=== PATIENT | female | born 1975 | race Caucasian/White ===

== ENCOUNTER 2016-08-10 12:19 | Inpatient (IN) | payer MEDICARE, OTHER ==
[~2016-08-10] VITALS: Ht 165.1 cm; Wt 73.5 kg
[2016-08-10] VITALS (21 sets, daily range): BP systolic 86–113; BP diastolic 41–71
[2016-08-10] MEDS ORDERED: CEFEPIME 1 GM in IV D5W 50 ML IV ONE (12:30)
[2016-08-10] MEDS ORDERED: VANCOMYCIN 1 GM in IV D5W 250 ML IV ONE ×2 (12:30→15:30)
[2016-08-10] MEDS ORDERED: ACETAMINOPHEN 650 MG/SUPP.RECT RC ONE ×2 (12:30→12:54)
[2016-08-10] MEDS ORDERED: IV NS 0.9% 1,000 ML BAG IV ONE ×2 (12:30→15:30)
[2016-08-10 12:40] LABS: BASOPHILS # (AUTO) 0.6 /CMM (0.0-0.2); BASOPHILS % (AUTO) 2.7 % (0.0-2.0); DIFF TOTAL % 100 %; HEMATOCRIT 45 % (33-45); LYMPHOCYTES # (AUTO) 2.1 /CMM (0.8-4.8); LYMPHOCYTES % (AUTO) 9.1 % (20.0-44.0); MEAN CORPUSCULAR HEMOGLOBIN 28 PG (26.0-33.0); MEAN CORPUSCULAR HGB CONC 34 g/dl (31.0-36.0); MEAN CORPUSCULAR VOLUME 82 fL (82-100); MONOCYTES # (AUTO) 0.3 /CMM (0.1-1.30); MONOCYTES % (AUTO) 1.3 % (2.0-12.0); NEUTROPHILS # (AUTO) 19.9 /CMM (1.8-8.9); NEUTROPHILS % (AUTO) 86.9 % (43.0-81.0); PLATELET COUNT (AUTO) 356 /CMM (150-450); RED BLOOD CELL COUNT(AUTO) 5.44 MIL/uL (4.0-5.2); WHITE BLOOD COUNT (AUTO) 22.9 K/uL (4.3-11.0)
[2016-08-10 12:42] LABS: KETONES,URINE >=160 (NEGATIVE); LEUKOCYTE ESTERASE ,URINE Large (NEGATIVE); PH,URINE 8.5 (5.0-8.0)
[2016-08-10 12:49] LABS: ADD UA MICROSCOPIC YES
[2016-08-10 12:51] LABS: CALCIUM, SERUM 9.1 mg/dL (8.5-10.1); CREATININE 0.9 mg/dL (0.6-1.3); POTASSIUM 3.5 mmol/L (3.5-5.1)
[2016-08-10 12:52] LABS: ADD URINE CULTURE YES; WBC,URINE 21-50 /HPF (0-3)
[2016-08-10 12:54] LABS: INR 1.11 (0.87-1.13); PROTHROMBIN TIME 11.7 SECS (9.5-12.7)
[2016-08-10 12:56] LABS: ALBUMIN 2.8 g/dL (3.4-5.0); BILIRUBIN,DIRECT 0.1 mg/dL (0.0-0.2); BILIRUBIN,TOTAL 0.4 mg/dL (0.2-1.0); INDIRECT BILIRUBIN 0.3 mg/dL (0.0-1.1); TOTAL PROTEIN, SERUM 7.5 g/dL (6.4-8.2)
[2016-08-10 12:58] LABS: TROPONIN I 0.026 ng/mL (0.00-0.056)
[2016-08-10] MEDS ORDERED: LEVOFLOXACIN 750 MG /D5W 150ML 150 ML IV ONE (13:00)
[2016-08-10] MEDS ORDERED: AZTREONAM 2 G in IV NS 0.9% 100 ML IV ONE (13:00)
[2016-08-10] MEDS ORDERED: IV SET PRIMARY 1 EA INFUS.SET MC ONE (13:13)
[2016-08-10] MEDS ORDERED: IV NS 0.9% 250 ML IV ONE (13:13)
[2016-08-10] MEDS ORDERED: IV NS 0.9% 2,000 ML ONE (13:13)
[2016-08-10 13:31] LABS: LACTIC ACID 1.2 mmol/L (0.4-2.0)
[2016-08-10 13:50] LABS: BAND % (MANUAL) 5 % (0.0-5.0); LYMPHOCYTES % (MANUAL) 15 % (16-48); PLATELET ESTIMATE ADEQUATE
[2016-08-10] MEDS ORDERED: IV SET PRIMARY PUMP SET 1 EA INFUS.SET MC ONE ×2 (13:58→16:10)
[2016-08-10] MEDS ORDERED: NEOM10DR11 EACH EAR (14:28)
[2016-08-10] MEDS ORDERED: ALPR2TAB2 PO (14:28)
[2016-08-10] MEDS ORDERED: DULO20CA PO (14:28)
[2016-08-10] MEDS ORDERED: OXYC40TA50 PO (14:28)
[2016-08-10] MEDS ORDERED: GLAT40SY SQ (14:28)
[2016-08-10] MEDS ORDERED: GABA-534 PO ×2 (14:28)
[2016-08-10] MEDS ORDERED: DIVA250T6 PO (14:28)
[2016-08-10] MEDS ORDERED: BACL20TA PO (14:28)
[2016-08-10] MEDS ORDERED: OXYB15TA PO (14:28)
[2016-08-10] MEDS ORDERED: METO5TAB87 PO (14:28)
[2016-08-10] MEDS ORDERED: CEPH500C2 PO (14:28)
[2016-08-10] MEDS ORDERED: ONDANSETRON HCL/PF 4 MG/2 ML VIAL IVP PRN (15:30)
[2016-08-10] MEDS ORDERED: ACETAMINOPHEN 325 MG TABLET PO PRN (15:30)
[2016-08-10] MEDS ORDERED: SECONDARY IV SET 1 EA INFUS.SET MC ONE ×2 (16:10→21:25)
[2016-08-10] MEDS ORDERED: FEE PK DOSING 1 MIN EA MC ONE (16:14)
[2016-08-10] MEDS ORDERED: NOREPINEPHRINE 8 MG in IV D5W 500 ML IV PRN (17:00)
[2016-08-10] MEDS: IV NS 0.9% 1,000 ML IV PRN (17:04)
[2016-08-10 17:29] LABS: ABG BASE EXCESS -1.6 mmol/L; ABG HCO3 21.4 mmol/L; ABG PH 7.457 (7.350-7.450); ABG PO2 110.2 mmHg (75.0-100.0); ABG TOTAL HEMOGLOBIN 12.3 G/dL (12.0-16.0); ALLEN TEST Pass; AaDO2 45.7 mmHg; O2Hb 96.1 % (94.0-97.0)
[2016-08-10] MEDS ORDERED: MEROPENEM 500 MG in IV NS 0.9% 50 ML IV SCH (21:00)
[2016-08-10] MEDS ORDERED: AZTREONAM 1 G in IV NS 0.9% 50 ML IV SCH (21:00)
[2016-08-10] MEDS: MEROPENEM 1 G in IV NS 0.9% 100 ML IV SCH (21:34)
[2016-08-10] MEDS: VANCOMYCIN 1 GM in IV D5W 250 ML IV SCH (22:37)
[2016-08-11] VITALS (31 sets, daily range): BP systolic 80–130; BP diastolic 34–78
[2016-08-11] MEDS: IV NS 0.9% 1,000 ML IV PRN (05:01)
[2016-08-11] MEDS: MEROPENEM 1 G in IV NS 0.9% 100 ML IV SCH ×3 (05:01→21:08)
[2016-08-11 05:18] LABS: ALBUMIN 2.2 g/dL (3.4-5.0); BILIRUBIN,TOTAL 0.4 mg/dL (0.2-1.0); CALCIUM, SERUM 7.9 mg/dL (8.5-10.1); CREATININE 0.6 mg/dL (0.6-1.3); TOTAL PROTEIN, SERUM 5.5 g/dL (6.4-8.2)
[2016-08-11 05:21] LABS: BASOPHILS % (AUTO) 0.3 % (0.0-2.0); DIFF TOTAL % 100 %; EOSINOPHILS # (AUTO) 0.2 /CMM (0.0-0.7); EOSINOPHILS % (AUTO) 1.9 % (0.0-6.0); HEMATOCRIT 33 % (33-45); HEMOGLOBIN 10.8 g/dL (11.5-14.8); LYMPHOCYTES # (AUTO) 2.5 /CMM (0.8-4.8); LYMPHOCYTES % (AUTO) 26.5 % (20.0-44.0); MEAN CORPUSCULAR HEMOGLOBIN 27 PG (26.0-33.0); MEAN CORPUSCULAR HGB CONC 33 g/dl (31.0-36.0); MEAN CORPUSCULAR VOLUME 83 fL (82-100); MONOCYTES # (AUTO) 0.8 /CMM (0.1-1.30); MONOCYTES % (AUTO) 8.3 % (2.0-12.0); NEUTROPHILS # (AUTO) 6.1 /CMM (1.8-8.9); PLATELET COUNT (AUTO) 208 /CMM (150-450); RED BLOOD CELL COUNT(AUTO) 3.92 MIL/uL (4.0-5.2); WHITE BLOOD COUNT (AUTO) 9.6 K/uL (4.3-11.0)
[2016-08-11] MEDS: VANCOMYCIN 1 GM in IV D5W 250 ML IV SCH (06:01)
[2016-08-11] MEDS: PANTOPRAZOLE 40 MG VIAL IV SCH (08:45)
[2016-08-11] MEDS: POTASSIUM CHLORIDE 20 MEQ TAB.PRT.SR PO SCH ×3 (12:24→15:14)
[2016-08-11] MEDS ORDERED: SECONDARY IV SET 1 EA INFUS.SET MC ONE (12:36)
[2016-08-11] MEDS ORDERED: IV SET PRIMARY PUMP SET 1 EA INFUS.SET MC ONE (14:09)
[2016-08-11] MEDS: LACTOBACILLUS RHAMNOSUS GG 1 EACH CAP.SPRINK PO SCH (16:50)
[2016-08-11] MEDS ORDERED: oxyCODONE HCL SR 40MG TAB.SR.12H PO ONE (21:53)
[2016-08-12] VITALS (7 sets, daily range): BP systolic 99–113; BP diastolic 46–61
[2016-08-12] MEDS: IV NS 0.9% 1,000 ML IV PRN ×2 (01:25→09:53)
[2016-08-12] MEDS: MEROPENEM 1 G in IV NS 0.9% 100 ML IV SCH ×3 (04:30→20:55)
[2016-08-12] MEDS: ACETAMINOPHEN 650 MG/20.3 ML UDC NG PRN ×2 (06:14→23:21)
[2016-08-12 07:00] LABS: CALCIUM, SERUM 8.2 mg/dL (8.5-10.1); CREATININE 0.6 mg/dL (0.6-1.3); POTASSIUM 3.6 mmol/L (3.5-5.1)
[2016-08-12] MEDS: VANCOMYCIN 1 GM in IV D5W 250 ML IV SCH ×2 (09:49→17:02)
[2016-08-12] MEDS: LACTOBACILLUS RHAMNOSUS GG 1 EACH CAP.SPRINK PO SCH ×2 (09:53→17:02)
[2016-08-12] MEDS: PANTOPRAZOLE 40 MG VIAL IV SCH (09:54)
[2016-08-12] MEDS: oxyCODONE HCL SR 40MG TAB.SR.12H PO SCH ×2 (09:54→20:56)
[2016-08-12] MEDS: DAKINS QUARTER STRENGTH (0.125%) 480 ML BOTTLE TOP SCH (11:34)
[2016-08-13] VITALS (17 sets, daily range): BP systolic 12–138; BP diastolic 52–93
[2016-08-13] MEDS: IV NS 0.9% 1,000 ML IV PRN ×3 (03:01→21:10)
[2016-08-13] MEDS: MEROPENEM 1 G in IV NS 0.9% 100 ML IV SCH ×2 (04:39→12:43)
[2016-08-13] MEDS: VANCOMYCIN 1 GM in IV D5W 250 ML IV SCH ×2 (05:44→18:26)
[2016-08-13] MEDS ORDERED: LORAZEPAM INJ 2 MG/ML VIAL ONE ×3 (07:14→07:53)
[2016-08-13] MEDS ORDERED: LORAZEPAM INJ 2 MG/ML VIAL IV ONE ×4 (07:30→08:00)
[2016-08-13 07:42] LABS: CREATININE 0.7 mg/dL (0.6-1.3); POTASSIUM 3.3 mmol/L (3.5-5.1)
[2016-08-13] MEDS ORDERED: phenytoin SODIUM IV 1,000 MG in IV NS 0.9% 100 ML IV ONE ×6 (08:00)
[2016-08-13] MEDS: DULOXETINE HCL 20 MG CAPSULE.DR PO SCH (09:00)
[2016-08-13] MEDS: DAKINS QUARTER STRENGTH (0.125%) 480 ML BOTTLE TOP SCH (09:00)
[2016-08-13] MEDS ORDERED: Medication Not On Formulary EA (Oxycodone Hcl (Oxycontin) 40 MG) PO SCH (09:00)
[2016-08-13] MEDS ORDERED: GABAPENTIN 300 MG CAPSULE PO SCH ×2 (09:00)
[2016-08-13] MEDS ORDERED: DIVALPROEX SODIUM 250 MG TABLET.DR PO SCH (09:00)
[2016-08-13] MEDS: oxyCODONE HCL SR 40MG TAB.SR.12H PO SCH ×2 (09:00→21:00)
[2016-08-13] MEDS ORDERED: IV SET PRIMARY PUMP SET 1 EA INFUS.SET MC ONE ×2 (09:49→15:15)
[2016-08-13] MEDS ORDERED: SECONDARY IV SET 1 EA INFUS.SET MC ONE ×2 (09:50→18:30)
[2016-08-13] MEDS: POTASSIUM CL. PREMIX PERIPHER. 50 ML IV SCH ×4 (10:09→13:39)
[2016-08-13] MEDS: LACTOBACILLUS RHAMNOSUS GG 1 EACH CAP.SPRINK PO SCH ×2 (10:10→18:27)
[2016-08-13] MEDS: PANTOPRAZOLE 40 MG VIAL IV SCH (10:10)
[2016-08-13] MEDS: BACLOFEN (10 MG) 10 MG TABLET PO SCH ×4 (10:10→21:02)
[2016-08-13] MEDS: ACETAMINOPHEN 650 MG/20.3 ML UDC NG PRN (12:29)
[2016-08-13] MEDS ORDERED: VALPROATE 1,000 MG in IV D5W 100 ML IV STA (14:00)
[2016-08-13] MEDS: VALPROIC ACID 250 MG/5 ML UDC GT SCH (15:12)
[2016-08-13] MEDS: GABAPENTIN 300 MG CAPSULE PO SCH (18:27)
[2016-08-13] MEDS: OXYBUTYNIN CHLORIDE ER 5 MG TAB PO SCH (21:55)
[2016-08-13] MEDS ORDERED: LORAZEPAM INJ 2 MG/ML VIAL IV PRN (22:00)
[2016-08-14] VITALS (17 sets, daily range): BP systolic 105–130; BP diastolic 59–75
[2016-08-14] MEDS: IV NS 0.9% 1,000 ML IV PRN ×2 (05:06→13:49)
[2016-08-14 05:15] LABS: CALCIUM, SERUM 8.4 mg/dL (8.5-10.1); CREATININE 0.5 mg/dL (0.6-1.3); POTASSIUM 3.5 mmol/L (3.5-5.1)
[2016-08-14] MEDS: VANCOMYCIN 1 GM in IV D5W 250 ML IV SCH ×2 (06:00→17:59)
[2016-08-14] MEDS: LACTOBACILLUS RHAMNOSUS GG 1 EACH CAP.SPRINK PO SCH ×2 (08:23→17:55)
[2016-08-14] MEDS: BACLOFEN (10 MG) 10 MG TABLET PO SCH ×4 (08:23→21:11)
[2016-08-14] MEDS: CALCIUM CARB 600MG /VIT D 1 EACH TABLET PO SCH (08:23)
[2016-08-14] MEDS: PANTOPRAZOLE 40 MG VIAL IV SCH (08:23)
[2016-08-14] MEDS: GABAPENTIN 300 MG CAPSULE PO SCH ×3 (08:23→21:08)
[2016-08-14] MEDS: VALPROIC ACID 250 MG/5 ML UDC GT SCH ×2 (08:24→21:08)
[2016-08-14] MEDS: oxyCODONE HCL SR 40MG TAB.SR.12H PO SCH ×2 (08:24→21:09)
[2016-08-14] MEDS: DAKINS QUARTER STRENGTH (0.125%) 480 ML BOTTLE TOP SCH (08:26)
[2016-08-14] MEDS: DULOXETINE HCL 20 MG CAPSULE.DR PO SCH (08:28)
[2016-08-14] MEDS ORDERED: IV SET PRIMARY PUMP SET 1 EA INFUS.SET MC ONE (13:06)
[2016-08-14] MEDS: GLATIRAMER ACETATE 20 MG SQ SCH ×2 (14:21→14:23)
[2016-08-14 17:59] LABS: KETONES,URINE TRACE (NEGATIVE); LEUKOCYTE ESTERASE ,URINE NEGATIVE (NEGATIVE); PH,URINE 7.5 (5.0-8.0)
[2016-08-14 18:02] LABS: ADD UA MICROSCOPIC YES
[2016-08-14 18:07] LABS: ADD URINE CULTURE NO; RBC,URINE 0-2 /HPF (0-2); WBC,URINE 0-2 /HPF (0-3)
[2016-08-14] MEDS ORDERED: SECONDARY IV SET 1 EA INFUS.SET MC ONE ×2 (18:23→21:28)
[2016-08-14] MEDS: AZTREONAM 1 G in IV NS 0.9% 100 ML IV SCH (21:07)
[2016-08-14] MEDS: OXYBUTYNIN CHLORIDE ER 5 MG TAB PO SCH (21:08)
[2016-08-15] VITALS (7 sets, daily range): BP systolic 94–112; BP diastolic 44–63
[2016-08-15] MEDS: VANCOMYCIN 1 GM in IV D5W 250 ML IV SCH ×2 (05:52→18:05)
[2016-08-15] MEDS: IV NS 0.9% 1,000 ML IV PRN ×2 (05:55→16:15)
[2016-08-15 09:35] LABS: CALCIUM, SERUM 8.4 mg/dL (8.5-10.1); CREATININE 0.5 mg/dL (0.6-1.3)
[2016-08-15] MEDS ORDERED: POTASSIUM CHLORIDE 20 MEQ TAB.PRT.SR PO ONE (10:30)
[2016-08-15] MEDS: PANTOPRAZOLE 40 MG VIAL IV SCH (10:41)
[2016-08-15] MEDS: DULOXETINE HCL 20 MG CAPSULE.DR PO SCH (10:41)
[2016-08-15 10:42] LABS: BASOPHILS # (AUTO) 0.1 /CMM (0.0-0.2); DIFF TOTAL % 100 %; EOSINOPHILS # (AUTO) 0.2 /CMM (0.0-0.7); EOSINOPHILS % (AUTO) 2.5 % (0.0-6.0); HEMATOCRIT 35 % (33-45); HEMOGLOBIN 11.5 g/dL (11.5-14.8); LYMPHOCYTES # (AUTO) 3.2 /CMM (0.8-4.8); LYMPHOCYTES % (AUTO) 36.8 % (20.0-44.0); MEAN CORPUSCULAR HEMOGLOBIN 27 PG (26.0-33.0); MEAN CORPUSCULAR HGB CONC 33 g/dl (31.0-36.0); MEAN CORPUSCULAR VOLUME 84 fL (82-100); MONOCYTES # (AUTO) 0.6 /CMM (0.1-1.30); MONOCYTES % (AUTO) 6.8 % (2.0-12.0); NEUTROPHILS # (AUTO) 4.6 /CMM (1.8-8.9); NEUTROPHILS % (AUTO) 52.9 % (43.0-81.0); PLATELET COUNT (AUTO) 264 /CMM (150-450); RED BLOOD CELL COUNT(AUTO) 4.23 MIL/uL (4.0-5.2); WHITE BLOOD COUNT (AUTO) 8.6 K/uL (4.3-11.0)
[2016-08-15] MEDS: GABAPENTIN 300 MG CAPSULE PO SCH ×3 (10:42→22:01)
[2016-08-15] MEDS: VALPROIC ACID 250 MG/5 ML UDC GT SCH ×2 (10:42→21:45)
[2016-08-15] MEDS: LACTOBACILLUS RHAMNOSUS GG 1 EACH CAP.SPRINK PO SCH ×2 (10:42→18:04)
[2016-08-15] MEDS: CALCIUM CARB 600MG /VIT D 1 EACH TABLET PO SCH (10:42)
[2016-08-15] MEDS: GLATIRAMER ACETATE 20 MG SQ SCH (10:44)
[2016-08-15] MEDS: AZTREONAM 1 G in IV NS 0.9% 100 ML IV SCH ×2 (10:45→20:55)
[2016-08-15] MEDS: BACLOFEN (10 MG) 10 MG TABLET PO SCH ×4 (10:49→21:47)
[2016-08-15] MEDS: oxyCODONE HCL SR 40MG TAB.SR.12H PO SCH ×2 (10:49→22:45)
[2016-08-15] MEDS: DAKINS QUARTER STRENGTH (0.125%) 480 ML BOTTLE TOP SCH (10:50)
[2016-08-15 11:12] LABS: IRON, SERUM 53 ug/dl (50-175); PERCENT SATURATION 31 % (14-33); TOTAL IRON BINDING CAPACITY 171 ug/dl (250-450); VALPROIC ACID 8 ug/mL (50-100)
[2016-08-15] MEDS: OXYBUTYNIN CHLORIDE ER 5 MG TAB PO SCH (22:00)
[2016-08-16] MEDS: IV NS 0.9% 1,000 ML IV PRN ×2 (01:19→08:26)
[2016-08-16] MEDS: VANCOMYCIN 1 GM in IV D5W 250 ML IV SCH ×2 (05:36→18:00)
[2016-08-16 07:57] LABS: CREATININE 0.6 mg/dL (0.6-1.3); POTASSIUM 3.2 mmol/L (3.5-5.1)
[2016-08-16 08:00] VITALS: BP 109/52
[2016-08-16] MEDS: AZTREONAM 1 G in IV NS 0.9% 100 ML IV SCH (08:26)
[2016-08-16] MEDS: PANTOPRAZOLE 40 MG VIAL IV SCH (08:27)
[2016-08-16] MEDS: CALCIUM CARB 600MG /VIT D 1 EACH TABLET PO SCH (08:27)
[2016-08-16] MEDS: LACTOBACILLUS RHAMNOSUS GG 1 EACH CAP.SPRINK PO SCH ×2 (08:27→16:56)
[2016-08-16] MEDS: VALPROIC ACID 250 MG/5 ML UDC GT SCH (08:27)
[2016-08-16] MEDS: DULOXETINE HCL 20 MG CAPSULE.DR PO SCH (08:27)
[2016-08-16] MEDS: GABAPENTIN 300 MG CAPSULE PO SCH ×2 (08:28→16:56)
[2016-08-16] MEDS: oxyCODONE HCL SR 40MG TAB.SR.12H PO SCH (08:28)
[2016-08-16] MEDS: DAKINS QUARTER STRENGTH (0.125%) 480 ML BOTTLE TOP SCH (08:29)
[2016-08-16] MEDS: BACLOFEN (10 MG) 10 MG TABLET PO SCH ×3 (08:57→16:56)
[2016-08-16] MEDS: GLATIRAMER ACETATE 20 MG SQ SCH (08:57)
[2016-08-16] MEDS: POTASSIUM CHLORIDE 20 MEQ TAB.PRT.SR PO SCH ×2 (11:57→13:31)
[2016-08-16 16:00] VITALS: BP 99/60
[2016-08-17] MEDS ORDERED: HYDROGEL DRESSING 90 GM TUBE TP SCH (09:00)
== END 2016-08-16 19:55 | disposition home health service (06) | DRG 853 ==
LOC: ER 12:24 → ICU 14:35 → TELE 08-11 13:27 → MED 08-12 12:47 → ICU 08-13 07:50 → TELE 08-14 11:25 → MED 08-15 13:15
PROVIDERS: ADMIT Internal Medicine; ATTEND Internal Medicine
PROC: 02HV33Z Insertion of Infusion Device into Superior Vena Cava, Percutaneous Approach (ICD-10-PCS; 2016-08-10)
PROC: B548ZZA Ultrasonography of Superior Vena Cava, Guidance (ICD-10-PCS; 2016-08-10)
PROC: 0KBP0ZZ Excision of Left Hip Muscle, Open Approach (ICD-10-PCS; principal; 2016-08-16)
PROC: 0KBN0ZZ Excision of Right Hip Muscle, Open Approach (ICD-10-PCS; 2016-08-16)
DX: A41.9 Sepsis, unspecified organism (principal); L89.154 Pressure ulcer of sacral region, stage 4; G93.41 Metabolic encephalopathy; N39.0 Urinary tract infection, site not specified; G35 Multiple sclerosis; E87.6 Hypokalemia; D63.8 Anemia in other chronic diseases classified elsewhere; F12.90 Cannabis use, unspecified, uncomplicated; F39 Unspecified mood [affective] disorder; Z88.0 Allergy status to penicillin; Z90.49 Acquired absence of other specified parts of digestive tract; S91.301A Unspecified open wound, right foot, initial encounter; X58.XXXA Exposure to other specified factors, initial encounter; Y93.9 Activity, unspecified; Y92.009 Unspecified place in unspecified non-institutional (private) residence as the place of occurrence of the external cause; Y99.9 Unspecified external cause status; L89.519 Pressure ulcer of right ankle, unspecified stage; G40.401 Other generalized epilepsy and epileptic syndromes, not intractable, with status epilepticus; R65.20 Severe sepsis without septic shock
CPT/HCPCS: 36415; 36600; 70450-TC; 71010-TC; 80048-TC; 80053-TC; 80076-TC; 80164-TC; 80202-TC; 81000-TC; 82962-TC; 83540-TC; 83605-TC; 84484-TC; 85025-TC; 85730-TC; 87040-TC; 87081-TC; 87086-TC; 95819-TC; A4216; A4606; A6248; A6253; A6402; A6403; C9113; J1165; J2060; J2185; J2405; J3370; J3480; J3490; J7030; J7050; J7060; Z7610

== ENCOUNTER 2017-09-27 19:40 | Inpatient (IN) | payer MEDICARE, OTHER ==
[~2017-09-27] VITALS: Ht 175.3 cm; Wt 70.3 kg
[~2017-09-27 19:40] MED LIST: ALPR2TAB2 PO; BACL20TA PO; CEPH500C2 PO; DIVA250T6 PO; DULO20CA PO; GABA-534 PO; GLAT40SY SQ; METO5TAB87 PO; NEOM10DR11 EACH EAR; OXYB15TA PO; OXYC40TA50 PO
--- NOTE | 2017-09-27 19:40 | NUR ---
BBRA WITH C/O LOW SPO2 OF 80%, RHONCHI/ALTERED" PER EMS. C-PAP APPLIED IN FIELD. PT TRANSFERRED TO ER BED 3 GURNEY, GOWNED, AND PLACED ON MONITOR AND POX. RESP EVEN AND LABORED. SKIN FLUSHED AND HOT TO TOUCH. C-PAP DISCONTINUED PER MD AND PT PLACED ON SIMPLE MASK 6L. MD BEDSIDE FOR EVAL. RT BEDSIDE.
--- NOTE | 2017-09-27 19:45 | NUR ---
EMT BEDSIDE FOR EKG
[2017-09-27] MEDS ORDERED: ACETAMINOPHEN 650 MG/SUPP.RECT RC ONE ×2 (20:00→20:14)
[2017-09-27] MEDS ORDERED: ASPIRIN 325 MG TABLET PO ONE (20:00)
[2017-09-27] MEDS ORDERED: AZTREONAM 2 G in IV NS 0.9% 100 ML IV ONE (20:00)
[2017-09-27] MEDS ORDERED: FUROSEMIDE 40 MG/4 ML VIAL IV ONE (20:00)
[2017-09-27] MEDS ORDERED: DILTIAZEM HCL 25 MG IV IV ONE (20:00)
[2017-09-27] MEDS ORDERED: VANCOMYCIN 1 GM in IV D5W 250 ML IV ONE (20:00)
[2017-09-27 20:10] LABS: EOSINOPHILS # (AUTO) 0.7 /CMM (0.0-0.7); HEMOGLOBIN 12.4 g/dL (11.5-14.8); LYMPHOCYTES # (AUTO) 2.1 /CMM (0.8-4.8)
[2017-09-27 20:13] LABS: BASOPHILS # (AUTO) 0.2 /CMM (0.0-0.2); BASOPHILS % (AUTO) 0.8 % (0.0-2.0); EOSINOPHILS % (AUTO) 3.6 % (0.0-6.0); HEMATOCRIT 37 % (33-45); LYMPHOCYTES % (AUTO) 11.2 % (20.0-44.0); MEAN CORPUSCULAR HEMOGLOBIN 27 PG (26.0-33.0); MEAN CORPUSCULAR HGB CONC 33 g/dl (31.0-36.0); MEAN CORPUSCULAR VOLUME 81 fL (82-100); MONOCYTES # (AUTO) 1.1 /CMM (0.1-1.30); MONOCYTES % (AUTO) 5.7 % (2.0-12.0); NEUTROPHILS # (AUTO) 14.9 /CMM (1.8-8.9); NEUTROPHILS % (AUTO) 78.7 % (43.0-81.0); PLATELET COUNT (AUTO) 492 /CMM (150-450); RED BLOOD CELL COUNT(AUTO) 4.62 MIL/uL (4.0-5.2)
[2017-09-27] MEDS ORDERED: VANCOMYCIN 1 GM VIAL ONE (20:14)
[2017-09-27] MEDS ORDERED: AZTREONAM 1 G VIAL ONE (20:14)
[2017-09-27 20:15] LABS: APPEARANCE,URINE Slightly Cloudy (CLEAR); BILIRUBIN,URINE Negative (NEGATIVE); BLOOD, URINE Moderate Ery/uL (NEGATIVE); COLOR,URINE Yellow (YELLOW); KETONES,URINE Negative (NEGATIVE); LEUKOCYTE ESTERASE ,URINE Negative (NEGATIVE); NITRITE, URINE Negative (NEGATIVE); PROTEIN,URINE >=300 mg/dl (NEGATIVE); UGLUCOSE Negative (NEGATIVE); UROBILINOGEN,URINE 0.2 EU/dL (0.2)
[2017-09-27] MEDS ORDERED: ASPIRIN 325 MG TABLET ONE (20:15)
[2017-09-27 20:26] LABS: CALCIUM, SERUM 9.6 mg/dL (8.5-10.1); CARBON DIOXIDE 27 mmol/L (21-32); CHLORIDE 103 mmol/L (98-107); CREATININE 0.8 mg/dL (0.6-1.3); GLUCOSE 127 mg/dL (74-106); POTASSIUM 4.6 mmol/L (3.5-5.1); SODIUM SERUM 137 mmol/L (136-145); UREA NITROGEN, BLOOD 18 mg/dL (7-18)
[2017-09-27 20:26] LABS: BACTERIA,URINE Rare /HPF (None Seen); SQUAMOUS EPITHELIAL CELL,UR Few /HPF (None Seen); WBC,URINE 0-2 /HPF (0-3)
[2017-09-27 20:29] LABS: INR 0.94 (0.85-1.15)
[2017-09-27 20:34] LABS: TROPONIN I < 0.017 ng/mL (0.00-0.056)
[2017-09-27 20:35] LABS: BAND % (MANUAL) 2 % (0.0-5.0); EOSINOPHILS % (MANUAL) 3 % (0-4); LYMPHOCYTES % (MANUAL) 10 % (16-48); MONOCYTES % (MANUAL) 5 % (0-11.0); NEUTROPHILS % (MANUAL) 80 (42-76)
[2017-09-27 20:39] LABS: ALANINE AMINOTRANSFERASE 14 U/L (12-78); ALBUMIN 2.7 g/dL (3.4-5.0); ALKALINE PHOSPHATASE 90 U/L (46-116); ASPARTATE AMINOTRANSFERASE 26 U/L (15-37); B-TYPE NATRIURETIC PEPTIDE 122 PG/ML (0-125); BILIRUBIN,TOTAL 0.1 mg/dL (0.2-1.0); TOTAL PROTEIN, SERUM 8.8 g/dL (6.4-8.2)
[2017-09-27 20:50] LABS: ABG BASE EXCESS 2.3 mmol/L; ABG OXYGEN SATURATION 91.9 % (92.0-98.5); ABG PH 7.425 (7.350-7.450); ABG PO2 65.3 mmHg (75.0-100.0); AaDO2 84.8 mmHg; COHb 0.5 % (0.5-1.5); MetHb 0.5 % (0.0-1.5); SITE, ABG Right Radial; VENT MODE, BG nasal cannula
[2017-09-27] MEDS ORDERED: IBUPROFEN SUSP 100 MG/5 ML UDC ONE (20:54)
--- NOTE | 2017-09-27 20:59 | NUR ---
EMT BEDSIDE FOR ACCU CHECK.
[2017-09-27] MEDS ORDERED: IBUPROFEN SUSP 100 MG/5 ML UDC PO ONE (21:00)
--- NOTE | 2017-09-27 22:21 | NUR ---
GAVE REPORT TO JONES AMAYA FOR CEDRIC
[2017-09-27 22:35] VITALS: BP 99/63
[2017-09-27] MEDS ORDERED: MAGNESIUM HYDROXIDE 30 ML UDC PO PRN (23:00)
[2017-09-27] MEDS ORDERED: MAG HYDROX/AL HYDROX/SIMETH 30 ML UDC PO PRN (23:00)
[2017-09-27] MEDS ORDERED: Z GUARD REMEDY 2 OZ OINT TP PRN (23:00)
--- NOTE | 2017-09-27 23:42 | NUR ---
RN NOTE RECEIVED PATIENT FROM ER, ADMITTING DX SEPSIS, PATIENT IS AWAKE, ALERT/ORIENTED X 1 TO NAME ONLY, SINUS TACHYCARDIA 146 BEATS/MINUTE, ON TELEMONITOR, TEMPERATURE 100.1, ICE BATH WAS PROVIDED, BILATERAL RHONCHI, ON 4 L/MIN VIA NASAL CANULA, 98%, RIGHT UPPER PICC LINE, FLUSHES WELL, NO S/S OF INFILTRATION/INFECTION NOTED, JEFFERY CATHETER IN PLACE, ALL SAFETY MEASURES TAKEN, CALL LIGHT WITHIN REACH, ALL BELONGINGS WITHIN REACH, BED IN THE LOWEST POSITION, WILL CONTINUE TO MONITOR PATIENT
[2017-09-28] VITALS: BP 93/63
[2017-09-28] MEDS ORDERED: AZTREONAM 1 G in IV NS 0.9% 100 ML IV SCH ×2
[2017-09-28 04:00] VITALS: BP 95/58
[2017-09-28] MEDS ORDERED: AZTREONAM 1 G VIAL ONE (05:41)
[2017-09-28] MEDS: AZTREONAM 1 G in IV NS 0.9% 100 ML IV SCH ×3 (06:01→20:12)
[2017-09-28 06:24] LABS: BASOPHILS # (AUTO) 0.1 /CMM (0.0-0.2); BASOPHILS % (AUTO) 0.5 % (0.0-2.0); EOSINOPHILS # (AUTO) 0.4 /CMM (0.0-0.7); HEMATOCRIT 35 % (33-45); HEMOGLOBIN 11.4 g/dL (11.5-14.8); LYMPHOCYTES % (AUTO) 13.8 % (20.0-44.0); MEAN CORPUSCULAR HEMOGLOBIN 27 PG (26.0-33.0); MEAN CORPUSCULAR HGB CONC 33 g/dl (31.0-36.0); MEAN CORPUSCULAR VOLUME 82 fL (82-100); MONOCYTES # (AUTO) 1.1 /CMM (0.1-1.30); MONOCYTES % (AUTO) 7.7 % (2.0-12.0); NEUTROPHILS # (AUTO) 10.7 /CMM (1.8-8.9); PLATELET COUNT (AUTO) 419 /CMM (150-450); RDW COEFFICIENT OF VARIATION 18.4 (11.5-15.0); RED BLOOD CELL COUNT(AUTO) 4.22 MIL/uL (4.0-5.2); WHITE BLOOD COUNT (AUTO) 14.3 K/uL (4.3-11.0)
[2017-09-28 06:40] LABS: CALCIUM, SERUM 9.6 mg/dL (8.5-10.1); CREATININE 0.9 mg/dL (0.6-1.3); MAGNESIUM 1.8 mg/dL (1.8-2.4); PHOSPHORUS 5.4 mg/dL (2.5-4.9); POTASSIUM 4.3 mmol/L (3.5-5.1)
[2017-09-28 06:48] LABS: THYROID STIMULATING HORMONE 1.805 uIU/mL (0.358-3.74)
--- NOTE | 2017-09-28 07:23 | NUR ---
RN NOTE NO ACUTE CHANGES DURING MY SHIFT, AFEBRILE, NO RESPIRATORY DISTRESS, PAIN OR DISCOMFORT NOTED, DILAN PICC LINE INTACT, NO S/S OF INFECTION/INFILTRATION NOTED, ON 4 L/MIN VIA NASAL CANULA, TOLERATED WELL, STILL SINUS TACHYCARDIA 105, ALL SAFETY MEASURES TAKEN, TURNED AND REPOSITIONED Q 2 HOURS, OFFLOADED EXTREMITIES, BED IN THE LOWEST POSITION, CALL LIGHT WITHIN REACH, SIDE RAILS UP X 2, ENDORSED TO AM SHIFT
--- NOTE | 2017-09-28 07:34 | NUR ---
RN NOTES RECEIVED PT FROM CIRCULATION MAN, A&0X1, CONFUSED, ON 4L NC NO SOB OR DISTRESS SATING WELL. SR ON THE TELE KHANH HR 108. JEFFERY DRAINING TO GRAVITY. DILAN PICCLINE INTACT NO IVF. BED LOCKED AND IN LOWEST POSITION,CA LL LIGHT WITHIN REACH, WILL CONT TO KHANH.
[2017-09-28] MEDS ORDERED: FEE PK DOSING 1 MIN EA MC ONE (07:49)
[2017-09-28 08:00] VITALS: BP 95/62
--- NOTE | 2017-09-28 08:14 | NUR ---
MADISON ARDON [phone]
[2017-09-28] MEDS: VANCOMYCIN 0.75 GM in IV NS 0.9% 250 ML IV SCH ×2 (08:45→21:11)
[2017-09-28 12:00] VITALS: BP 95/57
[2017-09-28 16:00] VITALS: BP 93/58
[2017-09-28] MEDS ORDERED: IV NS 0.9% 1,000 ML BAG IV PRN (16:30)
[2017-09-28] MEDS ORDERED: IV NS 0.9% 500 ML IV ONE (16:30)
[2017-09-28] MEDS: GABAPENTIN 300 MG CAPSULE PO SCH (17:18)
[2017-09-28] MEDS: IV NS 0.9% 1,000 ML IV PRN (18:34)
--- NOTE | 2017-09-28 18:41 | NUR ---
RN NOTES PT REMAINED IN STABLE CONDITION THROUGHOUT THE SHIFT, PT MORE ALERT, ABLE TO ANSWER QUESTIONS. PT DOESN'T MAKE SENSE AT TIMES. PER FOREIGN CAR MECHANIC MADISON, HE WILL BRING HOME MEDICATIONS TONIGHT. COMMERCIAL AIRLINE PILOT JACINTA AWARE. ALL NEEDS MET. WILL ENDORSE TO ONCOMING SHIFT.
--- NOTE | 2017-09-28 19:30 | NUR ---
RN/TELE NOTES: RECEIVED PT. IN BED W/ HOB ELEVATED A&0X1, CONFUSED, ON 4L NC NO SOB OR DISTRESS SATING WELL. SR ON THE TELE KHANH HR 104. JEFFERY DRAINING TO GRAVITY. DILAN PICC LINE INTACT IVF W/ NO S/S OF INFECTION/INFILTRATION NOTED. HAS A COLOSTOMY ON LLQ . BAG CHANGED. BED LOCKED AND IN LOWEST POSITION. CALL LIGHT WITHIN REACH. WILL CONT TO MONITOR.
[2017-09-28 20:00] VITALS: BP 94/50
[2017-09-28] MEDS: LEVETIRACETAM (250 MG) 250 MG TABLET PO SCH (21:24)
[2017-09-28] MEDS: GABAPENTIN 400 MG CAPSULE PO SCH (21:24)
[2017-09-29] VITALS: BP 110/78
[2017-09-29] MEDS: ACETAMINOPHEN 325 MG TABLET PO PRN ×2 (03:52→16:40)
[2017-09-29 04:00] VITALS: BP 146/68
[2017-09-29] MEDS: AZTREONAM 1 G in IV NS 0.9% 100 ML IV SCH ×2 (04:28→12:34)
--- NOTE | 2017-09-29 07:05 | NUR ---
RN INITIAL NOTE PATIENT RECEIVED IN BED, SLEEPING, EASILY AROUSED. SINUS RHYTHM ON TELE MONITOR. SATING WELL ON 4L NASAL CANULA. NO S/S OF RESPIRATORY DISTRESS OR SOB. SKIN IS WARM AND DRY TO TOUCH. IV SITE FLUSHED, PATENT. SAFETY PRECAUTIONS IMPLEMENTED, BED IN LOCKED, LOW POSITION WITH TWO SIDE RAILS UP. CALL LIGHT AND BELONGINGS WITHIN EASY REACH. WILL CONTINUE TO MONITOR.
[2017-09-29 07:10] LABS: BASOPHILS % (AUTO) 0.4 % (0.0-2.0); EOSINOPHILS # (AUTO) 0.1 /CMM (0.0-0.7); EOSINOPHILS % (AUTO) 1.8 % (0.0-6.0); HEMATOCRIT 35 % (33-45); HEMOGLOBIN 11.7 g/dL (11.5-14.8); LYMPHOCYTES # (AUTO) 1.3 /CMM (0.8-4.8); LYMPHOCYTES % (AUTO) 16.2 % (20.0-44.0); MEAN CORPUSCULAR HEMOGLOBIN 27 PG (26.0-33.0); MEAN CORPUSCULAR HGB CONC 33 g/dl (31.0-36.0); MEAN CORPUSCULAR VOLUME 82 fL (82-100); MONOCYTES # (AUTO) 0.5 /CMM (0.1-1.30); MONOCYTES % (AUTO) 6.8 % (2.0-12.0); NEUTROPHILS % (AUTO) 74.8 % (43.0-81.0); PLATELET COUNT (AUTO) 356 /CMM (150-450); RDW COEFFICIENT OF VARIATION 18.9 (11.5-15.0); RED BLOOD CELL COUNT(AUTO) 4.31 MIL/uL (4.0-5.2)
[2017-09-29 07:24] LABS: CALCIUM, SERUM 9.5 mg/dL (8.5-10.1); CREATININE 0.7 mg/dL (0.6-1.3); POTASSIUM 3.9 mmol/L (3.5-5.1)
[2017-09-29 08:00] VITALS: BP 108/61
[2017-09-29] MEDS: LEVETIRACETAM (250 MG) 250 MG TABLET PO SCH ×2 (08:23→21:49)
[2017-09-29] MEDS: GABAPENTIN 300 MG CAPSULE PO SCH ×2 (08:23→17:25)
[2017-09-29] MEDS: VANCOMYCIN 0.75 GM in IV NS 0.9% 250 ML IV SCH ×2 (08:24→21:49)
[2017-09-29 12:00] VITALS: BP 123/71
[2017-09-29] MEDS: IV NS 0.9% 1,000 ML IV PRN (12:58)
[2017-09-29] MEDS ORDERED: LACTULOSE 10 G/15 ML UDC (PYXIS) PO ONE (15:30)
[2017-09-29 16:00] VITALS: BP 117/68
[2017-09-29] MEDS: ALPRAZOLAM 1 MG TABLET PO PRN (16:40)
[2017-09-29 20:00] VITALS: BP 138/63
[2017-09-29] MEDS: MEROPENEM 1 G in IV NS 0.9% 100 ML IV SCH (20:35)
[2017-09-29] MEDS: GABAPENTIN 400 MG CAPSULE PO SCH (21:50)
[2017-09-29] MEDS: HYDROCODONE/APAP 5/325MG 1 EACH TABLET PO PRN (22:02)
[2017-09-30] VITALS: BP 156/81
[2017-09-30 04:00] VITALS: BP 137/71
[2017-09-30] MEDS: MEROPENEM 1 G in IV NS 0.9% 100 ML IV SCH ×3 (04:01→20:33)
[2017-09-30] MEDS: IV NS 0.9% 1,000 ML IV PRN ×2 (04:04→20:27)
[2017-09-30 07:55] LABS: CALCIUM, SERUM 9.4 mg/dL (8.5-10.1); CREATININE 0.6 mg/dL (0.6-1.3); POTASSIUM 3.3 mmol/L (3.5-5.1)
[2017-09-30 08:00] VITALS: BP_SYST 129; BP_SYST 136; BP_DIAS 68; BP_DIAS 77
--- NOTE | 2017-09-30 08:00 | NUR ---
RN initial notes Patient alert and oriented x1, no s/sx of distress noted, no s/sx of pain or discomfort noted, kept patient comfortable, patient has a temperature of 100.7, Dr. Monterroso ID in the facility and made aware, no new order at this time. Call light within reach, will continue to monitor.
[2017-09-30] MEDS: VANCOMYCIN 0.75 GM in IV NS 0.9% 250 ML IV SCH ×2 (09:34→21:11)
[2017-09-30] MEDS: ZINC SULFATE 220 MG CAPSULE PO SCH (09:37)
[2017-09-30] MEDS: MULTIVITAMINS,THERAGRAN 1 UDTAB TABLET PO SCH (09:37)
[2017-09-30] MEDS: LEVETIRACETAM (250 MG) 250 MG TABLET PO SCH ×2 (09:37→21:10)
[2017-09-30] MEDS: ACETAMINOPHEN 325 MG TABLET PO PRN (09:37)
[2017-09-30] MEDS: GABAPENTIN 300 MG CAPSULE PO SCH ×2 (09:37→16:46)
[2017-09-30] MEDS: ASCORBIC ACID 500 MG TABLET PO SCH (09:37)
--- NOTE | 2017-09-30 10:49 | NUR ---
WOUND CARE CONSULT: PT PRESENTS WITH STAGE 4 ULCER TO SACRUM, PRESENT ON ADMISSION. SCARRING NOTED TO HEELS AND RT ANKLE. CURRENT PABLO SCORE IS 12. FIRST STEP MATTRESS ORDERED. ALL SKIN PROTECTION AND WOUND RECOMMENDATIONS DISCUSSED WITH NURSING STAFF. RECOMMEND SURGICAL CONSULT. WILL SEE PRN. CLEARY IN AGREEMENT WITH PLAN OF CARE. Addendum: 09/30/17 at 1050 by SANDRA FINK WNDNU Amended: Links added.
[2017-09-30] MEDS ORDERED: HYDROGEL DRESSING 90 GM TUBE TP PRN (11:00)
[2017-09-30] MEDS ORDERED: POTASSIUM CHLORIDE 20 MEQ TAB.PRT.SR PO SCH (12:30)
[2017-09-30] MEDS: HYDROGEL DRESSING 90 GM TUBE TP SCH (13:49)
[2017-09-30] MEDS ORDERED: TEMA30CA PO (15:48)
[2017-09-30] MEDS ORDERED: CLON2TAB4 PO (15:48)
[2017-09-30] MEDS ORDERED: LEVE1000 PO (15:48)
[2017-09-30] MEDS ORDERED: OXYC20TA58 PO (15:48)
[2017-09-30 16:00] VITALS: BP 117/71
--- NOTE | 2017-09-30 16:49 | NUR ---
RN Notes Patient offered adl care, skin care multiple times, patient refused. Per patient, i just want to sleep right now. Patient did take medications, but refused to be turned or repositioned at this time. Explained risks and benefits. Call light within reach, will continue to monitor.
[2017-09-30] MEDS ORDERED: ALPR2TAB7 PO (17:57)
--- NOTE | 2017-09-30 18:32 | NUR ---
RN notes Patient a/ox2, resting in bed, refused adl care, refused to insert 1st step mattress, patient wants to be left alone for now. Re-educated about skin breakdown and wounds. Patient is in no distress, afebrile at this time, breathing even and unlabored, call light within reach, will endorse to night club manager for nisha.
--- NOTE | 2017-09-30 18:46 | NUR ---
RN notes patient's mattress changed to KCi 1st step.
[2017-09-30] MEDS ORDERED: Glatiramer Acetate (Copaxone) 40 MG SQ SCH (19:30)
[2017-09-30] MEDS ORDERED: TEMAZEPAM 15 MG CAPSULE PO PRN (19:30)
--- NOTE | 2017-09-30 19:40 | NUR ---
RN OPENING NOTES PATIENT IS IN BED, ALERT AND ORIENTED X2. VS STABLE. RESPIRATIONS EVEN AND UNLABORED. NO SOB NOTED. IV ACCESS ON RIGHT UA PICC PATENT AND INTACT, NO REDNESS OR INFILTRATION NOTED. F/C IS IN PLACE. BED IN LOW AND LOCKED POSITION. CALL LIGHT WITHIN EASY REACH. WILL CONTINUE TO MONITOR.
--- NOTE | 2017-09-30 20:30 | NUR ---
RN NOTES TRANSFERRED PATIENT TO MED SURG FLOOR, ROOM 306-1. REPORT GIVEN TO SHERRILL CURRY. PATIENT IS IN STABLE CONDITION.
[2017-09-30 20:45] VITALS: BP 127/71
[2017-09-30] MEDS: HYDROCODONE/APAP 5/325MG 1 EACH TABLET PO PRN (21:30)
--- NOTE | 2017-09-30 22:00 | NUR ---
MS RN INITIAL NOTES PT WAS TRANSFERRED FROM [facility] VIA GURNEY. PT IS A/O X1-2, FORGETFUL. NO SIGNS OF SOB OR DISTRESS, BREATHING EVENLY AND UNLABORED ON 4L NC. BILATERAL HEEL REDNESS AND SACRAL WOUND NOTED. DILAN PICC INTACT AND PATENT WITH FLUIDS INFUSING. COLOSTOMY BAG IS INTACT AND PATENT. BED IS IN LOW AND LOCKED POSITION, CALL LIGHT WITHIN REACH. WILL CONTINUE TO MONITOR PT
[2017-10-01] MEDS: ACETAMINOPHEN 325 MG TABLET PO PRN (01:00)
[2017-10-01] MEDS: MEROPENEM 1 G in IV NS 0.9% 100 ML IV SCH ×3 (04:18→22:47)
--- NOTE | 2017-10-01 05:37 | NUR ---
MS RN NOTE PT IS REFUSING BED BATH AND AM CARE.
--- NOTE | 2017-10-01 06:32 | NUR ---
MS RN CLOSING NOTES PT IS IN BED RESTING. BREATHING EVENLY AND UNLABORED ON 4L NC. NO SIGNS OF SOB OR DISTRESS. IV ACCESS IS INTACT AND PATENT, WITH FLUIDS INFUSING. WOUND CARE WAS RENDERED. COLOSTOMY BAG WAS CHANGED. CONSENT WAS OBTAINED FOR WOUND DEBRIDEMENT. ALL NEEDS WERE ANTICIPATED AND MET. BED IS IN LOW AND LOCKED POSITION, CALL LIGHT WITHIN REACH. WILL ENDORSE TO DAYSHIFT.
--- NOTE | 2017-10-01 07:30 | NUR ---
MS RN OPENING NOTES PT IS IN BED RESTING. BREATHING EVENLY AND UNLABORED ON 4L NC. NO SIGNS OF SOB OR DISTRESS. IV ACCESS IS INTACT AND PATENT, WITH FLUIDS INFUSING. COLOSTOMY BAG WAS CHANGED. ALL NEEDS WERE ANTICIPATED AND MET. BED IS IN LOW AND LOCKED POSITION, CALL LIGHT WITHIN REACH. WILL CONTINUE TO MONITOR
[2017-10-01 08:00] VITALS: BP 121/75
[2017-10-01] MEDS: LEVETIRACETAM (250 MG) 250 MG TABLET PO SCH ×2 (08:53→22:46)
[2017-10-01] MEDS: MULTIVITAMINS,THERAGRAN 1 UDTAB TABLET PO SCH (08:53)
[2017-10-01] MEDS: DIVALPROEX SODIUM 250 MG TABLET.DR PO SCH ×2 (08:53→17:04)
[2017-10-01] MEDS: BACLOFEN (10 MG) 10 MG TABLET PO SCH ×3 (08:54→17:04)
[2017-10-01] MEDS: ASCORBIC ACID 500 MG TABLET PO SCH (08:54)
[2017-10-01] MEDS: ZINC SULFATE 220 MG CAPSULE PO SCH (08:54)
[2017-10-01] MEDS: DULOXETINE HCL 20 MG CAPSULE.DR PO SCH (08:54)
[2017-10-01] MEDS: VANCOMYCIN 0.75 GM in IV NS 0.9% 250 ML IV SCH ×2 (08:55→23:40)
[2017-10-01] MEDS: HYDROGEL DRESSING 90 GM TUBE TP SCH (09:09)
[2017-10-01 11:11] LABS: CALCIUM, SERUM 8.9 mg/dL (8.5-10.1); CREATININE 0.5 mg/dL (0.6-1.3); POTASSIUM 3.4 mmol/L (3.5-5.1)
[2017-10-01] MEDS: ALBUTEROL FS 2.5 MG/0.5 ML VIAL.NEB NEB SCH ×3 (11:30→19:56)
[2017-10-01] MEDS: IPRATROPIUM NEB FS 0.5 MG/2.5 ML AMPUL.NEB NEB SCH ×3 (11:30→19:56)
[2017-10-01] MEDS: ONDANSETRON HCL/PF 4 MG/2 ML VIAL IVP PRN (13:08)
[2017-10-01 14:30] LABS: BASOPHILS % (AUTO) 0.3 % (0.0-2.0); EOSINOPHILS # (AUTO) 0.1 /CMM (0.0-0.7); EOSINOPHILS % (AUTO) 1.3 % (0.0-6.0); HEMATOCRIT 32 % (33-45); HEMOGLOBIN 10.6 g/dL (11.5-14.8); LYMPHOCYTES # (AUTO) 1.6 /CMM (0.8-4.8); MEAN CORPUSCULAR HEMOGLOBIN 27 PG (26.0-33.0); MEAN CORPUSCULAR HGB CONC 33 g/dl (31.0-36.0); MEAN CORPUSCULAR VOLUME 81 fL (82-100); MONOCYTES # (AUTO) 0.5 /CMM (0.1-1.30); MONOCYTES % (AUTO) 9.2 % (2.0-12.0); NEUTROPHILS # (AUTO) 3.1 /CMM (1.8-8.9); NEUTROPHILS % (AUTO) 58.2 % (43.0-81.0); PLATELET COUNT (AUTO) 334 /CMM (150-450); RDW COEFFICIENT OF VARIATION 18.4 (11.5-15.0); RED BLOOD CELL COUNT(AUTO) 3.94 MIL/uL (4.0-5.2); WHITE BLOOD COUNT (AUTO) 5.3 K/uL (4.3-11.0)
[2017-10-01 16:00] VITALS: BP 125/78
[2017-10-01] MEDS: IV NS 0.9% 1,000 ML IV PRN (17:04)
--- NOTE | 2017-10-01 19:18 | NUR ---
MS RN CLOSING NOTES PT IS IN BED RESTING AWAKE ALERT AND VERBALLY RESPONSIVE. BREATHING EVENLY AND UNLABORED ON 4L NC. NO SIGNS OF SOB OR DISTRESS. DILAN PICC ACCESS IS INTACT AND PATENT, WITH FLUIDS INFUSING. COLOSTOMY BAG WAS CHANGED. ALL NEEDS WERE ANTICIPATED AND MET. BED IS IN LOW AND LOCKED POSITION, CALL LIGHT WITHIN REACH, SAFETY MEASURES IN PLACE, ENDORSED TO NEXT SHIFT FOR CONTINUITY OF CARE
--- NOTE | 2017-10-01 19:40 | NUR ---
RN INITIAL NOTES RECEIVED PT SITTING UPRIGHT IN BED. AWAKE, ALERT AND VERBALLY RESPONSIVE. RESPIRATIONS ARE EVEN AND UNLABORED, NOT IN ANY ACUTE DISTRESS NOTED. DENIES ANY PAIN AT THIS TIME. NO C/O SOB, N/V, CHEST PAIN. DILAN PICC LINE INTACT, DRESSING KEPT CLEAN AND DRY. SAFETY MEASURES IN PLACE. BED IS IN ITS LOW AND LOCKED POSITION. INSTRUCTED PT TO USE CALL LIGHT WHEN ASSISTANCE IS NEEDED, CALL LIGHT IS LEFT WITHIN REACH. WILL CONTINUE TO MONITOR THROUGHOUT SHIFT.
[2017-10-01 20:30] VITALS: BP 120/70
[2017-10-01] MEDS: ALPRAZOLAM 1 MG TABLET PO PRN (22:46)
[2017-10-01] MEDS: HYDROCODONE/APAP 5/325MG 1 EACH TABLET PO PRN (22:47)
[2017-10-02] MEDS: MEROPENEM 1 G in IV NS 0.9% 100 ML IV SCH ×3 (05:06→20:29)
[2017-10-02] MEDS: IV NS 0.9% 1,000 ML IV PRN (05:09)
--- NOTE | 2017-10-02 06:16 | NUR ---
RN NOTES ALL DUE MEDS GIVEN, NEEDS MET AND RENDERED. PT IS A/O X2, AWAKE AND RESPONSIVE. RESPIRATIONS ARE EVEN AND UNLABORED, NOT IN ANY ACUTE DISTRESS NOTED. DENIES ANY PAIN AT THIS TIME. NO C/O SOB, CHEST PAIN, N/V. PICCLINE TO DILAN INTACT, DRESSING KEPT CLEAN AND DRY. JEFFERY CATH INTACT, TUBING IS FREE OF KINKS. URINE OUTPUT OF 1500CC WITH YELLOW URINE. DENIES ANY BLADDER DISCOMFORT. SAFETY MEASURES IN PLACE. BED IS IN ITS LOW AND LOCKED POSITION. INSTRUCTED PT TO USE CALL LIGHT WHEN ASSISTANCE IS NEEDED, CALL LIGHT IS LEFT WITHIN REACH.
[2017-10-02] MEDS: ALBUTEROL FS 2.5 MG/0.5 ML VIAL.NEB NEB SCH ×4 (07:12→19:30)
[2017-10-02] MEDS: IPRATROPIUM NEB FS 0.5 MG/2.5 ML AMPUL.NEB NEB SCH ×4 (07:12→19:30)
--- NOTE | 2017-10-02 07:30 | NUR ---
MS RN OPENING NOTES PT IS IN BED RESTING AWAKE ALERT AND VERBALLY RESPONSIVE. BREATHING EVENLY AND UNLABORED ON 4L NC. NO SIGNS OF SOB OR DISTRESS. DILAN PICC ACCESS IS INTACT AND PATENT, WITH FLUIDS INFUSING. COLOSTOMY BAG IN PLACE. ALL NEEDS WERE ANTICIPATED AND MET. BED IS IN LOW AND LOCKED POSITION, CALL LIGHT WITHIN REACH, SAFETY MEASURES IN PLACE, WILL CONTINUE TO MONITOR
[2017-10-02 08:00] VITALS: BP 103/62
[2017-10-02] MEDS: BACLOFEN (10 MG) 10 MG TABLET PO SCH ×3 (09:14→16:32)
[2017-10-02] MEDS: DIVALPROEX SODIUM 250 MG TABLET.DR PO SCH ×2 (09:14→16:33)
[2017-10-02] MEDS: DULOXETINE HCL 20 MG CAPSULE.DR PO SCH (09:14)
[2017-10-02] MEDS: VANCOMYCIN 0.75 GM in IV NS 0.9% 250 ML IV SCH ×2 (09:15→21:06)
[2017-10-02] MEDS: ZINC SULFATE 220 MG CAPSULE PO SCH (09:15)
[2017-10-02] MEDS: MULTIVITAMINS,THERAGRAN 1 UDTAB TABLET PO SCH (09:15)
[2017-10-02] MEDS: LEVETIRACETAM (250 MG) 250 MG TABLET PO SCH ×2 (09:15→20:29)
[2017-10-02] MEDS: ASCORBIC ACID 500 MG TABLET PO SCH (09:15)
[2017-10-02] MEDS: HYDROGEL DRESSING 90 GM TUBE TP SCH (09:16)
[2017-10-02 09:52] LABS: BASOPHILS % (AUTO) 0.8 % (0.0-2.0); EOSINOPHILS # (AUTO) 0.2 /CMM (0.0-0.7); EOSINOPHILS % (AUTO) 3.8 % (0.0-6.0); HEMATOCRIT 29 % (33-45); HEMOGLOBIN 9.6 g/dL (11.5-14.8); LYMPHOCYTES # (AUTO) 2.7 /CMM (0.8-4.8); LYMPHOCYTES % (AUTO) 58.6 % (20.0-44.0); MEAN CORPUSCULAR HEMOGLOBIN 27 PG (26.0-33.0); MEAN CORPUSCULAR HGB CONC 33 g/dl (31.0-36.0); MEAN CORPUSCULAR VOLUME 81 fL (82-100); MONOCYTES # (AUTO) 0.5 /CMM (0.1-1.30); MONOCYTES % (AUTO) 10.9 % (2.0-12.0); NEUTROPHILS # (AUTO) 1.2 /CMM (1.8-8.9); NEUTROPHILS % (AUTO) 25.9 % (43.0-81.0); PLATELET COUNT (AUTO) 335 /CMM (150-450); RDW COEFFICIENT OF VARIATION 18.2 (11.5-15.0); RED BLOOD CELL COUNT(AUTO) 3.58 MIL/uL (4.0-5.2); WHITE BLOOD COUNT (AUTO) 4.6 K/uL (4.3-11.0)
[2017-10-02 10:11] LABS: CALCIUM, SERUM 8.4 mg/dL (8.5-10.1); CREATININE 0.5 mg/dL (0.6-1.3); MAGNESIUM 1.7 mg/dL (1.8-2.4); PHOSPHORUS 3.3 mg/dL (2.5-4.9); POTASSIUM 2.9 mmol/L (3.5-5.1)
[2017-10-02] MEDS ORDERED: POTASSIUM CHLORIDE 20 MEQ TAB.PRT.SR PO ONE (13:00)
[2017-10-02 16:00] VITALS: BP 102/63
[2017-10-02] MEDS: HYDROCODONE/APAP 5/325MG 1 EACH TABLET PO PRN ×2 (16:32→20:29)
[2017-10-02] MEDS: IV 1/2NS 1000 ML 1,000 ML IV PRN (16:37)
[2017-10-02] MEDS ORDERED: MAGNESIUM OXIDE 400 MG TABLET PO ONE (18:00)
--- NOTE | 2017-10-02 19:26 | NUR ---
MS RN CLOSING NOTES PT IS IN BED RESTING ASLEEP EASILY AROUSABLE DURING CARE AND VERBALLY RESPONSIVE. BREATHING EVENLY AND UNLABORED ON 4L NC. NO SIGNS OF SOB OR DISTRESS. DILAN PICC ACCESS IS INTACT AND PATENT, WITH FLUIDS INFUSING. COLOSTOMY BAG IN PLACE. ALL NEEDS WERE ANTICIPATED AND MET. BED IS IN LOW AND LOCKED POSITION, CALL LIGHT WITHIN REACH, SAFETY MEASURES IN PLACE, WILL CONTINUE TO MONITOR AND ENDORSE TO NEXT SHIFT FOR CONTINUITY OF CARE
--- NOTE | 2017-10-02 19:30 | NUR ---
RN OPENING NOTES PT AWAKE AND RESTING IN BED. NO COMPLAINTS OF PAIN OR DISTRESS AT THIS TIME. PT HAS A JEFFERY CATHETER INTACT AND DRAINING WELL. PT ALSO HAS COLOSTOMY INTACT. PT HAS A RIGHT UPPER ARM PICC LINE RUNNING 1/2 NS@75ML/HR, TOLERATING FLUID WELL. SAFETY PRECAUTIONS IN PLACE. BED IN LOW, LOCKED POSITION, X2 SIDE RAILS UP, CALL LIGHT WITHIN REACH. WILL CONTINUE TO MONITOR.
[2017-10-02 20:00] VITALS: BP 109/68
[2017-10-03] MEDS: MEROPENEM 1 G in IV NS 0.9% 100 ML IV SCH ×3 (05:12→21:50)
[2017-10-03] MEDS: HYDROCODONE/APAP 5/325MG 1 EACH TABLET PO PRN ×2 (05:13→17:37)
[2017-10-03] MEDS: IV 1/2NS 1000 ML 1,000 ML IV PRN ×2 (05:13→22:24)
--- NOTE | 2017-10-03 06:56 | NUR ---
RN CLOSING NOTES PT RESTING IN BED. NO COMPLAINTS OF SOB OR DISTRESS. PT HAS A JEFFERY CATHETER OUTPUT 1150ML OVER NIGHT, INTACT AND DRAINING WELL. PT ALSO HAS COLOSTOMY INTACT. PT HAS A RIGHT UPPER ARM PICC LINE RUNNING 1/2 NS@75ML/HR, TOLERATING FLUID WELL. SAFETY PRECAUTIONS IN PLACE. BED IN LOW, LOCKED POSITION, X2 SIDE RAILS UP, CALL LIGHT WITHIN REACH. ALL PT NEEDS MET. WILL ENDORSE TO DAY SHIFT NURSE FOR CONTINUITY OF CARE.
[2017-10-03 07:30] LABS: BASOPHILS % (AUTO) 0.7 % (0.0-2.0); EOSINOPHILS # (AUTO) 0.2 /CMM (0.0-0.7); EOSINOPHILS % (AUTO) 3.8 % (0.0-6.0); HEMATOCRIT 29 % (33-45); HEMOGLOBIN 9.7 g/dL (11.5-14.8); LYMPHOCYTES # (AUTO) 2.8 /CMM (0.8-4.8); LYMPHOCYTES % (AUTO) 51.6 % (20.0-44.0); MEAN CORPUSCULAR HEMOGLOBIN 27 PG (26.0-33.0); MEAN CORPUSCULAR HGB CONC 33 g/dl (31.0-36.0); MEAN CORPUSCULAR VOLUME 81 fL (82-100); MONOCYTES # (AUTO) 0.6 /CMM (0.1-1.30); MONOCYTES % (AUTO) 11.2 % (2.0-12.0); NEUTROPHILS # (AUTO) 1.8 /CMM (1.8-8.9); NEUTROPHILS % (AUTO) 32.7 % (43.0-81.0); PLATELET COUNT (AUTO) 392 /CMM (150-450); RED BLOOD CELL COUNT(AUTO) 3.59 MIL/uL (4.0-5.2); WHITE BLOOD COUNT (AUTO) 5.4 K/uL (4.3-11.0)
[2017-10-03] MEDS: ALBUTEROL FS 2.5 MG/0.5 ML VIAL.NEB NEB SCH ×4 (07:35→19:16)
[2017-10-03] MEDS: IPRATROPIUM NEB FS 0.5 MG/2.5 ML AMPUL.NEB NEB SCH ×4 (07:35→19:16)
--- NOTE | 2017-10-03 07:37 | NUR ---
RN OPENING NOTES RECEIVED PT RESTING IN BED AWAKE AND RESTING IN BED. IN NO APPARENT DISTRESS, DENIES PAIN OR DISCOMFORT. PT ALERT AND ORIENTED X2, ABLE TO MAKE NEEDS KNOWN. PT HAS A JEFFERY CATHETER IN PLACE INTACT AND DRAINING YELLOW URINE. COLOSTOMY INTACT BAG EMPTIED OF STOOL. RIGHT UPPER ARM PICC LINE RUNNING 1/2 NS@75ML/HR, TOLERATING FLUID WELL. SAFETY PRECAUTIONS IN PLACE. BED IN LOW, LOCKED POSITION, X2 SIDE RAILS UP, CALL LIGHT WITHIN REACH. WILL CONTINUE TO MONITOR.
[2017-10-03 07:43] LABS: CALCIUM, SERUM 8.6 mg/dL (8.5-10.1); CREATININE 0.5 mg/dL (0.6-1.3); MAGNESIUM 1.9 mg/dL (1.8-2.4); POTASSIUM 3.5 mmol/L (3.5-5.1)
[2017-10-03 08:00] VITALS: BP 110/64
--- NOTE | 2017-10-03 08:20 | NUR ---
PT STATED SHE DOES NOT WANT HER BREATHING TX RIGHT NOW. RN NAZIA AWARE. NO SOB NOTED AT THIS TIME. WILL RETURN MEDICATION.
[2017-10-03] MEDS: VANCOMYCIN 0.75 GM in IV NS 0.9% 250 ML IV SCH ×2 (08:48→22:24)
[2017-10-03] MEDS: BACLOFEN (10 MG) 10 MG TABLET PO SCH ×3 (08:49→17:36)
[2017-10-03] MEDS: DIVALPROEX SODIUM 250 MG TABLET.DR PO SCH ×2 (08:49→17:36)
[2017-10-03] MEDS: ZINC SULFATE 220 MG CAPSULE PO SCH (08:49)
[2017-10-03] MEDS: LEVETIRACETAM (250 MG) 250 MG TABLET PO SCH ×2 (08:49→21:51)
[2017-10-03] MEDS: ASCORBIC ACID 500 MG TABLET PO SCH (08:49)
[2017-10-03] MEDS: DULOXETINE HCL 20 MG CAPSULE.DR PO SCH (08:49)
[2017-10-03] MEDS: HYDROGEL DRESSING 90 GM TUBE TP SCH (08:50)
[2017-10-03] MEDS: MULTIVITAMINS,THERAGRAN 1 UDTAB TABLET PO SCH (09:00)
[2017-10-03] MEDS: ONDANSETRON HCL/PF 4 MG/2 ML VIAL IVP PRN (12:37)
--- NOTE | 2017-10-03 13:20 | NUR ---
TELE/RN ADMITTING NOTES RECEIVED PATIENT TO TELE UNIT FROM ER VIA [facility] WITH ADMITTING DIAGNOSIS OF CHF, CHIEF COMPLIANT OF ANXIETY AND CHEST PAIN, PAST MEDICAL HISTORY OF CHF, COPD, ANXIETY, DEPRESSION, ARTHRITIS, X6 ALLERGIC TO SULFA DRUGS. UPON ASSESSMENT PATIENT ALERT AND ORIENTED X3, PERIODS OF CONFUSION AND FORGETFULNESS. PATIENT DENIES ANY PAIN OR DISCOMORT AT THIS TIME. APPEARS CALM AND COMFORTABLE. RESPIRATIONS EVEN AND UNLABORED. ON ROOM AIR, VITAL SIGNS STABLE, WNL. PER TELE READING SINUS TACH HR 101. IV TO LEFT WRIST 20G INTACT. PENDING ADMITTING ORDERS. WILL CONTINUE TO MONITOR. Addendum: 10/03/17 at 1801 by CORETTA CUELLAR RN ERROR WRONG PATIENT
[2017-10-03 16:00] VITALS: BP 115/80
--- NOTE | 2017-10-03 17:37 | NUR ---
MS/RN NOTES PATIENT COMPLAINING OF 7/10 GENERALIZED PAIN, ADMINISTERED NORCO 5-325MG 1 TAB BY MOUTH PRN FOR PAIN. WILL MONITOR FOR MEDICATION EFFECTIVENESS.
--- NOTE | 2017-10-03 17:45 | NUR ---
MS/RN NOTES ATTEMPTED WOUND CARE HOWEVER PATIENT REFUSED COMPLAINING OF PAIN STATING " NOT NOW I DON'T FEEL COMFORTABLE , I AM IN PAIN" PAIN MEDICATION GIVEN TO PATIENT REQUESTED.
--- NOTE | 2017-10-03 18:51 | NUR ---
MS/RN NOTES PATIENT RESTING IN BED, NO APPARENT DISTRESS, STABLE. NO SIGNIFICANT CHANGES NOTED. ALL DUE MEDIATION GIVEN ALL NEEDS MET AND ATTENDED. PATIENT REPOSITIONED EVERY 2 HOURS, BILATERAL HEELS PROTECTED. IV FLUIDS INFUSING TO RIGHT UPPER ARM. JEFFERY CATH IN PLACE DRAINING YELLOW CLEAR URINE OUTPUT 1200. COLOSTOMY BAG INTACT NO BM NOTED. WILL ENDORSE ORE BUYER TO ADMINISTER MOM SCHEDULED. WILL ENDORSE CARE TO ORE BUYER FOR CEDRIC.
--- NOTE | 2017-10-03 19:30 | NUR ---
MS/RN OPENING NOTES PT RECEIVED A/OX3. ON 2L O2 VIA NC, BREATHING EVEN AND UNLABORED. DENIES SOB OR PAIN AT THIS TIME. JEFFERY IN PLACE DRAINING TO GRAVITY. COLOSTOMY WITH SOME BROWN STOOL NOTED. DILAN PICC LINE PATENT AND INTACT RUNNING IVF ORDERED.BED IN LOW/LOCKED POSITION WITH CALL LIGHT IN REACH. SIDE RAILS UPX2. WILL CONTINUE TO MONITOR
[2017-10-03 20:00] VITALS: BP 115/73
[2017-10-03] MEDS: ALPRAZOLAM 1 MG TABLET PO PRN (22:24)
--- NOTE | 2017-10-03 22:53 | NUR ---
MS/RN NOTES WOUND CARE PROVIDED ORDERED
[2017-10-04] MEDS: MEROPENEM 1 G in IV NS 0.9% 100 ML IV SCH ×2 (05:21→12:57)
[2017-10-04] MEDS: ALBUTEROL FS 2.5 MG/0.5 ML VIAL.NEB NEB SCH ×4 (07:35→19:44)
[2017-10-04] MEDS: IPRATROPIUM NEB FS 0.5 MG/2.5 ML AMPUL.NEB NEB SCH ×4 (07:35→19:44)
--- NOTE | 2017-10-04 07:39 | NUR ---
MS RN: INITIAL NOTE RECEIVED PT A/OX2. ON 2 L NC SATING AT 100%. NO DISTRESS NOTED. NO SOB NOTED. NO PAIN NOTED. JEFFERY CATH IN PLACE AND DRAINING. COLOSTOMY IN PLACE. ON REGULAR DIET. DILAN PICC LINE 1/2 NS AT 75ML.HR. SITE CLEAR AND PATENT. NO BLEEDING OR REDNESS NOTED. RESTING COMFORTABLY IN BED. CALL LIGHT WITHIN REACH.
--- NOTE | 2017-10-04 07:42 | NUR ---
MS/RN CLOSING NOTES PT RECEIVED A/OX2-3. REMAINS ON 2L O2 VIA NC, BREATHING EVEN AND UNLABORED. DENIES SOB OR PAIN AT THIS TIME. JEFFERY IN PLACE DRAINING TO GRAVITY. COLOSTOMY PATENT AND INTACT WITH SMALL AMOUNT OF BM. DILAN PICC LINE PATENT AND INTACT RUNNING IVF ORDERED. KEPT PT COMFORTABLE DURING SHIFT. ALL NEEDS MET. TURNED/REPOSITIOEND Q2H, HEELS OFFLOADED AT ALL TIMES. BED IN LOW/LOCKED POSITION WITH CALL LIGHT IN REACH. SIDE RAILS UPX2 AND BED ALARM ON FOR SAFETY. WOUND CARE RENDERED ORDERED. ENDORSED TO DAY SHIFT RN CEDRIC.
[2017-10-04 07:56] LABS: CALCIUM, SERUM 8.9 mg/dL (8.5-10.1); CREATININE 0.5 mg/dL (0.6-1.3); POTASSIUM 3.4 mmol/L (3.5-5.1)
[2017-10-04 08:00] VITALS: BP 99/68
[2017-10-04] MEDS: VANCOMYCIN 0.75 GM in IV NS 0.9% 250 ML IV SCH (08:13)
[2017-10-04] MEDS: ZINC SULFATE 220 MG CAPSULE PO SCH (09:00)
[2017-10-04] MEDS: BACLOFEN (10 MG) 10 MG TABLET PO SCH ×3 (09:00→16:40)
[2017-10-04] MEDS: DIVALPROEX SODIUM 250 MG TABLET.DR PO SCH ×2 (09:00→16:39)
[2017-10-04] MEDS: ASCORBIC ACID 500 MG TABLET PO SCH (09:00)
[2017-10-04] MEDS: MULTIVITAMINS,THERAGRAN 1 UDTAB TABLET PO SCH (09:00)
[2017-10-04] MEDS: LEVETIRACETAM (250 MG) 250 MG TABLET PO SCH ×2 (09:00→21:33)
[2017-10-04] MEDS: DULOXETINE HCL 20 MG CAPSULE.DR PO SCH (09:01)
[2017-10-04] MEDS: HYDROGEL DRESSING 90 GM TUBE TP SCH (09:01)
[2017-10-04] MEDS ORDERED: POTASSIUM CHLORIDE 20 MEQ TAB.PRT.SR PO SCH (11:00)
[2017-10-04] MEDS: IV 1/2NS 1000 ML 1,000 ML IV PRN (16:37)
[2017-10-04] MEDS: LACTOBACILLUS RHAMNOSUS GG 1 EACH CAP.SPRINK PO SCH (16:40)
--- NOTE | 2017-10-04 18:16 | NUR ---
MS RN: CLOSING NOTE PT TOOK ALL MEDICATIONS ON TIME. NO ADVERSE REACTIONS NOTED. NO SOB NOTED. NO PAIN NOTED. NO DISTRESS NOTED. A/OX2. EPISODES OF CONFUSION. NEEDS TO BE RE-ORIENTED TO SITUATION. JEFFERY CATH IN PLACE AND DRAINING. OUTPUT 1600ML/ BEDREST. TURNED AND REPOSITIONED Q 2HOURS. WOUND CARE DONE. ON REGULAR DIET. R PICC LINE #18 RUNNING 1/2 NS AT 75ML/HR. SITE CLEAR AND PATENT. CURRENTLY ON CONTACT ISOLATION FOR VRE OF WOUND. RESTING COMFORTABLY IN BED. CALL LIGHT WITHIN REACH.
--- NOTE | 2017-10-04 19:35 | NUR ---
MS/RN OPENING NOTES PT RECEIVED WITH EYES CLOSED, EASILY AROUSABLE TO NAME. A/OX2. ON 2L O2 VIA NC, BREATHING EVEN AND UNLABORED. DENIES SOB OR PAIN AT THIS TIME. PT APPEARS COMFORTABLE. JEFFERY IN PLACE AND DRAINING TO GRAVITY. COLOSTOMY IN PLACE. CONTACT ISOLATION PRECAUTIONS FOR VRE WOUND IMPLEMENTED. DILAN PICC LINE RUNNING IVF ORDERED. BED IN LOW/LOCKED POSITION WITH CALL LIGHT IN REACH. SIDE RAILS UPX2 WITH BED ALARM ON FOR SAFETY. WILL CONTINUE TO MONITOR
[2017-10-04 20:00] VITALS: BP 113/67
[2017-10-04] MEDS: LINEZOLID 600 MG TABLET PO SCH (21:33)
--- NOTE | 2017-10-04 22:17 | NUR ---
MS/RN NOTES WOUND CARE RENDERED ORDERED.
[2017-10-05] MEDS: IV 1/2NS 1000 ML 1,000 ML IV PRN (06:17)
[2017-10-05] MEDS: ALBUTEROL FS 2.5 MG/0.5 ML VIAL.NEB NEB SCH ×3 (07:25→15:06)
[2017-10-05] MEDS: IPRATROPIUM NEB FS 0.5 MG/2.5 ML AMPUL.NEB NEB SCH ×3 (07:25→15:07)
--- NOTE | 2017-10-05 07:25 | NUR ---
PT REFUSED HHN TX RN KUSH NOTIFIED. NO RESP DISTRESS OR SOB NOTED. WILL CONTINUE PT MONITOR PT
--- NOTE | 2017-10-05 07:29 | NUR ---
MS/RN CLOSING NOTES PT AWAKE, RESTING COMFORTABLY IN BED. REMAINS ON 2L O2 VIA NC, BREATHING EVEN AND UNLABORED. DENIES SOB OR PAIN AT THIS TIME. KEPT PT COMFORTABLE THROUGHOUT SHIFT. JEFFERY IN PLACE AND DRAINING TO GRAVITY. COLOSTOMY IN PLACE, NO BM DURING SHIFT. CONTACT ISOLATION PRECAUTIONS IMPLEMENTED. DILAN PICC LINE RUNNING IVF ORDERED. WOUND CARE PROVIDED ORDERED. NO SIGNIFICANT CHANGES OVERNIGHT. BED IN LOW/LOCKED POSITION WITH CALL LIGHT IN REACH. SIDE RAILS UPX2 WITH BED ALARM ON FOR SAFETY. ENDORSED TO DAY SHIFT RN CEDRIC.
--- NOTE | 2017-10-05 07:30 | NUR ---
RN NOTES: PATIENT RESTING IN BED. NONLABORED BREATHING NOTED ON 2 L NASAL CANNULA. PATIENT AOX2. DENIES PAIN, NO FACIAL GRIMACING NOTED. PICCLINE ON RIGHT UPPER ARM PATENT AND INTACT. BED IN LOWEST LOCKED POSITION. CALL LIGHT WITHIN REACH. WILL CONTINUE TO MONITOR
[2017-10-05 07:56] LABS: CALCIUM, SERUM 9.2 mg/dL (8.5-10.1); CREATININE 0.5 mg/dL (0.6-1.3); POTASSIUM 3.7 mmol/L (3.5-5.1)
[2017-10-05 08:00] VITALS: BP 114/72
[2017-10-05] MEDS: BACLOFEN (10 MG) 10 MG TABLET PO SCH ×3 (09:13→17:00)
[2017-10-05] MEDS: MULTIVITAMINS,THERAGRAN 1 UDTAB TABLET PO SCH (09:14)
[2017-10-05] MEDS: LEVETIRACETAM (250 MG) 250 MG TABLET PO SCH (09:15)
[2017-10-05] MEDS: ZINC SULFATE 220 MG CAPSULE PO SCH (09:16)
[2017-10-05] MEDS: LACTOBACILLUS RHAMNOSUS GG 1 EACH CAP.SPRINK PO SCH ×2 (09:16→16:19)
[2017-10-05] MEDS: ASCORBIC ACID 500 MG TABLET PO SCH (09:16)
[2017-10-05] MEDS: DIVALPROEX SODIUM 250 MG TABLET.DR PO SCH ×2 (09:16→16:19)
[2017-10-05] MEDS: LINEZOLID 600 MG TABLET PO SCH (09:17)
[2017-10-05] MEDS: DULOXETINE HCL 20 MG CAPSULE.DR PO SCH (09:52)
[2017-10-05] MEDS: HYDROGEL DRESSING 90 GM TUBE TP SCH (09:54)
--- NOTE | 2017-10-05 12:17 | NUR ---
PT REFUSED HHN TX AT THIS TIME. NO SOB/RESP DISTRESS NOTED. NOTIFIED SHERRILL CURRIE. WILL CONTINUE PT MONITOR PT.
[2017-10-05] MEDS ORDERED: LINE600T PO (12:19)
--- NOTE | 2017-10-05 14:20 | NUR ---
RN NOTES: PATIENT AGREED TO TAKE BACLOFEN NOW. BENEFITS AND RISKS EXPLAINED
[2017-10-05 16:00] VITALS: BP 116/71
--- NOTE | 2017-10-05 17:00 | NUR ---
RN NOTES: PATIENT REFUSING SKIN PICTURES. WOUND CARE DONE. TURNED AND REPOSIITIONED EVERY 2 HOURS. KEPT CLEAN AND DRY THROUGHOUT SHIFT
--- NOTE | 2017-10-05 17:10 | NUR ---
RN NOTES: ALL BELONGINGS AND VALUABLES RETURNED TO PATIENT INCLUDING LIGHT SANTOYO RING THAT PATIENT IS WEARING
--- NOTE | 2017-10-05 17:27 | NUR ---
RN NOTES: PATIENT REFUSED BACLOFEN, STATES THAT " I TOOK IT EARLIER" PATIENT EDUCATED ON BENEFITS AND RISKS, EDUCATED ABOUT EXISTCARE INSTRUCTIONS, MEDICATIONS, WHEN TO CALL 911. FIANCE AND CAREGIVER MADISON ROSAS CONTACTED REQUESTED BY PATIENT. EDUCATED ON EXISTCARE, MEDICATIONS, PRECRIPTION, FOLLOW UP APOINTMENTS WITH WENDY WILKINS, GHAZAL, AND AT THE HOSPITAL[facility]S CL[facility]IC. ALL CONTACT INFORMATION INCLUDED. PRESCRIPTION INCLUDED IN ENVELOP. PICCLINE TAKEN OUT, NO SOB NOTED, NO CHEST PAIN, NO PAIN NOTED. TIP OF PICCLINE INTACT AND AT MEASURES OF 30. NO BLEEDING NOTED. SITE COVERED WITH STERILE GAUZE. JEFFERY CATHETER INTACT AND PRESENT FOR SACRAL WOUND. NO LEAKING NOTED DURING SHIFT. OSTOMY CLEAN AND INTACT. BAG CHANGED. WOUND DRESSING DONE. PATIENT DISCHARGED TO HOME WITH HOME HEALTH. LEFT WITH AMBULANCE STABLE. VS STABLE. PATIENT TURNED AND REPOSITIONED EVERY 2 HOURS
== END 2017-10-05 17:30 | disposition home health service (06) | DRG 853 ==
LOC: ER 19:43 → TELE-TD 22:22 → TELE1 09-28 15:59 → MEDSG1 09-29 11:57 → MED 09-30 20:43
PROVIDERS: ADMIT Nurse Practitioner Acute Care; ATTEND Nurse Practitioner Acute Care
PROC: 0KBP0ZZ Excision of Left Hip Muscle, Open Approach (ICD-10-PCS; principal; 2017-10-01)
PROC: 0KBN0ZZ Excision of Right Hip Muscle, Open Approach (ICD-10-PCS; 2017-10-01)
DX: A41.9 Sepsis, unspecified organism (principal); L89.154 Pressure ulcer of sacral region, stage 4; G93.41 Metabolic encephalopathy; E44.0 Moderate protein-calorie malnutrition; R53.2 Functional quadriplegia; D68.59 Other primary thrombophilia; E87.0 Hyperosmolality and hypernatremia; M86.8X8 Other osteomyelitis, other site; E88.09 Other disorders of plasma-protein metabolism, not elsewhere classified; E87.6 Hypokalemia; F32.9 Major depressive disorder, single episode, unspecified; Z88.0 Allergy status to penicillin; Z90.49 Acquired absence of other specified parts of digestive tract; Z87.440 Personal history of urinary (tract) infections; Z93.3 Colostomy status; G40.909 Epilepsy, unspecified, not intractable, without status epilepticus; D47.3 Essential (hemorrhagic) thrombocythemia; G35 Multiple sclerosis; Z68.22 Body mass index [BMI] 22.0-22.9, adult; Z74.01 Bed confinement status; K59.00 Constipation, unspecified; B95.2 Enterococcus as the cause of diseases classified elsewhere; Z16.21 Resistance to vancomycin; L98.8 Other specified disorders of the skin and subcutaneous tissue; G89.29 Other chronic pain
CPT/HCPCS: 36415; 36600; 71045-TC; 80048-TC; 80061-TC; 80076-TC; 80164-TC; 80202-TC; 81000-TC; 82803-TC; 82962-TC; 83605-TC; 83735-TC; 83880; 84100-TC; 84443-TC; 84484-TC; 84703-TC; 85025-TC; 85652-TC; 85730-TC; 87040-TC; 87070-TC; 87081-TC; 87086-TC; 87186-TC; 94799-TC; A4606; A6248; A6253; A6402; A6403; J2185; J2405; J3370; J3490; J7030; J7040; J7050; Z7610

== ENCOUNTER 2017-10-10 13:38 | Outpatient (CLI) | payer MEDICARE, OTHER ==
[~2017-10-10 13:38] MED LIST changes: -ALPR2TAB2 PO; +ALPR2TAB7 PO; -CEPH500C2 PO; +CLON2TAB4 PO; -GABA-534 PO; +LEVE1000 PO; +LINE600T PO; -METO5TAB87 PO; -NEOM10DR11 EACH EAR; -OXYB15TA PO; +OXYC20TA58 PO; -OXYC40TA50 PO; +TEMA30CA PO
[2017-10-10 13:54] VITALS: BP 120/76
== END 2017-10-10 23:59 | disposition home or self-care (01) ==
LOC: MSC 13:38
PROVIDERS: ATTEND Internal Medicine
DX: B95.2 Enterococcus as the cause of diseases classified elsewhere (principal); B96.82 Vibrio vulnificus as the cause of diseases classified elsewhere; F32.9 Major depressive disorder, single episode, unspecified; E66.01 Morbid (severe) obesity due to excess calories; R53.2 Functional quadriplegia; E44.0 Moderate protein-calorie malnutrition; E88.09 Other disorders of plasma-protein metabolism, not elsewhere classified; G40.909 Epilepsy, unspecified, not intractable, without status epilepticus; Z93.3 Colostomy status; G89.29 Other chronic pain

== ENCOUNTER 2017-11-01 12:11 | Outpatient (CLI) | payer MEDICARE, OTHER | END 2017-11-01 23:59 | disposition home or self-care (01) | LOC: MSC 12:11 | PROVIDERS: ATTEND Anesthesiology | DX: G89.29 Other chronic pain (principal); M54.5 Low back pain; G11.4 Hereditary spastic paraplegia; G35 Multiple sclerosis; L89.159 Pressure ulcer of sacral region, unspecified stage; G40.909 Epilepsy, unspecified, not intractable, without status epilepticus; Z79.891 Long term (current) use of opiate analgesic; Z87.440 Personal history of urinary (tract) infections ==

== ENCOUNTER 2018-01-29 22:15 | Inpatient (IN) | payer MEDICARE, OTHER ==
[~2018-01-29] VITALS: Ht 157.5 cm; Wt 72.6 kg
--- NOTE | 2018-01-29 22:30 | NUR ---
42 yo female bb ra from home. patient is lart and oriented, c/o cough congestion x 1 week. patient is noted to hav brady cath and colonostomy bag in place STONE CARVER. patient skin warm and dry, resp even and unlabored. on room air patient is noted top be 90%. awaiting orders from provider, will continue to monitor
[2018-01-29] MEDS ORDERED: ONDANSETRON HCL/PF 4 MG/2 ML VIAL ONE (22:40)
--- NOTE | 2018-01-29 22:50 | NUR ---
22g left foot started, blood sample obtained and sent to lab
[2018-01-29] MEDS ORDERED: ONDANSETRON HCL/PF 4 MG/2 ML VIAL IV ONE (23:00)
[2018-01-29] MEDS ORDERED: LORAZEPAM INJ 2 MG/ML VIAL ONE (23:02)
[2018-01-29] MEDS ORDERED: Magnesium 1GM/D5W 100ML PREMIX 200 ML IV ONE (23:05)
[2018-01-29 23:12] LABS: BASOPHILS % (AUTO) 0.3 % (0.0-2.0); EOSINOPHILS % (AUTO) 2.8 % (0.0-6.0); HEMATOCRIT 41 % (33-45); HEMOGLOBIN 13.4 g/dL (11.5-14.8); LYMPHOCYTES # (AUTO) 2.1 /CMM (0.8-4.8); MEAN CORPUSCULAR HEMOGLOBIN 29 PG (26.0-33.0); MEAN CORPUSCULAR HGB CONC 33 g/dl (31.0-36.0); MEAN CORPUSCULAR VOLUME 87 fL (82-100); MONOCYTES # (AUTO) 0.3 /CMM (0.1-1.30); MONOCYTES % (AUTO) 4.5 % (2.0-12.0); NEUTROPHILS % (AUTO) 65.4 % (43.0-81.0); PLATELET COUNT (AUTO) 362 /CMM (150-450); RDW COEFFICIENT OF VARIATION 16.4 (11.5-15.0); RED BLOOD CELL COUNT(AUTO) 4.69 MIL/uL (4.0-5.2); WHITE BLOOD COUNT (AUTO) 7.7 K/uL (4.3-11.0)
[2018-01-29 23:22] LABS: CARBON DIOXIDE 28 mmol/L (21-32); CHLORIDE 106 mmol/L (98-107); CREATININE 0.5 mg/dL (0.6-1.3); GLUCOSE 119 mg/dL (74-106); POTASSIUM 3.5 mmol/L (3.5-5.1); SODIUM SERUM 144 mmol/L (136-145); UREA NITROGEN, BLOOD 19 mg/dL (7-18)
[2018-01-29 23:30] LABS: TROPONIN I < 0.017 ng/mL (0.00-0.056)
[2018-01-29 23:32] LABS: INR 0.9 (0.87-1.13)
[2018-01-29 23:35] LABS: ALANINE AMINOTRANSFERASE 16 U/L (12-78); ALBUMIN 2.7 g/dL (3.4-5.0); ALKALINE PHOSPHATASE 76 U/L (46-116); ASPARTATE AMINOTRANSFERASE 13 U/L (15-37); B-TYPE NATRIURETIC PEPTIDE 158 PG/ML (0-125); BILIRUBIN,TOTAL 0.2 mg/dL (0.2-1.0); TOTAL PROTEIN, SERUM 7.9 g/dL (6.4-8.2)
--- NOTE | 2018-01-30 | NUR ---
VITAL SIGNS UPDATED.
--- NOTE | 2018-01-30 00:23 | NUR ---
TRANSPORTED PT TO TELE BED WITHOUT INCIDENT
[2018-01-30 00:40] VITALS: BP 92/73
--- NOTE | 2018-01-30 00:40 | NUR ---
RN ADMITTING TELE NOTES RECEIVED PATIENT FROM ER, TRANSPORTED VIA GURNEY, PATIENT IN BED, AWAKE ALERT X 1, ON 02 VIA RI 3LITERS 02 SAT AT 100%, RESPIRATIONS EVEN AND UNLABORED, WITH EQUAL RISE AND FALL OF CHEST, JEFFERY CATHETER INTACT, NOTED URINE YELLOW WITH SEDIMENTS, AND FOUL ODOR, F/C DRAINAGE BAG REPLACED, URINE COLLECTED, COLOSTOMY BAG CHANGED DUE TO SOILED. STOMA PINK IN COLOR, BODY ASSESSMENT DONE, NOTED PRESSURE ULCER TO SACRAL, WOUND CULTURE COLLECTED , REDNESS TO LEFT ISCHIAL TUBEROSITY AND LEFT AND RIGHT HEEL ,PICTURES TAKEN, PLACED IN CHART, WOUND SITES CLEANSED AND COVERED WITH DRY DRESSINGS, OFFLOADED, REPOSITIONED PATIENT, NOTED WITH IV SITE TO LEFT FOOT,INTACT AND PATENT, NO REDNESS, NO INFILTRATION PRESENT. NOTED BLOOD PRESSURE UPON ARRIVAL 92/73, MD AWARE OF FINDINGS WITH NEW ORDERS AND NEW ORDER FOR BOLUS IV , WILL CONTINUE TO MONITOR BLOOD PRESSURE, NEW ORDERS NOTED AND CARRIED OUT, PATIENT PROVIDED WITH PERINEAL CARE, ADLS MET, KEPT CLEAN AND DRY AT THIS TIME, ORIENTED TO CALL LIGHT, STAFF, CALL LIGHT KEPT WITHIN REACH.
[2018-01-30] MEDS ORDERED: MAGNESIUM HYDROXIDE 30 ML UDC PO PRN (01:00)
[2018-01-30] MEDS ORDERED: MORPHINE SULFATE INJ 2 MG/ML DISP.SYRIN IV PRN (01:00)
[2018-01-30] MEDS ORDERED: Z GUARD REMEDY 2 OZ OINT TP PRN (01:00)
[2018-01-30] MEDS ORDERED: MAG HYDROX/AL HYDROX/SIMETH 30 ML UDC PO PRN (01:00)
[2018-01-30] MEDS ORDERED: ALPRAZOLAM 1 MG TABLET PO PRN ×2 (01:30→13:00)
[2018-01-30] MEDS ORDERED: LEVOFLOXACIN 500 MG /D5W 100ML 100 ML IV ONE (01:38)
[2018-01-30] MEDS ORDERED: METRONIDAZOLE 500MG/ NS 100ML 100 ML IV ONE (01:39)
[2018-01-30] MEDS: IV NS 0.9% 1,000 ML IV PRN (01:42)
[2018-01-30] MEDS ORDERED: LEVOFLOXACIN 500 MG /D5W 100ML 500 MG in PREMIX 1 EA IV SCH (02:00)
[2018-01-30] MEDS ORDERED: IV NS 0.9% 500 ML IV STA (02:46)
[2018-01-30 04:00] VITALS: BP 99/62
[2018-01-30] MEDS: METRONIDAZOLE 500MG/ NS 100ML 500 MG in PREMIX 1 EA IV SCH ×3 (05:36→17:34)
--- NOTE | 2018-01-30 06:29 | NUR ---
SUPERVISOR [employer]ED WORKERS CLOSING NOTES PATIENT IN BED SLEEPING BUT EASILY AROUSABLE, NOTED MORE AWAKE AT THIS TIME, ALERT AND ORIENTED X2, ABLE TO MAKE SIMPLE NEEDS KNOWN SUCH "CAN I EAT? TV CONTROL?" PATIENT REMAINS NPO STATUS AT THIS TIME, REMAINS ON 3LITERS VIA NC 02 SAT 98-100%, RESPIRATIONS NOTED EVEN AND UNLABORED WITH EQUAL RISE AND FALL OF CHEST. IV SITE TO LEFT FOOT INTACT AND PATENT, NO REDNESS, NO INFILTRATION PRESENT,IVF FLUIDS RUNNING ORDERED, NOTED INCREASE IN BLOOD PRESSURE 99/62, HEART RATE 92 , NO DISTRESS PRESENT, JEFFERY CATHETER INTACT AND FLOWING WELL, COLOSTOMY BAG REMAINS INTACT AND CLEAN, REPOSITIONED TO OFFLOAD AFFECTED WOUND SITES. SAFETY PRECAUTIONS AND ASPIRATION PRECAUTIONS RENDERED. CALL LIGHT KEPT WITHIN REACH, ALL NEEDS ATTENDED, PATIENT REMAINS COMFORTABLE AT THIS TIME, WILL CONTINUE TO MONITOR AND ENDORSE TO NEXT SHIFT.
[2018-01-30] MEDS: PANTOPRAZOLE 40 MG VIAL IV SCH (06:53)
[2018-01-30 06:55] LABS: APPEARANCE,URINE CLOUDY (CLEAR); BILIRUBIN,URINE NEGATIVE (NEGATIVE); BLOOD, URINE NEGATIVE Ery/uL (NEGATIVE); COLOR,URINE YELLOW (YELLOW); KETONES,URINE TRACE (NEGATIVE); LEUKOCYTE ESTERASE ,URINE NEGATIVE (NEGATIVE); NITRITE, URINE POSITIVE (NEGATIVE); PROTEIN,URINE 2+ mg/dl (NEGATIVE); UGLUCOSE NEGATIVE (NEGATIVE)
[2018-01-30 07:02] LABS: BACTERIA,URINE 3+ /HPF (None Seen); WBC,URINE 21-50 /HPF (0-3)
[2018-01-30 07:03] LABS: TRIPLE PHOSPHATE CRYSTAL,UR Few /HPF (None Seen)
--- NOTE | 2018-01-30 07:05 | NUR ---
RN NOTES PT IS LAYING DOWN IN BED WITH HOB ELEVATED. PT ON 3L O2, RESPIRATIONS ARE EVEN AND UNLABORED. IV ON LANKLE, INTACT AND RUNNING NS @ 100ML/HR. JEFFERY CATHETER IS IN PLACE AND DRAINING TO GRAVITY. COLOSTOMY BAG IS IN PLACE. NO SIGNS OF DISTRESS NOTED. SAFETY MEASURES ARE IN PLACE, CALL LIGHT IS IN REACH. WILL CONTINUE TO MONITOR.
[2018-01-30 08:00] VITALS: BP 110/68
[2018-01-30] MEDS: ENOXAPARIN SODIUM 40 MG/0.4 ML DISP.SYRIN SQ SCH (08:35)
[2018-01-30] MEDS: LEVETIRACETAM (250 MG) 250 MG TABLET PO SCH ×2 (09:00→21:21)
[2018-01-30] MEDS: DIVALPROEX SODIUM 250 MG TABLET.DR PO SCH ×2 (09:00→17:53)
[2018-01-30] MEDS: DULOXETINE HCL 30 MG CAPSULE.DR PO SCH (09:00)
[2018-01-30] MEDS: BACLOFEN (10 MG) 10 MG TABLET PO SCH ×4 (09:00→21:22)
--- NOTE | 2018-01-30 10:21 | NUR ---
WOUND CARE CONSULT: PT PRESENTS WITH STAGE 4 ULCER TO SACRUM, PRESENT ON ADMISSION. RECOMMENDATIONS MADE FOR WOUND CARE AND SKIN PROTECTION. DISCUSSED WITH NURSING STAFF. FIRST STEP MATTRESS ORDERED. RECOMMEND SURGICAL CONSULT. CURRENT PABLO SCORE IS 11. MD IN AGREEMENT WITH PLAN OF CARE. Addendum: 01/30/18 at 1022 by SANDRA FINK WNDNU Amended: Links added.
[2018-01-30] MEDS ORDERED: HYDROGEL DRESSING 90 GM TUBE TP PRN (10:30)
[2018-01-30] MEDS: HYDROGEL DRESSING 90 GM TUBE TP SCH (10:30)
[2018-01-30] MEDS ORDERED: clonazePAM 1 MG TABLET PO PRN (13:00)
[2018-01-30] MEDS ORDERED: NORT10CA PO (13:48)
--- NOTE | 2018-01-30 14:10 | NUR ---
VENTILATED RIB FITTER/MED RECON. CALLED AND SPOKE TO GABRIELA [phone], VERIFIED INFO RE: HOME MEDICATION SUPPLY. PHARMACY AND PRIMARY NURSE MADE AWARE.
[2018-01-30 16:00] VITALS: BP_SYST 103; BP_SYST 110; BP_DIAS 61; BP_DIAS 68
[2018-01-30] MEDS ORDERED: oxyCODONE IR immediate release 5 MG PO PRN (18:00)
--- NOTE | 2018-01-30 18:58 | NUR ---
RN NOTES PT IS LAYING DOWN IN BED, RESTING COMFORTABLY. PT ON RA, RESPIRATIONS ARE EVEN AND UNLABORED. IV ON L FOOT INTACT AND RUNNING NS @ 100ML/HR. PT ABLE TO TOLERATE PUREE DIET AT THIS TIME. WILL WAIT FOR FULL SWALLOW EVAL TOMORROW. ALL PT NEEDS ANTICIPATED FOR AND MET. WOUND DEBRIDEMENT DONE AND DRESSING CHANGED. NEW JEFFERY CATHETER PLACED DUE TO PREVIOUS LEAKING, AND UNABLE TO IRRIGATE. NEW JEFFERY DRAINING TO GRAVITY. NO SIGNS OF DISTRESS NOTED. SAFETY MEASURES ARE IN PLACE, CALL LIGHT IS IN REACH. WILL ENDORSE TO ACUTE CARE ASSISTANT RN FOR CONTINUITY OF CARE.
--- NOTE | 2018-01-30 19:35 | NUR ---
RN OPENING NOTES RECEIVED REPORT FROM COLETTE EDDY. FOUND Pt AWAKE, RESTING IN BED. NO S/S OF ACUTE DISTRESS OR SOB NOTED. NO C/O PAIN AT THIS TIME. Pt IS A/OX2-3, VERBAL, ABLE TO MAKE NEEDS KNOWN. JEFFERY CATHETER IN PLACE, DRAINING WELL. IV ACCESS ON L FOOT #22G, IVF NS @100ML/HR. SAFETY MEASURES IN PLACE. BED LOW, LOCKED, HOB ELEVATED, SIDE RAILS UP, CALL LIGHT AND BEDSIDE TABLE WITHIN REACH. WILL CONTINUE TO MONITOR Pt THROUGHOUT THE NIGHT FOR SAFETY.
[2018-01-30 20:00] VITALS: BP 101/65
[2018-01-30] MEDS: LEVOFLOXACIN 500 MG /D5W 100ML 500 MG in PREMIX 1 EA IV SCH (21:21)
[2018-01-31] MEDS: METRONIDAZOLE 500MG/ NS 100ML 500 MG in PREMIX 1 EA IV SCH ×5 (00:04→23:31)
--- NOTE | 2018-01-31 06:43 | NUR ---
RN CLOSING NOTES NO SIGNIFICANT CHANGES IN Pt's CONDITION. Pt REMAINS STABLE AT THIS TIME. NO S/S OF ACUTE DISTRESS OR SOB NOTED DURING THE SHIFT. ALL NEEDS MET AND ATTENDED TO. NO BM NOTED IN COLOSTOMY BAG. SAFETY MEASURES IN PLACE. BED LOW, LOCKED, HOB ELEVATED, SIDE RAILS UP, CALL LIGHT AND BEDSIDE TABLE WITHIN REACH. WILL ENDORSE TO DAYSHIFT RN FOR Pt's CEDRIC.
[2018-01-31 07:00] LABS: BASOPHILS % (AUTO) 0.2 % (0.0-2.0); EOSINOPHILS % (AUTO) 2.1 % (0.0-6.0); HEMATOCRIT 36 % (33-45); HEMOGLOBIN 11.8 g/dL (11.5-14.8); LYMPHOCYTES # (AUTO) 1.7 /CMM (0.8-4.8); MEAN CORPUSCULAR HEMOGLOBIN 29 PG (26.0-33.0); MEAN CORPUSCULAR HGB CONC 33 g/dl (31.0-36.0); MEAN CORPUSCULAR VOLUME 87 fL (82-100); MONOCYTES # (AUTO) 0.4 /CMM (0.1-1.30); MONOCYTES % (AUTO) 7.4 % (2.0-12.0); NEUTROPHILS # (AUTO) 3.4 /CMM (1.8-8.9); NEUTROPHILS % (AUTO) 60.3 % (43.0-81.0); PLATELET COUNT (AUTO) 326 /CMM (150-450); RED BLOOD CELL COUNT(AUTO) 4.14 MIL/uL (4.0-5.2); WHITE BLOOD COUNT (AUTO) 5.7 K/uL (4.3-11.0)
[2018-01-31] MEDS: IV NS 0.9% 1,000 ML IV PRN (07:12)
[2018-01-31 07:14] LABS: THYROID STIMULATING HORMONE 2.283 uIU/mL (0.358-3.74)
[2018-01-31 07:17] LABS: CALCIUM, SERUM 8.2 mg/dL (8.5-10.1); CREATININE 0.5 mg/dL (0.6-1.3); MAGNESIUM 1.7 mg/dL (1.8-2.4); PHOSPHORUS 2.6 mg/dL (2.5-4.9); POTASSIUM 3.6 mmol/L (3.5-5.1)
--- NOTE | 2018-01-31 07:38 | NUR ---
MS RN OPENING NOTES RECEIVED PT SITTING UPRIGHT IN BED, SLEEPING COMFORTABLY. EASILY TO AROUSE, RESPONSIVE. RESPIRATIONS ARE EVEN AND UNLABORED, NOT IN ANY ACUTE DISTRESS NOTED. NO C/O PAIN, N/V, SOB AT THIS TIME. IV SITE INTACT, NO INFILTRATION NOTED. DRESSING KEPT CLEAN AND DRY. WILL CONTINUE TO MONITOR THROUGHOUT SHIFT FOR CONTINUITY OF CARE.
[2018-01-31 08:00] VITALS: BP 110/65
[2018-01-31] MEDS: BACLOFEN (10 MG) 10 MG TABLET PO SCH ×4 (08:20→21:20)
[2018-01-31] MEDS: PANTOPRAZOLE 40 MG VIAL IV SCH (08:20)
[2018-01-31] MEDS: DIVALPROEX SODIUM 250 MG TABLET.DR PO SCH ×2 (08:20→17:03)
[2018-01-31] MEDS: DULOXETINE HCL 30 MG CAPSULE.DR PO SCH (08:21)
[2018-01-31] MEDS: LEVETIRACETAM (250 MG) 250 MG TABLET PO SCH ×2 (08:21→21:20)
[2018-01-31] MEDS: HYDROGEL DRESSING 90 GM TUBE TP SCH (08:21)
[2018-01-31] MEDS: ENOXAPARIN SODIUM 40 MG/0.4 ML DISP.SYRIN SQ SCH (08:22)
[2018-01-31 08:46] VITALS: BP 110/65
[2018-01-31] MEDS ORDERED: MAGNESIUM OXIDE 400 MG TABLET PO ONE (10:30)
[2018-01-31 15:26] VITALS: BP 106/64
--- NOTE | 2018-01-31 15:34 | NUR ---
MS RN NOTES PT SEEN AND EXAMINED BY [facility]. NEW DIET ORDER REGULAR FINELY CHOPPED
--- NOTE | 2018-01-31 17:43 | NUR ---
MS RN NOTES PT NOT ABLE TO TOLERATE REGULAR FINELY CHOPPED DIET. CHANGED ORDER BACK TO PUREE. DR. GONZALEZ MADE AWARE.
--- NOTE | 2018-01-31 18:20 | NUR ---
MS RN CLOSING NOTES ALL DUE MEDS GIVEN, NEEDS MET AND RENDERED. AWAKE AND RESPONSIVE, REMAINS AFEBRILE. RESPIRATIONS ARE EVEN AND UNLABORED, NOT IN ANY ACUTE DISTRESS NOTED. PT C/O PAIN AT THE BEGINNING OF SHIFT BUT STATED "I DONT NEED ANY PAIN MEDICATION." OFFERED PAIN MEDICATION A SECOND TIME AND DENIES ANY PAIN. NO C/O SOB, N/V. IV ACCESS TO LEFT FOOT INTACT, NO INFILTRATION NOTED. DRESSING KEPT CLEAN AND DRY. SAFETY MEASURES ARE IN PLACE. WILL ENDORSE TO NEXT SHIFT FOR CONTINUITY OF CARE.
--- NOTE | 2018-01-31 19:30 | NUR ---
MS RN NOTES RECEIVED ON BED A/O X3,BREATHING REGULAR,NOT IN ANY FORM OF DISTRESS.PRESENT IVF AT TKO RATE INFUSING ON LEFT FOOT.KCI MATTRESS IN USED FOR WOUND MANAGEMENT.REPOSITION PER PROTOCOL.DRESSING TO BUTTOCKS INTACT AND DRY.CALL LIGHT IN REACH,NEEDS ANTICIPATED.
[2018-01-31 20:00] VITALS: BP_SYST 96; BP_SYST 97; BP_DIAS 70
[2018-01-31] MEDS: HYDROCODONE/APAP 5/325MG 1 EACH TABLET PO PRN (20:44)
--- NOTE | 2018-01-31 20:44 | NUR ---
MS RN NOTES PAIN MANAGEMENT C/O SACRAL PAIN 7/10 ON PAIN SCALE,NORCO 5/325MG,1TAB PO GIVEN WITH APPLE SAUCE,TAKEN WELL.NEGATIVE FOR ASPIRATION
[2018-01-31] MEDS: LEVOFLOXACIN 500 MG /D5W 100ML 500 MG in PREMIX 1 EA IV SCH (20:46)
--- NOTE | 2018-01-31 21:30 | NUR ---
MS RN NOTES DUE PO MEDS GIVEN WITH APPLE SAUCE,TAKEN WELL.
[2018-02-01] MEDS: METRONIDAZOLE 500MG/ NS 100ML 500 MG in PREMIX 1 EA IV SCH (05:31)
--- NOTE | 2018-02-01 06:30 | NUR ---
MS RN NOTES SLEPT WITH INTERVALS,PAIN MANAGEMENT EFFECTIVE.IVF AT TKO RATE.IV ABX TOLERATED WELL.NO N/V/D NOTED.REPOSITION PER PROTOCOL.REFUSED MORNING CARE AND BEDDINGS CHANGE.IN NO ACUTE DISTRESS.WILL ENDORSE TO DAY NURSE FOR CEDRIC.
[2018-02-01 07:06] LABS: BASOPHILS % (AUTO) 0.1 % (0.0-2.0); EOSINOPHILS % (AUTO) 2.5 % (0.0-6.0); HEMATOCRIT 39 % (33-45); HEMOGLOBIN 12.9 g/dL (11.5-14.8); LYMPHOCYTES # (AUTO) 2.6 /CMM (0.8-4.8); LYMPHOCYTES % (AUTO) 33.3 % (20.0-44.0); MEAN CORPUSCULAR HEMOGLOBIN 29 PG (26.0-33.0); MEAN CORPUSCULAR HGB CONC 33 g/dl (31.0-36.0); MEAN CORPUSCULAR VOLUME 87 fL (82-100); MONOCYTES # (AUTO) 0.6 /CMM (0.1-1.30); MONOCYTES % (AUTO) 8.1 % (2.0-12.0); NEUTROPHILS # (AUTO) 4.4 /CMM (1.8-8.9); PLATELET COUNT (AUTO) 341 /CMM (150-450); RDW COEFFICIENT OF VARIATION 16.3 (11.5-15.0); WHITE BLOOD COUNT (AUTO) 7.8 K/uL (4.3-11.0)
[2018-02-01 07:31] LABS: CALCIUM, SERUM 8.7 mg/dL (8.5-10.1); CREATININE 0.5 mg/dL (0.6-1.3); MAGNESIUM 1.9 mg/dL (1.8-2.4); PHOSPHORUS 3.1 mg/dL (2.5-4.9)
--- NOTE | 2018-02-01 07:35 | NUR ---
MS RN OPENING NOTE RECEIVED PATIENT IN BED, SLEEPING, EASILY AROUSED WITH VERBAL STIMULI, ORIENTED X3. ON ROOM AIR TOLERATING WELL. RESPIRATIONS EVEN AND UNLABORED, NO APPARENT SIGNS OF DISTRESS OR DISCOMFORT. ABLE TO COMMUNICATE NEEDS. PATIENT WITH L FOOT IVC WITH FLUID RUNNING TKO, PATENT AND INTACT, NO SIGN OF INFILTRATION NOTED. JEFFERY CATH IN PLACE DRAINING CLEAR YELLOW URINE, PATENT. KEPT COMFORTABLE, PER NIGHT RN, PATIENT REFUSED AM CARE. SAFETY MEASURES IN PLACE, BED IN LOW LOCKED POSITION, SIDE RAILS UP X2, CALL LIGHT WITHIN EASY REACH. WILL CONTINUE TO MONITOR.
[2018-02-01 08:00] VITALS: BP 111/66
[2018-02-01] MEDS: PANTOPRAZOLE 40 MG VIAL IV SCH (08:35)
[2018-02-01] MEDS: DIVALPROEX SODIUM 250 MG TABLET.DR PO SCH ×2 (08:36→17:19)
[2018-02-01] MEDS: ENOXAPARIN SODIUM 40 MG/0.4 ML DISP.SYRIN SQ SCH (08:36)
[2018-02-01] MEDS: BACLOFEN (10 MG) 10 MG TABLET PO SCH ×4 (08:36→20:26)
[2018-02-01] MEDS: DULOXETINE HCL 30 MG CAPSULE.DR PO SCH (08:37)
[2018-02-01] MEDS: LEVETIRACETAM (250 MG) 250 MG TABLET PO SCH ×2 (08:37→20:26)
[2018-02-01] MEDS: HYDROGEL DRESSING 90 GM TUBE TP SCH (08:38)
--- NOTE | 2018-02-01 09:00 | NUR ---
PATIENT REFUSES MORNING CARE AND BED CHANGE. STATES THAT SHE WANTS TO BE LEFT ALONE TO SLEEP. WILL REATTEMPT AT A LATER TIME
[2018-02-01] MEDS: METRONIDAZOLE 250 MG TABLET PO SCH ×3 (11:33→23:26)
[2018-02-01] MEDS: HYDROCODONE/APAP 5/325MG 1 EACH TABLET PO PRN ×2 (11:34→21:24)
[2018-02-01] MEDS: ONDANSETRON HCL/PF 4 MG/2 ML VIAL IVP PRN (15:17)
[2018-02-01 16:00] VITALS: BP 100/72
--- NOTE | 2018-02-01 17:00 | NUR ---
PATIENT FINALLY AGREED TO AFTERNOON CARE AND BED CHANGE. ALL HYGIENE ACTIVITIES PERFORMED.
--- NOTE | 2018-02-01 17:40 | NUR ---
MADE SEVERAL ATTEMPTS TO GET A HOLD OF [facility] TO OBTAIN DVT PUMP. NO ONE ANSERED THE PHONE CALLS. WILL CONTINUE TO CALL AT A LATER TIME.
--- NOTE | 2018-02-01 18:33 | NUR ---
MS RN CLOSING NOTE PATIENT IN BED, ALERT ORIENTED X3. ON ROOM AIR TOLERATING WELL. RESPIRATIONS EVEN AND UNLABORED, NO APPARENT SIGNS OF DISTRESS OR DISCOMFORT. DENIES PAIN AND SOB AT THIS TIME. ABLE TO COMMUNICATE NEEDS. PATIENT WITH L FOOT IVC WITH FLUID RUNNING TKO, PATENT AND INTACT, NO SIGN OF INFILTRATION NOTED. JEFFERY CATH IN PLACE DRAINING CLEAR YELLOW URINE, PATENT. COLOSTOMY PRESENT, BAG REPLACED. KEPT CLEAN AND COMFORTABLE, PATIENT CONTINUED TO REFUSE CARE AND BED CHANGE UNTIL LATER IN THE AFTERNOON, BUT FINALLY WAS ABLE TO CONVINCE TO CLEAN. PATIENT REFUSED BREAKFAST AND LUNCH BUT ATE SOME PORTION OF THE DINNER. ALL NEEDS ATTENDED AND ORDERS CARRIED OUT. SAFETY MEASURES IN PLACE, BED IN LOW LOCKED POSITION, SIDE RAILS UP X2, CALL LIGHT WITHIN EASY REACH. WILL ENDORSE TO AM NURSE FOR CEDRIC.
--- NOTE | 2018-02-01 18:45 | NUR ---
CALLED [facility] AGAIN. NO ANSWER TO THE PHONE AT THIS TIME. WILL REATTEMPT.
--- NOTE | 2018-02-01 19:10 | NUR ---
RN OPENING NOTES PT AWAKE AND RESTING IN BED. NO COMPLAINTS OF PAIN, SOB, OR DISTRESS AT THIS TIME. PT HAS A LEFT FOOT #22 INTACT AND PATENT. PT HAS A JEFFERY CATHETER AND COLOSTOMY BOTH INTACT AND DRAINING WELL. SAFETY PRECAUTIONS IN PLACE. BED IN LOWEST LOCKED POSITION, X2 SIDE RAILS UP, AND CALL LIGHT WITHIN REACH. WILL CONTINUE TO MONITOR.
[2018-02-01 20:00] VITALS: BP 111/72
[2018-02-01] MEDS: LEVOFLOXACIN 500 MG /D5W 100ML 500 MG in PREMIX 1 EA IV SCH (20:25)
--- NOTE | 2018-02-01 21:24 | NUR ---
RN NOTES PT REQUESTED PRN PAIN MEDICATION FOR SACRAL PAIN. WILL ADMINISTER PRN NORCO 5-325MG AND CONTINUE TO MONITOR.
--- NOTE | 2018-02-01 22:27 | NUR ---
RN NOTES PT FATHER CALLED BACK IN REGARDS TO THE REQUEST FOR HIM TO BRING IN HOME MEDICATION COPAXONE. FATHER STATED THAT PATIENT DOES NOT LIVE WITH HIM. STATED THAT SHE LIVED WITH CAREGIVER MADISON AND HE WOULD BE THE ONE THAT WOULD BE ABLE TO BRING IN THE MEDICATION. LEFT VOICEMAIL FOR MADISON.
[2018-02-02] MEDS: METRONIDAZOLE 250 MG TABLET PO SCH ×4 (05:48→23:13)
--- NOTE | 2018-02-02 06:48 | NUR ---
RN CLOSING NOTES PT AWAKE AND RESTING IN BED. NO COMPLAINTS OF PAIN, SOB, OR DISTRESS AT THIS TIME. PT HAS A LEFT FOOT #22 INTACT AND PATENT. PT HAS A JEFFERY CATHETER AND COLOSTOMY BOTH INTACT AND DRAINING WELL. ALL PATIENT NEEDS MET. SAFETY PRECAUTIONS IN PLACE. BED IN LOWEST LOCKED POSITION, X2 SIDE RAILS UP, AND CALL LIGHT WITHIN REACH. WILL ENDORSE TO DAY SHIFT NURSE FOR CONTINUITY OF CARE.
--- NOTE | 2018-02-02 07:05 | NUR ---
ms rn initial notes received patient in bed, awake, head of bed elevated, no SOB or distress noted. on room air and tolerated well. Alert and oriented x 3, verbally responsive and able to make needs known. Hutchison in placed attached to drainage bag. IV on the left foot HL only. No complaint of pain or discomfort at this time. Colostomy noted. Call light with in patient reach, will continue to monitor accordingly.
[2018-02-02] MEDS: PANTOPRAZOLE 40 MG VIAL IV SCH (07:08)
[2018-02-02 08:00] VITALS: BP 113/66
[2018-02-02] MEDS: DULOXETINE HCL 30 MG CAPSULE.DR PO SCH (08:39)
[2018-02-02] MEDS: DIVALPROEX SODIUM 250 MG TABLET.DR PO SCH ×2 (08:39→17:13)
[2018-02-02] MEDS: LEVETIRACETAM (250 MG) 250 MG TABLET PO SCH ×2 (08:39→21:15)
[2018-02-02] MEDS: BACLOFEN (10 MG) 10 MG TABLET PO SCH ×4 (08:39→21:15)
[2018-02-02] MEDS: ENOXAPARIN SODIUM 40 MG/0.4 ML DISP.SYRIN SQ SCH (08:40)
[2018-02-02] MEDS: HYDROGEL DRESSING 90 GM TUBE TP SCH (08:40)
[2018-02-02 09:02] VITALS: BP 115/66
[2018-02-02 09:02] LABS: CALCIUM, SERUM 8.9 mg/dL (8.5-10.1); CREATININE 0.5 mg/dL (0.6-1.3); MAGNESIUM 1.8 mg/dL (1.8-2.4); PHOSPHORUS 3.7 mg/dL (2.5-4.9); POTASSIUM 3.6 mmol/L (3.5-5.1)
[2018-02-02] MEDS: MORPHINE SULFATE INJ 4 MG/ML DISP.SYRIN IV PRN (14:52)
[2018-02-02 16:00] VITALS: BP 105/71
[2018-02-02 16:17] VITALS: BP 101/67
[2018-02-02 16:18] VITALS: BP 131/69
[2018-02-02] MEDS: ENSURE ENLIVE CHOC 237 ML CAN PO SCH (17:00)
[2018-02-02] MEDS: HYDROCODONE/APAP 5/325MG 1 EACH TABLET PO PRN ×2 (17:13→21:16)
--- NOTE | 2018-02-02 19:06 | NUR ---
ms rn closing notes All needs provided, attended, and anticipated, endorsed to next shift RN to continue care. Call light with in patient reach. Patient in stable condition at this time.
[2018-02-02 20:00] VITALS: BP 95/50
[2018-02-02] MEDS: LEVOFLOXACIN (500MG) 500 MG TABLET PO SCH (21:15)
--- NOTE | 2018-02-02 21:16 | NUR ---
RN NOTES PT REQUESTED PRN PAIN MEDICATION FOR FOOT PAIN. WILL ADMINISTER PRN NORCO 5-325MG AND CONTINUE TO MONITOR.
[2018-02-02] MEDS: TEMAZEPAM 15 MG CAPSULE PO PRN (23:13)
--- NOTE | 2018-02-02 23:13 | NUR ---
RN NOTES PT REQUESTED MEDICATION FOR SLEEP. WILL ADMINISTER PRN RESTORIL AND CONTINUE TO MONITOR.
[2018-02-03] MEDS: METRONIDAZOLE 250 MG TABLET PO SCH ×4 (05:45→23:05)
--- NOTE | 2018-02-03 07:15 | NUR ---
ms rn initial notes Received patient in bed, asleep, head of bed elevated, no SOB or distress noted. on room air and tolerated well. Patient is alert and oriented x 3,verbally responsive and able to make needs known. Hutchison in placed attached to drainage bag. IV in placed and intact and patent. No facial grimace noted. Colostomy on the left side of the abdomen. Call light with in patient reach, will continue to monitor.
--- NOTE | 2018-02-03 08:00 | NUR ---
ms rn notes Refused to eat breakfast, per patient she is still sleep, but able to drank the whole bottle of ensure.
[2018-02-03] MEDS: ENSURE ENLIVE CHOC 237 ML CAN PO SCH ×2 (08:23→16:52)
[2018-02-03] MEDS: PANTOPRAZOLE 40 MG VIAL IV SCH (08:24)
[2018-02-03] MEDS: BACLOFEN (10 MG) 10 MG TABLET PO SCH ×4 (08:29→20:22)
[2018-02-03] MEDS: DULOXETINE HCL 30 MG CAPSULE.DR PO SCH (08:29)
[2018-02-03] MEDS: LEVETIRACETAM (250 MG) 250 MG TABLET PO SCH ×2 (08:30→20:22)
[2018-02-03] MEDS: DIVALPROEX SODIUM 250 MG TABLET.DR PO SCH ×2 (08:30→16:52)
[2018-02-03] MEDS: HYDROGEL DRESSING 90 GM TUBE TP SCH (08:32)
[2018-02-03] MEDS: ENOXAPARIN SODIUM 40 MG/0.4 ML DISP.SYRIN SQ SCH (08:32)
[2018-02-03 08:40] VITALS: BP 115/71
[2018-02-03 16:13] VITALS: BP 93/54
[2018-02-03] MEDS: MORPHINE SULFATE INJ 4 MG/ML DISP.SYRIN IV PRN ×2 (16:53→21:50)
[2018-02-03] MEDS: HYDROCODONE/APAP 5/325MG 1 EACH TABLET PO PRN (18:40)
--- NOTE | 2018-02-03 19:15 | NUR ---
RN OPENING NOTES PT AWAKE AND ALERT. NO COMPLAINTS OF SOB OR DISTRESS AT THIS TIME. PT COMPLAINS OF SACRAL PAIN, WILL ASSESS PRN PAIN MEDICATION AND ADMINISTER PER DR ORDERS. PT HAS A JEFFERY CATHETER AND COLOSTOMY INTACT. PT HAS A LEFT FOOT IV #22 INTACT AND PATENT. SAFETY PRECAUTIONS IN PLACE. BED IN LOWEST LOCKED POSITION, X3 SIDE RAILS UP, CALL LIGHT WITHIN REACH, WILL CONTINUE TO MONITOR.
--- NOTE | 2018-02-03 19:29 | NUR ---
ms rn closing notes All needs provided, attended, and anticipated. Patient in stable condition. Endorsed to next shift RN to continue care. Call light with in patient reach.
[2018-02-03 20:00] VITALS: BP 105/79
[2018-02-03] MEDS: LEVOFLOXACIN (500MG) 500 MG TABLET PO SCH (20:22)
--- NOTE | 2018-02-03 21:50 | NUR ---
RN NOTES PT REQUESTED PAIN MEDICATION FOR SACRAL PAIN. WILL ADMINISTER MORPHINE AND CONTINUE TO MONITOR.
[2018-02-03] MEDS: TEMAZEPAM 15 MG CAPSULE PO PRN (23:24)
--- NOTE | 2018-02-03 23:24 | NUR ---
RN NOTES PT REQUESTED PRN SLEEP MEDICATION RESTORIL. WILL ADMINISTER AND CONTINUE TO MONITOR.
[2018-02-04] MEDS: METRONIDAZOLE 250 MG TABLET PO SCH ×3 (06:02→17:06)
--- NOTE | 2018-02-04 07:10 | NUR ---
ms rn initial notes Received patient in bed, awake, head of bed elevated, no SOB or distress noted. on room air and tolerated well. Patient is alert and oriented x 3,verbally responsive and able to make needs known. Hutchison in placed attached to drainage bag. IV in placed and intact and patent. No complaint of pain or discomfort at this time. Colostomy on the left side of the abdomen. Call light with in patient reach, will continue to monitor.
[2018-02-04 07:21] LABS: BASOPHILS % (AUTO) 0.4 % (0.0-2.0); EOSINOPHILS % (AUTO) 4.2 % (0.0-6.0); HEMATOCRIT 38 % (33-45); HEMOGLOBIN 12.7 g/dL (11.5-14.8); LYMPHOCYTES # (AUTO) 3.7 /CMM (0.8-4.8); LYMPHOCYTES % (AUTO) 51.1 % (20.0-44.0); MEAN CORPUSCULAR HEMOGLOBIN 29 PG (26.0-33.0); MEAN CORPUSCULAR HGB CONC 33 g/dl (31.0-36.0); MEAN CORPUSCULAR VOLUME 87 fL (82-100); MONOCYTES # (AUTO) 0.8 /CMM (0.1-1.30); MONOCYTES % (AUTO) 11.4 % (2.0-12.0); NEUTROPHILS # (AUTO) 2.4 /CMM (1.8-8.9); NEUTROPHILS % (AUTO) 32.9 % (43.0-81.0); PLATELET COUNT (AUTO) 410 /CMM (150-450); RDW COEFFICIENT OF VARIATION 16.3 (11.5-15.0); RED BLOOD CELL COUNT(AUTO) 4.44 MIL/uL (4.0-5.2); WHITE BLOOD COUNT (AUTO) 7.3 K/uL (4.3-11.0)
[2018-02-04 07:36] LABS: CALCIUM, SERUM 8.5 mg/dL (8.5-10.1); CREATININE 0.5 mg/dL (0.6-1.3); POTASSIUM 4.1 mmol/L (3.5-5.1)
[2018-02-04 08:00] VITALS: BP_SYST 125; BP_SYST 98; BP_DIAS 50; BP_DIAS 65
[2018-02-04] MEDS: ENSURE ENLIVE CHOC 237 ML CAN PO SCH ×2 (08:30→17:07)
[2018-02-04] MEDS: DIVALPROEX SODIUM 250 MG TABLET.DR PO SCH ×2 (08:31→17:06)
[2018-02-04] MEDS: LEVETIRACETAM (250 MG) 250 MG TABLET PO SCH ×2 (08:31→20:24)
[2018-02-04] MEDS: PANTOPRAZOLE 40 MG VIAL IV SCH (08:31)
[2018-02-04] MEDS: DULOXETINE HCL 30 MG CAPSULE.DR PO SCH (08:32)
[2018-02-04] MEDS: BACLOFEN (10 MG) 10 MG TABLET PO SCH ×4 (08:32→20:24)
[2018-02-04] MEDS: HYDROGEL DRESSING 90 GM TUBE TP SCH (08:32)
[2018-02-04] MEDS: ENOXAPARIN SODIUM 40 MG/0.4 ML DISP.SYRIN SQ SCH (08:33)
[2018-02-04] MEDS: HYDROCODONE/APAP 5/325MG 1 EACH TABLET PO PRN ×2 (10:47→17:06)
[2018-02-04] MEDS: ONDANSETRON HCL/PF 4 MG/2 ML VIAL IVP PRN (13:32)
[2018-02-04 16:00] VITALS: BP_SYST 116; BP_SYST 97; BP_DIAS 60; BP_DIAS 72
[2018-02-04] MEDS: MORPHINE SULFATE INJ 4 MG/ML DISP.SYRIN IV PRN ×2 (16:10→20:18)
[2018-02-04] MEDS: FLUCONAZOLE (100 MG) 100 MG TABLET PO SCH (18:24)
--- NOTE | 2018-02-04 19:20 | NUR ---
MS MCCARTNEY OPENING NOTES: RECEIVED PT IN BED AND IS SITTING UP IN BED FINISHING UP DINNER. PT IS A/OX4. PT ALREADY ASKING FOR PAIN MEDICATION. PT HAS IV ON L FOOT #22G AND IS PATENT AND INTACT. CURRENTLY S/L. CALL LIGHT WITHIN PT'S REACH. BED KEPT IN LOW, LOCKED POSITION, AND SIDE RAILS X 2UP. WILL CONTINUE TO MONITOR PT. Addendum: 02/04/18 at 1945 by ROSY PAREKH RN COLOSTOMY NOTED ON L SIDE OF ABDOMEN. NOTED F/C AND IS ATTACHED TO DRAINAGE BAG WITH YELLOW URINE DRAINING.
--- NOTE | 2018-02-04 19:24 | NUR ---
ms rn closing notes All needs provided, attended, and anticipated. Patient is in stable condition. Endorsed to next shift RN to continue care. Call light with in patient reach, will continue to monitor accordingly.
[2018-02-04 20:00] VITALS: BP 93/67
[2018-02-04] MEDS: LINEZOLID 600 MG TABLET PO SCH (20:25)
--- NOTE | 2018-02-04 20:25 | NUR ---
MS RN NOTES: HAD TO MANUALLY ADMINISTER ZYVOX SINCE GUN WAS NOT SCANNING BARCODE.
[2018-02-04] MEDS: LEVOFLOXACIN (500MG) 500 MG TABLET PO SCH (20:26)
[2018-02-05 01:00] VITALS: BP 92/52
--- NOTE | 2018-02-05 01:01 | NUR ---
MS RN NOTES: PT COMPLAINING OF 10/10 SACRAL PAIN. PT WAS ADMINISTERED MORPHIEN 1MG. WILL CONTINUE TO MONITOR PT.
[2018-02-05] MEDS: MORPHINE SULFATE INJ 4 MG/ML DISP.SYRIN IV PRN (01:09)
--- NOTE | 2018-02-05 01:33 | NUR ---
MS RN NOTES: PT REQUESTING FOR SLEEPING MEDICATION. PT UNABLE TO SLEEP EVEN WITH MORPHINE BEING ADMINISTERED.
[2018-02-05] MEDS: TEMAZEPAM 15 MG CAPSULE PO PRN (01:34)
--- NOTE | 2018-02-05 01:35 | NUR ---
MS RN NOTES: RESTORIL 30MG PO WAS ADMINISTERED PER PT'S REQUEST.
--- NOTE | 2018-02-05 06:20 | NUR ---
MS RN CLOSING NOTES: ALL NEEDS WERE ATTENDED AND ANTICIPATED FOR. PT KEPT CLEAN, DRY, AND COMFORTABLE. PT TURNED AND REPOSITIONED. WOUND AREA DRESSING STILL C/D/I. PT HAS L FOOT #22G AND IS PATENT AND INTACT. CURRENTLY S/L. F/C OUTPUT WAS 850ML. COLOSTOMY REMAINS IN L ABDOMEN AND INTACT. PT IS ASLEEP AT THIS TIME. CALL LIGHT WITHIN PT'S REACH. BED KEPT IN LOW, LOCKED POSITION, AND SIDE RAILS X 2UP. WILL ENDORSE TO AM NURSE FOR CEDRIC.
[2018-02-05 07:50] LABS: BASOPHILS % (AUTO) 0.2 % (0.0-2.0); EOSINOPHILS % (AUTO) 2.4 % (0.0-6.0); HEMATOCRIT 38 % (33-45); HEMOGLOBIN 12.5 g/dL (11.5-14.8); LYMPHOCYTES # (AUTO) 3.9 /CMM (0.8-4.8); LYMPHOCYTES % (AUTO) 44.6 % (20.0-44.0); MEAN CORPUSCULAR HEMOGLOBIN 29 PG (26.0-33.0); MEAN CORPUSCULAR HGB CONC 33 g/dl (31.0-36.0); MEAN CORPUSCULAR VOLUME 87 fL (82-100); MONOCYTES # (AUTO) 1.1 /CMM (0.1-1.30); MONOCYTES % (AUTO) 12.9 % (2.0-12.0); NEUTROPHILS # (AUTO) 3.5 /CMM (1.8-8.9); NEUTROPHILS % (AUTO) 39.9 % (43.0-81.0); PLATELET COUNT (AUTO) 437 /CMM (150-450); RDW COEFFICIENT OF VARIATION 17.3 (11.5-15.0); RED BLOOD CELL COUNT(AUTO) 4.39 MIL/uL (4.0-5.2); WHITE BLOOD COUNT (AUTO) 8.7 K/uL (4.3-11.0)
--- NOTE | 2018-02-05 07:50 | NUR ---
RN NOTES PATIENT A/OX3, VERBALLY RESPONSIVE, BREATHING EVEN AND UNLABORED, NO SOB NOTED, PATIENT WOULD LIKE TO SLEEP SOME MORE, AND WANTS TO EAT BREAKFAST LATER. LEFT FOOT #22G PATENT AND FLUSHES WELL, COLOSTOMY BAG ON LEFT SIDE OF ABDOMEN, INTACT. NEEDS ATTENDED AND MET, CALL LIGHT WITHIN REACH, WILL CONTINUE TO MONITOR.
[2018-02-05 08:00] VITALS: BP 95/53
[2018-02-05 08:05] LABS: CALCIUM, SERUM 9.1 mg/dL (8.5-10.1); CREATININE 0.6 mg/dL (0.6-1.3); POTASSIUM 4.2 mmol/L (3.5-5.1)
--- NOTE | 2018-02-05 08:30 | NUR ---
RN NOTES PATIENT SEEN BY CHATA DAS NP, PATIENT VERBALIZED A RIGHT EAR PAIN, CHATA HARMAN MADE AWARE.
[2018-02-05] MEDS: ENSURE ENLIVE CHOC 237 ML CAN PO SCH ×2 (08:44→16:17)
[2018-02-05] MEDS: PANTOPRAZOLE 40 MG VIAL IV SCH (08:44)
[2018-02-05] MEDS: DIVALPROEX SODIUM 250 MG TABLET.DR PO SCH ×2 (08:44→16:17)
[2018-02-05] MEDS: LEVETIRACETAM (250 MG) 250 MG TABLET PO SCH ×2 (08:44→21:24)
[2018-02-05] MEDS: FLUCONAZOLE (100 MG) 100 MG TABLET PO SCH (08:44)
[2018-02-05] MEDS: DULOXETINE HCL 30 MG CAPSULE.DR PO SCH (08:44)
[2018-02-05] MEDS: BACLOFEN (10 MG) 10 MG TABLET PO SCH ×4 (08:45→21:26)
[2018-02-05] MEDS: LINEZOLID 600 MG TABLET PO SCH ×2 (08:45→21:26)
[2018-02-05] MEDS: HYDROGEL DRESSING 90 GM TUBE TP SCH (08:46)
[2018-02-05] MEDS: ENOXAPARIN SODIUM 40 MG/0.4 ML DISP.SYRIN SQ SCH (08:54)
--- NOTE | 2018-02-05 10:30 | NUR ---
RN NOTES PATIENT ALLOWED TURNING AND REPOSITIONING AT THIS TIME, BUT REFUSING ADL CARE. PER PATIENT "I JUST WANT TO REST FOR NOW." PATIENT REFUSING WOUND TREATMENT AT THIS TIME. RE-EDUCATED ABOUT SKIN BREAKDOWN, BUT PATIENT STILL REFUSED. WILL CONTINUE TO MONITOR.
--- NOTE | 2018-02-05 14:00 | NUR ---
RN NOTES CHATA DAS CAME AND ASSESSED THE PATIENT'S EAR. NO INFECTION FOUND PER MATERIAL MAN, NO NEW ORDER AT THIS TIME
[2018-02-05 16:00] VITALS: BP 99/66
--- NOTE | 2018-02-05 18:41 | NUR ---
RN NOTES PATIENT A/OX3, VERBALLY RESPONSIVE, NO DISTRESS NOTED, PATIENT DENIES PAIN OR DISCOMFORT AT THIS TIME, PATIENT HAS REFUSED SKIN CARE AND WOUND TREATMENT ALL THROUGHOUT THE SHIFT, PER PATIENT, "I'M CLEAN, I DON'T NEED TO BE CHANGED, I JUST WANT TO REST" OFFERED NUMEROUS TIMES BY RN AND CORE DROPPER, BUT PATIENT STILL REFUSED. PATIENT RE-EDUCATED ON WOUND TREATMENT, SKIN BREAKDOWN. PATIENT VERBALIZED UNDERSTANDING. ALSO OFFERED TO CHANGE COLOSTOMY BAG, BUT PATIENT REFUSED. PATIENT DID ALLOW TURNING AND REPOSITIONING EVERY 2 HOURS AND OFFLOADING OF HEELS. PATIENT HAD POOR PO INTAKE TODAY, ENCOURAGED FLUIDS AND PO INTAKE, NEEDS ATTENDED PATIENT PERMITS. CALL LIGHT WITHIN REACH, WILL ENDORSE TO REEL OPERATOR FOR CEDRIC.
--- NOTE | 2018-02-05 19:10 | NUR ---
MS/CADMIUM LIQUOR MAKER; RECEIVED PT'S REPORTS FROM THE DAY SHIFT RN FOR CONTINUITY OF CARE. AT THIS TIME P IN BED SLEEPING. BREATHING NON LABORED. BED ON LOWER POSITION AND LOCKED FO SAFETY. SIDE RAILS X2 ARE UP FO SAFETY. CALL LIGHT WITHIN REACH. WILL CONTINUE TO MONITOR.
--- NOTE | 2018-02-05 19:55 | NUR ---
MS/KNIFER UP; RE CHECKED PT IN BED SLEEPING BUT AROUSABLE AND VERBALLY RESPONSIVE AND COHERENT. WITH HL ON LT FOOT FLUSHED WITH NS INTACT AND PATENT.FC INTACT WITH CLEAR YELLOW URINE 100 ML AT THIS TIME IN THE BAG. WITH COLOSTOMY BAG INTACT WIT SOME BROWN STOOL SMALL AMOUNT. PT INSTRUCTED TO CALL FOR HELP AND CALL LIGHT WITHIN REACH. ON CONTACT ISOLATION OBSERVED. WILL CONTINUE TO MONITOR.
[2018-02-05 20:00] VITALS: BP 99/59
[2018-02-05] MEDS: LEVOFLOXACIN (500MG) 500 MG TABLET PO SCH (21:25)
[2018-02-06] VITALS (11 sets, daily range): BP systolic 84–98; BP diastolic 54–86
--- NOTE | 2018-02-06 06:25 | NUR ---
MS/HIGH SCHOOL ENGLISH TEACHER; COLOSTOMY BAG CHANGED. WITH BM SOFT FORMED BROWN BM.
--- NOTE | 2018-02-06 06:30 | NUR ---
MS/PRODUCTION OPERATOR; PT SLEPT FINE LAST NIGHT. PT ASKING MORPHINE FOR GEN. PAIN. BP 98/66 P 110 R 18 O2 SAT 100 %. I TOLD THE PT THAT I CAN'T GIVE MORPHINE DUE TO BP IS LOW 98/ 66 AND I TOLD HER I WILL TELL THE DAY SHIFT RN O RE CHECK AND SHE AGREED. THEN SHE ASKED FOR ORANGE JUICE GIVEN. WILL CONTINUE TO MONITOR. CALL LIGHT WITHIN REACH. TEX ENDORSE TO THE DAY SHIFT NURSE FOR CONTINUITY OF CARE.
[2018-02-06 06:39] LABS: BASOPHILS % (AUTO) 0.2 % (0.0-2.0); EOSINOPHILS % (AUTO) 1.4 % (0.0-6.0); HEMATOCRIT 42 % (33-45); HEMOGLOBIN 13.7 g/dL (11.5-14.8); LYMPHOCYTES # (AUTO) 3.4 /CMM (0.8-4.8); LYMPHOCYTES % (AUTO) 33.8 % (20.0-44.0); MEAN CORPUSCULAR HEMOGLOBIN 29 PG (26.0-33.0); MEAN CORPUSCULAR HGB CONC 33 g/dl (31.0-36.0); MEAN CORPUSCULAR VOLUME 87 fL (82-100); MONOCYTES # (AUTO) 0.8 /CMM (0.1-1.30); MONOCYTES % (AUTO) 7.6 % (2.0-12.0); NEUTROPHILS # (AUTO) 5.8 /CMM (1.8-8.9); PLATELET COUNT (AUTO) 515 /CMM (150-450); RDW COEFFICIENT OF VARIATION 17.4 (11.5-15.0); WHITE BLOOD COUNT (AUTO) 10.1 K/uL (4.3-11.0)
[2018-02-06 07:06] LABS: CALCIUM, SERUM 9.1 mg/dL (8.5-10.1); CREATININE 0.7 mg/dL (0.6-1.3); POTASSIUM 4.4 mmol/L (3.5-5.1)
--- NOTE | 2018-02-06 07:15 | NUR ---
RN INITIAL NOTES: RECEIVED PATIENT RESTING IN BED. NONLABORED BREATHING NOTED ON ROOM AIR. DENYING PAIN. NO FACIAL GRIMACING NOTED. PATIENT AOX2-3 . IV SITE ON LEFT FOOT GAUGE 22 PATENT AND INTACT. BED IN LOWEST LOCKED POSITION. CALL LIGHT WITHIN REACH. ASPIRATION AND SEIZURE PRECAUTIONS IMPLEMENTED
[2018-02-06] MEDS: PANTOPRAZOLE 40 MG VIAL IV SCH (08:06)
--- NOTE | 2018-02-06 08:10 | NUR ---
PER CHATA DAS DNP, NO NEED TO INSERT PICCLINE. PATIENT TO BE DISCHARGED ON ORAL ANTIBIOTICS. VERBAL READBACK DONE
[2018-02-06] MEDS: ENSURE ENLIVE CHOC 237 ML CAN PO SCH ×2 (09:20→18:06)
[2018-02-06] MEDS: LEVETIRACETAM (250 MG) 250 MG TABLET PO SCH ×2 (09:54→21:44)
[2018-02-06] MEDS: FLUCONAZOLE (100 MG) 100 MG TABLET PO SCH (09:54)
[2018-02-06] MEDS: DIVALPROEX SODIUM 250 MG TABLET.DR PO SCH ×2 (09:55→18:05)
[2018-02-06] MEDS: ENOXAPARIN SODIUM 40 MG/0.4 ML DISP.SYRIN SQ SCH (10:29)
[2018-02-06] MEDS: BACLOFEN (10 MG) 10 MG TABLET PO SCH ×4 (10:30→21:44)
--- NOTE | 2018-02-06 10:43 | NUR ---
PATIENT AOX2-3. NONLABORED BREATHING NOTED ON ROOM AIR. DENYING PAIN AND DENYING DIZZINESS. RESPONSIVE AND VERBALIZING THAT SHE DOES NOT HAVE ANY PAIN OR MUSCLE SPASMS. PATIENT REFUSING BACLOFEN. BENEFITS AND RISKS EXPLAINED
--- NOTE | 2018-02-06 10:44 | NUR ---
ISMAEL CALDWELL NP, PAGED TO INFORM HER OF BP READINGS
[2018-02-06] MEDS: HYDROGEL DRESSING 90 GM TUBE TP SCH (10:55)
[2018-02-06] MEDS: LINEZOLID 600 MG TABLET PO SCH ×2 (10:55→21:44)
--- NOTE | 2018-02-06 11:23 | NUR ---
ISMAEL CALDWELL NP, NOTIFIED OF BP READINGS
[2018-02-06] MEDS: DULOXETINE HCL 30 MG CAPSULE.DR PO SCH (11:34)
[2018-02-06] MEDS ORDERED: LEVO500T2 PO (14:18)
[2018-02-06] MEDS ORDERED: DOXY100C2 PO (14:18)
[2018-02-06] MEDS ORDERED: FLUC100T8 PO (14:18)
[2018-02-06] MEDS: ACETAMINOPHEN 325 MG TABLET PO PRN ×2 (14:28→17:06)
[2018-02-06] MEDS ORDERED: IV NS 0.9% 500 ML IV ONE (14:30)
--- NOTE | 2018-02-06 17:37 | NUR ---
RECEIVED AN ORDER FROM ISMAEL CALDWELL NP, TO HOLD DISCHARGE. VERBAL READBACK DONE. REPORTED BP AND TEMP FINDINGS TO HEAD OF VISUAL MERCHANDISING. PER ISMAEL CALDWELL NP, START IVF NS AT 60 ML/HOURS . VERBAL READBACK DONE
[2018-02-06] MEDS ORDERED: IV NS 0.9% 1,000 ML IV PRN (18:00)
[2018-02-06] MEDS ORDERED: IV NS 0.9% 1,000 ML BAG IV PRN (18:00)
--- NOTE | 2018-02-06 19:15 | NUR ---
MS RN CLOSING NOTE PATIENT RESTING IN BED. NONLABORED BREATHING NOTED ON ROOM AIR. NO FACIAL GRIMACING NOTED FOR PAIN. NO SOB OR DISTRESS NOTED, IV SITE ON LEFT FOOT PATENT AND INTACT WITH CURRENT IV FLUIDS RUNNING. CALL LIGHT WITHIN REACH. SAFETY MEASURES IMPLEMENTED. PATIENT TURNED AND REPOSITIONED EVERY 2 HOURS. WOUND CARE DONE. ENDORSED TO NEXT SHIFT
--- NOTE | 2018-02-06 19:27 | NUR ---
MS RN OPENING NOTE RECEIVE PATIENT AWAKE IN BED, A/O X 2-3, STABLE NO FACIAL GRIMACING NOTED FOR PAIN. NO SOB OR DISTRESS NOTED, CALL LIGHT WITHIN REACH. SAFETY MEASURES IMPLEMENTED. WILL CONTINUE TO MONITOR THROUGHOUT SHIFT.
--- NOTE | 2018-02-06 19:44 | NUR ---
SPOKE TO M[facility] CAREGIVER AND UPDATED HIM OF DISCHARGE HOLD
[2018-02-06] MEDS: HYDROCODONE/APAP 5/325MG 1 EACH TABLET PO PRN (21:43)
[2018-02-06] MEDS: LEVOFLOXACIN (500MG) 500 MG TABLET PO SCH (21:44)
[2018-02-07 04:00] VITALS: BP 97/64
--- NOTE | 2018-02-07 06:18 | NUR ---
MS RN CLOSING NOTES PT COMFORTABLY ASLEEP AND EASILY AWAKEN, A/O X 3, IN STABLE CONDITION. RESPIRATION EVEN AND UNLABORED. KEPT CLEAN AND DRY AND COMFORTABLE, ALL NURSING CARE RENDERED. NEEDS ATTENDED AND ANTICIPATED, GOOD SKIN CARE PROVIDED. FREQUENT VISUAL CHECK DONE FOR SAFETY EVERY 2 HOURS. ON LOW BED AT ALL TIMES TO ENSURE SAFETY. SAFE HAZARD FREE ENVIRONMENT PROVIDED. NO COMPLAINS OF PAIN. ASSIST REPOSITION EVERY 2 HOURS. CALL LIGHT WITHIN EASY TO REACH. WILL ENDORSE NEXT SHIFT CONTINUITY OF CARE. NO COMPLAINS OF PAIN.
[2018-02-07 06:54] LABS: BASOPHILS % (AUTO) 0.3 % (0.0-2.0); EOSINOPHILS % (AUTO) 0.3 % (0.0-6.0); HEMATOCRIT 37 % (33-45); HEMOGLOBIN 12.3 g/dL (11.5-14.8); LYMPHOCYTES # (AUTO) 3.5 /CMM (0.8-4.8); LYMPHOCYTES % (AUTO) 43.7 % (20.0-44.0); MEAN CORPUSCULAR HEMOGLOBIN 29 PG (26.0-33.0); MEAN CORPUSCULAR HGB CONC 33 g/dl (31.0-36.0); MEAN CORPUSCULAR VOLUME 86 fL (82-100); MONOCYTES # (AUTO) 0.7 /CMM (0.1-1.30); MONOCYTES % (AUTO) 8.3 % (2.0-12.0); NEUTROPHILS # (AUTO) 3.8 /CMM (1.8-8.9); NEUTROPHILS % (AUTO) 47.4 % (43.0-81.0); PLATELET COUNT (AUTO) 468 /CMM (150-450); RDW COEFFICIENT OF VARIATION 17.6 (11.5-15.0); RED BLOOD CELL COUNT(AUTO) 4.27 MIL/uL (4.0-5.2)
[2018-02-07 07:03] LABS: CALCIUM, SERUM 8.7 mg/dL (8.5-10.1); CREATININE 0.6 mg/dL (0.6-1.3)
--- NOTE | 2018-02-07 07:34 | NUR ---
MS RN OPENING NOTES RECEIVED P[T FROM NIGHTSHIFT NURSE IN STABLE CONDITION. PT IS A/O X3. NO SOB OR SIGNS OF DISTRESS NOTED. BREATHING IS EVEN AND UNLABORED. PT ON RA AND SATING WELL. SHE DENIES ANY PAIN AT THIS TIME. IV NOTED TO LEFT AC TO BE PATENT AND INTACT. SHE IS TOLERATING NS INFUSION WELL. NO REDNESS OR SIGNS OF INFILTRATION NOTED. JEFFERY CATHETER NOTED TO BE DRAINING CLEAR YELLOW URINE. COLOSTOMY BAG NOTED WELL. NO CONTENTS IN COLOSTOMY AT THIS TIME. CONTACT ISOLATION PRECAUTIONS MONITORED. BED IN LOW LOCKED POSITION, SIDE RAILS UP X2, CALL LIGHT WITHIN REACH. WILL CONTINUE TO MONITOR
[2018-02-07 08:00] VITALS: BP 96/58
[2018-02-07] MEDS: ENOXAPARIN SODIUM 40 MG/0.4 ML DISP.SYRIN SQ SCH (08:35)
[2018-02-07] MEDS: PANTOPRAZOLE 40 MG VIAL IV SCH (08:41)
[2018-02-07] MEDS: DIVALPROEX SODIUM 250 MG TABLET.DR PO SCH ×2 (08:41→17:24)
[2018-02-07] MEDS: FLUCONAZOLE (100 MG) 100 MG TABLET PO SCH (08:41)
[2018-02-07] MEDS: BACLOFEN (10 MG) 10 MG TABLET PO SCH ×4 (08:41→20:34)
[2018-02-07] MEDS: LEVETIRACETAM (250 MG) 250 MG TABLET PO SCH ×2 (08:41→20:34)
[2018-02-07] MEDS: DULOXETINE HCL 30 MG CAPSULE.DR PO SCH (08:42)
[2018-02-07] MEDS: LINEZOLID 600 MG TABLET PO SCH ×2 (08:42→20:34)
[2018-02-07] MEDS: ENSURE ENLIVE CHOC 237 ML CAN PO SCH ×2 (08:42→17:17)
[2018-02-07] MEDS: HYDROGEL DRESSING 90 GM TUBE TP SCH (08:43)
[2018-02-07] MEDS: ACETAMINOPHEN 325 MG TABLET PO PRN (12:03)
[2018-02-07] MEDS: HYDROCODONE/APAP 5/325MG 1 EACH TABLET PO PRN (14:48)
[2018-02-07 16:00] VITALS: BP 93/57
--- NOTE | 2018-02-07 16:07 | NUR ---
MS RN DISCHARGED NOTES PT WAS DISCHARGED FROM FACILITY IN STABLE CONDITION. ALL NEEDS WERE MET DURING SHIFT AND ORDERS CARRIED OUT ACCORDINGLY. ALL DUE MEDS GIVEN. WOUND AND SKIN CARE RENDERED ORDERED. JEFFERY CATHETER CARE RENDERED. PT LEFT WITH JEFFERY CATHETER PATENT AND INTACT. IV WAS SUCCESSFULLY REMOVED WITH NO COMPLICATIONS AND CATHETER TIP FULLY INTACT. EXIT CARE AND D/C INSTRUCTIONS REVIEWED WITH PT PRIOR TO D/C SHE VERBALIZED FILL UNDERSTANDING OF D/C INSTRUCTIONS. PT ALSO VERBALIZED THAT HER BOYFRIEND WILL OBTAIN HER PRESCRIPTIONS. PT UNABLE TO SIGN D/C PAPERWORK DUE TO CONDITION. ALL PAPERWORK WAS SIGNED BY MYSELF AND A FELLOW RN. BELONGINGS VERIFIED PRIOR TO D/C. D/C PHOTOS TAKEN AND PLACED IN PT'S CHART. PT LEFT VIA AMBULANCE TRANSPORT TO HOME. PER PT "MY BOYFRIEND WILL BE HOME WHEN I GET THERE"
--- NOTE | 2018-02-07 18:08 | NUR ---
MS RN NOTES PT WAS BROUGHT BACK TO FACILITY BOYFRIEND WAS NOT THERE UPON THE AMBULANCE ARRIVAL. BOYFRIEND WAS CONTACTED AND STATES THAT HE HAD TO GO IN TO WORK, AND CAN NOT BE HOME UNTIL 9PM. MEDICAL CODING TECHNICIAN MADE AWARE AND STATES THAT THEY WILL REARRANGE TRANSPORT. CHARGE NURSE AWARE
--- NOTE | 2018-02-07 19:02 | NUR ---
MS RN CLOSING NOTES PT REMAINS STABLE. WILL [facility] NURSE TO CARRY OUT D/C
--- NOTE | 2018-02-07 19:45 | NUR ---
MSRN WILL BE DISCHARGE BY 9PM/
--- NOTE | 2018-02-07 20:30 | NUR ---
MSRN RECEIVED CALL FROM AMBULANCE, STATED WILL BRAKE ADJUSTER PATIENT EARLY. PLACE CALL TO CARGIVER, NO ANSWER, LEFT MESSAGE
--- NOTE | 2018-02-07 20:45 | NUR ---
MSRN AMBULANCE CAME, EXPLAINED SITUATION, WAITED FOR AWHILE, ABLE REACH CAREGIVER WANTED PATIENT BY 10PM INSTEAD. DUE MEDS ADMINISTERED, SNACKS PROVIDED.
[2018-02-07 20:59] VITALS: BP 97/67
--- NOTE | 2018-02-07 22:00 | NUR ---
MSRN WAS MEDICATED WITH OXY 2OMG FOR BUTTOCK PAIN AND BACK PAIN. WITH RELIEF AFTER FEW MINS/
--- NOTE | 2018-02-07 22:30 | NUR ---
MSRN FINALLY DISCHARGED, AMBULANCE STAFF SPOKE TO CAREGIVER AND IS AT HOME WHEN PATIENT ARRIVS. V/S STABLE DENIES ANY DISCOMFORTS. LEFT WITH ALL PERSONAL BELONGINGS IN SATISFACTORY CONDITON.
[2018-02-07 22:45] VITALS: BP 97/67
== END 2018-02-07 22:55 | disposition home health service (06) | DRG 579 ==
LOC: ER 22:21 → TELE 01-30 00:33 → MED 01-30 10:25 → UNDODISIN 02-07 16:08
PROVIDERS: ADMIT Registered Nurse; ATTEND Registered Nurse
PROC: 0KBP0ZZ Excision of Left Hip Muscle, Open Approach (ICD-10-PCS; principal; 2018-01-30)
PROC: 0KBN0ZZ Excision of Right Hip Muscle, Open Approach (ICD-10-PCS; 2018-01-30)
DX: L03.312 Cellulitis of back [any part except buttock and flank] (principal); L89.154 Pressure ulcer of sacral region, stage 4; G93.41 Metabolic encephalopathy; R53.2 Functional quadriplegia; D68.69 Other thrombophilia; E44.0 Moderate protein-calorie malnutrition; B37.89 Other sites of candidiasis; G35 Multiple sclerosis; E86.0 Dehydration; G40.909 Epilepsy, unspecified, not intractable, without status epilepticus; J45.909 Unspecified asthma, uncomplicated; D63.8 Anemia in other chronic diseases classified elsewhere; I10 Essential (primary) hypertension; Z88.0 Allergy status to penicillin; R91.8 Other nonspecific abnormal finding of lung field; R73.9 Hyperglycemia, unspecified; Z93.3 Colostomy status; L98.8 Other specified disorders of the skin and subcutaneous tissue; B96.4 Proteus (mirabilis) (morganii) as the cause of diseases classified elsewhere; B95.2 Enterococcus as the cause of diseases classified elsewhere; B96.5 Pseudomonas (aeruginosa) (mallei) (pseudomallei) as the cause of diseases classified elsewhere
CPT/HCPCS: 36415; 71045-TC; 80048-TC; 80061-TC; 80076-TC; 81000-TC; 82962-TC; 83605-TC; 83735-TC; 83880; 84100-TC; 84443-TC; 84484-TC; 84703-TC; 85025-TC; 85730-TC; 87040-TC; 87070-TC; 87081-TC; 87086-TC; 87186-TC; 92611-TC; A4216; A4217; A4606; A6248; A6253; A6402; A6403; C9113; J1650; J1956; J2060; J2270; J2405; J3475; J3490; J7030; J7040; J7042; Z7610

== ENCOUNTER 2018-02-20 13:07 | Outpatient (CLI) | payer MEDICARE, OTHER ==
[~2018-02-20 13:07] MED LIST changes: -CLON2TAB4 PO; +DIVA-76 PO; -DIVA250T6 PO; +DOXY100C2 PO; +FLUC100T8 PO; +LEVO500T2 PO; -LINE600T PO; +NORT10CA PO
[2018-02-20 13:23] VITALS: BP 97/64
== END 2018-02-20 23:59 | disposition home or self-care (01) ==
LOC: MSC 13:07
PROVIDERS: ATTEND Internal Medicine
DX: J96.91 Respiratory failure, unspecified with hypoxia (principal); L89.159 Pressure ulcer of sacral region, unspecified stage; L03.818 Cellulitis of other sites; B96.4 Proteus (mirabilis) (morganii) as the cause of diseases classified elsewhere; B95.2 Enterococcus as the cause of diseases classified elsewhere; B96.5 Pseudomonas (aeruginosa) (mallei) (pseudomallei) as the cause of diseases classified elsewhere; B96.89 Other specified bacterial agents as the cause of diseases classified elsewhere; Z16.22 Resistance to vancomycin related antibiotics; G93.41 Metabolic encephalopathy; G35 Multiple sclerosis; I10 Essential (primary) hypertension; D68.69 Other thrombophilia; G40.909 Epilepsy, unspecified, not intractable, without status epilepticus; D64.9 Anemia, unspecified; E44.0 Moderate protein-calorie malnutrition; E88.09 Other disorders of plasma-protein metabolism, not elsewhere classified; R53.2 Functional quadriplegia; Z93.3 Colostomy status

== ENCOUNTER 2018-02-20 14:09 | Inpatient (IN) | payer MEDICARE, OTHER ==
[~2018-02-20] VITALS: Ht 157.5 cm; Wt 84.8 kg
--- NOTE | 2018-02-20 14:15 | NUR ---
AAOX3, SENT BY DR DEJESUS FROM CLINIC FOR HYPOXIA, O2 SAT 78% AT CLINIC. UPON ARRIVAL TO ER, PATIENT'S SPO2=88% ON RA. RR IS EVEN AND UNLABORED WITH NAD NOTED. SKIN IS WARM AND DRY. PLACED ON THE MONITOR. AWAITING MD FOR EVAL. PATIENT SPEAKS IN FULL SENTENCES DURING ASSESSMENT.
[2018-02-20 14:48] LABS: BASOPHILS # (AUTO) 0.3 /CMM (0.0-0.2); BASOPHILS % (AUTO) 1.9 % (0.0-2.0); EOSINOPHILS % (AUTO) 0.5 % (0.0-6.0); HEMATOCRIT 40 % (33-45); HEMOGLOBIN 13.6 g/dL (11.5-14.8); LYMPHOCYTES # (AUTO) 2.1 /CMM (0.8-4.8); LYMPHOCYTES % (AUTO) 15.5 % (20.0-44.0); MEAN CORPUSCULAR HEMOGLOBIN 29 PG (26.0-33.0); MEAN CORPUSCULAR HGB CONC 34 g/dl (31.0-36.0); MEAN CORPUSCULAR VOLUME 85 fL (82-100); MONOCYTES # (AUTO) 1.2 /CMM (0.1-1.30); MONOCYTES % (AUTO) 8.5 % (2.0-12.0); NEUTROPHILS # (AUTO) 9.8 /CMM (1.8-8.9); NEUTROPHILS % (AUTO) 73.6 % (43.0-81.0); PLATELET COUNT (AUTO) 362 /CMM (150-450); RDW COEFFICIENT OF VARIATION 16.1 (11.5-15.0); RED BLOOD CELL COUNT(AUTO) 4.66 MIL/uL (4.0-5.2); WHITE BLOOD COUNT (AUTO) 13.5 K/uL (4.3-11.0)
[2018-02-20 14:58] LABS: CALCIUM, SERUM 8.8 mg/dL (8.5-10.1); CARBON DIOXIDE 27 mmol/L (21-32); CHLORIDE 101 mmol/L (98-107); CREATININE 0.6 mg/dL (0.6-1.3); GLUCOSE 140 mg/dL (74-106); POTASSIUM 3.4 mmol/L (3.5-5.1); SODIUM SERUM 137 mmol/L (136-145); UREA NITROGEN, BLOOD 18 mg/dL (7-18)
[2018-02-20] MEDS ORDERED: VANCOMYCIN 1 GM in IV D5W 250 ML IV ONE (15:00)
[2018-02-20] MEDS ORDERED: IV NS 0.9% 1,000 ML BAG IV ONE (15:00)
[2018-02-20 15:02] LABS: INR 0.99 (0.85-1.15)
[2018-02-20 15:04] LABS: APPEARANCE,URINE Clear (CLEAR); BILIRUBIN,URINE Negative (NEGATIVE); BLOOD, URINE Small Ery/uL (NEGATIVE); COLOR,URINE Yellow (YELLOW); KETONES,URINE Trace (NEGATIVE); LEUKOCYTE ESTERASE ,URINE Trace (NEGATIVE); NITRITE, URINE Positive (NEGATIVE); PROTEIN,URINE 100 mg/dl (NEGATIVE); UGLUCOSE Negative (NEGATIVE); UROBILINOGEN,URINE 0.2 EU/dL (0.2)
[2018-02-20 15:05] LABS: TROPONIN I < 0.017 ng/mL (0.00-0.056)
[2018-02-20 15:10] LABS: ALANINE AMINOTRANSFERASE 14 U/L (12-78); ALBUMIN 2.6 g/dL (3.4-5.0); ALKALINE PHOSPHATASE 74 U/L (46-116); ASPARTATE AMINOTRANSFERASE 11 U/L (15-37); B-TYPE NATRIURETIC PEPTIDE 262 PG/ML (0-125); BILIRUBIN,DIRECT 0.1 mg/dL (0.0-0.2); BILIRUBIN,TOTAL 0.2 mg/dL (0.2-1.0); TOTAL PROTEIN, SERUM 7.9 g/dL (6.4-8.2)
[2018-02-20 15:30] LABS: BACTERIA,URINE Moderate /HPF (None Seen); SQUAMOUS EPITHELIAL CELL,UR Moderate /HPF (None Seen)
--- NOTE | 2018-02-20 16:23 | NUR ---
BED 311-2
--- NOTE | 2018-02-20 16:53 | NUR ---
REPORT GIVEN TO TOMEKA MCCARTNEY FOR MS BED.
--- NOTE | 2018-02-20 17:10 | NUR ---
LAB TECHS AT FOR BLOOW DRAW.
--- NOTE | 2018-02-20 17:50 | NUR ---
MD ADMIT FROM ER AFTER REPORT RECEIVED FROM BONI MCCARTNEY. PATIENT ORIENTED TO PRIMARY RN, UNIT, ROOM, BED, AND UNIT POLICIES REGARDING PATIENT CARE AND VISITING HOURS. PATIENT WEIGHED BY BEDSCALE AND ENCOURAGED TO CALL IF SHE NEEDS ANYTHING. ALL QUESTIONS AND CONCERNS ADDRESSED. PATIENT VERBALIZED UNDERSTANDING.
[2018-02-20] MEDS ORDERED: MAGNESIUM HYDROXIDE 30 ML UDC PO PRN (18:00)
[2018-02-20] MEDS ORDERED: MAG HYDROX/AL HYDROX/SIMETH 30 ML UDC PO PRN (18:00)
[2018-02-20] MEDS ORDERED: ONDANSETRON HCL/PF 4 MG/2 ML VIAL IVP PRN (18:00)
[2018-02-20] MEDS ORDERED: ZOLPIDEM TARTRATE 5 MG TABLET PO PRN (18:00)
[2018-02-20] MEDS ORDERED: ACETAMINOPHEN 325 MG TABLET PO PRN (18:00)
[2018-02-20] MEDS ORDERED: Z GUARD REMEDY 2 OZ OINT TP PRN (18:00)
[2018-02-20] MEDS ORDERED: HYDROCODONE/APAP 5/325MG 1 EACH TABLET PO PRN (18:00)
[2018-02-20] MEDS: ALPRAZOLAM 1 MG TABLET PO SCH ×2 (19:00→22:00)
[2018-02-20] MEDS ORDERED: IV NS 0.9% 1,000 ML IV PRN (19:00)
[2018-02-20] MEDS ORDERED: IV NS 0.9% 500 ML IV ONE (19:00)
[2018-02-20] MEDS ORDERED: POTASSIUM CHLORIDE 20 MEQ TAB.PRT.SR PO ONE (19:00)
[2018-02-20] MEDS: ALBUTEROL FS 2.5 MG/3 ML VIAL.NEB NEB SCH ×2 (19:30→20:00)
--- NOTE | 2018-02-20 19:40 | NUR ---
RN INITIAL NOTES: RECEIVED REPORT FROM TOMEKA MCCARTNEY, PT IN BED, AWAKE, A/O X3, ON RA RESPIRATION EVEN AND UNLABORED, PT HAS JEFFERY CATHETER IN PLACED DRAINING INTO YELLOW COLORED URINE. ALSO PT RECEIVING 1L BOLUS AT THIS TIME, HER LACTIC ACID CAME BACK 2.8, MD AWARE, TO GIVE A TOTAL OF 1.5L FLUID, PT HAS RADHA PORTACATH IN PLACED, SITE C/D/I, NO ACTIVE BLEEDING NOTED, NO REDNESS, OR DRAINAGE NOTED. BLE OFFLOADED. KEPT HOB 30 DEGREE, ON ASPIRATION PRECAUTION, SUCTION SET UP SECURED. DISCUSSED PLAN OF CARE TO THE PT, SAFETY PRECAUTIONS FOR FALL INITIATED, CALL LIGHT IN REACH, WILL CONTINUE MONITORING PT.
--- NOTE | 2018-02-20 19:45 | NUR ---
RN NOTES: PER DAY RN REPORT, PT'S LEFT UPPER ARM PORTACATH WAS ACCESSED TODAY IN ER, 02/20/18,
--- NOTE | 2018-02-20 19:45 | NUR ---
CHANGE OF SHIFT REPORT PT RESTING COMFORTABLY IN BED. NO S/S OR C/O PAIN OR DISTRESS NOTED. SIDE RAILS UP X2, CALL LIGHT LEFT WITHIN REACH. PT KEPT CLEAN, DRY, AND COMFORTABLE. NO SIGNIFICANT CHANGES SINCE ADMISSION. REPORT GIVEN TO TAMMIE MCCARTNEY.
--- NOTE | 2018-02-20 19:46 | NUR ---
RN NOTES: PER DAY RN REPORT, ACCORDING TO MD, OKAY TO USE PORTACATH ACCESS FOR IVF AND MEDICATION, INFORM HIM TO PLEASE PUT THE ORDER SINCE HE'S THE ONE WHO RECEIVED IT
[2018-02-20 20:00] VITALS: BP 100/73
[2018-02-20] MEDS: IPRATROPIUM NEB FS 0.5 MG/2.5 ML AMPUL.NEB NEB SCH ×2 (20:00→23:16)
--- NOTE | 2018-02-20 20:00 | NUR ---
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
--- NOTE | 2018-02-20 20:33 | NUR ---
CLARIFICATION OF SCHEDULE FOR XANAX: CALLED PHARMACY SPOKED WITH ROBERTO, INFORMED ABOUT XANAX SCHEDULED FOR 1900, AND 2200 FOR 02/20/18, PER ROBERTO, TO SKIP 1900 SCHEDULE, AND JUST GIVE THE HS DOSE WHICH IS 2200
--- NOTE | 2018-02-20 20:40 | NUR ---
RN NOTES: NOTED PT'S HR 119-124, PT ADMITTED UNDER MS STATUS BUT CAME IN FOR RESPIRATORY DISTRESS, UTI AND HYPOXIA, LACTIC ACID ELEVATED 2.8 FROM 2.3, PLACED PT ON TELE MONITORING, SINUS TACHYCARDIA HR 124, ONGOING BOLUS NS 500ML BAG, CONTACTED [facility] TO GIVE UPDATE OF CONDITION, AWAITING FOR CALLBACK
[2018-02-20] MEDS ORDERED: DOXYCYCLINE HYCLATE (100 MG) 100 MG TABLET PO SCH (21:00)
[2018-02-20] MEDS: LEVETIRACETAM (250 MG) 250 MG TABLET PO SCH (21:16)
[2018-02-20] MEDS: BACLOFEN (10 MG) 10 MG TABLET PO SCH (21:16)
[2018-02-20] MEDS ORDERED: LORAZEPAM INJ 2 MG/ML VIAL IV PRN (21:30)
--- NOTE | 2018-02-20 21:33 | NUR ---
RN NOTES: SPOKE TO MD REGARDING PT'S CONDITION AND RELAYED HR 125, PER MD TO DO STAT D-DIMER, TROPONIN TO R/O PULMONARY EMBOLUS OR VOLUME DEPLETION, ALSO RELAYED ABNORMAL LAB RESULT AND CHEST X RAY, INFORMED MD PT ON 1.5L BOLUS DUE TO LACTIC ACID 2.8, INFORMED ABOUT ANTIBIOTIC ORDERED BY ID. PER MD TO ALSO GIVE ATIVAN 0.5 MG IVP Q6HR PRN PT SEEMS LIKE HAVING WITHDRAWAL FROM DRUGS/SEEKING BEHAVIOR, TO GIVE FIRST DOSE NOW.
[2018-02-20] MEDS: MEROPENEM 1 G in IV NS 0.9% 100 ML IV SCH (21:38)
[2018-02-20 21:40] VITALS: BP 118/74
[2018-02-20] MEDS ORDERED: TEMAZEPAM 15 MG CAPSULE PO PRN (22:00)
--- NOTE | 2018-02-20 22:10 | NUR ---
RN NOTES: CHECKED PT'S LUIA KELSI CATH FOR BLOOD RETURN, NO BLOOD RETURN NOTED, AFTER 15MINS RECHECK AGAIN, NO BLOOD RETURN NOTED, REGIONAL ENGAGEMENT CONSULTANT HERE WILL DRAW BLOOD INSTEAD, APPLIED WARM BLANKET ON PT'S BUE AND BLE, GOOD CAPILLARY NOTED HOWEVER PT'S EXTREMITIES COLD TO TOUCH
[2018-02-20 22:44] VITALS: BP 95/83
--- NOTE | 2018-02-20 22:46 | NUR ---
FIRST DOSE OF ATIVAN PER MD ORDER: ATIVAN ORDER NOW VERIFIED BY PHARMACIST. PER MD TO GIVE TO PT, FIRST DOSE NOW, FOR S/S OF WITHDRAWALS AND NOTED ELEVATED HR 118, VS TAKEN AND RECORDED PRIOR TO ADMINISTERING MEDICATION, PRN ATIVAN 0.5 MG IVP ADMINISTERED TO THE PT AT THIS TIME. WILL CONTINUE MONITORING PT
--- NOTE | 2018-02-20 22:50 | NUR ---
RN NOTES: CONNECTED PT TO CONTINUOUS PULSE OXIMETRY, AND 2L OXYGEN
[2018-02-20 23:35] VITALS: BP 99/82
[2018-02-20] MEDS: NORTRIPTYLINE HCL 10 MG CAPSULE PO SCH (23:37)
--- NOTE | 2018-02-20 23:38 | NUR ---
PRN NORCO: PT C/O GENERALIZED BODY PAIN 02/18 REQUESTING FOR PAIN MEDICATION, PRN NORCO 5/325 MG TAB PO ADMINISTERED AT THIS TIME, VS TAKEN AND RECORDED PRIOR TO GIVING THE MEDICATION, WILL CONTINUE MONITORING PT.
--- NOTE | 2018-02-20 23:44 | NUR ---
CRITICAL LAB: RECEIVED CALL FROM DEEPALI Spyra, REPORTING CRITICAL LAB FOR LACTIC ACID RESULT IS 3.8, CONTACTED [facility] POEM WRITER MD, AWAITING FOR CALL BACK
[2018-02-21] VITALS (59 sets, daily range): BP systolic 78–162; BP diastolic 29–99
--- NOTE | 2018-02-21 00:10 | NUR ---
EPIC PRAWN TRAWLER HAND- CALL BACK: RECEIVED CALL FROM DR MONTE, RELAYED LACTIC ACID RESULT 3.8, D DIMER RESULT IS 1.71, INFORMED ALSO ABOUT RADHA PORTACATH WITH NO BLOOD RETURN NOTED, PER MD NO MEDICATION TO GIVE FOR NOW, AND THAT HE'S NEXT STEP IS TO ORDER STAT CT ANGIOGRAM TO R/O PULMONARY EMBOLUS
--- NOTE | 2018-02-21 00:12 | NUR ---
RN NOTES: ORDER FOR CT ANGIOGRAM WAS PLACED, CALLED [phone] SCAN [id number] BUT NO ONE'S ANSWERING THE CALL, CALLED 3X, STILL NO ONE'S ANSWERING, RELAYED TO STILL OPERATOR WHISKEY PADMAJA
--- NOTE | 2018-02-21 00:18 | NUR ---
RN NOTES: FINALLY GET A HOLD OF RADIOLOGY 4069, INFORMED ABOUT PT'S STAT CT ANGIOGRAM, TECH STATED HE WILL PUT ME ON HOLD TO TRANSFER TO PRODUCE TEAM MEMBER, ON HOLD FOR 15MINS,
--- NOTE | 2018-02-21 00:30 | NUR ---
RN NOTES: DR MONTE CAME TO THE UNIT, INFORMED ABOUT PT'S PORTACATH, THERAPEUTIC SUPPORT STAFF STATED PORTACATH NEEDS TO BE POWER PORT FOR CONTRAST, PER DR MONTE START NEW PERIPHERAL LINE AND HAVE THE TEST DONE
--- NOTE | 2018-02-21 00:40 | NUR ---
CONSENT FOR CT ANGIOGRAM: PT A/O X3, EXPLAINED ABOUT CT ANGIOGRAM PURPOSE, RISK AND BENEFITS, PT GIVE FULL CONSENT FOR THE PROCEDURE, WITNESSED BY ANOTHER RN ROCKY, SIGNED AT THIS TIME
--- NOTE | 2018-02-21 01:00 | NUR ---
RN NOTES: CONTACTED SHANK BONER TO PLEASE START NEW IV ACCESS, NEW ACCESS INSERTED ON RIGHT WRIST G20, WITH GOOD BLOOD RETURN NOTED.
[2018-02-21] MEDS: ALBUTEROL FS 2.5 MG/3 ML VIAL.NEB NEB SCH ×4 (01:07→19:43)
--- NOTE | 2018-02-21 01:21 | NUR ---
RN NOTES: TALKED TO DIMAS FROM CT SCAN, INFORMED THAT PT IS READY, DIMAS STATED HE WILL COME UP TO CHECK THE PERIPHERAL IV LINE FIRST, BECAUSE THE NEW IV LINE IS ON RIGHT WRIST G20, THEY PREFER AC G 20
--- NOTE | 2018-02-21 01:25 | NUR ---
CT: ACCOMPANY PT TO CT SCAN, CT ANGIOGRAM STAT ORDERED BY
[2018-02-21] MEDS ORDERED: CT SWABBABLE VALVE TRANS SET 1 EA INFUS.SET MC ONE (01:33)
[2018-02-21] MEDS ORDERED: IOHEXOL-350 100 ML VIAL IV ONE (01:33)
--- NOTE | 2018-02-21 01:43 | NUR ---
RN NOTES: PT TOLERATED PROCEDURE WELL, PROCEDURE COMPLETED, WILL RETURN TO THE UNIT
--- NOTE | 2018-02-21 01:50 | NUR ---
RN NOTES: PT BACK TO UNIT FROM CT SCAN
--- NOTE | 2018-02-21 02:20 | NUR ---
RN NOTES: RELAYED TO DR MONTE REGARDING RESULT OF CT ANGIOGRAM NEGATIVE FOR PULMONARY EMBOLISM, POSITIVE PNEUMONIA, BRONCHIAL WALL THICKENING AND NARROWING OF CENTRAL AIRWAYS, INFORMED MD THAT PT ON MERREM 1GM IV Q8H, ALSO RELAYED ABOUT HR REMAINS ELEVATED RANGING 115-120, ALSO INFORMED PT RECEIVED TOTAL OF 2.5L IVF (FROM ER 1L, 1500ML FROM HAND FABRIC CUTTER), NO FURTHER ORDERS FROM MD, WILL CONTINUE MONITORING PT
[2018-02-21] MEDS: IPRATROPIUM NEB FS 0.5 MG/2.5 ML AMPUL.NEB NEB SCH ×6 (03:19→23:40)
[2018-02-21] MEDS: MEROPENEM 1 G in IV NS 0.9% 100 ML IV SCH ×3 (04:41→20:49)
--- NOTE | 2018-02-21 06:28 | NUR ---
RN NOTES: DUE TO LOW BP, PLEASE SEE VS LOG, CONTACTED EPIC NANNY CAREGIVER DR MONTE STATED TO TRANSFER PT TO ICU NOW, AND TO START ON LEVOPHED DRIP
--- NOTE | 2018-02-21 06:35 | NUR ---
RN NOTES: BS TAKEN, 84
--- NOTE | 2018-02-21 06:40 | NUR ---
BLOOD BANK SPECIALIST INITIAL NOTE RECEIVED PATIENT AWAKE ALERT AND ORIENTED. BROUGHT WITH BED. NO RESPIRATORY DISTRESS NOTED ON 2LPMO2 VIA NC. SKIN WARM AND DRY TO TOUCH. ON TELE MONITOR SR WITH BBB. ABLE TO MAKE NEEDS KNOWN, SPEECH A LITTLE DELAYED, BUT CLEAR. DENIES PAIN OR DISCOMFORT AT THIS TIME. F/C PATENT AND INTACT, DRAINING BY GRAVITY. WITH COLOSTOMY BAG IN PLACE. ORIENTED PATIENT TO ROOM AND CALL LIGHT SYSTEM, VERBALIZED UNDERSTANDING. ISOLATION PRECAUTIONS FOR HX VRE WOUND. HOB ELEVATED. SIDE RAILS UP AND LOCKED. BED KEPT AT LOWEST POSITION. CALL LIGHT KEPT WITHIN EASY REACH. WILL START LEVO PER ORDER. WILL CONTINUE TO MONITOR.
[2018-02-21] MEDS ORDERED: NOREPINEPHRINE 4 MG/4 ML AMPUL IV ONE (06:43)
--- NOTE | 2018-02-21 06:48 | NUR ---
RN NOTES: ALL BELONGING WILL BE SENT WITH THE PT UPON TRANSFER ALSO IV ATB
--- NOTE | 2018-02-21 06:49 | NUR ---
RN NOTES: TRANSFER PT TO ICU VIA ACLS PROTOCOL ASSISTED WITH 2RN'S. REPORT GIVEN TO [facility] COMPUTER SUPPORT TECHNICIAN FOR CONTINUITY OF CARE
[2018-02-21] MEDS ORDERED: NOREPINEPHRINE 8 MG in IV D5W 500 ML IV PRN (07:00)
[2018-02-21 07:11] LABS: CALCIUM, SERUM 8.3 mg/dL (8.5-10.1); CREATININE 0.5 mg/dL (0.6-1.3); MAGNESIUM 1.8 mg/dL (1.8-2.4); PHOSPHORUS 3.1 mg/dL (2.5-4.9); POTASSIUM 4.3 mmol/L (3.5-5.1)
--- NOTE | 2018-02-21 07:32 | NUR ---
BAIT MAKER CLOSING NOTE CONTINUITY OF CARE ENDORSED TO AM NURSE. LEVO AT 2MCG/MIN. HOB ELEVATED. SIDE RAILS UP AND LOCKED. BED KEPT AT LOWEST POSITION. CALL LIGHT KEPT WITHIN EASY REACH.
[2018-02-21 07:43] LABS: ABG BASE EXCESS -0.3 mmol/L; ABG OXYGEN SATURATION 97.5 % (92.0-98.5); ABG PCO2 50.8 mmHg (35.0-45.0); ABG PO2 128.1 mmHg (75.0-100.0); AaDO2 11.6 mmHg; COHb 0.3 % (0.5-1.5); MetHb 0.7 % (0.0-1.5); O2Hb 96.5 % (94.0-97.0); SITE, ABG Right Brachial; VENT MODE, BG NASAL CANNULA
--- NOTE | 2018-02-21 07:47 | NUR ---
INITIAL CT SCAN TECH NOTE RCVD PT LETHARGIC, OPENING EYES WHEN PHYSICALLY SHAKEN, SB ON TELE. ON 2L VIA NC TOLERATING WELL. PT APPEARS TO BE BREATHING SLOWLY, RATE < 12 AND APPEARS IN NO DISTRESS. COLOSTOMY BAG WITH SOME FORMED, BROWN STOOL. JEFFERY TO GRAVITY DRAINING CLOUDY, YELLOW URINE. RADHA KELSI-CATH WAS ACCESSED BUT NO BLOOD RETURN OBSERVED. RIGHT WRIST C/D/I/PATENT. NO S/O INFILTRATION/PHLEBITIS OBSERVED, IVF INFUSING. WILL CONTINUE TO MONITOR PT FOR SAFETY AND COMFORT. CALL LIGHT WITHIN REACH. BED IN LOW AND LOCKED POSITION.
[2018-02-21] MEDS: POTASSIUM CHLORIDE 20 MEQ TAB.PRT.SR PO SCH ×2 (08:00→09:00)
[2018-02-21] MEDS: IV NS 0.9% 1,000 ML IV PRN ×2 (08:50→17:09)
[2018-02-21] MEDS: LEVETIRACETAM (250 MG) 250 MG TABLET PO SCH ×2 (08:52→21:37)
[2018-02-21] MEDS: BACLOFEN (10 MG) 10 MG TABLET PO SCH ×4 (08:52→21:37)
[2018-02-21] MEDS: DIVALPROEX SODIUM 250 MG TABLET.DR PO SCH ×2 (08:53→17:10)
[2018-02-21] MEDS: ENOXAPARIN SODIUM 40 MG/0.4 ML DISP.SYRIN SQ SCH (08:53)
[2018-02-21] MEDS: HYDROCORTISONE SOD SUCCINATE 100 MG/2 ML VIAL IV SCH ×3 (08:53→17:10)
[2018-02-21] MEDS ORDERED: LINEZOLID 600 MG TABLET PO SCH (09:00)
[2018-02-21] MEDS ORDERED: DULOXETINE HCL 20 MG CAPSULE.DR PO SCH (09:00)
[2018-02-21] MEDS ORDERED: FLUCONAZOLE (100 MG) 100 MG TABLET PO SCH (09:00)
[2018-02-21] MEDS ORDERED: GLATIRAMER SQ SCH (09:00)
[2018-02-21] MEDS ORDERED: FEE PK DOSING 1 MIN EA MC ONE (09:06)
[2018-02-21] MEDS: DULOXETINE HCL 30 MG CAPSULE.DR PO SCH (09:26)
--- NOTE | 2018-02-21 09:31 | NUR ---
SKIVER MACHINEWEB MARKETING ANALYST NOTE DR. LUCAS CONTACTED REGARDING AN ORDER TO GIVE 60 MEQ KCL. PT'S K 4.3 THIS AM. HE RECOMMENDED TO HOLD OFF. KCL DISCONTINUED.
[2018-02-21] MEDS: VANCOMYCIN 1 GM in IV D5W 250 ML IV SCH ×2 (10:23→17:09)
[2018-02-21 11:38] LABS: BASOPHILS # (AUTO) 0.1 /CMM (0.0-0.2); BASOPHILS % (AUTO) 1.9 % (0.0-2.0); EOSINOPHILS % (AUTO) 2.7 % (0.0-6.0); HEMATOCRIT 36 % (33-45); HEMOGLOBIN 12.1 g/dL (11.5-14.8); LYMPHOCYTES # (AUTO) 2.2 /CMM (0.8-4.8); LYMPHOCYTES % (AUTO) 30.1 % (20.0-44.0); MEAN CORPUSCULAR HEMOGLOBIN 29 PG (26.0-33.0); MEAN CORPUSCULAR HGB CONC 34 g/dl (31.0-36.0); MEAN CORPUSCULAR VOLUME 87 fL (82-100); MONOCYTES # (AUTO) 0.7 /CMM (0.1-1.30); MONOCYTES % (AUTO) 9.3 % (2.0-12.0); NEUTROPHILS # (AUTO) 4.2 /CMM (1.8-8.9); PLATELET COUNT (AUTO) 245 /CMM (150-450); RDW COEFFICIENT OF VARIATION 16.6 (11.5-15.0); RED BLOOD CELL COUNT(AUTO) 4.16 MIL/uL (4.0-5.2); WHITE BLOOD COUNT (AUTO) 7.4 K/uL (4.3-11.0)
[2018-02-21] MEDS: ACETYLCYSTEINE 10% SOLN 400 MG/4 ML VIAL NEB SCH ×3 (12:30→23:40)
[2018-02-21] MEDS: FLUDROCORTISONE 0.1 MG TABLET PO SCH ×2 (12:35→17:10)
--- NOTE | 2018-02-21 13:10 | NUR ---
WOUND CARE CONSULT WOUND CARE RECEIVED CONSULT FOR SACRAL WOUND AND LOW PABLO SCALE. WOUND CARE WILL DEFER CONSULT AND ALL TREATMENT PLANS TO SURGICAL TEAM THEY ARE CURRENTLY FOLLOWING. PATIENT WITH PABLO AT 11, ALL PRESSURE ULCER PREVENTION MEASURES ARE NOTED TO BE IN PLACE AT THIS TIME. WILL SEE PRN.
--- NOTE | 2018-02-21 13:19 | NUR ---
BULK SUGAR HANDLER NOTE DR. POTTER IN UNIT INFORMED OF PT'S BREATHING RATE BEING LOW. HE RECOMMENDED TO REPEAT ABG. RT CALLED AND TEST PERFORMED. LATEST ABG RESULTS ARE IMPROVED COMPARED WITH EARLIER ONE. DR. POTTER AWARE. NO FURTHER ORDERS RECEIVED. Addendum: 02/21/18 at 1833 by NICHOLAS ZARATE RN BACLOFEN HELD THIS PM DUE TO PT BEING VERY DROWSY AND REMAINED LETHARGIC. WILL CONTINUE TO MONITOR.
--- NOTE | 2018-02-21 18:33 | NUR ---
HEALTH AND WELLNESS MANAGER NOTE PT AWAKE AND ALERT, CONVERSING WELL. SR ON TELE. LEVO DISCONTINUED DUE TO INCREASED SBP, PT APPEARS IN NO DISTRESS. COLOSTOMY BAG CHANGED, JEFFERY TO GRAVITY DRAINING YELLOW URINE. IV SITES REMAIN THE SAME. PT'S CARE WILL BE ENDORSED TO MANAGER ATHLETICS RN FOR CONTINUITY OF CARE. BED IN LOW AND LOCKED POSITION.
--- NOTE | 2018-02-21 20:01 | NUR ---
CIRCUIT BREAKER MECHANIC. INITIAL ASSESSMENT. RECEIVED THE PT REST ON THE BED. AWAKE, LETHARGIC, CONFUSED. OXYGEN 1L VIA NASAL CANNULA. SAT 98%. NO ACUTE DISTRESS NOTED. FILTER FILLER SHOWING NSR. IV RT WRIST 20G,COLOSTOMY BAG INTACT. FC PATENT. HOB ELEVATED. WILL CONTINUE TO MONITOR VITALS.
[2018-02-21] MEDS: DAKINS QUARTER STRENGTH (0.125%) 480 ML BOTTLE TOP SCH (20:36)
[2018-02-21] MEDS: NORTRIPTYLINE HCL 10 MG CAPSULE PO SCH (22:17)
[2018-02-22] VITALS (39 sets, daily range): BP systolic 86–148; BP diastolic 33–98
[2018-02-22] MEDS: VANCOMYCIN 1 GM in IV D5W 250 ML IV SCH ×2 (00:30→09:00)
[2018-02-22] MEDS: FLUDROCORTISONE 0.1 MG TABLET PO SCH ×4 (00:31→18:14)
[2018-02-22] MEDS: IPRATROPIUM NEB FS 0.5 MG/2.5 ML AMPUL.NEB NEB SCH ×6 (02:32→23:30)
[2018-02-22] MEDS: ALBUTEROL FS 2.5 MG/3 ML VIAL.NEB NEB SCH ×4 (02:32→19:20)
--- NOTE | 2018-02-22 03:35 | NUR ---
HEARING AID ASSISTANT. AM CARE, ORAL CARE, BED BATH GIVEN. LINEN CHANGED. REMAINING SAME OXYGEN TOLERATED WELL. SAT 98%. NO ACUTE DISTRESS NOTED. SAMPLE TAKER OPERATOR SHOWING NSR, IV RT HAND 20G. TKO RUNNING. HOB ELEVATED. FC PATENT .URINE DRAINING. HOB ELEVATED. TURN AND REPOSITION Q2H. WILL CONTINUE TO MONITOR VITALS. COLOSTOMY BAG INTACT,
[2018-02-22] MEDS: MEROPENEM 1 G in IV NS 0.9% 100 ML IV SCH ×3 (04:13→21:29)
[2018-02-22 04:45] LABS: BASOPHILS # (AUTO) 0.1 /CMM (0.0-0.2); BASOPHILS % (AUTO) 1.5 % (0.0-2.0); EOSINOPHILS % (AUTO) 0.1 % (0.0-6.0); HEMATOCRIT 33 % (33-45); HEMOGLOBIN 11.8 g/dL (11.5-14.8); LYMPHOCYTES # (AUTO) 2.4 /CMM (0.8-4.8); LYMPHOCYTES % (AUTO) 35.1 % (20.0-44.0); MEAN CORPUSCULAR HEMOGLOBIN 30 PG (26.0-33.0); MEAN CORPUSCULAR HGB CONC 35 g/dl (31.0-36.0); MEAN CORPUSCULAR VOLUME 84 fL (82-100); MONOCYTES # (AUTO) 0.5 /CMM (0.1-1.30); MONOCYTES % (AUTO) 6.9 % (2.0-12.0); NEUTROPHILS # (AUTO) 3.7 /CMM (1.8-8.9); NEUTROPHILS % (AUTO) 56.4 % (43.0-81.0); PLATELET COUNT (AUTO) 308 /CMM (150-450); RDW COEFFICIENT OF VARIATION 15.5 (11.5-15.0); RED BLOOD CELL COUNT(AUTO) 3.95 MIL/uL (4.0-5.2); WHITE BLOOD COUNT (AUTO) 6.7 K/uL (4.3-11.0)
[2018-02-22 05:27] LABS: ALANINE AMINOTRANSFERASE 12 U/L (12-78); ALBUMIN 2.4 g/dL (3.4-5.0); ALKALINE PHOSPHATASE 59 U/L (46-116); ASPARTATE AMINOTRANSFERASE 13 U/L (15-37); BILIRUBIN,TOTAL 0.2 mg/dL (0.2-1.0); CALCIUM, SERUM 8.5 mg/dL (8.5-10.1); CARBON DIOXIDE 27 mmol/L (21-32); CHLORIDE 106 mmol/L (98-107); CREATININE 0.4 mg/dL (0.6-1.3); GLUCOSE 128 mg/dL (74-106); MAGNESIUM 1.9 mg/dL (1.8-2.4); PHOSPHORUS 2.1 mg/dL (2.5-4.9); POTASSIUM 3.4 mmol/L (3.5-5.1); SODIUM SERUM 141 mmol/L (136-145); TOTAL PROTEIN, SERUM 7.1 g/dL (6.4-8.2); UREA NITROGEN, BLOOD 6 mg/dL (7-18)
[2018-02-22 05:29] LABS: TROPONIN I < 0.017 ng/mL (0.00-0.056)
[2018-02-22] MEDS: ACETYLCYSTEINE 10% SOLN 400 MG/4 ML VIAL NEB SCH ×3 (07:39→23:30)
--- NOTE | 2018-02-22 07:44 | NUR ---
INITIAL FOOTWEAR SALES COORDINATOR NOTE RCVD PT SLEEPING, EASILY WAKES UP TO NAME. SR/SB ON TELE. TOLERATING O2 VIA NC, COLOSTOMY BAG INTACT WITH SMALL AMOUNT OF FORMED STOOL PRESENT. JEFFERY TO GRAVITY DRAINING CLEAR, YELLOW URINE. IV SITES C/D/I/PATENT. NO S/O INFILTRATION/PHLEBITIS OBSERVED UPON FLUSHING. WILL CONTINUE TO MONITOR PT FOR SAFETY AND COMFORT. CALL LIGHT WITHIN REACH. BED IN LOW AND LOCKED POSITION.
[2018-02-22] MEDS: DIVALPROEX SODIUM 250 MG TABLET.DR PO SCH ×2 (08:32→18:14)
[2018-02-22] MEDS: DULOXETINE HCL 30 MG CAPSULE.DR PO SCH (08:32)
[2018-02-22] MEDS: DAKINS QUARTER STRENGTH (0.125%) 480 ML BOTTLE TOP SCH (08:33)
[2018-02-22] MEDS: Potassium Chloride 20 MEQ in IV NS 0.9% 1,000 ML IV PRN (08:33)
[2018-02-22] MEDS: ENOXAPARIN SODIUM 40 MG/0.4 ML DISP.SYRIN SQ SCH (08:33)
[2018-02-22] MEDS: LEVETIRACETAM (250 MG) 250 MG TABLET PO SCH ×2 (08:33→21:30)
[2018-02-22] MEDS: HYDROCORTISONE SOD SUCCINATE 100 MG/2 ML VIAL IV SCH ×3 (08:33→18:14)
--- NOTE | 2018-02-22 08:35 | NUR ---
REFUSED ABG, PT WANTS 2 ATTEMPTS ONLY. Addendum: 02/22/18 at 0946 by BESS ACOSTA RT Amended: Links added.
[2018-02-22] MEDS: BACLOFEN (10 MG) 10 MG TABLET PO SCH ×4 (09:22→21:30)
[2018-02-22] MEDS ORDERED: K PHOS NEUTRAL 250 MG TABLET PO ONE (11:00)
--- NOTE | 2018-02-22 11:12 | NUR ---
PROJ ENGINEER NOTE DR. NEW IN UNIT UPDATED ON PT'S CONDITION. NO NEW ORDERS RECEIVED.
[2018-02-22] MEDS: VANCOMYCIN 0.75 GM in IV D5W 250 ML IV SCH ×2 (12:40→20:05)
--- NOTE | 2018-02-22 18:33 | NUR ---
CLINICAL CYTOPATHOLOGIST NOTE PT REMAINS STABLE OFF PRESSORS WITH PERIODS OF NON-SUSTAINED SBP AROUND 80's. SR ON TELE. TOLERATING O2 VIA NC, COLOSTOMY BAG CHANGED, WOUND CARE DONE ORDERED, JEFFERY TO GRAVITY DRAINING YELLOW URINE. IV SITES C/D/I/PATENT. NO S/O INFILTRATION/PHLEBITIS OBSERVED, IVF INFUSING. Addendum: 02/22/18 at 1837 by NICHOLAS ZARATE RN PT'S CARE WILL BE ENDORSED TO GEOCHEMICAL MANAGER RN FOR CONTINUITY OF CARE. CALL LIGHT WITHIN REACH. BED IN LOW AND LOCKED POSITION.
--- NOTE | 2018-02-22 19:00 | NUR ---
QUARRY SUPERVISOR NOTES Received patient awake,alert,converses,coherent and appropiate ,not in any distress.With O2 1 L/min via nasal cannula.Both lower extremities paraplegic,reports some sensation to the feet but very minimal,( foot drop). Moves upper extremities well.Comfort care done,needs attended.On contact isolation for VRE in th wound ( sacral wound). 2200 Stable but patient very needy,needs attended.
[2018-02-22] MEDS: NORTRIPTYLINE HCL 10 MG CAPSULE PO SCH (21:29)
[2018-02-23] VITALS (29 sets, daily range): BP systolic 90–140; BP diastolic 47–124
--- NOTE | 2018-02-23 | NUR ---
PHOTO MANAGER NOTES REMAINS STABLE,NOT IN ANY DISTRESS.BACK CARE DONE,SKIN CLEAN AND DRY,WOUND DRESSING INTACT AND DRY.
[2018-02-23] MEDS: FLUDROCORTISONE 0.1 MG TABLET PO SCH ×4 (01:00→17:47)
[2018-02-23] MEDS: HYDROCODONE/APAP 5/325MG 1 EACH TABLET PO PRN ×2 (01:23→05:22)
[2018-02-23] MEDS: IPRATROPIUM NEB FS 0.5 MG/2.5 ML AMPUL.NEB NEB SCH ×7 (03:09→23:24)
[2018-02-23] MEDS: ALBUTEROL FS 2.5 MG/3 ML VIAL.NEB NEB SCH ×5 (03:09→19:59)
[2018-02-23] MEDS: MEROPENEM 1 G in IV NS 0.9% 100 ML IV SCH ×3 (04:29→21:29)
[2018-02-23] MEDS: Potassium Chloride 20 MEQ in IV NS 0.9% 1,000 ML IV PRN (04:30)
[2018-02-23] MEDS: VANCOMYCIN 0.75 GM in IV D5W 250 ML IV SCH ×3 (04:39→20:11)
[2018-02-23 05:22] LABS: ALBUMIN 2.5 g/dL (3.4-5.0); BILIRUBIN,TOTAL 0.1 mg/dL (0.2-1.0); CALCIUM, SERUM 8.3 mg/dL (8.5-10.1); CREATININE 0.5 mg/dL (0.6-1.3); PHOSPHORUS 2.2 mg/dL (2.5-4.9); POTASSIUM 3.7 mmol/L (3.5-5.1)
--- NOTE | 2018-02-23 06:00 | NUR ---
OD GRINDER OPERATOR NOTES sACRAL DECUB DRESSING CHANGED( PACKED WITH GAUZE WITH DAIKIN'S SOLUTION,TOLERATED WELL.am CARE DONE. 0700 ENDORSED PATIEN TO DAYSHIFT SHERRILL CHU.PATIENT STABLE.
[2018-02-23 06:06] LABS: HEMATOCRIT 36 % (33-45); HEMOGLOBIN 11.7 g/dL (11.5-14.8); MEAN CORPUSCULAR HEMOGLOBIN 28 PG (26.0-33.0); MEAN CORPUSCULAR VOLUME 87 fL (82-100); WHITE BLOOD COUNT (AUTO) 6.7 K/uL (4.3-11.0)
[2018-02-23 06:07] LABS: BASOPHILS % (AUTO) 0.1 % (0.0-2.0); LYMPHOCYTES % (AUTO) 40.2 % (20.0-44.0); MEAN CORPUSCULAR HGB CONC 32 g/dl (31.0-36.0); MONOCYTES % (AUTO) 7.7 % (2.0-12.0); PLATELET COUNT (AUTO) 313 /CMM (150-450); RDW COEFFICIENT OF VARIATION 16.4 (11.5-15.0)
[2018-02-23] MEDS: ACETYLCYSTEINE 10% SOLN 400 MG/4 ML VIAL NEB SCH ×3 (07:31→23:25)
--- NOTE | 2018-02-23 07:40 | NUR ---
INITIAL FOOD AND BEVERAGE LEAD NOTE RCVD PT AWAKE AND ALERT, SHOWING NO S/O DISTRESS/PAIN AT THIS TIME. SR ON TELE. TOLERATING O2 VIA NC. LLQ COLOSTOMY BAG OBSERVED WITH SOME BROWN FORMED STOOL, JEFFERY TO GRAVITY DRAINING YELLOW URINE. RADHA KELSI-CATH ACCESSED AND FLUSHING WILL CONTINUE TO MONITOR PT SIGNS OF INFILTRATION/PHLEBITIS. BED IN LOW AND LOCKED POSITION. CALL LIGHT WITHIN REACH.
[2018-02-23] MEDS: BACLOFEN (10 MG) 10 MG TABLET PO SCH ×4 (08:46→21:29)
[2018-02-23] MEDS: HYDROCORTISONE SOD SUCCINATE 100 MG/2 ML VIAL IV SCH ×3 (08:46→17:47)
[2018-02-23] MEDS: DULOXETINE HCL 30 MG CAPSULE.DR PO SCH (08:46)
[2018-02-23] MEDS: DIVALPROEX SODIUM 250 MG TABLET.DR PO SCH ×2 (08:46→17:47)
[2018-02-23] MEDS: LEVETIRACETAM (250 MG) 250 MG TABLET PO SCH ×2 (08:47→21:29)
[2018-02-23] MEDS: DAKINS QUARTER STRENGTH (0.125%) 480 ML BOTTLE TOP SCH (08:48)
[2018-02-23] MEDS: ENOXAPARIN SODIUM 40 MG/0.4 ML DISP.SYRIN SQ SCH (08:49)
[2018-02-23] MEDS ORDERED: K PHOS NEUTRAL 250 MG TABLET PO ONE (11:30)
--- NOTE | 2018-02-23 11:42 | NUR ---
MARKETING REPRESENTATIVE NOTE PT REQUESTED TO HAVE MOTRIN FOR PAIN, DR. GONZALEZ INFORMED AND RECEIVED ORDER FOR MEDICATION.
[2018-02-23] MEDS: IBUPROFEN 400 MG TABLET PO PRN ×2 (12:15→20:10)
[2018-02-23] MEDS ORDERED: FEE PK DOSING 1 MIN EA MC ONE (16:45)
[2018-02-23] MEDS: TOBRAMYCIN IV SCH (17:53)
[2018-02-23] MEDS: NS 0.9% IV SCH (17:53)
[2018-02-23] MEDS: ENSURE ENLIVE CHOC 237 ML CAN PO SCH (18:32)
--- NOTE | 2018-02-23 18:51 | NUR ---
TRANSFER OVERSEER KOSHER KITCHEN NOTE PT AWAKE AND ALERT, SR ON TELE, TRANSFERRED TO MED-SURG ROOM 310 -2 VIA BED WITH RN AT BEDSIDE IN STABLE CONDITION. REPORT GIVEN TO SHERRILL PACHECO OVER THE PHONE PRIOR TO TRANSPORTING PT. PT'S BELONGINGS, MEDICATIONS AND DINNER TRAY TRANSPORTED WITH PT. PT'S CARE ENDORSED TO SHERRILL PACHECO AT BEDSIDE. ISOLATION DISCONTINUED BY GHAZAL CANTU FOR ID SINCE WOUND CX CAME NEGATIVE FOR VRE
--- NOTE | 2018-02-23 18:57 | NUR ---
MS RN NOTES PATIENT TRANSFERRED FROM ICU ROOM 255-1 TO ROOM 310-2 AT 1845 VIA PT'S BED ACCOMPANIED BY ICU NURSE NICHOLAS ZARATE. PT IS STABLE AWAKE, ALERT AND ORIENTED X3, SAME VERBALLY RESPONSIVE, DENIES PAIN OR ANY DISCOMFORTS AT THIS TIME. PT ORIENTED TO UNIT AND TO HER ROOM. ON 02 VIA N/C AT 1LPM, BREATHING EVEN AND UNLABORED, SP02 1005. V/S TAKEN; BP 130/77, P 62, R 18, T 98.5F. PT REFUSED TO HAVE HER WOUND TO BE ASSESS. PT HAS RADHA KELSI CATHETER IN PLACE AND PATENT. PT WITH JEFFERY IN PLACE WITH POSITIVE CLEAR YELLOW OUTPUT NOTED. PT ALSO HAS COLOSTOMY WITH SMALL AMOUNT OF SOFT FORMED BROWNISH STOOL NOTED AT THE COLOSTOMY BAG. SAFETY MEASURES ENFORCED. HOB ELEVATED. BED PLACED IN LOW LOCKED POSITION WITH SIDE-RAILS UP X2. CALL LIGHT AND BEDSIDE TABLE PLACED WITHIN EASY REACH OF PT. WILL ENDORSE TO TYPEWRITER OPERATOR AUTOMATIC NURSE FOR CEDRIC.
--- NOTE | 2018-02-23 19:20 | NUR ---
MS/RN NOTES RECEIVED PT. LYING IN BED. PT. IS AWAKE, ALERT AND ORIENTED X2-3. BREATHING EVEN AND UNLABORED ON 2LPM O2 VIA NC. NO SOB, RESPIRATORY DISTRESS OR COMPLAINTS OF PAIN NOTED AT THIS TIME. PT. WITH LEFT UPPER ARM PORTACATH PRESENT, PATENT AND INTACT. PT. WITH COLOSTOMY BAG PRESENT AND INTACT SMALL AMOUNT OF BROWN FORMED STOOL NOTED. PT. WITH JEFFERY CATHETER PRESENT, PATENT AND INTACT DRAINING CLEAR YELLOW URINE WITH SEDIMENT NOTED. BED LOCKED AND IN LOWEST POSITION, SIDE RAILS UP X3, BED ALARM ON, CALL LIGHT WITHIN REACH, WILL CONTINUE TO MONITOR.
[2018-02-23] MEDS: NORTRIPTYLINE HCL 10 MG CAPSULE PO SCH (21:52)
--- NOTE | 2018-02-23 23:00 | NUR ---
MS/RN NOTES PT. REFUSING PICTURES AT THIS TIME. WILL ATTEMPT AGAIN AT A LATER TIME, WILL CONTINUE TO MONITOR.
[2018-02-24] MEDS: FLUDROCORTISONE 0.1 MG TABLET PO SCH ×5 (00:39→23:25)
[2018-02-24] MEDS: ALBUTEROL FS 2.5 MG/3 ML VIAL.NEB NEB SCH ×4 (01:00→19:52)
[2018-02-24] MEDS: IPRATROPIUM NEB FS 0.5 MG/2.5 ML AMPUL.NEB NEB SCH ×6 (02:47→23:53)
[2018-02-24] MEDS: VANCOMYCIN 0.75 GM in IV D5W 250 ML IV SCH ×2 (04:26→13:43)
[2018-02-24] MEDS: MEROPENEM 1 G in IV NS 0.9% 100 ML IV SCH ×3 (05:47→21:19)
--- NOTE | 2018-02-24 06:21 | NUR ---
MS/RN NOTES PT. IS LYING IN BED RESTING. BREATHING EVEN AND UNLABORED ON 2LPM O2 VIA NC. NO SOB, RESPIRATORY DISTRESS OR COMPLAINTS OF PAIN NOTED AT THIS TIME. PT. WITH LEFT UPPER ARM PORTACATH PRESENT, PATENT AND INTACT. PT. WITH COLOSTOMY BAG PRESENT AND INTACT. PT. WITH JEFFERY CATHETER PRESENT, PATENT AND INTACT. ALL PT. NEEDS MET. PT. OFFLOADED, TURNED AND REPOSITIONED Q2H TOLERATED. PT. CONTINUES TO REFUSE PICTURES AND DRESSING CHANGES AT THIS TIME. WILL ENDORSE PICTURES AND DRESSING CHANGES TO DAYSHIFT NURSE. BED LOCKED AND IN LOWEST POSITION, SIDE RAILS UP X3, BED ALARM ON, CALL LIGHT WITHIN REACH, WILL ENDORSE TO DAYSHIFT NURSE FOR CONTINUITY OF CARE.
[2018-02-24] MEDS: ACETYLCYSTEINE 10% SOLN 400 MG/4 ML VIAL NEB SCH ×3 (06:59→23:53)
--- NOTE | 2018-02-24 07:15 | NUR ---
RN OPENING NOTES RECEIVED PT. IN BED A&OX3. BREATHING UNLABORED, AND EVENLY ON OXYGEN AT 1L/MIN VIA NASAL CANNULA. NO S/S OF ACUTE DISTRESS. PT. HAS A PASSPORT ON LEFT FOREARM FLUSHED WITHOUT COMPLICATIONS. JEFFERY CATHETER HAS 100 CC OUTPUT. COLOSTOMY BAG IS INTACT AND SMALL AMOUNT OF FORMED STOOL IS VISIBLE. BED IS IN LOWEST, AND LOCKED POSITION. 2 SIDE RAILS UP, AND INSTRUCTED PT. TO USE CALL LIGHT FOR ASSISTANCE. ALL NEEDS MET. WILL CONTINUE TO ASSESS AND MONITOR.
[2018-02-24 07:31] LABS: CALCIUM, SERUM 7.7 mg/dL (8.5-10.1); CREATININE 0.4 mg/dL (0.6-1.3); POTASSIUM 3.3 mmol/L (3.5-5.1)
[2018-02-24 08:00] VITALS: BP 126/67
--- NOTE | 2018-02-24 08:45 | NUR ---
RECEIVED REPORT VIA PHONE FROM [facility] THAT PT.'S WOUND CULTURE TESTED POSITIVE FOR VRE BACTERIA. PT. WAS PLACED ON CONTACT ISOLATION.
[2018-02-24] MEDS: ENSURE ENLIVE CHOC 237 ML CAN PO SCH ×2 (09:18→17:50)
[2018-02-24] MEDS: HYDROCORTISONE SOD SUCCINATE 100 MG/2 ML VIAL IV SCH ×3 (09:42→17:45)
[2018-02-24] MEDS: ENOXAPARIN SODIUM 40 MG/0.4 ML DISP.SYRIN SQ SCH (09:50)
[2018-02-24] MEDS: DULOXETINE HCL 30 MG CAPSULE.DR PO SCH (09:57)
[2018-02-24] MEDS: BACLOFEN (10 MG) 10 MG TABLET PO SCH ×4 (09:58→21:20)
[2018-02-24] MEDS: MULTIVITAMINS,THERAGRAN 1 UDTAB TABLET PO SCH (09:58)
[2018-02-24] MEDS: ASCORBIC ACID 500 MG TABLET PO SCH (09:58)
[2018-02-24] MEDS: DIVALPROEX SODIUM 250 MG TABLET.DR PO SCH ×2 (09:58→17:50)
[2018-02-24] MEDS: LEVETIRACETAM (250 MG) 250 MG TABLET PO SCH ×2 (09:58→21:19)
[2018-02-24] MEDS: DAKINS QUARTER STRENGTH (0.125%) 480 ML BOTTLE TOP SCH (09:59)
[2018-02-24] MEDS ORDERED: POTASSIUM CHLORIDE 20 MEQ TAB.PRT.SR PO SCH ×2 (10:00→11:00)
[2018-02-24] MEDS ORDERED: POTASSIUM CHLORIDE 20 MEQ POWDER PACKET PO SCH (10:55)
[2018-02-24] MEDS: oxyCODONE HCL SR 20MG TAB.SR.12H PO PRN (12:34)
--- NOTE | 2018-02-24 14:30 | NUR ---
RN NOTES WOUND CARE WAS PERFORMED PER MEDICAL GENETICS DIRECTOR ORDERS. PT. TOLERATED PROCEDURE WELL. PICTURES WERE TAKEN AND PLACED IN CHART.
[2018-02-24 16:00] VITALS: BP 125/90
[2018-02-24] MEDS: TOBRAMYCIN IV SCH (17:46)
[2018-02-24] MEDS: NS 0.9% IV SCH (17:46)
--- NOTE | 2018-02-24 19:35 | NUR ---
RN NOTES RECEIVED PT AWAKE, HOB ELEVATED, ON O2 INHALATION AT 2LPM VIA NC AND TOLERATED WELL. PT ALERT AND ORIENTED X2-3, PAIN AT TOLERABLE LEVEL AT THIS TIME. CURRENT DIET TOLERATED WELL, DENIES NAUSEA AND VOMITING. REPOSITION PER PROTOCOL. IV ACCESS ON LEFT ARM, PORT A CATH INTACT. COLOSTOMY INTACT. JEFFERY CATH INTACT. SAFETY MEASURES AND FALL PRECAUTION OBSERVED. WILL CONTINUE TO MONITOR PT.
--- NOTE | 2018-02-24 19:53 | NUR ---
RN CLOSING NOTES PT. IS IN BED A&OX3. BREATHING UNLABORED, AND EVENLY ON OXYGEN AT 1L/MIN VIA NASAL CANNULA. NO S/S OF ACUTE DISTRESS. PT. HAS A PASSPORT ON LEFT FOREARM FLUSHED WITHOUT COMPLICATIONS. JEFFERY CATHETER HAD 1300 CC OUTPUT OF CLEAR, AND YELLOW URINE. COLOSTOMY BAG IS INTACT AND HAD A MEDIUM AMOUNT OF FORMED STOOL. BED IS IN LOWEST, AND LOCKED POSITION. 2 SIDE RAILS UP, AND INSTRUCTED PT. TO USE CALL LIGHT FOR ASSISTANCE. ALL NEEDS MET. WILL ENDORSE REPORT TO NURSE.
[2018-02-24 20:00] VITALS: BP 123/78
[2018-02-24] MEDS: HYDROCODONE/APAP 5/325MG 1 EACH TABLET PO PRN (21:30)
[2018-02-24 22:00] VITALS: BP 123/78
[2018-02-24] MEDS: NORTRIPTYLINE HCL 10 MG CAPSULE PO SCH (22:16)
[2018-02-25] MEDS: oxyCODONE HCL SR 20MG TAB.SR.12H PO PRN (00:36)
[2018-02-25] MEDS: ALBUTEROL FS 2.5 MG/3 ML VIAL.NEB NEB SCH ×4 (01:30→20:03)
[2018-02-25] MEDS: IPRATROPIUM NEB FS 0.5 MG/2.5 ML AMPUL.NEB NEB SCH ×5 (03:30→20:03)
[2018-02-25] MEDS: MEROPENEM 1 G in IV NS 0.9% 100 ML IV SCH ×3 (04:37→21:03)
[2018-02-25] MEDS: FLUDROCORTISONE 0.1 MG TABLET PO SCH ×3 (05:13→17:34)
--- NOTE | 2018-02-25 06:29 | NUR ---
RN NOTES PT ASLEEP, ON 2LPM O2 AND TOLERATED WELL. VITAL SIGNS STABLE, AFEBRILE. JEFFERY CATH AND COLOSTOMY INTACT BOTH WORKING WELL. PORT A CATH PATENT AND INTACT. KEPT PAIN AT TOLERABLE LEVEL. KEPT CLEAN AND DRY. TURNED AND REPOSITIONED TO SIDES TO OFFLOAD SACRAL AREA. CURRENT DIET TOLERATED WELL, ASPIRATION PRECAUTION OBSERVED. SAFETY MEASURES AND ISOLATION PRECAUTION OBSERVED. ALL NEEDS MET. WILL ENDORSE TO MORNING RN FOR CONTINUITY OF CARE.
[2018-02-25 06:40] LABS: CALCIUM, SERUM 8.7 mg/dL (8.5-10.1); CREATININE 0.5 mg/dL (0.6-1.3); POTASSIUM 3.6 mmol/L (3.5-5.1)
--- NOTE | 2018-02-25 07:10 | NUR ---
ms rn initial notes Receive patient in bed, awake, head of bed elevated, no SOB or distress noted, on 02 @ 2lpm via NC and tolerated well, 02 sat 98%. Patient is alert and oriented x 4, verbally responsive and able to make needs known. Hutchison in placed attached to drainage bag, colostomy on the left abdominal area. IV intact and patent. RADHA port a cath. No complaint of pain or discomfort at this time. Call Light with in patient reach, will continue to monitor accordingly.
[2018-02-25] MEDS: ACETYLCYSTEINE 10% SOLN 400 MG/4 ML VIAL NEB SCH ×3 (07:35→23:00)
[2018-02-25 08:00] VITALS: BP 127/82
[2018-02-25] MEDS: ENSURE ENLIVE CHOC 237 ML CAN PO SCH ×2 (08:21→16:27)
[2018-02-25] MEDS: BACLOFEN (10 MG) 10 MG TABLET PO SCH ×4 (08:30→21:03)
[2018-02-25] MEDS: DULOXETINE HCL 30 MG CAPSULE.DR PO SCH (08:30)
[2018-02-25] MEDS: HYDROCORTISONE SOD SUCCINATE 100 MG/2 ML VIAL IV SCH ×3 (08:30→16:27)
[2018-02-25] MEDS: DIVALPROEX SODIUM 250 MG TABLET.DR PO SCH ×2 (08:30→16:28)
[2018-02-25] MEDS: ASCORBIC ACID 500 MG TABLET PO SCH (08:31)
[2018-02-25] MEDS: LEVETIRACETAM (250 MG) 250 MG TABLET PO SCH ×2 (08:33→21:03)
[2018-02-25] MEDS: ENOXAPARIN SODIUM 40 MG/0.4 ML DISP.SYRIN SQ SCH (08:34)
[2018-02-25] MEDS: DAKINS QUARTER STRENGTH (0.125%) 480 ML BOTTLE TOP SCH (08:35)
[2018-02-25] MEDS: MULTIVITAMINS,THERAGRAN 1 UDTAB TABLET PO SCH (09:16)
[2018-02-25 16:00] VITALS: BP_SYST 128; BP_SYST 136; BP_DIAS 74; BP_DIAS 81
[2018-02-25] MEDS: TOBRAMYCIN IV SCH (17:34)
[2018-02-25] MEDS: NS 0.9% IV SCH (17:34)
--- NOTE | 2018-02-25 19:12 | NUR ---
ms rn closing notes All needs provided, attended, and anticipated. Patient in stable condition at this time. Endorsed to next shift RN to continue care. Call light with in reach.
--- NOTE | 2018-02-25 19:29 | NUR ---
MS RN NOTES Report received at bedside. Patient in bed, awake and verbally responsive. Alert and Oriented x3. Not in any type of distress. Repositioned to left lateral with bilateral heels and elbows offloaded with concrete block mason. Hutchison cath in place. Colostomy bag in place. RADHA port-a-cath noted. Safety measures in place. Will continue to monitor and assess patient.
[2018-02-25 20:00] VITALS: BP 140/82
[2018-02-25] MEDS: NORTRIPTYLINE HCL 10 MG CAPSULE PO SCH (21:03)
[2018-02-26] MEDS: ALBUTEROL FS 2.5 MG/3 ML VIAL.NEB NEB SCH ×4 (01:30→20:14)
[2018-02-26] MEDS: IPRATROPIUM NEB FS 0.5 MG/2.5 ML AMPUL.NEB NEB SCH ×4 (01:30→20:14)
[2018-02-26] MEDS: FLUDROCORTISONE 0.1 MG TABLET PO SCH ×4 (01:32→17:13)
[2018-02-26] MEDS: MEROPENEM 1 G in IV NS 0.9% 100 ML IV SCH ×3 (05:12→20:53)
--- NOTE | 2018-02-26 06:18 | NUR ---
MS RN CLOSING NOTES Patient remained in bed, sleeping comfortably, easily aroused. Alert and Oriented x3. Not in any type of distress. No complaints of pain. Turned and repositioned every two hours, offloading bilateral heels and elbows. Wound treatment rendered. Hutchison cath in place with 400cc collected. Colostomy bag in place. RADHA port-a-cath: patent. Remained in contact isolation for urine and VRE of the wound. Continue on antibiotic treatment. Safety measures in place. Bed in lowest position with bed alarm on and call light within reach. Kept patient clean and dry. All needs provided and met. Will endorse to oncoming shift nurse
--- NOTE | 2018-02-26 07:00 | NUR ---
MSRN OPENING NOTES. PT RECEIVED A&0X3, WITH O2 VIA NC AT 2LPM AND SAO2 WNL, PT REPORTING 10/10 PAIN, WILL ADMIN PRN. PT WITH L UA KELSI.A.CATH INTACT AND OPERATIONAL AT TKO. PT WITH COLOSTOMY BAG INTACT WITH <10CC STOOL. PT WITH JEFFERY INTACT AND OPERATIONAL. PT BED IN LOWEST LOCKED POSITION WITH HANDRAILSX4 AND CALL JONES WITHIN REACH. PT BRIEFED ON TODAY'S POC AND IS WITHOUT CONCERN OR COMPLAINT AT THIS TIME. WILL ENDORSE TO NIGHT NURSE AT BEDSIDE FOR CEDRIC.
[2018-02-26] MEDS: ACETYLCYSTEINE 10% SOLN 400 MG/4 ML VIAL NEB SCH ×3 (07:18→23:27)
[2018-02-26 07:39] LABS: CALCIUM, SERUM 8.1 mg/dL (8.5-10.1); CREATININE 0.5 mg/dL (0.6-1.3); POTASSIUM 3.1 mmol/L (3.5-5.1)
[2018-02-26 08:00] VITALS: BP 133/68
[2018-02-26] MEDS: ENSURE ENLIVE CHOC 237 ML CAN PO SCH ×2 (08:49→17:13)
[2018-02-26] MEDS: LEVETIRACETAM (250 MG) 250 MG TABLET PO SCH ×2 (08:55→20:52)
[2018-02-26] MEDS: DULOXETINE HCL 30 MG CAPSULE.DR PO SCH (08:55)
[2018-02-26] MEDS: DIVALPROEX SODIUM 250 MG TABLET.DR PO SCH ×2 (08:55→16:29)
[2018-02-26] MEDS: ASCORBIC ACID 500 MG TABLET PO SCH (08:55)
[2018-02-26] MEDS: MULTIVITAMINS,THERAGRAN 1 UDTAB TABLET PO SCH (08:55)
[2018-02-26] MEDS: HYDROCORTISONE SOD SUCCINATE 100 MG/2 ML VIAL IV SCH ×3 (08:56→16:29)
[2018-02-26] MEDS: ENOXAPARIN SODIUM 40 MG/0.4 ML DISP.SYRIN SQ SCH (08:57)
[2018-02-26] MEDS: BACLOFEN (10 MG) 10 MG TABLET PO SCH ×4 (09:03→20:52)
[2018-02-26] MEDS: oxyCODONE HCL SR 20MG TAB.SR.12H PO PRN (09:03)
[2018-02-26] MEDS: DAKINS QUARTER STRENGTH (0.125%) 480 ML BOTTLE TOP SCH (09:10)
[2018-02-26 09:45] LABS: ABG BASE EXCESS 6.9 mmol/L; ABG OXYGEN SATURATION 93.8 % (92.0-98.5); ABG PCO2 46.2 mmHg (35.0-45.0); ABG PH 7.455 (7.350-7.450); ABG PO2 70.1 mmHg (75.0-100.0); AaDO2 24.3 mmHg; MetHb 0.6 % (0.0-1.5); O2Hb 93.2 % (94.0-97.0); SITE, ABG Left Brachial; VENT MODE, BG ROOM AIR
[2018-02-26] MEDS: POTASSIUM CHLORIDE 20 MEQ TAB.PRT.SR PO SCH ×2 (11:02→11:33)
[2018-02-26] MEDS: IBUPROFEN 400 MG TABLET PO PRN (12:35)
[2018-02-26] MEDS: HYDROCODONE/APAP 5/325MG 1 EACH TABLET PO PRN (12:36)
[2018-02-26 16:00] VITALS: BP 96/54
[2018-02-26] MEDS: NS 0.9% IV SCH (17:13)
[2018-02-26] MEDS: TOBRAMYCIN IV SCH (17:13)
--- NOTE | 2018-02-26 18:18 | NUR ---
MSRN CLOSING NOTES. PT WITH TOLERATING ROOM AIR OR USING O2 PRN VIA NC AT 2LPM. PT REPORTING CURRENT PAIN MANAGEMENT ADEQUATE. PT L UA KELSI.A.CATH, COLOSTOMY BAG AND JEFFERY INTACT AND OPERATIONAL. PT BED IN LOWEST LOCKED POSITION WITH HANDRAILSX4 AND CALL JONES WITHIN REACH. WOUND CARE PER RX. ALL DAY NURSE DUTIES ATTENDED TO AND PT IS WITHOUT CONCERN OR COMPLAINT AT THIS TIME. WILL ENDORSE TO NIGHT NURSE AT BEDSIDE FOR CEDRIC.
--- NOTE | 2018-02-26 19:45 | NUR ---
MS RN NOTES RECEIVED ON BED A/O X3,BREATHING REGULAR,NOT IN ANY FORM OF DISTRESS.ISOLATION PRECAUTION FOR VRE WOUND.WITH RADHA KELSI CATH,NS AT TKO RATE IN PROGRESS.ISOFLEX BED IN USED FOR SKIN PROTECTION.CALL LIGHT IN REACH,NEEDS ANTICIPATED.
[2018-02-26 20:00] VITALS: BP 115/73
--- NOTE | 2018-02-26 21:00 | NUR ---
IT SUPPORT MANAGER NOTES EVENING CARE RENDERED,TOLERATED WELL.REPOSITION
[2018-02-26] MEDS: NORTRIPTYLINE HCL 10 MG CAPSULE PO SCH (22:22)
[2018-02-27] MEDS: FLUDROCORTISONE 0.1 MG TABLET PO SCH ×4 (00:27→17:06)
[2018-02-27] MEDS: ALBUTEROL FS 2.5 MG/3 ML VIAL.NEB NEB SCH ×4 (02:16→19:15)
[2018-02-27] MEDS: IPRATROPIUM NEB FS 0.5 MG/2.5 ML AMPUL.NEB NEB SCH ×4 (02:16→19:15)
[2018-02-27] MEDS: oxyCODONE HCL SR 20MG TAB.SR.12H PO PRN ×2 (02:24→18:31)
--- NOTE | 2018-02-27 02:24 | NUR ---
WASTE HANDLING TECHNICIAN NOTES C/O SACRAL PAIN 8/10 ON PAIN SCALE.OXYCONTIN 20MG PO GIVEN PER PATIENT REQUEST
[2018-02-27] MEDS: MEROPENEM 1 G in IV NS 0.9% 100 ML IV SCH ×3 (05:03→20:51)
--- NOTE | 2018-02-27 06:30 | NUR ---
MS RN NOTES NO SIGNIFICANT CHANGE IN STATUS.REPOSITION PER PROTOCOL.KEPT ON ISOLATION FOR VRE WOUND.CALL LIGHT IN REACH,NEEDS ATTENDED.
[2018-02-27 06:41] LABS: CALCIUM, SERUM 8.1 mg/dL (8.5-10.1); CREATININE 0.5 mg/dL (0.6-1.3); POTASSIUM 3.5 mmol/L (3.5-5.1)
--- NOTE | 2018-02-27 07:05 | NUR ---
RN NOTES PT IS LAYING DOWN IN BED, RESTING COMFORTABLY. PT ON 2L O2, RESPIRATIONS ARE EVEN AND UNLABORED. RADHA KELSI CATH IN PLACE AND RUNNING NS TKO. JEFFERY CATHETER IS IN PLACE AND DRAINING TO GRAVITY. COLOSTOMY IS IN PLACE AND BAG IS INTACT. NO SIGNS OF DISTRESS NOTED. SAFETY MEASURES ARE IN PLACE, CALL LIGHT IS IN REACH. WILL CONTINUE TO MONITOR.
[2018-02-27] MEDS: ACETYLCYSTEINE 10% SOLN 400 MG/4 ML VIAL NEB SCH ×3 (07:44→23:56)
[2018-02-27 08:00] VITALS: BP 140/71
[2018-02-27 08:10] VITALS: BP 140/71
[2018-02-27] MEDS: HYDROCORTISONE SOD SUCCINATE 100 MG/2 ML VIAL IV SCH ×3 (08:18→17:06)
[2018-02-27] MEDS: DIVALPROEX SODIUM 250 MG TABLET.DR PO SCH ×2 (08:19→17:06)
[2018-02-27] MEDS: ASCORBIC ACID 500 MG TABLET PO SCH (08:19)
[2018-02-27] MEDS: DULOXETINE HCL 30 MG CAPSULE.DR PO SCH (08:19)
[2018-02-27] MEDS: BACLOFEN (10 MG) 10 MG TABLET PO SCH ×4 (08:19→20:51)
[2018-02-27] MEDS: ENSURE ENLIVE CHOC 237 ML CAN PO SCH ×2 (08:19→17:07)
[2018-02-27] MEDS: LEVETIRACETAM (250 MG) 250 MG TABLET PO SCH ×2 (08:19→20:51)
[2018-02-27] MEDS: MULTIVITAMINS,THERAGRAN 1 UDTAB TABLET PO SCH (08:19)
[2018-02-27] MEDS: DAKINS QUARTER STRENGTH (0.125%) 480 ML BOTTLE TOP SCH (08:24)
[2018-02-27] MEDS: ENOXAPARIN SODIUM 40 MG/0.4 ML DISP.SYRIN SQ SCH (08:34)
--- NOTE | 2018-02-27 11:34 | NUR ---
Social service consult requested by CERTIFIED PUBLIC ACCOUNTANT Vee Momin for negligence, worsening wounds, missing appointments and home safety. Pt. lives at home with her boyfriend Isaak who is pt's caregiver as well. SW filed APS for the aforementioned concerns. APS Intake ID #[id number].
[2018-02-27] MEDS: HYDROCODONE/APAP 5/325MG 1 EACH TABLET PO PRN ×2 (12:25→22:57)
[2018-02-27 16:00] VITALS: BP 126/75
[2018-02-27] MEDS: TOBRAMYCIN IV SCH (17:06)
[2018-02-27] MEDS: NS 0.9% IV SCH (17:06)
--- NOTE | 2018-02-27 18:53 | NUR ---
RN NOTES PT IS RESTING IN BED, AWAKE AND ALERT. PT ON RA, RESPIRATIONS ARE EVEN AND UNLABORED. RADHA PORTACATH INTACT AND RUNNING NS TKO. JEFFERY CATHETER IS IN PLACE AND DRAINING TO GRAVITY, 600ML OUTPUT. COLOSTOMY BAG WAS CHANGED, PT HAD FORMED BROWN STOOL. WOUND CARE AND SKIN CARE PROVIDED NEEDED. ALL MEDS WERE GIVEN ORDERED. OXYCONTIN LAST GIVEN @ 1830 FOR PAIN MANAGEMENT. NO SIGNS OF DISTRESS NOTED. SAFETY MEASURES ARE IN PLACE, CALL LIGHT IS IN REACH. WILL ENDORSE TO HOLDER PILE DRIVING RN FOR CONTINUITY OF CARE.
--- NOTE | 2018-02-27 19:45 | NUR ---
MS RN NOTES ON BED A/O X4,BEDBOUND,SACRAL DRESSING INTACT AND DRY.JEFFERY CATH IN PLACE DRAINING CLEAR YELLOW OUTPUT. COLOSTOMY BAG IN PLACE EMPTY THIS TIME.WITH LEFT UPPER ARM KELSI CATH FOR MEDS,NS AT TKO RATE.ISOFLEX BED IN USED.ISOLATION PRECAUTION FOR VRE WOUNDS.CALL LIGHT IN REACH,NEEDS ANTICIPATED.
[2018-02-27 20:00] VITALS: BP 114/62
[2018-02-27] MEDS: NORTRIPTYLINE HCL 10 MG CAPSULE PO SCH (21:41)
--- NOTE | 2018-02-27 22:57 | NUR ---
MS RN NOTES PAIN MANAGEMENT C/O PAIN 5/10 ON BILATERAL FOOT,NORCO 5/325MG,1TAB PO GIVEN ORDERED.
[2018-02-28] MEDS: FLUDROCORTISONE 0.1 MG TABLET PO SCH ×5 (00:43→23:49)
[2018-02-28] MEDS: ALBUTEROL FS 2.5 MG/3 ML VIAL.NEB NEB SCH ×4 (02:07→19:30)
[2018-02-28] MEDS: IPRATROPIUM NEB FS 0.5 MG/2.5 ML AMPUL.NEB NEB SCH ×4 (02:07→19:30)
[2018-02-28] MEDS: IBUPROFEN 400 MG TABLET PO PRN (02:28)
--- NOTE | 2018-02-28 02:28 | NUR ---
MS RN NOTES AWAKE,IN PAIN 3/10 ON PAIN SCALE ON SACRAL AREA.MOTRIN 400MG PO GIVEN PER PATIENT REQUEST
[2018-02-28] MEDS: MEROPENEM 1 G in IV NS 0.9% 100 ML IV SCH ×3 (05:19→21:16)
[2018-02-28 06:10] LABS: BASOPHILS % (AUTO) 0.2 % (0.0-2.0); EOSINOPHILS % (AUTO) 0.2 % (0.0-6.0); HEMATOCRIT 34 % (33-45); HEMOGLOBIN 11.1 g/dL (11.5-14.8); LYMPHOCYTES # (AUTO) 6.7 /CMM (0.8-4.8); LYMPHOCYTES % (AUTO) 52.1 % (20.0-44.0); MEAN CORPUSCULAR HEMOGLOBIN 29 PG (26.0-33.0); MEAN CORPUSCULAR HGB CONC 33 g/dl (31.0-36.0); MEAN CORPUSCULAR VOLUME 88 fL (82-100); MONOCYTES # (AUTO) 1.3 /CMM (0.1-1.30); MONOCYTES % (AUTO) 10.1 % (2.0-12.0); NEUTROPHILS # (AUTO) 4.8 /CMM (1.8-8.9); NEUTROPHILS % (AUTO) 37.4 % (43.0-81.0); PLATELET COUNT (AUTO) 362 /CMM (150-450); RDW COEFFICIENT OF VARIATION 17.2 (11.5-15.0); RED BLOOD CELL COUNT(AUTO) 3.86 MIL/uL (4.0-5.2); WHITE BLOOD COUNT (AUTO) 12.8 K/uL (4.3-11.0)
[2018-02-28 06:36] LABS: CREATININE 0.4 mg/dL (0.6-1.3); MAGNESIUM 2.1 mg/dL (1.8-2.4); PHOSPHORUS 2.4 mg/dL (2.5-4.9); POTASSIUM 3.5 mmol/L (3.5-5.1)
--- NOTE | 2018-02-28 06:48 | NUR ---
MS RN NOTES FAIRLY RESTED AT NIGHT.PAIN MANAGEABLE WITH PAIN MANAGEMENT.ATE,DRINK WELL.NEGATIVE FOR ASPIRATION.CALL LIGHT IN REACH,NEEDS ATTENDED.WILL ENDORSE TO DAY NURSE FOR CEDRIC.
--- NOTE | 2018-02-28 07:05 | NUR ---
RN NOTES PT IS LAYING DOWN IN BED, SLEEPING COMFORTABLY. PT ON 2L O2, RESPIRATIONS ARE EVEN AND UNLABORED. RADHA PORTACATH INTACT AND RUNNING TKO. JEFFERY CATHETER IS IN PLACE AND DRAINING TO GRAVITY. COLOSTOMY BAG IS IN PLACE, NO SIGNS OF IRRITATION NOTED. SAFETY MEASURES ARE IN PLACE, CALL LIGHT IS IN REACH. WILL CONTINUE TO MONITOR.
[2018-02-28] MEDS: ACETYLCYSTEINE 10% SOLN 400 MG/4 ML VIAL NEB SCH ×3 (07:35→23:04)
[2018-02-28 08:00] VITALS: BP 108/66
[2018-02-28] MEDS: DULOXETINE HCL 30 MG CAPSULE.DR PO SCH (08:11)
[2018-02-28] MEDS: HYDROCORTISONE SOD SUCCINATE 100 MG/2 ML VIAL IV SCH ×3 (08:11→17:35)
[2018-02-28] MEDS: ENSURE ENLIVE CHOC 237 ML CAN PO SCH ×2 (08:11→17:37)
[2018-02-28] MEDS: ASCORBIC ACID 500 MG TABLET PO SCH (08:11)
[2018-02-28] MEDS: MULTIVITAMINS,THERAGRAN 1 UDTAB TABLET PO SCH (08:11)
[2018-02-28] MEDS: oxyCODONE HCL SR 20MG TAB.SR.12H PO PRN ×2 (08:12→23:50)
[2018-02-28] MEDS: DIVALPROEX SODIUM 250 MG TABLET.DR PO SCH ×2 (08:12→17:35)
[2018-02-28] MEDS: BACLOFEN (10 MG) 10 MG TABLET PO SCH ×4 (08:12→21:16)
[2018-02-28] MEDS: LEVETIRACETAM (250 MG) 250 MG TABLET PO SCH ×2 (08:12→21:16)
[2018-02-28] MEDS: ENOXAPARIN SODIUM 40 MG/0.4 ML DISP.SYRIN SQ SCH (08:22)
[2018-02-28] MEDS: DAKINS QUARTER STRENGTH (0.125%) 480 ML BOTTLE TOP SCH (08:22)
[2018-02-28] MEDS ORDERED: K PHOS NEUTRAL 250 MG TABLET PO ONE (11:30)
[2018-02-28] MEDS: HYDROCODONE/APAP 5/325MG 1 EACH TABLET PO PRN (12:24)
[2018-02-28 16:00] VITALS: BP 106/66
--- NOTE | 2018-02-28 17:35 | NUR ---
RN NOTES JEFFERY CATHETER FOUND LEAKING, 450 ML OUTPUT IN JEFFERY BAG WITH ROMA UNDERNEATH PT SOILED WITH URINE. NEW CATHETER INSERTED USING STERILE TECHNIQUE, CLEAR YELLOW URINE FLOWED INTO CATHETER BAG BY GRAVITY. BLADDER SCAN DONE, SHOWING 38ML RESIDUAL IN BLADDER. URINE CONTINUES TO DRAIN INTO JEFFERY BAG. WILL CONTINUE TO MONITOR URINE OUTPUT.
[2018-02-28] MEDS: TOBRAMYCIN IV SCH (17:37)
[2018-02-28] MEDS: NS 0.9% IV SCH (17:37)
--- NOTE | 2018-02-28 18:34 | NUR ---
RN NOTES PT IS SITTING UP IN BED, AWAKE AND ALERT, RESTING COMFORTABLY. PT ON 2L O2, RESPIRATIONS ARE EVEN AND UNLABORED. RADHA PORTACATH INTACT AND RUNNING TKO, DRESSING IS CLEAN AND INTACT. COLOSTOMY BAG IS IN PLACE, NO SIGNS OF IRRITATION NOTED. JEFFERY CATHETER IS IN PLACE AND DRAINING TO GRAVITY. WOUND CARE AND SKIN CARE PROVIDED FOR PT. NO SIGNS OF DISTRESS NOTED. SAFETY MEASURES ARE IN PLACE, CALL LIGHT IS IN REACH. WILL ENDORSE TO SECRETARY ADMINISTRATIVE ASSISTANT RN FOR CONTINUITY OF CARE.
--- NOTE | 2018-02-28 19:20 | NUR ---
RN NOTES: RECEIVED AWAKE ON BED, SITTING COMFORTABLY WITH O2 INHALATION,NO SIGN OF RESPIRATORY DISTRESS OR SOB NOTED, COLOSTOMY BAG IN PLACE, JEFFERY CATH DRAINING WELL,PORT A CATH IN SITE,FALL.SAFETY AND ASPIRATION PRECAUTION OBSERVED, BED LOW AND LOCKED, CALL LIGHT WITHIN EASY REACH.
[2018-02-28 20:00] VITALS: BP 118/80
[2018-02-28] MEDS: NORTRIPTYLINE HCL 10 MG CAPSULE PO SCH (21:16)
--- NOTE | 2018-02-28 23:51 | NUR ---
RN NOTES: COMPLAINED OF GENERALIZED PAIN 03/21, REQUEST FOR OXYCONTIN,GIVEN;KEPT IN COMFORTABLE POSITION, CALL LIGHT WITHIN EASY REACH.
[2018-03-01] MEDS: IPRATROPIUM NEB FS 0.5 MG/2.5 ML AMPUL.NEB NEB SCH ×3 (00:46→14:41)
[2018-03-01] MEDS: ALBUTEROL FS 2.5 MG/3 ML VIAL.NEB NEB SCH ×3 (00:46→14:41)
[2018-03-01] MEDS: FLUDROCORTISONE 0.1 MG TABLET PO SCH ×2 (05:07→12:01)
[2018-03-01] MEDS: MEROPENEM 1 G in IV NS 0.9% 100 ML IV SCH ×2 (05:07→12:00)
--- NOTE | 2018-03-01 06:48 | NUR ---
RN NOTES: ABLE TO SLEEP AND REST,BED BATH RENDERED IN THE MORNING, DRESSING CHANGE ON THE PS OF THE SACRAL AREA,WOUND TREATMENT DONE,PASS LITTLE AMOUNT OF BM IN THE COLOSTOMY BAG,COLOSTOMY SITE PINKISH IN COLOR;JEFFERY CATH DRAINING -OUTPUT 250 ML. WILL CONTINUE TO MONITOR, ENDORSED FOR CONTINUITY OF CARE.
[2018-03-01 06:52] LABS: BASOPHILS # (AUTO) 0.1 /CMM (0.0-0.2); BASOPHILS % (AUTO) 0.5 % (0.0-2.0); EOSINOPHILS % (AUTO) 0.1 % (0.0-6.0); HEMATOCRIT 32 % (33-45); HEMOGLOBIN 10.6 g/dL (11.5-14.8); LYMPHOCYTES # (AUTO) 5.9 /CMM (0.8-4.8); LYMPHOCYTES % (AUTO) 44.6 % (20.0-44.0); MEAN CORPUSCULAR HEMOGLOBIN 29 PG (26.0-33.0); MEAN CORPUSCULAR HGB CONC 33 g/dl (31.0-36.0); MEAN CORPUSCULAR VOLUME 88 fL (82-100); MONOCYTES # (AUTO) 1.1 /CMM (0.1-1.30); MONOCYTES % (AUTO) 8.1 % (2.0-12.0); NEUTROPHILS # (AUTO) 6.1 /CMM (1.8-8.9); NEUTROPHILS % (AUTO) 46.7 % (43.0-81.0); PLATELET COUNT (AUTO) 326 /CMM (150-450); RDW COEFFICIENT OF VARIATION 17.3 (11.5-15.0); RED BLOOD CELL COUNT(AUTO) 3.66 MIL/uL (4.0-5.2); WHITE BLOOD COUNT (AUTO) 13.1 K/uL (4.3-11.0)
--- NOTE | 2018-03-01 07:05 | NUR ---
RN NOTES PT IS SITTING UP IN BED, AWAKE, RESTING COMFORTABLY. PT ON 2L O2, RESPIRATIONS ARE EVEN AND UNLABORED. RADHA PORTACATH INTACT AND RUNNING TKO. JEFFERY CATHETER IS IN PLACE AND DRAINING TO GRAVITY. COLOSTOMY BAG IS IN PLACE. NO SIGNS OF DISTRESS NOTED. SAFETY MEASURES ARE IN PLACE, CALL LIGHT IS IN REACH. WILL CONTINUE TO MONITOR.
[2018-03-01 07:09] LABS: CALCIUM, SERUM 7.7 mg/dL (8.5-10.1); CREATININE 0.4 mg/dL (0.6-1.3); PHOSPHORUS 3.2 mg/dL (2.5-4.9); POTASSIUM 3.1 mmol/L (3.5-5.1)
--- NOTE | 2018-03-01 07:45 | NUR ---
RN NOTES REPORT GIVEN TO TOMEKA FOR CEDRIC.
[2018-03-01] MEDS: ACETYLCYSTEINE 10% SOLN 400 MG/4 ML VIAL NEB SCH ×2 (07:51→14:42)
[2018-03-01 08:00] VITALS: BP 138/77
[2018-03-01] MEDS: ENSURE ENLIVE CHOC 237 ML CAN PO SCH (08:30)
[2018-03-01] MEDS: LEVETIRACETAM (250 MG) 250 MG TABLET PO SCH (09:46)
[2018-03-01] MEDS: DIVALPROEX SODIUM 250 MG TABLET.DR PO SCH (09:46)
[2018-03-01] MEDS: HYDROCODONE/APAP 5/325MG 1 EACH TABLET PO PRN (09:46)
[2018-03-01] MEDS: BACLOFEN (10 MG) 10 MG TABLET PO SCH ×2 (09:47→12:01)
[2018-03-01] MEDS: ASCORBIC ACID 500 MG TABLET PO SCH (09:47)
[2018-03-01] MEDS: DULOXETINE HCL 30 MG CAPSULE.DR PO SCH (09:47)
[2018-03-01] MEDS: MULTIVITAMINS,THERAGRAN 1 UDTAB TABLET PO SCH (09:48)
[2018-03-01] MEDS: HYDROCORTISONE SOD SUCCINATE 100 MG/2 ML VIAL IV SCH ×2 (09:48→12:01)
[2018-03-01] MEDS: ENOXAPARIN SODIUM 40 MG/0.4 ML DISP.SYRIN SQ SCH (09:52)
[2018-03-01] MEDS: DAKINS QUARTER STRENGTH (0.125%) 480 ML BOTTLE TOP SCH (10:45)
[2018-03-01] MEDS: POTASSIUM CHLORIDE 20 MEQ TAB.PRT.SR PO SCH ×2 (10:45→12:01)
[2018-03-01] MEDS ORDERED: MERO1VIA3 IV (15:35)
[2018-03-01] MEDS ORDERED: TOBR40VI2 IM (15:35)
[2018-03-01] MEDS ORDERED: FLUD0.1T3 PO (15:35)
[2018-03-01] MEDS ORDERED: SODI473S8 TOP (15:35)
[2018-03-01] MEDS ORDERED: HYDR20TA PO (15:35)
--- NOTE | 2018-03-01 17:25 | NUR ---
PRINTMAKER NOTE: PATIENT LEFT THE UNIT WITH AMBULANCE SERVICE AT 1700. PATIENT IS MEDICALLY STABLE, V/S STABLE. FREIGHT ROUTER GAVE DISCHARGE ORDER AND GAVE PRESCRIPTION FOR PATIENT. BELONGINGS LEFT WITH PATIENT. EXIT CARE PAPERS SIGNED AND EXPLAINED TO PATIENT AND AMBULANCE SERVICE. SKIN ASSESSMENT PICTURES ARE IN THE CHART. PATIENT LEFT TO HOME, WHERE CYBER POLICY AND STRATEGY PLANNER IS WAITING.
--- NOTE | 2018-03-04 15:40 | NUR ---
DONNA met with assigned APS castables worker Shad who came by [facility] to inquire if pt. was hospitalized currently. Shad informed DONNA he did stop by the pt's house, however no one was home. He will follow up again with the pt.
== END 2018-03-01 17:00 | disposition home health service (06) | DRG 853 ==
LOC: ER 14:11 → MED 16:30 → TELE 22:02 → ICU 02-21 06:48 → MED 02-23 18:44
PROVIDERS: ADMIT Internal Medicine; ATTEND Internal Medicine
PROC: 0KBP0ZZ Excision of Left Hip Muscle, Open Approach (ICD-10-PCS; principal; 2018-02-24)
PROC: 0KBN0ZZ Excision of Right Hip Muscle, Open Approach (ICD-10-PCS; 2018-02-24)
DX: A41.9 Sepsis, unspecified organism (principal); L89.154 Pressure ulcer of sacral region, stage 4; G93.40 Encephalopathy, unspecified; R65.21 Severe sepsis with septic shock; J96.02 Acute respiratory failure with hypercapnia; R53.2 Functional quadriplegia; J96.01 Acute respiratory failure with hypoxia; J15.6 Pneumonia due to other Gram-negative bacteria; J15.9 Unspecified bacterial pneumonia; D68.59 Other primary thrombophilia; N39.0 Urinary tract infection, site not specified; E44.0 Moderate protein-calorie malnutrition; E27.40 Unspecified adrenocortical insufficiency; E87.2 Acidosis; G40.909 Epilepsy, unspecified, not intractable, without status epilepticus; G35 Multiple sclerosis; Z74.01 Bed confinement status; Z93.3 Colostomy status; Z79.899 Other long term (current) drug therapy; N31.9 Neuromuscular dysfunction of bladder, unspecified; K21.9 Gastro-esophageal reflux disease without esophagitis; E87.6 Hypokalemia; E78.5 Hyperlipidemia, unspecified; Z88.0 Allergy status to penicillin; I10 Essential (primary) hypertension; Z88.1 Allergy status to other antibiotic agents; Z91.040 Latex allergy status; Y95 Nosocomial condition; E66.9 Obesity, unspecified; Z68.34 Body mass index [BMI] 34.0-34.9, adult; I25.10 Atherosclerotic heart disease of native coronary artery without angina pectoris; F32.9 Major depressive disorder, single episode, unspecified; Z87.440 Personal history of urinary (tract) infections; I73.9 Peripheral vascular disease, unspecified; D64.9 Anemia, unspecified; J45.909 Unspecified asthma, uncomplicated; Z16.24 Resistance to multiple antibiotics
CPT/HCPCS: 36415; 36600; 71045-TC; 80048-TC; 80053-TC; 80076-TC; 80164-TC; 80202-TC; 81000-TC; 82533; 82803-TC; 82962-TC; 83605-TC; 83735-TC; 83880; 84100-TC; 84484-TC; 84703-TC; 85025-TC; 85378-TC; 85730-TC; 87040-TC; 87070-TC; 87081-TC; 87086-TC; 87186-TC; 92611-TC; 93307-TC; 94799-TC; A4606; A6253; A6402; A6403; J1650; J1720; J2060; J2185; J2405; J3260; J3370; J3480; J7030; J7040; J7050; J7060; Q9967; Z7610

== ENCOUNTER 2018-03-13 13:12 | Outpatient (CLI) | payer MEDICARE, OTHER ==
[~2018-03-13 13:12] MED LIST changes: -DOXY100C2 PO; +FLUD0.1T3 PO; +HYDR20TA PO; +MERO1VIA3 IV; +SODI473S8 TOP; +TOBR40VI2 IM
== END 2018-03-13 23:59 | disposition home or self-care (01) ==
LOC: MSC 13:12
PROVIDERS: ATTEND Internal Medicine
DX: Z09 Encounter for follow-up examination after completed treatment for conditions other than malignant neoplasm (principal); Z87.01 Personal history of pneumonia (recurrent); G90.8 Other disorders of autonomic nervous system; G89.4 Chronic pain syndrome; G40.909 Epilepsy, unspecified, not intractable, without status epilepticus; G35 Multiple sclerosis; E44.0 Moderate protein-calorie malnutrition; E88.09 Other disorders of plasma-protein metabolism, not elsewhere classified; F32.9 Major depressive disorder, single episode, unspecified; E66.01 Morbid (severe) obesity due to excess calories; R53.2 Functional quadriplegia; K59.00 Constipation, unspecified; Z93.3 Colostomy status; Z79.891 Long term (current) use of opiate analgesic

== ENCOUNTER → 2018-04-29 | Outpatient (CLI) | payer MEDICARE, OTHER | END | disposition home or self-care (01) | LOC: MSC 15:00 | PROVIDERS: ATTEND Anesthesiology | DX: G89.4 Chronic pain syndrome (principal); G11.4 Hereditary spastic paraplegia; G35 Multiple sclerosis; L89.159 Pressure ulcer of sacral region, unspecified stage; G40.909 Epilepsy, unspecified, not intractable, without status epilepticus; M54.5 Low back pain; Z87.440 Personal history of urinary (tract) infections; Z79.891 Long term (current) use of opiate analgesic; Z93.3 Colostomy status ==

== ENCOUNTER 2018-12-10 15:44 | Inpatient (IN) | payer MEDICARE, OTHER ==
[~2018-12-10] VITALS: Ht 162.6 cm; Wt 78.9 kg
--- NOTE | 2018-12-10 15:52 | NUR ---
BIB [facility] FROM HOME FOR FEVER. LIVES WITH CAREGIVER. PT IS WARM TO TOUCH, SLIGHTLY DIAPHORETIC. PLACED ON 3L O2 VIA NC DUE TO LOW SAT. PT IS AOX3, NON-AMBULATORY, TACHYCARDIC AND HYPOTENSIVE. JEFFERY CATH IN PLACE FORGING PRESS SETTER UP. HOOKED TO MONITOR AND MADE COMFORTABLE. SEEN BY DR RANGEL. AWAITING ORDERS
[2018-12-10] MEDS ORDERED: VANCOMYCIN 1 GM in IV D5W 250 ML IV ONE (16:00)
[2018-12-10] MEDS ORDERED: AZTREONAM 2 G in IV NS 0.9% 100 ML IV ONE (16:00)
[2018-12-10] MEDS ORDERED: IV NS 0.9% 1,000 ML BAG IV ONE ×2 (16:00→19:30)
[2018-12-10] MEDS ORDERED: ACETAMINOPHEN ES 500 MG TABLET PO ONE ×2 (16:00→17:30)
[2018-12-10] MEDS ORDERED: VANCOMYCIN 1 GM VIAL ONE (16:06)
[2018-12-10] MEDS ORDERED: ACETAMINOPHEN ES 500 MG TABLET ONE ×2 (16:06→17:16)
[2018-12-10 16:10] LABS: BASOPHILS % (AUTO) 0.1 % (0.0-2.0); EOSINOPHILS % (AUTO) 0.1 % (0.0-6.0); HEMATOCRIT 44 % (33-45); HEMOGLOBIN 14.2 g/dL (11.5-14.8); LYMPHOCYTES # (AUTO) 2.7 /CMM (0.8-4.8); LYMPHOCYTES % (AUTO) 13.7 % (20.0-44.0); MEAN CORPUSCULAR HGB CONC 33 g/dl (31.0-36.0); MEAN CORPUSCULAR VOLUME 90 fL (82-100); MONOCYTES # (AUTO) 1.2 /CMM (0.1-1.30); MONOCYTES % (AUTO) 6.2 % (2.0-12.0); NEUTROPHILS % (AUTO) 79.9 % (43.0-81.0); PLATELET COUNT (AUTO) 369 /CMM (150-450); RED BLOOD CELL COUNT(AUTO) 4.86 MIL/uL (4.0-5.2)
--- NOTE | 2018-12-10 16:18 | NUR ---
CALLED NURSE SUP FOR TELE BED
[2018-12-10 16:35] LABS: ALANINE AMINOTRANSFERASE 76 U/L (12-78); ALBUMIN 2.8 g/dL (3.4-5.0); ALKALINE PHOSPHATASE 113 U/L (46-116); ASPARTATE AMINOTRANSFERASE 59 U/L (15-37); BILIRUBIN,DIRECT 0.1 mg/dL (0.0-0.2); BILIRUBIN,TOTAL 0.3 mg/dL (0.2-1.0); CALCIUM, SERUM 9.7 mg/dL (8.5-10.1); CARBON DIOXIDE 26 mmol/L (21-32); CHLORIDE 104 mmol/L (98-107); CREATININE 0.8 mg/dL (0.6-1.3); GLUCOSE 113 mg/dL (74-106); POTASSIUM 4.5 mmol/L (3.5-5.1); SODIUM SERUM 140 mmol/L (136-145); TOTAL PROTEIN, SERUM 8.3 g/dL (6.4-8.2); UREA NITROGEN, BLOOD 8 mg/dL (7-18)
--- NOTE | 2018-12-10 16:44 | NUR ---
BED 314-1
--- NOTE | 2018-12-10 16:45 | NUR ---
PORTACATH ACCESS AT E USING 20G MOON NEEDLE AND ASEPTIC TECHNIQUE
[2018-12-10] MEDS ORDERED: ACETAMINOPHEN 650 MG/SUPP.RECT RC ONE ×2 (17:00)
[2018-12-10 17:20] LABS: APPEARANCE,URINE Turbid (CLEAR); BILIRUBIN,URINE Negative (NEGATIVE); BLOOD, URINE Trace-intact Ery/uL (NEGATIVE); COLOR,URINE Yellow (YELLOW); KETONES,URINE 15 (NEGATIVE); LEUKOCYTE ESTERASE ,URINE Large (NEGATIVE); NITRITE, URINE Negative (NEGATIVE); PROTEIN,URINE 100 mg/dl (NEGATIVE); UGLUCOSE Negative (NEGATIVE); UROBILINOGEN,URINE 0.2 EU/dL (0.2)
[2018-12-10 17:37] LABS: BACTERIA,URINE 3+ /HPF (None Seen); RBC,URINE NONE SEEN /HPF (0-2); SQUAMOUS EPITHELIAL CELL,UR Few /HPF (None Seen); WBC,URINE TOO NUMEROUS TO COUN /HPF (0-3)
--- NOTE | 2018-12-10 17:52 | NUR ---
CALLED EPIC ADV WILL CALL BACK WHEN AVAIL
--- NOTE | 2018-12-10 18:10 | NUR ---
CALLED NURSE SUP FOR ICU BED
--- NOTE | 2018-12-10 18:15 | NUR ---
FLU SWAB SENT TO STAT LAB
--- NOTE | 2018-12-10 19:07 | NUR ---
SPOKE WITH PT CAREGIVER, MADISON LAURA [phone]. PROVIDED UPDATE. WILL CALL BACK WITH UPDATED MED LIST. OTHER CAREGIVER JALEESA RED [phone]
[2018-12-10] MEDS ORDERED: ACETAMINOPHEN 650 MG/SUPP.RECT RC PRN (19:30)
[2018-12-10] MEDS ORDERED: PANTOPRAZOLE 40 MG VIAL IV SCH (19:30)
--- NOTE | 2018-12-10 19:56 | NUR ---
REPORT GIVEN TO SHERRILL SANTIAGO FOR ICU 259
[2018-12-10 20:06] LABS: CALCIUM, SERUM 8.2 mg/dL (8.5-10.1); CREATININE 0.7 mg/dL (0.6-1.3)
[2018-12-10 20:13] LABS: ALBUMIN 2.3 g/dL (3.4-5.0); BILIRUBIN,DIRECT 0.1 mg/dL (0.0-0.2); BILIRUBIN,TOTAL 0.3 mg/dL (0.2-1.0); TOTAL PROTEIN, SERUM 6.9 g/dL (6.4-8.2)
--- NOTE | 2018-12-10 20:30 | NUR ---
INDWELLING CATHETER INSERTED WITH ASEPTIC TECHNIQUE PER PROTOCOL. PT HAIDER WELL
--- NOTE | 2018-12-10 20:50 | NUR ---
AUTHORIZATION SPECIALIST NOTE RECEIVED PT VIA GURNEY AND TRANSFERRED SAFELY TO BED. A/O X 2-3 AND ABLE TO VERBALIZE NEEDS. ON 3L OF O2 VIA NC AND SATURATING WELL. NO DISTRESS NOTED. TELE- SINUS TACH. NOTED WITH PRODUCTIVE COUGH AND GREEN THICK SPUTUM. IV L ARM PORTACATH IN PLACE AND CLEAN. JEFFERY CATHETER IN PLACE AND DRAINING BY GRAVITY. CALL LIGHT WITHIN REACH. WILL MONITOR.
--- NOTE | 2018-12-10 21:00 | NUR ---
[facility]
[2018-12-10 21:01] VITALS: BP 119/64
[2018-12-10] MEDS ORDERED: PANTOPRAZOLE 40 MG VIAL ONE (21:19)
[2018-12-10] MEDS: LEVOFLOXACIN 750 MG /D5W 150ML 150 ML IV SCH (21:24)
[2018-12-10 22:01] VITALS: BP 136/94
[2018-12-10] MEDS ORDERED: NORTRIPTYLINE HCL 10 MG CAPSULE ONE (22:49)
[2018-12-10] MEDS: NORTRIPTYLINE HCL 10 MG CAPSULE PO SCH (22:54)
[2018-12-10 23:00] VITALS: BP 106/92
[2018-12-10] MEDS: FLUDROCORTISONE 0.1 MG TABLET PO SCH (23:51)
[2018-12-11] VITALS (29 sets, daily range): BP systolic 90–168; BP diastolic 27–137
[2018-12-11] MEDS ORDERED: AZTREONAM 1 G VIAL ONE (00:13)
[2018-12-11] MEDS: AZTREONAM 1 G in IV NS 0.9% 50 ML IV SCH ×3 (02:03→18:18)
[2018-12-11] MEDS: ACETAMINOPHEN 650 MG/20.3 ML UDC NG PRN (04:35)
[2018-12-11] MEDS: FLUDROCORTISONE 0.1 MG TABLET PO SCH ×4 (05:07→23:04)
[2018-12-11 05:14] LABS: BASOPHILS % (AUTO) 0.3 % (0.0-2.0); EOSINOPHILS % (AUTO) 0.4 % (0.0-6.0); HEMATOCRIT 33 % (33-45); HEMOGLOBIN 10.9 g/dL (11.5-14.8); LYMPHOCYTES # (AUTO) 2.1 /CMM (0.8-4.8); LYMPHOCYTES % (AUTO) 15.3 % (20.0-44.0); MEAN CORPUSCULAR HGB CONC 33 g/dl (31.0-36.0); MEAN CORPUSCULAR VOLUME 90 fL (82-100); MONOCYTES # (AUTO) 0.7 /CMM (0.1-1.30); MONOCYTES % (AUTO) 4.7 % (2.0-12.0); NEUTROPHILS # (AUTO) 11.1 /CMM (1.8-8.9); NEUTROPHILS % (AUTO) 79.3 % (43.0-81.0); PLATELET COUNT (AUTO) 229 /CMM (150-450)
[2018-12-11 05:24] LABS: ALANINE AMINOTRANSFERASE 51 U/L (12-78); ALBUMIN 2.1 g/dL (3.4-5.0); ALKALINE PHOSPHATASE 92 U/L (46-116); ASPARTATE AMINOTRANSFERASE 30 U/L (15-37); BILIRUBIN,TOTAL 0.3 mg/dL (0.2-1.0); CALCIUM, SERUM 7.6 mg/dL (8.5-10.1); CARBON DIOXIDE 29 mmol/L (21-32); CHLORIDE 106 mmol/L (98-107); CREATININE 0.5 mg/dL (0.6-1.3); GLUCOSE 89 mg/dL (74-106); POTASSIUM 3.8 mmol/L (3.5-5.1); SODIUM SERUM 141 mmol/L (136-145); TOTAL PROTEIN, SERUM 6.6 g/dL (6.4-8.2); UREA NITROGEN, BLOOD 9 mg/dL (7-18)
[2018-12-11] MEDS ORDERED: VANCOMYCIN 500 MG VIAL ONE (05:46)
[2018-12-11] MEDS ORDERED: VANCOMYCIN 1 GM VIAL ONE (05:46)
[2018-12-11] MEDS: VANCOMYCIN 1.25 GM in IV D5W 500 ML IV SCH ×2 (05:50→17:10)
[2018-12-11] MEDS ORDERED: FEE PK DOSING 1 MIN EA MC ONE (07:41)
[2018-12-11] MEDS: oxyCODONE HCL SR 20MG TAB.SR.12H PO SCH ×2 (09:37→20:36)
[2018-12-11] MEDS: DIVALPROEX SODIUM 250 MG TABLET.DR PO SCH ×2 (09:37→17:07)
[2018-12-11] MEDS: DULOXETINE HCL 30 MG CAPSULE.DR PO SCH (09:37)
[2018-12-11] MEDS: HYDROCORTISONE 20 MG TABLET PO SCH ×2 (09:37→17:20)
[2018-12-11] MEDS: LEVETIRACETAM (250 MG) 250 MG TABLET PO SCH ×2 (09:38→20:33)
[2018-12-11] MEDS ORDERED: IV NS 0.9% 1,000 ML BAG IV SCH (11:30)
[2018-12-11] MEDS: Z GUARD REMEDY 4 OZ OINT TP SCH (12:18)
--- NOTE | 2018-12-11 16:30 | NUR ---
RN NOTE RECE[facility]ED [facility] VIA BED, AOX3, IV IN PLACE, SR-ST ON MONITOR, VS STABLE, CO PAIN IN HER BACK AND BOTTOM. JEFFERY IN PLACE, COLOSTOMY BAG INTACT. SAFETY MEASURES IN PLACE, CALL LIGHT WITHIN REACH. WILL MONITOR CLOSELY.
[2018-12-11] MEDS: IV NS 0.9% 1,000 ML IV PRN (17:53)
[2018-12-11] MEDS: NYSTATIN TOP POWDER 15 GM BOTTLE TP SCH (18:17)
[2018-12-11] MEDS: DAKINS QUARTER STRENGTH (0.125%) 480 ML BOTTLE TOP SCH (18:18)
--- NOTE | 2018-12-11 20:00 | NUR ---
RN JONES INITIAL NOTE RECEIVED PT FROM [facility] MCCARTNEY VIA BED, AOX3, IV IN PLACE, SR-ST 110-120 ON MONITOR, VS STABLE, CO PAIN IN HER BACK AND BOTTOM, ON ROUTINE OXYCONTIN. JEFFREY IN PLACE, COLOSTOMY BAG INTACT. SAFETY MEASURES IN PLACE, CALL LIGHT WITHIN REACH. WILL MONITOR CLOSELY.
[2018-12-11] MEDS: TEMAZEPAM 15 MG CAPSULE PO PRN (20:32)
[2018-12-11] MEDS: LEVOFLOXACIN 750 MG /D5W 150ML 150 ML IV SCH (20:33)
[2018-12-11] MEDS: NORTRIPTYLINE HCL 10 MG CAPSULE PO SCH (22:46)
[2018-12-12] VITALS: BP 108/75
[2018-12-12] MEDS: AZTREONAM 1 G in IV NS 0.9% 50 ML IV SCH ×3 (01:15→17:36)
[2018-12-12] MEDS ORDERED: TEMAZEPAM 15 MG CAPSULE PO PRN (02:00)
[2018-12-12 04:00] VITALS: BP 111/71
[2018-12-12] MEDS: IV NS 0.9% 1,000 ML IV PRN (04:10)
[2018-12-12] MEDS: FLUDROCORTISONE 0.1 MG TABLET PO SCH ×4 (04:14→23:04)
[2018-12-12] MEDS: VANCOMYCIN 1.25 GM in IV D5W 500 ML IV SCH (04:14)
[2018-12-12] MEDS: NYSTATIN TOP POWDER 15 GM BOTTLE TP SCH ×2 (04:27→17:38)
--- NOTE | 2018-12-12 06:05 | NUR ---
RN JONES CLOSING NOTE ENDORSED PT TO AM SHIFT RN , AOX3, IV IN PLACE, SR-ST 110-120 ON MONITOR, VS STABLE, CO PAIN IN HER BACK AND BOTTOM, ON ROUTINE OXYCONTIN. JEFFERY IN PLACE, COLOSTOMY BAG INTACT. SAFETY MEASURES IN PLACE, CALL LIGHT WITHIN REACH. WILL MONITOR CLOSELY.
[2018-12-12 07:10] LABS: CALCIUM, SERUM 7.6 mg/dL (8.5-10.1); CREATININE 0.5 mg/dL (0.6-1.3); POTASSIUM 3.4 mmol/L (3.5-5.1)
[2018-12-12 08:00] VITALS: BP 112/64
--- NOTE | 2018-12-12 08:00 | NUR ---
JONES RN NOTE RECEIVED PATIENT I BED , ALERT ORIENTED X3, NO SOB NOTED , PERTH CATH INTACT, ON IVF ORDERED, NO SOB AT THIS TIME WILL CONT TO MONITOR CLOSELY
--- NOTE | 2018-12-12 08:10 | NUR ---
WOUND CARE CONSULT WOUND CARE RECEIVED CONSULT FOR SACRAL WOUND. WOUND CARE WILL DEFER CONSULT AND TREATMENT PLANS TO PLASTIC SURGICAL TEAM WHO ARE CURRENTLY FOLLOWING THIS PATIENT. PATIENT WITH PABLO AT 13, ALL PRESSURE ULCER PREVENTION MEASURES ARE NOTED TO BE IN PLACE. WILL SEE PRN.
[2018-12-12 08:41] LABS: BASOPHILS % (AUTO) 0.2 % (0.0-2.0); EOSINOPHILS % (AUTO) 0.7 % (0.0-6.0); HEMATOCRIT 31 % (33-45); LYMPHOCYTES % (AUTO) 27.4 % (20.0-44.0); MEAN CORPUSCULAR HGB CONC 33 g/dl (31.0-36.0); MEAN CORPUSCULAR VOLUME 90 fL (82-100); MONOCYTES # (AUTO) 0.3 /CMM (0.1-1.30); MONOCYTES % (AUTO) 4.8 % (2.0-12.0); NEUTROPHILS # (AUTO) 4.9 /CMM (1.8-8.9); NEUTROPHILS % (AUTO) 66.9 % (43.0-81.0); PLATELET COUNT (AUTO) 239 /CMM (150-450); RED BLOOD CELL COUNT(AUTO) 3.39 MIL/uL (4.0-5.2); WHITE BLOOD COUNT (AUTO) 7.3 K/uL (4.3-11.0)
[2018-12-12] MEDS ORDERED: Glatiramer Acetate (Copaxone) 40 MG SQ SCH (09:00)
[2018-12-12] MEDS: LEVETIRACETAM (250 MG) 250 MG TABLET PO SCH ×2 (09:01→20:12)
[2018-12-12] MEDS: PANTOPRAZOLE 40 MG TABLET.DR PO SCH (09:02)
[2018-12-12] MEDS: DULOXETINE HCL 30 MG CAPSULE.DR PO SCH (09:02)
[2018-12-12] MEDS: DIVALPROEX SODIUM 250 MG TABLET.DR PO SCH ×2 (09:04→16:11)
[2018-12-12] MEDS: oxyCODONE HCL SR 20MG TAB.SR.12H PO SCH ×2 (09:04→21:04)
[2018-12-12] MEDS: DAKINS QUARTER STRENGTH (0.125%) 480 ML BOTTLE TOP SCH (09:05)
[2018-12-12] MEDS: Z GUARD REMEDY 4 OZ OINT TP SCH (09:06)
[2018-12-12] MEDS: HYDROCORTISONE 20 MG TABLET PO SCH ×2 (09:18→16:11)
--- NOTE | 2018-12-12 10:30 | NUR ---
MS RN NOTE C\O NAUSEA, ZOFRAN GIVEN ORDERED ALSO DR GUILLORY AT BEDSIDE WITH ORDER TO STOP[ IVF ALSO AWARE THAT PATIENT STILL HAS CHEST CONGESTION
[2018-12-12] MEDS: ONDANSETRON HCL/PF 4 MG/2 ML VIAL IVP PRN (10:37)
--- NOTE | 2018-12-12 10:45 | NUR ---
MS RN NOTE TRANSFERRED TO [facility] ORDERED WITH STABLE CONDITION ,REPORT GIVEN TO ROBEL MCCARTNEY
--- NOTE | 2018-12-12 10:55 | NUR ---
MS/RN RECEIVED PATIENT FROM JONES IN STABLE CONDITION. REPORT GIVEN BY SHERRILL TOLENTINO FOR ANY CEDRIC. CALL LIGHT WITHIN REACH. WILL CONTINUE TO MONITOR TO ENSURE SAFETY.
[2018-12-12] MEDS ORDERED: POTASSIUM CHLORIDE 20 MEQ TAB.PRT.SR PO SCH (11:30)
[2018-12-12] MEDS: VANCOMYCIN 1 GM in IV D5W 250 ML IV SCH ×2 (16:11→23:04)
--- NOTE | 2018-12-12 18:04 | NUR ---
MS/RN CLOSING NOTE PATIENT IN BED IN STABLE CONDITION. A/O X 3. NO SIGNS OF ACUTE DISTRESS. NO COMPLAIN OF PAIN OR DISCOMFORT. LEFT ARM PORTACATH, FLUSHING WELL. F/C INTACT AND DRAINING CLEAR YELLOW URINE. ALL NEEDS ATTENDED TO. CALL LIGHT WITHIN REACH. WILL ENDORSE TO NEXT SHIFT FOR CONTINUITY OF CARE.
[2018-12-12] MEDS: ACETAMINOPHEN 650 MG/20.3 ML UDC NG PRN (18:42)
--- NOTE | 2018-12-12 19:37 | NUR ---
RN OPENING NOTES RECEIVED PATIENT AWAKE IN BED. PATIENT IS ALERT AND ORIENTED X3. NO SIGNS OF RESPIRATORY DISTRESS. DENIES SHORTNESS OF BREATH. DENIES PAIN OR DISCOMFORT AT THIS TIME. LEFT ARM PORTACATH, FLUSHING WELL. SAFETY PRECAUTIONS IMPLEMENTED. CALL LIGHT WITHIN REACH. WILL CONTINUE TO MONITOR PATIENT THROUGHOUT THE SHIFT.
[2018-12-12 20:00] VITALS: BP 143/88
[2018-12-12] MEDS: LEVOFLOXACIN 750 MG /D5W 150ML 150 ML IV SCH (20:12)
--- NOTE | 2018-12-12 20:57 | NUR ---
RN NOTES VITAL SIGNS: BP 143/88, PULSE 80, RESP 16, TEMP 99.2, PULSE O2 96
[2018-12-12] MEDS: NORTRIPTYLINE HCL 10 MG CAPSULE PO SCH (21:04)
[2018-12-12 22:20] VITALS: BP 131/59
[2018-12-12] MEDS: TEMAZEPAM 15 MG CAPSULE PO PRN (22:23)
[2018-12-13] MEDS: AZTREONAM 1 G in IV NS 0.9% 50 ML IV SCH ×2 (01:23→09:55)
[2018-12-13] MEDS: NYSTATIN TOP POWDER 15 GM BOTTLE TP SCH ×2 (05:35→16:59)
[2018-12-13] MEDS: FLUDROCORTISONE 0.1 MG TABLET PO SCH ×4 (05:52→23:44)
--- NOTE | 2018-12-13 06:27 | NUR ---
RN CLOSING NOTES PATIENT IS RESTING IN BED COMFORTABLY. PATIENT IS ON ROOM AIR. NO SIGNS OF RESPIRATORY DISTRESS. NO SIGNS OF SHORTNESS OF BREATH. NO SIGNS OF PAIN OR DISCOMFORT AT THIS TIME. LEFT ARM PORTACATH, FLUSHING WELL. ALL NEEDS WERE MET. JEFFERY CATHETER OUTPUT OF 2800. SAFETY PRECAUTIONS IMPLEMENTED. CALL LIGHT WITHIN REACH. WILL ENDORSE TO AM RN.
[2018-12-13 07:23] LABS: CALCIUM, SERUM 8.9 mg/dL (8.5-10.1); CREATININE 0.4 mg/dL (0.6-1.3)
[2018-12-13 07:28] LABS: POTASSIUM 2.7 mmol/L (3.5-5.1)
--- NOTE | 2018-12-13 07:43 | NUR ---
RN OPENING NOTES PT AWAKE AND RESTING IN BED. NO COMPLAINTS OF PAIN, SOB OR DISTRESS AT THIS TIME. PT HAS JEFFERY CATHETER INTACT AND DRAINING WELL. COLOSTOMY BAG INTACT. SAFETY PRECAUTIONS IN PLACE, BED IN LOWEST LOCKED POSITION, X2 SIDE RAILS UP AND CALL LIGHT WITHIN REACH. WILL CONTINUE TO MONITOR.
[2018-12-13 08:00] VITALS: BP 118/73
[2018-12-13] MEDS ORDERED: POTASSIUM CHLORIDE 20 MEQ TAB.PRT.SR PO ONE (08:00)
[2018-12-13] MEDS: VANCOMYCIN 1 GM in IV D5W 250 ML IV SCH (08:38)
[2018-12-13] MEDS: DIVALPROEX SODIUM 250 MG TABLET.DR PO SCH ×2 (08:39→16:48)
[2018-12-13] MEDS: LEVETIRACETAM (250 MG) 250 MG TABLET PO SCH ×2 (08:39→20:56)
[2018-12-13] MEDS: DULOXETINE HCL 30 MG CAPSULE.DR PO SCH (08:39)
[2018-12-13] MEDS: DAKINS QUARTER STRENGTH (0.125%) 480 ML BOTTLE TOP SCH (08:41)
[2018-12-13] MEDS: PANTOPRAZOLE 40 MG TABLET.DR PO SCH (08:44)
[2018-12-13] MEDS: Z GUARD REMEDY 4 OZ OINT TP SCH (08:45)
[2018-12-13] MEDS: oxyCODONE HCL SR 20MG TAB.SR.12H PO SCH ×2 (08:45→21:00)
[2018-12-13] MEDS: HYDROCORTISONE 20 MG TABLET PO SCH ×2 (08:45→16:49)
--- NOTE | 2018-12-13 15:36 | NUR ---
RN NOTES INFORMED PHARMACY THAT VANCO TROUGH IS SCHEDULED FOR 1700 AND THAT VANCO DUE AT 1600. WAS TOLD TO WAIT UNTIL VANCO TROUGH IS COMPLETE BEFORE HANGING BAG.
[2018-12-13] MEDS ORDERED: FEE PK DOSING 1 MIN EA MC ONE (15:56)
[2018-12-13 16:00] VITALS: BP 137/86
[2018-12-13] MEDS ORDERED: DOSING PER PHARMACY-AMIKACI IV XX PRN (16:00)
[2018-12-13] MEDS: D5W IV SCH (16:48)
[2018-12-13] MEDS: AMIKACIN IV SCH (16:48)
--- NOTE | 2018-12-13 19:01 | NUR ---
RN CLOSING NOTES PT AWAKE AND RESTING IN BED. NO COMPLAINTS OF PAIN, SOB OR DISTRESS AT THIS TIME. PT HAS JEFFERY CATHETER INTACT AND DRAINING WELL. COLOSTOMY BAG INTACT. SAFETY PRECAUTIONS IN PLACE, BED IN LOWEST LOCKED POSITION, X2 SIDE RAILS UP AND CALL LIGHT WITHIN REACH. WILL ENDORSE TO PRECISION OPTICAL GOODS WORKER NURSE FOR CONTINUITY OF CARE.
--- NOTE | 2018-12-13 19:12 | NUR ---
RN OPENING NOTES RECEIVED PATIENT AWAKE AND RESTING IN BED. NO SIGNS OF RESPIRATORY DISTRESS OR SHORTNESS OF BREATH. PATIENT DENIES PAIN OR DISCOMFORT AT THIS TIME. JEFFERY CATHETER INTACT AND DRAINING WELL. COLOSTOMY BAG INTACT. SAFETY PRECAUTIONS IMPLEMENTED. CALL LIGHT WITHIN REACH. WILL CONTINUE TO MONITOR PATIENT THROUGHOUT THE SHIFT.
[2018-12-13 19:55] VITALS: BP 149/93
[2018-12-13 20:02] VITALS: BP 149/93
[2018-12-13] MEDS: DOXYCYCLINE HYCLATE (100 MG) 100 MG TABLET PO SCH (20:56)
[2018-12-13] MEDS: LEVOFLOXACIN (750 MG) 750 MG TABLET PO SCH (20:57)
[2018-12-13] MEDS ORDERED: LEVOFLOXACIN 750 MG /D5W 150ML 750 MG in PREMIX 1 EA IV SCH (21:00)
[2018-12-13] MEDS: NORTRIPTYLINE HCL 10 MG CAPSULE PO SCH (21:57)
[2018-12-13 22:50] VITALS: BP 131/67
[2018-12-13] MEDS: TEMAZEPAM 15 MG CAPSULE PO PRN (22:55)
[2018-12-14] MEDS: NYSTATIN TOP POWDER 15 GM BOTTLE TP SCH ×2 (05:42→17:21)
[2018-12-14] MEDS: FLUDROCORTISONE 0.1 MG TABLET PO SCH ×3 (06:05→17:20)
[2018-12-14 06:24] LABS: BASOPHILS % (AUTO) 0.4 % (0.0-2.0); EOSINOPHILS % (AUTO) 0.8 % (0.0-6.0); HEMATOCRIT 34 % (33-45); HEMOGLOBIN 11.1 g/dL (11.5-14.8); LYMPHOCYTES % (AUTO) 55.2 % (20.0-44.0); MEAN CORPUSCULAR HGB CONC 33 g/dl (31.0-36.0); MEAN CORPUSCULAR VOLUME 88 fL (82-100); MONOCYTES # (AUTO) 0.5 /CMM (0.1-1.30); MONOCYTES % (AUTO) 6.9 % (2.0-12.0); NEUTROPHILS # (AUTO) 2.6 /CMM (1.8-8.9); NEUTROPHILS % (AUTO) 36.7 % (43.0-81.0); PLATELET COUNT (AUTO) 323 /CMM (150-450); RED BLOOD CELL COUNT(AUTO) 3.86 MIL/uL (4.0-5.2); WHITE BLOOD COUNT (AUTO) 7.2 K/uL (4.3-11.0)
--- NOTE | 2018-12-14 06:47 | NUR ---
RN CLOSING NOTES PATIENT IS RESTING COMFORTABLY IN BED. NO SIGNS OF RESPIRATORY DISTRESS NOTED. NO SIGNS OF SHORTNESS OF BREATH NOTED. NO SIGNS OF FACIAL GRIMACING INDICATING PAIN AT THIS TIME. PATIENT RESTED WELL THROUGHOUT THE NIGHT. SAFETY PRECAUTIONS IMPLEMENTED. CALL LIGHT WITHIN REACH. WILL ENDORSE TO AM RN.
[2018-12-14 06:56] LABS: CALCIUM, SERUM 8.8 mg/dL (8.5-10.1); CREATININE 0.4 mg/dL (0.6-1.3); PHOSPHORUS 3.3 mg/dL (2.5-4.9); POTASSIUM 3.4 mmol/L (3.5-5.1)
[2018-12-14 08:00] VITALS: BP 136/76
--- NOTE | 2018-12-14 08:02 | NUR ---
RN MS OPENING NOTES Received patient on room air, no sob noted. Patient a/o x3. Patient denies pain at this time. Bed at the lowest setting, call light within reach.
[2018-12-14] MEDS: DAKINS QUARTER STRENGTH (0.125%) 480 ML BOTTLE TOP SCH (09:00)
[2018-12-14] MEDS: Z GUARD REMEDY 4 OZ OINT TP SCH (09:00)
[2018-12-14] MEDS: DOXYCYCLINE HYCLATE (100 MG) 100 MG TABLET PO SCH ×2 (09:24→21:45)
[2018-12-14] MEDS: oxyCODONE HCL SR 20MG TAB.SR.12H PO SCH ×2 (09:25→21:45)
[2018-12-14] MEDS: DIVALPROEX SODIUM 250 MG TABLET.DR PO SCH ×2 (09:26→17:20)
[2018-12-14] MEDS: LEVETIRACETAM (250 MG) 250 MG TABLET PO SCH ×2 (09:26→21:44)
[2018-12-14] MEDS: POTASSIUM CHLORIDE 20 MEQ POWDER PACKET GT SCH (09:27)
[2018-12-14] MEDS: DULOXETINE HCL 30 MG CAPSULE.DR PO SCH (09:27)
[2018-12-14] MEDS: HYDROCORTISONE 20 MG TABLET PO SCH ×2 (09:33→17:20)
[2018-12-14] MEDS: PANTOPRAZOLE 40 MG TABLET.DR PO SCH (09:38)
[2018-12-14 16:00] VITALS: BP 110/68
[2018-12-14] MEDS: AMIKACIN IV SCH (17:21)
[2018-12-14] MEDS: D5W IV SCH (17:21)
--- NOTE | 2018-12-14 18:46 | NUR ---
RN MS CLOSING NOTES Patient remains on room air, no sob noted. Patient denies pain at this time. Patient's brady is draining well without obstruction. Patient's colostomy bag patent and intact. All medications given to patient, bed at the lowest setting, call light within reach.
--- NOTE | 2018-12-14 18:52 | NUR ---
RN MS NOTES Patient refused wound care at this time, she stated that she wanted it done tonight instead. Charge nurse aware.
--- NOTE | 2018-12-14 19:30 | NUR ---
RN OPEN NOTES RECEIVED PATIENT AWAKE IN BED. A/OX3. NO SIGNS OF DISTRESS OR DISCOMFORT. BREATHING EVEN AND UNLABORED. HAS LFA PORTACATH INTACT. JEFFERY CATH INTACT, DRAINING CLEAR YELLOW FLUID. HAS COLOSTOMY INTACT. BED IN LOW LOCKED POSITION WITH SIDE RAILS X2. CALL LIGHT WITHIN REACH. WILL CONTINUE TO MONITOR.
[2018-12-14 20:00] VITALS: BP 125/88
[2018-12-14 20:23] VITALS: BP 125/88
[2018-12-14] MEDS: NORTRIPTYLINE HCL 10 MG CAPSULE PO SCH (21:45)
[2018-12-14] MEDS: LEVOFLOXACIN (750 MG) 750 MG TABLET PO SCH (21:45)
[2018-12-15] MEDS: TEMAZEPAM 15 MG CAPSULE PO PRN ×2 (00:50→23:37)
[2018-12-15] MEDS: FLUDROCORTISONE 0.1 MG TABLET PO SCH ×5 (00:50→23:37)
--- NOTE | 2018-12-15 00:50 | NUR ---
RN NOTES ADMINISTERED RESTORIL 30MG ORDERED FOR INSOMNIA AT PATIENT REQUEST. WILL CONTINUE TO MONITOR.
[2018-12-15] MEDS: NYSTATIN TOP POWDER 15 GM BOTTLE TP SCH ×2 (05:57→17:10)
--- NOTE | 2018-12-15 06:34 | NUR ---
RN CLOSING NOTES PATIENT RESTING IN BED. A/OX3. NO SIGNS OF DISTRESS OR DISCOMFORT. BREATHING EVEN AND UNLABORED. HAS LFA PORTACATH INTACT. HAS JEFFERY CATH INTACT, DRAINING CLEAR YELLOW FLUID. HAS COLOSTOMY INTACT. ALL NEEDS MET. NO SIGNIFICANT CHANGES THROUGH THE NIGHT. WOUND CARE TX DONE. PATIENT REPOSITIONED Q2H AND PRN. BED IN LOW LOCKED POSITION WITH SIDE RAILS X2. CALL LIGHT WITHIN REACH. WILL ENDORSE TO AM SHIFT FOR CEDRIC.
[2018-12-15 07:11] LABS: CALCIUM, SERUM 8.8 mg/dL (8.5-10.1); CREATININE 0.5 mg/dL (0.6-1.3); POTASSIUM 3.3 mmol/L (3.5-5.1)
[2018-12-15 07:56] VITALS: BP 131/72
[2018-12-15 08:00] VITALS: BP 131/72
--- NOTE | 2018-12-15 08:00 | NUR ---
RN NOTES RECEIVED PATIENT IN THE BED RESTING. PATIENT A/O X3, NO ACUTE RESPIRATORY DISTRESS. PATIENT TOTAL CARE. PATIENT FEEDER, KEEP HOB ELEVATED FOR ASPIRATION PRECAUTION. PATIENT HAS F/C DRAIN LIGHT YELLOW OUTPUT, ALSO LEFT UPPER QUADRANT COLOSTOMY BAG INTACT. PATIENT HAS SACRAL WOUND, DRESSING CHANGED, ASSIST TURN AND REPOSTION Q 2 HR. PORTAL CATH ON LEFT AC AREA INTACT, ASSIST PATIENT TURN AND REPOSITIONING Q 2 HR, SCHEDULED MEDICATION ADMINISTERED, V/S STABLE. NEEDS ATTENDED AND ANTICIPATED, SAFETY PRECAUTION MAINTAINED ALL THE TIME.
[2018-12-15] MEDS: POTASSIUM CL. PREMIX PERIPHER. 50 ML IV SCH ×4 (09:51→14:03)
[2018-12-15] MEDS: POTASSIUM CHLORIDE 20 MEQ POWDER PACKET GT SCH (09:51)
[2018-12-15] MEDS: PANTOPRAZOLE 40 MG TABLET.DR PO SCH (09:52)
[2018-12-15] MEDS: DIVALPROEX SODIUM 250 MG TABLET.DR PO SCH ×2 (09:52→17:08)
[2018-12-15] MEDS: LEVETIRACETAM (250 MG) 250 MG TABLET PO SCH ×2 (09:52→21:15)
[2018-12-15] MEDS: HYDROCORTISONE 20 MG TABLET PO SCH ×2 (09:52→17:08)
[2018-12-15] MEDS: DULOXETINE HCL 30 MG CAPSULE.DR PO SCH (09:52)
[2018-12-15] MEDS: DOXYCYCLINE HYCLATE (100 MG) 100 MG TABLET PO SCH ×2 (09:52→21:15)
[2018-12-15] MEDS: Z GUARD REMEDY 4 OZ OINT TP SCH (09:53)
[2018-12-15] MEDS: DAKINS QUARTER STRENGTH (0.125%) 480 ML BOTTLE TOP SCH (09:54)
[2018-12-15] MEDS: oxyCODONE HCL SR 20MG TAB.SR.12H PO SCH ×2 (09:55→21:15)
--- NOTE | 2018-12-15 12:10 | NUR ---
RN NOTES INFUSING POTASSIUM 10MEQ AT THIS TIME ON LEFT ARM INTACT, SAFETY PRECAUTION MAINTAINED. PATIENT STABLE, ASSIST TURN AND REPOSTION Q 2 HR.
[2018-12-15 16:00] VITALS: BP 113/73
--- NOTE | 2018-12-15 17:00 | NUR ---
RN NOTES PATIENT STABLE SCHEDULED MEDICATION ADMINISTERED, V/S STABLE, ASSIST EATING. PATIENT TOTAL CARE, ASSIST TURN AND REPOSTION Q 2 HR. CALL LIGHT WITHIN TO REACH. SAFETY PRECAUTION MAINTAINED ALL THE TIME.
[2018-12-15] MEDS: AMIKACIN IV SCH (17:51)
[2018-12-15] MEDS: D5W IV SCH (17:51)
--- NOTE | 2018-12-15 18:30 | NUR ---
RN NOTES PATIENT STABLE, DRAINING F/C LIGHT YELLOW OUTPUT, IV ACCESS INTACT ON RIGHT AC AREA, PATIENT REFUSED PAIN AT THIS TIME. CALL LIGHT WITHIN TO REACH. ASSIST TURN AND REPOSTION Q 2 HR. ENDORSED ONCOMING NURSE FOR PLAN OF CARE.
--- NOTE | 2018-12-15 19:15 | NUR ---
RN OPEN NOTES RECEIVED PATIENT RESTING IN BED. A/OX3. NO SIGNS OF DISTRESS OR DISCOMFORT. BREATHING EVEN AND UNLABORED. HAS LFA PORTACATH INTACT. JEFFERY CATH INTACT, DRAINING CLEAR YELLOW FLUID. HAS RADHA COLOSTOMY INTACT. BED IN LOW LOCKED POSITION WITH SIDE RAILS X2. CALL LIGHT WITHIN REACH. WILL CONTINUE TO MONITOR.
[2018-12-15 20:00] VITALS: BP 135/65
[2018-12-15] MEDS: NORTRIPTYLINE HCL 10 MG CAPSULE PO SCH (21:15)
--- NOTE | 2018-12-15 23:37 | NUR ---
RN NOTES ADMINISTERED RESTORIL 30MG ORDERED FOR INSOMNIA AT PATIENT REQUEST. WILL CONTINUE TO MONITOR.
[2018-12-16] MEDS: FLUDROCORTISONE 0.1 MG TABLET PO SCH ×4 (06:21→23:25)
[2018-12-16] MEDS: NYSTATIN TOP POWDER 15 GM BOTTLE TP SCH ×2 (06:22→18:55)
--- NOTE | 2018-12-16 07:00 | NUR ---
RN giovana opening notes Received PT from Night Nurse. PT is alert and oriented X4. No sign of distress or pain at this time. Respiration is clear, equal and unlabored. PT has port a cath intact. Colostomy is intact. Hutchison is intact and draining. Bed at low position and call light is within reach. Will continue to monitor.
--- NOTE | 2018-12-16 07:19 | NUR ---
RN CLOSING NOTES PATIENT RESTING IN BED. A/OX3. NO SIGNS OF DISTRESS OR DISCOMFORT. BREATHING EVEN AND UNLABORED. HAS LFA PORTACATH INTACT. HAS JEFFERY CATH INTACT, DRAINING CLEAR YELLOW FLUID. HAS COLOSTOMY INTACT. ALL NEEDS MET. NO SIGNIFICANT CHANGES THROUGH THE NIGHT. WOUND CARE TX DONE. PATIENT REPOSITIONED Q2H AND PRN. BED IN LOW LOCKED POSITION WITH SIDE RAILS X2. CALL LIGHT WITHIN REACH. ENDORSED TO AM SHIFT FOR CEDRIC.
[2018-12-16 07:43] LABS: CALCIUM, SERUM 8.7 mg/dL (8.5-10.1); CREATININE 0.4 mg/dL (0.6-1.3); POTASSIUM 3.3 mmol/L (3.5-5.1)
[2018-12-16 08:00] VITALS: BP 151/84
[2018-12-16] MEDS: PANTOPRAZOLE 40 MG TABLET.DR PO SCH (08:59)
[2018-12-16] MEDS: POTASSIUM CHLORIDE 20 MEQ POWDER PACKET GT SCH (08:59)
[2018-12-16] MEDS: HYDROCORTISONE 20 MG TABLET PO SCH ×2 (08:59→17:32)
[2018-12-16] MEDS: DIVALPROEX SODIUM 250 MG TABLET.DR PO SCH ×2 (09:00→17:32)
[2018-12-16] MEDS: LEVETIRACETAM (250 MG) 250 MG TABLET PO SCH ×2 (09:01→21:41)
[2018-12-16] MEDS: DOXYCYCLINE HYCLATE (100 MG) 100 MG TABLET PO SCH ×2 (09:01→21:41)
[2018-12-16] MEDS: DULOXETINE HCL 30 MG CAPSULE.DR PO SCH (09:01)
[2018-12-16] MEDS: oxyCODONE HCL SR 20MG TAB.SR.12H PO SCH ×2 (09:02→21:41)
[2018-12-16] MEDS: DAKINS QUARTER STRENGTH (0.125%) 480 ML BOTTLE TOP SCH (09:05)
[2018-12-16] MEDS: Z GUARD REMEDY 4 OZ OINT TP SCH (09:07)
--- NOTE | 2018-12-16 13:00 | NUR ---
RN MS NOTES PT IN BED, AWAKE, ALERT AND ORIENTED, NO COMPLAINT AT THIS TIME, SEEN BY DR. MEYER, PLAN OF CARE DISCUSSED WITH PT, VERBALIZED UNDERSTANDING.
[2018-12-16] MEDS ORDERED: POTASSIUM CHLORIDE 20 MEQ POWDER PACKET PO ONE (14:30)
[2018-12-16 16:00] VITALS: BP 116/67
--- NOTE | 2018-12-16 17:15 | NUR ---
Rn Medsurkael Notes Spoke to Mya from Pharmacy to informed and clarify PT's Amikacin Trough 7.1 on 12/14/18. Mya said it's okay to administer Amikacin to Patient.
[2018-12-16] MEDS: D5W IV SCH (18:01)
[2018-12-16] MEDS: AMIKACIN IV SCH (18:01)
--- NOTE | 2018-12-16 18:33 | NUR ---
RN medsurg notes Pt is alert and oriented X4. Pt is laying in bed comfortably watching tv. NO SOB. Pt has colostomy is intact. Port a cath on left forearm intact and infusing well. PT denies any pain or any discomfort at this time. PT ate dinner 100%. Meds have been given and assist all the needs. PT tolerated well with activity. Bed at low position and call light is within reach. Will endorse to night nurse.
--- NOTE | 2018-12-16 19:05 | NUR ---
MS RN NOTES RECEIVED PT IN BED AWAKE AND ABLE TO MAKE NEEDS KNOWN. PT A/O X3. RESPIRATIONS EVEN AND UNLABORED WITH NO S/S OF ACUTE DISTRESS OR SOB NOTED. PT WITH LFA PORTACATH PATENT AND INTACT. PT WITH JEFFERY CATH INTACT AND DRAINING WELL. PT WITH A COLOSTOMY AND INTACT WITH NO REDNESS. NO COMPLAINTS OF PAIN AT THIS TIME. SAFETY MEASURES IN PLACE WITH BED IN LOWEST LOCKED POSITION AND SIDE RAILS UP X2. CALL LIGHT WITHIN REACH. WILL CONTINUE TO MONITOR.
[2018-12-16] MEDS: ONDANSETRON HCL/PF 4 MG/2 ML VIAL IVP PRN (19:57)
[2018-12-16 20:00] VITALS: BP 108/67
[2018-12-16] MEDS: NORTRIPTYLINE HCL 10 MG CAPSULE PO SCH (21:41)
[2018-12-16] MEDS: TEMAZEPAM 15 MG CAPSULE PO PRN (23:25)
[2018-12-17] MEDS: FLUDROCORTISONE 0.1 MG TABLET PO SCH ×2 (06:22→12:35)
[2018-12-17] MEDS: NYSTATIN TOP POWDER 15 GM BOTTLE TP SCH (06:25)
--- NOTE | 2018-12-17 07:15 | NUR ---
RN giovana opening notes PT is alert and oriented x4. PT is laying in bed comfortably watching tv. no sign of pain or distress at this time. no sob. no vomiting or nausea. colostomy is intact. port of cath is intact and infusing well. brady is intact and draining. respiration is clear and unlabored. contact precautions is maintained. will continue to monitor.
--- NOTE | 2018-12-17 07:35 | NUR ---
MS RN NOTES PT IN BED AWAKE AND ABLE TO MAKE NEEDS KNOWN. PT A/O X3. RESPIRATIONS EVEN AND UNLABORED WITH NO S/S OF ACUTE DISTRESS OR SOB NOTED THROUGHOUT SHIFT. PT WITH LFA PORTACATH PATENT AND INTACT. PT WITH JEFFERY CATH INTACT AND DRAINING WELL. PT WITH A COLOSTOMY AND INTACT WITH NO REDNESS. NO COMPLAINTS OF PAIN AT THIS TIME. PT KEPT CLEAN, DRY, AND COMFORTABLE. SAFETY MEASURES IN PLACE WITH BED IN LOWEST LOCKED POSITION AND SIDE RAILS UP X2. CALL LIGHT WITHIN REACH. WILL ENDORSE TO ONCOMING NURSE FOR CEDRIC.
[2018-12-17 08:00] VITALS: BP 127/69
--- NOTE | 2018-12-17 08:00 | NUR ---
RN medsurg notes DR. Whitman informed the pt about plan of care and continuing antibiotics at home. PT understand and verbalize understanding. bed at low position and call light is within reach.
[2018-12-17 08:30] LABS: BASOPHILS % (AUTO) 0.3 % (0.0-2.0); EOSINOPHILS % (AUTO) 1.4 % (0.0-6.0); HEMATOCRIT 36 % (33-45); LYMPHOCYTES # (AUTO) 5.1 /CMM (0.8-4.8); LYMPHOCYTES % (AUTO) 49.6 % (20.0-44.0); MEAN CORPUSCULAR HGB CONC 33 g/dl (31.0-36.0); MEAN CORPUSCULAR VOLUME 88 fL (82-100); MONOCYTES # (AUTO) 0.9 /CMM (0.1-1.30); MONOCYTES % (AUTO) 8.9 % (2.0-12.0); NEUTROPHILS # (AUTO) 4.1 /CMM (1.8-8.9); NEUTROPHILS % (AUTO) 39.8 % (43.0-81.0); PLATELET COUNT (AUTO) 408 /CMM (150-450); RED BLOOD CELL COUNT(AUTO) 4.15 MIL/uL (4.0-5.2); WHITE BLOOD COUNT (AUTO) 10.3 K/uL (4.3-11.0)
[2018-12-17 08:36] LABS: CALCIUM, SERUM 8.4 mg/dL (8.5-10.1); CREATININE 0.4 mg/dL (0.6-1.3); PHOSPHORUS 3.4 mg/dL (2.5-4.9); POTASSIUM 3.3 mmol/L (3.5-5.1)
[2018-12-17] MEDS ORDERED: HYDR20TA PO (08:36)
[2018-12-17] MEDS ORDERED: DOXY100T2 PO (08:36)
[2018-12-17] MEDS ORDERED: POTA20TA83 PO (08:36)
[2018-12-17] MEDS: POTASSIUM CHLORIDE 20 MEQ POWDER PACKET GT SCH (08:51)
[2018-12-17] MEDS: PANTOPRAZOLE 40 MG TABLET.DR PO SCH (08:51)
[2018-12-17] MEDS: LEVETIRACETAM (250 MG) 250 MG TABLET PO SCH (08:52)
[2018-12-17] MEDS: DOXYCYCLINE HYCLATE (100 MG) 100 MG TABLET PO SCH (08:52)
[2018-12-17] MEDS: HYDROCORTISONE 20 MG TABLET PO SCH (08:52)
[2018-12-17] MEDS: DIVALPROEX SODIUM 250 MG TABLET.DR PO SCH (08:52)
[2018-12-17] MEDS: DULOXETINE HCL 30 MG CAPSULE.DR PO SCH (08:52)
[2018-12-17] MEDS: oxyCODONE HCL SR 20MG TAB.SR.12H PO SCH (08:54)
[2018-12-17] MEDS: DAKINS QUARTER STRENGTH (0.125%) 480 ML BOTTLE TOP SCH (08:55)
[2018-12-17] MEDS: Z GUARD REMEDY 4 OZ OINT TP SCH (08:56)
--- NOTE | 2018-12-17 15:30 | NUR ---
RN MS NOTES PER DOMINGO RAND TO D/C AMIKIN TROUGH AND TO GIVE AMIKIN IV NOW BEFORE DISCHARGE, PHARMACY INFORMED, AWAITING FOR MED.
[2018-12-17] MEDS: AMIKACIN IV SCH (16:02)
[2018-12-17] MEDS: D5W IV SCH (16:02)
--- NOTE | 2018-12-17 17:00 | NUR ---
RN MS NOTES PT IN BED, AWAKE, ALERT AND ORIENTED, NO COMPLAINT OF PAIN, RESPIRATIONS NORMAL, CALL LIGHT WITHIN REACH, SEEN BY DR. MEYER, DISCHARGE ORDER GIVEN, PT INFORMED, DISCHARGE AND MEDICATION INSTRUCTIONS PROVIDED TO PT, VERBALIZED UNDERSTANDING, BELONGINGS ACCOUNTED FOR, KELSI CATH AT LEFT FOREARM INTACT AND PATENT, F/C IN PLACE, DRAINING WELL WITH CLEAR, YELLOW URINE, SPOKE WITH PT'S CAREGIVER [place], INFORMED OF DISCHARGE, HE WILL BE WAITING FOR PT'S ARRIVAL AT HOME, CASE MANAGEMENT SET UP HER FOLLOW UP APPOINTMENT, PICKED UP BY 2 AMBULANCE PERSONNEL, LEFT VIA [facility] IN STABLE CONDITION.
== END 2018-12-17 17:08 | disposition home health service (06) | DRG 853 ==
LOC: ER 15:47 → ICU 20:43 → TELE1 12-11 15:40 → TELE-TD 12-11 20:21 → MEDSG1 12-12 09:55 → MED 12-12 10:43
PROVIDERS: ADMIT Internal Medicine; ATTEND Student in an Organized Health Care Education/Training Program
PROC: 0QB10ZZ Excision of Sacrum, Open Approach (ICD-10-PCS; principal; 2018-12-12)
DX: A41.9 Sepsis, unspecified organism (principal); L89.154 Pressure ulcer of sacral region, stage 4; G93.41 Metabolic encephalopathy; J96.01 Acute respiratory failure with hypoxia; J69.0 Pneumonitis due to inhalation of food and vomit; N39.0 Urinary tract infection, site not specified; I69.354 Hemiplegia and hemiparesis following cerebral infarction affecting left non-dominant side; R65.20 Severe sepsis without septic shock; E78.5 Hyperlipidemia, unspecified; E86.0 Dehydration; L30.4 Erythema intertrigo; G35 Multiple sclerosis; I25.10 Atherosclerotic heart disease of native coronary artery without angina pectoris; K21.9 Gastro-esophageal reflux disease without esophagitis; G89.29 Other chronic pain; M54.5 Low back pain; F41.9 Anxiety disorder, unspecified; F32.9 Major depressive disorder, single episode, unspecified; Z88.0 Allergy status to penicillin; Z93.3 Colostomy status; G40.909 Epilepsy, unspecified, not intractable, without status epilepticus; D64.9 Anemia, unspecified; G47.33 Obstructive sleep apnea (adult) (pediatric); L30.9 Dermatitis, unspecified; D72.829 Elevated white blood cell count, unspecified; E87.6 Hypokalemia; B96.20 Unspecified Escherichia coli [E. coli] as the cause of diseases classified elsewhere; N31.9 Neuromuscular dysfunction of bladder, unspecified; Z87.440 Personal history of urinary (tract) infections
CPT/HCPCS: 36415; 71045-TC; 80048-TC; 80053-TC; 80076-TC; 80150; 80202-TC; 81000-TC; 83605-TC; 83735-TC; 83880; 84100-TC; 84484-TC; 84702-TC; 84703-TC; 85025-TC; 85730-TC; 87040-TC; 87081-TC; 87086-TC; 87186-TC; 87400; 97112-TC; 97530-TC; A4216; A6253; A6402; C9113; G0378; J0278; J1956; J2405; J3370; J3480; J3490; J7030; J7040; J7050; J7060

== ENCOUNTER 2019-06-04 21:25 | Inpatient (IN) | payer MEDICARE, OTHER ==
[~2019-06-04] VITALS: Ht 160 cm; Wt 92.3 kg
[~2019-06-04 21:25] MED LIST changes: +DOXY100T2 PO; -FLUC100T8 PO; -FLUD0.1T3 PO; -LEVO500T2 PO; -MERO1VIA3 IV; +POTA20TA83 PO; -TOBR40VI2 IM
--- NOTE | 2019-06-04 21:41 | NUR ---
JALEESA: [phone]
--- NOTE | 2019-06-04 22:10 | NUR ---
PHLEB AT BEDSIDE FOR LAB DRAW
--- NOTE | 2019-06-04 22:13 | NUR ---
URINE COLLECTED AND SENT TO LAB
[2019-06-04 22:19] LABS: BASOPHILS % (AUTO) 0.3 % (0.0-2.0); EOSINOPHILS % (AUTO) 2.1 % (0.0-6.0); HEMATOCRIT 38 % (33-45); HEMOGLOBIN 12.1 g/dL (11.5-14.8); LYMPHOCYTES % (AUTO) 32.2 % (20.0-44.0); MEAN CORPUSCULAR HGB CONC 32 g/dl (31.0-36.0); MEAN CORPUSCULAR VOLUME 87 fL (82-100); MONOCYTES # (AUTO) 0.8 /CMM (0.1-1.30); MONOCYTES % (AUTO) 6.8 % (2.0-12.0); NEUTROPHILS # (AUTO) 7.3 /CMM (1.8-8.9); NEUTROPHILS % (AUTO) 58.6 % (43.0-81.0); PLATELET COUNT (AUTO) 425 /CMM (150-450); WHITE BLOOD COUNT (AUTO) 12.5 K/uL (4.3-11.0)
[2019-06-04 22:21] LABS: APPEARANCE,URINE Cloudy (CLEAR); BILIRUBIN,URINE Negative (NEGATIVE); BLOOD, URINE Small Ery/uL (NEGATIVE); COLOR,URINE Yellow (YELLOW); KETONES,URINE Negative (NEGATIVE); LEUKOCYTE ESTERASE ,URINE Moderate (NEGATIVE); NITRITE, URINE Negative (NEGATIVE); PROTEIN,URINE Negative (NEGATIVE); UGLUCOSE Negative (NEGATIVE); UROBILINOGEN,URINE 0.2 EU/dL (0.2)
--- NOTE | 2019-06-04 22:21 | NUR ---
RADIOLOGY AT BEDSIDE FOR XRAY
[2019-06-04 22:26] LABS: CALCIUM, SERUM 8.7 mg/dL (8.5-10.1); CREATININE 0.7 mg/dL (0.6-1.3); POTASSIUM 4.2 mmol/L (3.5-5.1)
[2019-06-04 22:33] LABS: ALBUMIN 2.7 g/dL (3.4-5.0); BILIRUBIN,TOTAL 0.1 mg/dL (0.2-1.0); TOTAL PROTEIN, SERUM 7.5 g/dL (6.4-8.2)
[2019-06-04 23:10] LABS: BACTERIA,URINE Many /HPF (None Seen); SQUAMOUS EPITHELIAL CELL,UR Few /HPF (None Seen); WBC,URINE TOO NUMEROUS TO COUN /HPF (0-3)
--- NOTE | 2019-06-04 23:48 | NUR ---
CALLED [facility]. CALENDERING SUPERVISOR DR MAYS.
[2019-06-05] MEDS ORDERED: D5W IV ONE ×2
[2019-06-05] MEDS ORDERED: AMIKACIN IV ONE ×2
--- NOTE | 2019-06-05 00:07 | NUR ---
CALLED HOUSE [facility] FOR MS BED
[2019-06-05] MEDS ORDERED: DOSING PER PHARMACY-AMIKACI IV XX PRN (00:30)
[2019-06-05] MEDS ORDERED: ONDANSETRON HCL/PF 4 MG/2 ML VIAL IVP PRN (00:30)
[2019-06-05] MEDS ORDERED: DOSING PER PHARMACY-TOBRA INHALATION 1 EA XX PRN (00:30)
[2019-06-05] MEDS ORDERED: MAG HYDROX/AL HYDROX/SIMETH 30 ML UDC PO PRN (00:30)
[2019-06-05] MEDS ORDERED: MAGNESIUM HYDROXIDE 30 ML UDC PO PRN (00:30)
[2019-06-05] MEDS ORDERED: Z GUARD REMEDY 2 OZ OINT TP PRN (00:30)
[2019-06-05] MEDS ORDERED: ZOLPIDEM TARTRATE 5 MG TABLET PO PRN (00:30)
[2019-06-05] MEDS ORDERED: AMIKACIN 250 MG/ML VIAL ONE (00:45)
--- NOTE | 2019-06-05 00:51 | NUR ---
REPORT GIVEN TO SHERRILL SWIFT FOR CEDRIC
--- NOTE | 2019-06-05 00:59 | NUR ---
CALLED NURSING SUP FOR MEDS. NO TOBRAMYCIN AVAILABLE. AWARE.
--- NOTE | 2019-06-05 00:59 | NUR ---
AUTOMOBILE REPAIR SERVICE ESTIMATOR NOTES PATIENT ARRIVED ON THE UNIT AT 0059. PATIENT IS A/O X4. VITALS SIGNS ARE 104/63, PULSE 79, RR18, TEMP 98.6, O2 SAT 95%. PATIENT 203.9 POUNDS, HEIGHT 5'3". PATIENT STATES SHE WANTS TO BE FULL CODE. PICTURES TAKEN AND SKIN ASSESSED. NO SIGNS OF RESPIRATORY DISTRESS. DENIES SHORTNESS OF BREATH. DENIES PAIN AT THIS TIME. SAFETY PRECAUTIONS IMPLEMENTED; CALL LIGHT WITHIN REACH, BED LOWEST POSITION, BED LOCKED, SIDE RAILS UP X2. WILL CONTINUE TO MONITOR PATIENT.
[2019-06-05 01:00] VITALS: BP 102/63
--- NOTE | 2019-06-05 01:14 | NUR ---
AMIXACIN ENDORSED TO MED SURG NURSE
[2019-06-05] MEDS ORDERED: ENOXAPARIN SODIUM 40 MG/0.4 ML DISP.SYRIN SQ ONE (01:30)
[2019-06-05] MEDS: IV NS 0.9% 1,000 ML IV PRN ×2 (02:18→16:03)
[2019-06-05 02:30] VITALS: BP 104/63
--- NOTE | 2019-06-05 02:30 | NUR ---
SHERRILL NOTES AMIKIN 100 ML/HR GIVEN AT 0230, SHOWN IN ORDER THAT WAS DC AND NON-ADMIN BY SHERRILL ISAAC, IN THE ER.
[2019-06-05 04:00] VITALS: BP 97/59
[2019-06-05] MEDS: ACETAMINOPHEN 325 MG TABLET PO PRN ×3 (04:00→19:55)
[2019-06-05] MEDS: TOBRAMYCIN 80 MG in IV D5W 50 ML IV SCH ×3 (04:12)
--- NOTE | 2019-06-05 04:12 | NUR ---
RN NOTES NO TOBRAMYCIN AVAILABLE. PER PHARMACIST, , TO ONLY GIVE AMIKIN, NOT TOBRAMYCIN.
--- NOTE | 2019-06-05 06:33 | NUR ---
RN CLOSING NOTES PATIENT REMAINS A/O X 4. PATIENT REMAINS STABLE. NO SIGNS OF RESPIRATORY DISTRESS. NO SHORTNESS OF BREATH NOTED DURING THE SHIFT. ALL NEEDS MET AND ATTENDED TO. IV SITE R HAND #20G, INTACT AND PATENT. RADHA PORTACATH OBSERVED. ON TELE MONITOR WITH READING OF SR 70-80'S. COLOSTOMY AND JEFFERY CATHETER INTACT. NO COMPLAINTS OF PAIN OR DISCOMFORT AT THIS TIME. SAFETY PRECAUTIONS IMPLEMENTED; CALL LIGHT WITHIN REACH, BED LOWEST POSITION, BED LOCKED, SIDE RAILS UP X2. WILL ENDORSE TO DAYSHIFT NURSE FOR CONTINUITY OF CARE.
--- NOTE | 2019-06-05 07:15 | NUR ---
DIRECTOR MEDICAL SAFETY OPENING NOTES RECEIVED PATIENT IN BED ALERT ANS WAKE ORIENTED X4. DENIES ANY C/O PAIN NOR DISCOMFORT AT THIS TIME. NO SOB. HOB ELEVATED. ON TELE MONITORING SR: 76. RIGHT HAND # 20 INTACT AND PATENT INFUSING 100 ML/HR HAIDER WELL. BED IN LOWEST POSITION, LOCKED. BED ALARM ON. CALL LIGHT WITHIN REACH. ABLE TO VERBALIZE NEEDS.
[2019-06-05 08:00] VITALS: BP 107/72
[2019-06-05] MEDS ORDERED: ALBU18HF2 PO (08:24)
[2019-06-05] MEDS ORDERED: GABA600T12 PO (08:26)
[2019-06-05] MEDS ORDERED: ESCI10TA PO (08:26)
[2019-06-05] MEDS ORDERED: FEE PK DOSING 1 MIN EA MC ONE (08:27)
[2019-06-05 09:24] LABS: CALCIUM, SERUM 8.4 mg/dL (8.5-10.1); CREATININE 0.6 mg/dL (0.6-1.3); POTASSIUM 3.7 mmol/L (3.5-5.1)
[2019-06-05] MEDS ORDERED: PHENAZOPYRIDINE HCL 200 MG TABLET PO PRN (12:30)
[2019-06-05] MEDS: AMIKACIN 400 MG in IV D5W 100 ML IV SCH (15:46)
[2019-06-05 16:00] VITALS: BP 121/77
[2019-06-05] MEDS: DAKINS QUARTER STRENGTH (0.125%) 480 ML BOTTLE TOP SCH (16:22)
[2019-06-05] MEDS: HYDROCODONE/APAP 5/325MG 1 EACH TABLET PO PRN (16:33)
--- NOTE | 2019-06-05 19:00 | NUR ---
MS RN CLOSING NOTES PATIENT IN BED ALERT ANS WAKE ORIENTED X4. DENIES ANY C/O PAIN NOR DISCOMFORT AT THIS TIME. NO SOB. HOB ELEVATED. LEFT ARM POWER PORT INTACT INFUSING 100 ML/HR HAIDER WELL. BED IN LOWEST POSITION, LOCKED. JEFFERY CATH INTACT DRAINING YELLOW COLORED URINE VIS BEDSIDE. BED ALARM ON. CALL LIGHT WITHIN REACH. ABLE TO VERBALIZE NEEDS. IN NO APPARENT DISTRESS.
--- NOTE | 2019-06-05 19:05 | NUR ---
MS RN NOTE RECEIVED PT IN STABLE CONDITION A/O X4 CURRENTLY RESTING IN BED. NO SIGNS OF SOB OR DISTRESS, NO C/O PAIN OR N/V. JEFFERY CATH NOTED TO BE IN PLACE WITH ADEQUATE YELLOW URINE DRAINING. COLOSTOMY IN PLACE. L ARM PICC IN PLACE WITH IVF INFUSING. ALL CURRENT NEEDS ATTENDED TO. BED LOW, LOCKED, UPPER RAILS UP AND CALL LIGHT WITHIN REACH. WILL CONT TO MONITOR.
[2019-06-05 20:00] VITALS: BP 128/80
[2019-06-05] MEDS ORDERED: GUAIFENESIN 300 MG/15 ML UDC PO PRN (20:30)
--- NOTE | 2019-06-05 20:30 | NUR ---
MS RN NOTE NEW ORDER FROM JACINTA FOR EXPECTORANT. ORDER NOTED AND CARRIED OUT.
[2019-06-05] MEDS: ENOXAPARIN SODIUM 40 MG/0.4 ML DISP.SYRIN SQ SCH (21:01)
[2019-06-06] MEDS: IV NS 0.9% 1,000 ML IV PRN ×2 (02:18→14:11)
[2019-06-06] MEDS: AMIKACIN 400 MG in IV D5W 100 ML IV SCH ×2 (02:18→15:00)
--- NOTE | 2019-06-06 04:56 | NUR ---
MS RN NOTE PT NOTED WITH BLANCHABLE REDNESS IN BILATERAL HEELS, PHOTO TAKEN FOR CHART, WOUND CONSULT ORDERED AND INCIDENT REPORT DONE. WILL CONT. TO MONITOR.
--- NOTE | 2019-06-06 06:16 | NUR ---
MS RN NOTE PT REMAINS IN STABLE CONDITION A/O X4 CURRENTLY RESTING IN BED. NO SIGNS OF SOB OR DISTRESS, NO C/O PAIN OR N/V. JEFFERY CATH NOTED TO BE IN PLACE WITH 1700 OF CLEAR YELLOW URINE DRAINED. COLOSTOMY IN PLACE, NOTED WITH 1 FORMED BM. L ARM PICC IN PLACE WITH IVF INFUSING, TOLERATING WELL. ALL CURRENT NEEDS ATTENDED TO. BED LOW, LOCKED, UPPER RAILS UP, PT REPOSITIONED PER PROTOCOL, AND CALL LIGHT WITHIN REACH. WILL CONT TO MONITOR AND ENDORSE TO NEXT SHIFT FOR CEDRIC.
[2019-06-06 07:00] LABS: BASOPHILS % (AUTO) 0.3 % (0.0-2.0); EOSINOPHILS % (AUTO) 1.2 % (0.0-6.0); HEMATOCRIT 36 % (33-45); HEMOGLOBIN 11.8 g/dL (11.5-14.8); LYMPHOCYTES % (AUTO) 29.2 % (20.0-44.0); MEAN CORPUSCULAR HGB CONC 33 g/dl (31.0-36.0); MEAN CORPUSCULAR VOLUME 86 fL (82-100); MONOCYTES # (AUTO) 0.8 /CMM (0.1-1.30); MONOCYTES % (AUTO) 8.1 % (2.0-12.0); NEUTROPHILS # (AUTO) 6.2 /CMM (1.8-8.9); NEUTROPHILS % (AUTO) 61.2 % (43.0-81.0); PLATELET COUNT (AUTO) 357 /CMM (150-450); RED BLOOD CELL COUNT(AUTO) 4.12 MIL/uL (4.0-5.2); WHITE BLOOD COUNT (AUTO) 10.2 K/uL (4.3-11.0)
[2019-06-06 07:03] LABS: CALCIUM, SERUM 7.9 mg/dL (8.5-10.1); CREATININE 0.5 mg/dL (0.6-1.3); MAGNESIUM 1.8 mg/dL (1.8-2.4); PHOSPHORUS 2.9 mg/dL (2.5-4.9); POTASSIUM 3.9 mmol/L (3.5-5.1)
[2019-06-06 07:17] LABS: THYROID STIMULATING HORMONE 3.77 uIU/mL (0.358-3.74)
--- NOTE | 2019-06-06 07:51 | NUR ---
MS RN OPENING NOTES RECEIVED PATIENT IN BED ALERT AND ORIENTED X4. HOB ELEVATED. NO SOB. ON O2 @ L/MIN SUPPLEMENTAL VIA NC HAIDER WELL. LEFT ARM POWER PORT PICC LINE INTACT INFUSING NS @ 100ML/HR HAIDER WELL. DENIES ANY C/O PAIN NOR DISCOMFORT AT THIS TIME. JEFFERY CATH INTACT AND PATENT DRAINING YELLOW COLORED URINE VIA GRAVITY VIA BEDSIDE. ABLE TO VERBALIZE NEEDS. BED IN LOWEST POSITION, LOCKED. BED ALARM ON. BUE AND BLE EXTREMITIES ELEVATED WITH PILLOW.
[2019-06-06 08:00] VITALS: BP 128/94
[2019-06-06] MEDS: DAKINS QUARTER STRENGTH (0.125%) 480 ML BOTTLE TOP SCH (09:27)
[2019-06-06] MEDS: HYDROCODONE/APAP 5/325MG 1 EACH TABLET PO PRN (12:36)
[2019-06-06 16:00] VITALS: BP 104/81
--- NOTE | 2019-06-06 17:50 | NUR ---
MS RN NOTES AFTER FAMILY MEMBER LEFT, OBSERVED PATIENT WITH POOLING OF SALIVA IN MOUTH AND TWITCHING. PATIENT HAS NOT EATEN DINNER YET DUE TO PATIENT REQUIRES ASSISTANCE WITH MEALS. WHEN INTERVIEWED PATIENT, PATIENT STATED SHE HAD DRANK COFFEE DURING FAMILY VISIT. PATIENT REMAINS ALERT AND ORIENTED X4. DR. MEYER MADE AWARE WITH ORDERS FOR STAT CHEST XRAY, PRN DUONEB, NPO TILL SEEN BY [facility] NOTED AND CARRIED OUT. NO CHANGE IN PATIENT'S MENTAL STATUS FROM BASELINE. PATIENT REMAINS VERBALLY RESPONSIVE AND QUICK RESPONSE WHEN QUESTIONED. ABLE TO CLEAR THROAT BUT WITH SLIGHT DIFFICULTY. PATIENT'S HOB REMAINS ELEVATED WITH 02 ON AT 2L/MIN VIA NC. V/S 165/86; HR: 130; 02 SAT 94% @ 2L/MIN VIA NC; RR:22 CHARGE NURSE, PRIMARY NURSE AND RT AT BEDSIDE. SUCTIONED PATIENT AND OBTAINED CLEAR FLUID SECRETIONS VIA ORAL AND NASOTRACHEAL SUCTIONING RENDERED BY PRIMARY NURSE AND RT. BREATHING TX GIVEN BY RT. WILL CONTINUE TO MONITOR.
[2019-06-06] MEDS ORDERED: ALBUTEROL FS 2.5 MG/3 ML VIAL.NEB NEB PRN (18:00)
[2019-06-06] MEDS ORDERED: IPRATROPIUM NEB FS 0.5 MG/2.5 ML AMPUL.NEB NEB PRN (18:00)
--- NOTE | 2019-06-06 18:12 | NUR ---
RT NOTE CALLED BY RN TO ASSESS PT. FOR SIGNS OF ASPIRATION AFTER PT. DRINKING A CUP OF COFFEE. NTS DONE WITH NO SIGNS OF ASPIRATION NOTED. PRN TX. GIVEN BUT STOPPED AFTER 5 MINS. DUE TO SIGNIFICANT INCREASE IN HR. PT. REMAINS ON 4 L NC WITH NO ACUTE RESP. DISTRESS NOTED. PT. AWAKE ALERT AND RESPONSIVE. RN AWARE OF ALL OCCURENCES.
--- NOTE | 2019-06-06 18:49 | NUR ---
MS RN NOTES RECEIVED STAT CHEST X-RAY RESULT AND RELAYED TO DR. MEYER WITH NNO AT THIS TIME. INFORMED DR. MEYER PATIENT REMAINS ALERT AND ORIENTED X4. NO CHANGE IN MENTAL STATUS FROM BASELINE. PER PATIENT, BETTER NOW THAN EARLIER. HOB REMAINS ELEVATED. ON O2 @ 1L/MIN VIA NC WITH 02 SAT OFF 95% B/P 165/86 HR 127; RR: 20. PATIENT REQUIRES FREQUENT REMINDERS TO SPIT OUT SALIVA AND NOT TO LET IT POOL IN MOUTH. IN NO APPARENT DISTRESS. ENDORSED TO ONCOMING SHIFT.
[2019-06-06 20:00] VITALS: BP 154/75
[2019-06-06] MEDS: ACETAMINOPHEN 325 MG TABLET PO PRN (20:10)
--- NOTE | 2019-06-06 20:21 | NUR ---
PATIENT HAS TEMP 100.1 WITH HR 139/MIN. ATTENDING PHYSICIAN ENVIRONMENTAL MANAGEMENT SPECIALIST PAGED AND INFORMED AND WITH ORDERS
--- NOTE | 2019-06-06 20:41 | NUR ---
patient noted to have incvoluntary facial twitches and hr still 130 a Addendum: 06/06/19 at 2042 by KATHERINE MOSLEY RN and above, the physician complex commercial litigation paralegal paged as the patient home medications are not reconciled and patient is on siezure medication. medications needs to be reconciled
--- NOTE | 2019-06-06 20:47 | NUR ---
charge nurse is getting the message to the physician solar project coordination specialist
--- NOTE | 2019-06-06 21:17 | NUR ---
charge nurse is getting the message to the physician on . no response, repaged another time awaiting response. patient has involuntary facial twitches noted still Addendum: 06/06/19 at 2146 by KATHERINE MOSLEY RN charge nurse with orders and carried out.
[2019-06-06 21:27] VITALS: BP 141/80
[2019-06-06] MEDS: ENOXAPARIN SODIUM 40 MG/0.4 ML DISP.SYRIN SQ SCH (21:33)
[2019-06-06] MEDS ORDERED: LORAZEPAM INJ 2 MG/ML VIAL IV PRN ×2 (22:00→22:30)
[2019-06-06] MEDS ORDERED: LORAZEPAM INJ 2 MG/ML VIAL IV ONE (22:00)
[2019-06-06] MEDS ORDERED: LEVETIRACETAM (500MG) 500 MG/5 ML VIAL IV ONE (22:05)
[2019-06-06] MEDS: LEVETIRACETAM (500MG) 500 MG in IV NS 0.9% 100 ML IV SCH (22:10)
--- NOTE | 2019-06-06 22:18 | NUR ---
keppra dose started and infused as ordered
--- NOTE | 2019-06-06 23:21 | NUR ---
hr 96/min,patient slept but removed the oxygen sat 96% on room air, facial twitches relieved
--- NOTE | 2019-06-07 01:26 | NUR ---
patient is awake .but no twitches of the face noted.ambien dose given crushed and given with apple sause
[2019-06-07] MEDS: AMIKACIN 400 MG in IV D5W 100 ML IV SCH ×2 (02:53→14:15)
[2019-06-07 03:00] VITALS: BP 120/75
[2019-06-07] MEDS: ACETAMINOPHEN 325 MG TABLET PO PRN (03:02)
--- NOTE | 2019-06-07 03:08 | NUR ---
hr 115 to 126/min /temp 100.5.tylenol 650 mg crushed given po.
[2019-06-07] MEDS: IV NS 0.9% 1,000 ML IV PRN ×2 (04:39→18:52)
--- NOTE | 2019-06-07 04:40 | NUR ---
PATIENT CLEANED AND COLD SPONGE BATH GIVEN. TEMP 99.8.HR UP TO 134/MIN. WILL INFORM THE PHYSICIAN IM AM.CHARGE NURSE ORDERED NOT TO CALL THE PHYSICIAN AT THIS TIME.COLOSTOMY CARE DONE
[2019-06-07 06:53] LABS: BASOPHILS % (AUTO) 0.1 % (0.0-2.0); HEMATOCRIT 37 % (33-45); HEMOGLOBIN 12.2 g/dL (11.5-14.8); LYMPHOCYTES # (AUTO) 2.4 /CMM (0.8-4.8); LYMPHOCYTES % (AUTO) 14.8 % (20.0-44.0); MEAN CORPUSCULAR HGB CONC 33 g/dl (31.0-36.0); MEAN CORPUSCULAR VOLUME 86 fL (82-100); MONOCYTES # (AUTO) 0.6 /CMM (0.1-1.30); MONOCYTES % (AUTO) 3.7 % (2.0-12.0); NEUTROPHILS % (AUTO) 81.4 % (43.0-81.0); PLATELET COUNT (AUTO) 370 /CMM (150-450); RED BLOOD CELL COUNT(AUTO) 4.33 MIL/uL (4.0-5.2)
--- NOTE | 2019-06-07 07:19 | NUR ---
MS RN OPENING NOTES RECEIVED PATIENT AWAKE IN BED IN NO ACUTE SIGNS OF DISTRESS. HOB ELEVATED. A/O X4. ABLE TO MAKE NEEDS KNOWN, DENIES PAIN OR DISCOMFORTS AT THIS TIME. ON O2 @ 2 LPM VIA N/C, HAIDER WELL WITH NO SOB NOTED. LEFT ARM POWER PORT PICC LINE INTACT AND PATENT INFUSING NS @ 100ML/HR TOLERATING WELL. JEFFERY CATH INTACT AND PATENT DRAINING CLEAR YELLOW COLORED URINE VIA GRAVITY TO COLLECTING URINARY BAG. COLOSTOMY IN PLACE WITH NO STOOL NOTED AT THIS TIME. SAFETY MEASURES IN PLACE. BED IN LOWEST POSITION, LOCKED. BED ALARM ON. BUE AND BLE EXTREMITIES ELEVATED WITH PILLOW. CALL LIGHT WITHIN REACH. WILL CONTINUE TO MONITOR ACCORDINGLY.
[2019-06-07 07:23] LABS: CALCIUM, SERUM 8.5 mg/dL (8.5-10.1); CREATININE 0.6 mg/dL (0.6-1.3); MAGNESIUM 1.7 mg/dL (1.8-2.4); PHOSPHORUS 2.3 mg/dL (2.5-4.9)
[2019-06-07 08:00] VITALS: BP 129/83
--- NOTE | 2019-06-07 09:11 | NUR ---
RN NOTES/PAIN MANAGEMENT: PATIENT C/O LOWER BACK AND SACRAL PAIN WITH SCALE OF 7/10. NORCO 5/325 MG PRN WAS GIVEN AT 0911. V/S WNL. WILL CONTINUE TO MONITOR AND REASSESS PT.
[2019-06-07] MEDS: LEVETIRACETAM (500MG) 500 MG in IV NS 0.9% 100 ML IV SCH ×2 (09:14→21:29)
[2019-06-07] MEDS: DAKINS QUARTER STRENGTH (0.125%) 480 ML BOTTLE TOP SCH (09:21)
--- NOTE | 2019-06-07 09:50 | NUR ---
MS RN NOTES: DR. MEYER INFORMED TO VERIFY AND DO MED RECON FOR PATIENT.
[2019-06-07] MEDS: Magnesium 1GM/D5W 100ML PREMIX 100 ML IV SCH ×2 (10:17→11:20)
[2019-06-07] MEDS: POTASSIUM CHLORIDE 20 MEQ TAB.PRT.SR PO SCH ×3 (10:20→12:25)
[2019-06-07] MEDS ORDERED: K PHOS NEUTRAL 250 MG TABLET PO ONE (11:00)
--- NOTE | 2019-06-07 14:43 | NUR ---
RN NOTES: PATIENT NOTED WITH LOW LEVEL OF POTASSIUM 3.0 TODAY, ADMINISTERED KDUR 20 MEQ PO X3 DOSES ORDERED. LOW MAGNESIUM LEVEL 1.7, ADMINISTERED MAGNESIUM 1 GM/D5 WATER 100ML X 2 DOSES ORDERED. WILL CONTINUE TO MONITOR.
--- NOTE | 2019-06-07 15:50 | NUR ---
MS RN NOTES: CALLED LAB TO DO AMIKACIN PEAK LEVEL AND SKILLED TRADES TEACHER SAID THAT HE WILL COME TO TAKE IT NOW.
[2019-06-07 16:00] VITALS: BP 137/82
--- NOTE | 2019-06-07 17:33 | NUR ---
RN NOTES AMIKACIN LEVEL DRAWN, RESULTS STILL PENDING. RECEIVED CALL FROM PHARMACIST SOFIA THAT IF PT'S AMIKACIN LEVEL WILL NOT COME THIS SHIFT, ENDORSE TO CLINICAL RESEARCH SPEC NURSE THAT IF IT IS <30, IT'S OK TO ADMINISTER NEXT DOSE OF IV AMIKACIN AT 0300.
--- NOTE | 2019-06-07 18:34 | NUR ---
MS RN CLOSING NOTES PATIENT IN BED AWAKE AND WATCHING TV AT THIS TIME. HOB ELEVATED. A/O X4. ABLE TO MAKE NEEDS KNOWN. MAINTAINED ON O2 @ 2 LPM VIA N/C, TOLERATING WELL WITH NO SOB NOTED THROUGHOUT THE DAY. LEFT ARM POWER PORT PICC LINE INTACT AND PATENT INFUSING NS @ 100ML/HR TOLERATING WELL. JEFFERY CATHETER INTACT AND PATENT DRAINING CLEAR YELLOW COLORED URINE VIA GRAVITY TO URINARY BAG @ BEDSIDE. COLOSTOMY IN PLACE WITH + DARK BROWN SOFT LOOSE STOOL NOTED, COLOSTOMY CARE DONE. PT TURNED AND REPOSITIONED Q 2HRS. KEPT CLEAN, DRY AND INTACT. ALL NEEDS AND CARE PROVIDED WELL. SAFETY MEASURES KEPT IN PLACE. BED IN LOWEST LOCKED POSITION. BED ALARM ON. BUE AND BLE EXTREMITIES KEPT ELEVATED WITH PILLOWS. CALL LIGHT WITHIN REACH. WILL ENDORSE TO HOSPITAL NURSE LIAISON NURSE FOR CEDRIC.
--- NOTE | 2019-06-07 19:29 | NUR ---
RN MS OPENING NOTES RECEIVED BEDSIDE REPORT, DC AWAKE ALERT ORIENTED X4, BREATHING EVEN AND UNLABORED ON 2L NC. NO COMPLAINT OF PAIN OR DISCOMFORT AT THIS TIME. L FA PICC LINE WITH NS @100ML/HR. BED IN LOWEST LOCKED POSITION, CALL LIGHT WITHIN REACH AT ALL TIMES, REPOSITIONED FOR COMFORT. WILL CONTINUE TO MONITOR FREQUENTLY.
[2019-06-07 20:00] VITALS: BP 137/88
[2019-06-07] MEDS: ENOXAPARIN SODIUM 40 MG/0.4 ML DISP.SYRIN SQ SCH (21:29)
[2019-06-08] MEDS: AMIKACIN 400 MG in IV D5W 100 ML IV SCH ×2 (02:53→14:38)
[2019-06-08] MEDS: IV NS 0.9% 1,000 ML IV PRN ×2 (05:44→18:13)
--- NOTE | 2019-06-08 06:02 | NUR ---
RN MS CLOSING NOTES PT REMAINS IN BED AWAKE ALERT ORIENTED X3, EPISODES OF HALLUCINATIONS. BREATHING EVEN AND UNLABORED ON 2L NC. NO COMPLAINT OF PAIN OR DISCOMFORT AT THIS TIME. L FA PICC LINE WITH NS @100ML/HR. BED IN LOWEST LOCKED POSITION, CALL LIGHT WITHIN REACH AT ALL TIMES, REPOSITIONED FOR COMFORT. WILL ENDORSE TO DAY NURSE FOR CEDRIC.
[2019-06-08 06:50] LABS: BASOPHILS # (AUTO) 0.1 /CMM (0.0-0.2); BASOPHILS % (AUTO) 0.5 % (0.0-2.0); HEMATOCRIT 36 % (33-45); LYMPHOCYTES % (AUTO) 17.7 % (20.0-44.0); MEAN CORPUSCULAR HGB CONC 33 g/dl (31.0-36.0); MEAN CORPUSCULAR VOLUME 86 fL (82-100); MONOCYTES % (AUTO) 5.8 % (2.0-12.0); NEUTROPHILS # (AUTO) 12.8 /CMM (1.8-8.9); PLATELET COUNT (AUTO) 352 /CMM (150-450); RED BLOOD CELL COUNT(AUTO) 4.17 MIL/uL (4.0-5.2); WHITE BLOOD COUNT (AUTO) 16.9 K/uL (4.3-11.0)
[2019-06-08 06:58] LABS: CALCIUM, SERUM 8.3 mg/dL (8.5-10.1); CREATININE 0.4 mg/dL (0.6-1.3); PHOSPHORUS 2.7 mg/dL (2.5-4.9); POTASSIUM 3.9 mmol/L (3.5-5.1)
--- NOTE | 2019-06-08 07:21 | NUR ---
RN OPENING NOTE PT WAS RECEIVED IN BED AT LOWEST AND LOCKED POSITION WITH SIDE RAILS UP X2, A/O X 3 BREATHING EVEN AND UNLABORED ON 2L VIA NC WITH NO COMPLAINTS OF ANY PAIN, ON ISOLATION FOR ESBL OF URINE, JEFFERY AND COLOSTOMY IN PLACE AND DRAINING, NOTED TO HAVE SACRAL PRESSURE ULCER, SAFETY PRECAUTIONS, LEFT ARM PICC IS PATENT AND INTACT WITH IVF RUNNING, SAFETY PRECAUTIONS IN PLACE, CALL LIGHT IN REACH, WILL MONITOR ACCORDINGLY.
[2019-06-08 08:00] VITALS: BP 136/89
[2019-06-08] MEDS: DAKINS QUARTER STRENGTH (0.125%) 480 ML BOTTLE TOP SCH (08:36)
--- NOTE | 2019-06-08 08:52 | NUR ---
RN NOTE PER DR. MEYER PT NPO FOR NOW UNTIL XR VIDEO SWALLOW DONE DUE TO POSSIBLE ASPIRATION, WILL AWAIT FOR SWALLOW EVAL AND MONITOR ACCORDINGLY
[2019-06-08] MEDS: LEVETIRACETAM (500MG) 500 MG in IV NS 0.9% 100 ML IV SCH ×2 (09:48→21:10)
--- NOTE | 2019-06-08 10:22 | NUR ---
WOUND CARE CONSULT: PT SEEN FOR HEEL REDNESS WHICH IS BLANCHABLE. HEELS TO BE OFFLOADED AT ALL TIMES. DISCUSSED WITH NURSING STAFF. LOW AIRLOSS MATTRESS ORDERED. DEFER TO PLASTIC SURGERY TEAM CURRENTLY ON CASE FOR SACRAL WOUND. CURRENT PABLO SCORE IS 11. WILL SEE PRN.
--- NOTE | 2019-06-08 10:40 | NUR ---
RN NOTE SPOKE TO SPEECH THERAPIST REGARDING VIDEO SWALLOW EVAL AND WAS INFORMED BY HER THAT RADIOLOGY TOLD HER THE MACHINE IS BROKEN SO IT CANNOT BE PERFORMED. SHE WILL INSTEAD DO BEDSIDE EVAL AND WILL F/U TOMORROW WITH RADIOLOGY WHO TOLD HER THAT THEY WILL TRY TO GET THE MACHINE FIXED.
--- NOTE | 2019-06-08 11:06 | NUR ---
RN NOTE [facility] CALLED FOR [facility], WILL AWAIT FOR IT TO BE BROUGHT UP
--- NOTE | 2019-06-08 11:09 | NUR ---
RN NOTE CALLED RECEIVED FROM [facility] AND INFORMED THAT THEY ARE CURRENTLY OUT OF BEDS BUT THAT MORE WILL BECOMING FROM THE PROJECT MANAGEMENT INTERN LATER THIS AFTERNOON
--- NOTE | 2019-06-08 13:30 | NUR ---
RN NOTE MADE AWARE THAT PT'S MEDS NEED TO BE RECONCILED
--- NOTE | 2019-06-08 14:32 | NUR ---
RN NOTE SPOKE TO MRI TECHNICIAN AT THIS TIME, SHE STATED THAT THEY ARE STILL OUT OF [facility] M[facility]ESS AT THIS TIME. WITH NONE AVAILABLE HERE ON THE FLOOR CURRENTLY
--- NOTE | 2019-06-08 15:40 | NUR ---
RN NOTE WOUND CARE DONE AT THIS TIME
[2019-06-08 16:00] VITALS: BP 131/70
--- NOTE | 2019-06-08 18:52 | NUR ---
RN CLOSING NOTE PT IN BED AT LOWEST AND LOCKED POSITION WITH SIDE RAILS UP X2, A/O X 3 BREATHING EVEN AND UNLABORED WITH NO COMPLAINTS OF ANY PAIN OR DISTRESS NOTED, JEFFERY IN PLACE AND DRAINING YELLOW URINE WITH 750 OUT, COLOSTOMY IN PLACE WITH NO OUTPUT AT THIS TIME, LEFT ARM PICC IS PATENT AND INTACT WITH IVF RUNNING, SAFETY PRECAUTIONS IN PLACE, CALL LIGHT IN REACH, ALL NEEDS ATTENDED TO, WILL ENDORSE TO NIGHT RN FOR CEDRIC.
--- NOTE | 2019-06-08 19:34 | NUR ---
RN MS OPENING NOTES RECEIVED BEDSIDE REPORT, NC AWAKE ALERT ORIENTED X4, BREATHING EVEN AND UNLABORED ON 2L NC. NO COMPLAINT OF PAIN OR DISCOMFORT AT THIS TIME. L FA PICC LINE WITH NS @100ML/HR. BED IN LOWEST LOCKED POSITION, CALL LIGHT WITHIN REACH AT ALL TIMES, REPOSITIONED FOR COMFORT. WILL CONTINUE TO MONITOR FREQUENTLY.
[2019-06-08 20:00] VITALS: BP 132/63
[2019-06-08] MEDS: LINEZOLID RTU BAG 600 MG in PREMIX 1 EA IV SCH (21:12)
[2019-06-08] MEDS: ENOXAPARIN SODIUM 40 MG/0.4 ML DISP.SYRIN SQ SCH (21:12)
[2019-06-09] MEDS: AMIKACIN 400 MG in IV D5W 100 ML IV SCH ×2 (02:56→16:14)
--- NOTE | 2019-06-09 06:05 | NUR ---
RN MS CLOSING NOTES PT REMAINS IN BED AWAKE ALERT ORIENTED X2. BREATHING EVEN AND UNLABORED ON 2L NC. NO COMPLAINT OF PAIN OR DISCOMFORT AT THIS TIME. L FA PICC LINE WITH NS @100ML/HR. BED IN LOWEST LOCKED POSITION, CALL LIGHT WITHIN REACH AT ALL TIMES, REPOSITIONED FOR COMFORT. WILL ENDORSE TO DAY NURSE FOR CEDRIC.
[2019-06-09 08:00] VITALS: BP 128/74
--- NOTE | 2019-06-09 08:00 | NUR ---
m/s fisher trammel net: initial assessment received pt in bed awake, alert x 1-2 with forgetfulness and disorientation to time, place, and situation. reality orientation provided prn. no s/s of discomfort. call light within reach.
[2019-06-09 08:02] LABS: CALCIUM, SERUM 8.3 mg/dL (8.5-10.1); CREATININE 0.5 mg/dL (0.6-1.3); MAGNESIUM 1.8 mg/dL (1.8-2.4); PHOSPHORUS 2.6 mg/dL (2.5-4.9); POTASSIUM 3.4 mmol/L (3.5-5.1)
[2019-06-09 08:57] LABS: BASOPHILS # (AUTO) 0.1 /CMM (0.0-0.2); BASOPHILS % (AUTO) 0.6 % (0.0-2.0); EOSINOPHILS % (AUTO) 0.1 % (0.0-6.0); HEMATOCRIT 38 % (33-45); HEMOGLOBIN 12.3 g/dL (11.5-14.8); LYMPHOCYTES # (AUTO) 3.7 /CMM (0.8-4.8); LYMPHOCYTES % (AUTO) 22.8 % (20.0-44.0); MEAN CORPUSCULAR HGB CONC 32 g/dl (31.0-36.0); MEAN CORPUSCULAR VOLUME 86 fL (82-100); NEUTROPHILS # (AUTO) 11.4 /CMM (1.8-8.9); NEUTROPHILS % (AUTO) 70.5 % (43.0-81.0); PLATELET COUNT (AUTO) 284 /CMM (150-450); RED BLOOD CELL COUNT(AUTO) 4.41 MIL/uL (4.0-5.2); WHITE BLOOD COUNT (AUTO) 16.2 K/uL (4.3-11.0)
[2019-06-09] MEDS: LINEZOLID RTU BAG 600 MG in PREMIX 1 EA IV SCH ×2 (09:41→21:09)
--- NOTE | 2019-06-09 10:00 | NUR ---
m/s metal stud framer: notes am care rendered. turned and repositioned. kept comfortable. place call light within reach.
[2019-06-09] MEDS ORDERED: POTASSIUM CHLORIDE 20 MEQ TAB.PRT.SR PO ONE (10:30)
--- NOTE | 2019-06-09 10:30 | NUR ---
m/s milk bottling machine operator: md visit seen and examined by kamla mejias ([facility]) at this time.
[2019-06-09] MEDS: LEVETIRACETAM (500MG) 500 MG in IV NS 0.9% 100 ML IV SCH ×2 (12:04→22:05)
--- NOTE | 2019-06-09 12:30 | NUR ---
m/s ticket worker: id consult seen and examined by moses (yazmin) at this time.
[2019-06-09] MEDS: DAKINS QUARTER STRENGTH (0.125%) 480 ML BOTTLE TOP SCH (12:59)
--- NOTE | 2019-06-09 14:00 | NUR ---
m/s sales counselor: notes resting comfortable in bed. no distress noted. turned and repositioned. will monitor.
--- NOTE | 2019-06-09 15:00 | NUR ---
m/s slitter processed film: plastic surgeon f/u seen by mohsen hernandez) at this time.
[2019-06-09 16:00] VITALS: BP 135/63
[2019-06-09] MEDS: IV NS 0.9% 1,000 ML IV PRN (16:20)
--- NOTE | 2019-06-09 19:10 | NUR ---
m/s vp analysis: notes report given to mildred (rn) for continuity of care.
--- NOTE | 2019-06-09 19:10 | NUR ---
MS RN OPENING NOTES Received patient asleep on bed with JASON, easily awaken. On RA, no SOB/respiratory distress noted. No s/sx of discomfort noted at this time. With FC indwelling well clear yellow urine output noted. Kept on bed clean, dry and comfortable. Call light within easy reach. On fall precautions. Will continue to monitor accordingly.
[2019-06-09 20:00] VITALS: BP 126/83
[2019-06-09] MEDS: ENOXAPARIN SODIUM 40 MG/0.4 ML DISP.SYRIN SQ SCH (21:09)
[2019-06-10] MEDS: AMIKACIN 400 MG in IV D5W 100 ML IV SCH ×2 (02:04→15:55)
--- NOTE | 2019-06-10 06:21 | NUR ---
MS RN CLOSING NOTES Patient asleep on bed with JASON on. On O2 inhalation, saturating well, no SOB/respiratory distress noted. All due meds given as ordered. All nursing needs attended, no new usualities noted. Wound care done as ordered. Colostomy bag drained PRN. Perineal care and F/C care done accordingly. 0 stool output noted within the shift. Kept on bed clean, dry and comfortable. Call light within easy reach.
[2019-06-10] MEDS: IV NS 0.9% 1,000 ML IV PRN (06:41)
--- NOTE | 2019-06-10 07:33 | NUR ---
MS RN OPENING NOTES RECEIVED PATIENT IN BED ALERT AND ORIENTED X4. HOB ELEVATED. NO SOB. ON O2 @ L/MIN SUPPLEMENTAL VIA NC HAIDER WELL. LEFT ARM POWER PORT PICC LINE INTACT INFUSING NS @ 100ML/HR HAIDER WELL. DENIES ANY C/O PAIN NOR DISCOMFORT AT THIS TIME. JEFFERY CATH INTACT AND PATENT DRAINING YELLOW COLORED URINE VIA GRAVITY VIA BEDSIDE. ABLE TO VERBALIZE NEEDS. BED IN LOWEST POSITION, LOCKED. BED ALARM ON. CALL LIGHT WITHIN REACH
[2019-06-10 07:45] LABS: BASOPHILS % (AUTO) 0.2 % (0.0-2.0); EOSINOPHILS % (AUTO) 0.6 % (0.0-6.0); HEMATOCRIT 37 % (33-45); HEMOGLOBIN 11.6 g/dL (11.5-14.8); LYMPHOCYTES # (AUTO) 3.5 /CMM (0.8-4.8); LYMPHOCYTES % (AUTO) 30.2 % (20.0-44.0); MEAN CORPUSCULAR HGB CONC 32 g/dl (31.0-36.0); MEAN CORPUSCULAR VOLUME 89 fL (82-100); MONOCYTES # (AUTO) 0.9 /CMM (0.1-1.30); MONOCYTES % (AUTO) 8.1 % (2.0-12.0); NEUTROPHILS # (AUTO) 7.1 /CMM (1.8-8.9); NEUTROPHILS % (AUTO) 60.9 % (43.0-81.0); PLATELET COUNT (AUTO) 211 /CMM (150-450); RED BLOOD CELL COUNT(AUTO) 4.11 MIL/uL (4.0-5.2); WHITE BLOOD COUNT (AUTO) 11.7 K/uL (4.3-11.0)
[2019-06-10 07:56] LABS: CALCIUM, SERUM 7.1 mg/dL (8.5-10.1); CREATININE 0.5 mg/dL (0.6-1.3); MAGNESIUM 1.6 mg/dL (1.8-2.4); PHOSPHORUS 2.9 mg/dL (2.5-4.9); POTASSIUM 3.2 mmol/L (3.5-5.1)
[2019-06-10 08:00] VITALS: BP 125/66
[2019-06-10] MEDS: LINEZOLID RTU BAG 600 MG in PREMIX 1 EA IV SCH (09:24)
[2019-06-10] MEDS: DAKINS QUARTER STRENGTH (0.125%) 480 ML BOTTLE TOP SCH (09:24)
[2019-06-10] MEDS: Magnesium 1GM/D5W 100ML PREMIX 100 ML IV SCH ×2 (10:16→11:21)
[2019-06-10] MEDS ORDERED: POTASSIUM CHLORIDE 20 MEQ TAB.PRT.SR PO ONE (10:30)
[2019-06-10] MEDS: LEVETIRACETAM (500MG) 500 MG in IV NS 0.9% 100 ML IV SCH (10:55)
--- NOTE | 2019-06-10 11:33 | NUR ---
MS RN NOTES PATIENT OFF UNIT FOR VIDEO SWALLOW
--- NOTE | 2019-06-10 12:01 | NUR ---
MS RN NOTES PATIENT RETURNED TO UNIT. PER ST, FAILED SWALLOW EVAL. CONTINUE CURRENT DIET ORDER, PUREED HTL.
[2019-06-10 16:00] VITALS: BP 126/97
--- NOTE | 2019-06-10 19:10 | NUR ---
MS RN CLOSING NOTES PATIENT ALERT AND ORIENTED X3. HOB ELEVATED. NO SOB. ABLE TO ANSWER QUESTIONS WHEN INTERVIEWED ACCORDINGLY. DENIES ANY C/O PAIN NOR DISCOMFORT AT THIS TIME. LEFT ARM POWER PORT PICC LINE INTACT INFUSING NS @ 100ML/HR HAIDER WELL. JEFFERY CATH INTACT AND PATENT DRAINING YELLOW COLORED URINE VIA GRAVITY VIA BEDSIDE. BED IN LOWEST POSITION, LOCKED. BED ALARM ON. CALL LIGHT WITHIN REACH. IN NO APPARENT DISTRESS.
--- NOTE | 2019-06-10 19:30 | NUR ---
RN MS OPENING NOTES RECEIVED PATIENT IN BED AWAKE, ALERT AND ORIENTED X2, VERBALLY RESPONSIVE, CONFUSED AT TIMES. BREATHING EVEN AND UNLABORED. NO SOB NOTED. ON 2LPM NC. NO COMPLAINTS OF PAIN OR DISCOMFORT. NO FACIAL GRIMACING. PICC LINE ON LEFT AC INTACT AND PATENT WITH IVF INFUSING. JEFFERY CATH INTACT AND DRAINING YELLOW COLORED URINE. ALL OTHER NEEDS MET. SAFETY MEASURES IN PLACE. CALL LIGHT WITHIN REACH. WILL CONTINUE TO MONITOR.
[2019-06-10 20:03] VITALS: BP 109/60
[2019-06-10] MEDS ORDERED: LINEZOLID 600 MG TABLET PO SCH (21:00)
[2019-06-10] MEDS: LEVETIRACETAM (250 MG) 250 MG TABLET PO SCH (21:01)
[2019-06-10] MEDS: ENOXAPARIN SODIUM 40 MG/0.4 ML DISP.SYRIN SQ SCH (21:01)
[2019-06-10] MEDS: ACETAMINOPHEN 325 MG TABLET PO PRN (21:45)
[2019-06-11] MEDS: AMIKACIN 400 MG in IV D5W 100 ML IV SCH (03:11)
[2019-06-11 06:32] LABS: BASOPHILS % (AUTO) 0.3 % (0.0-2.0); EOSINOPHILS % (AUTO) 1.8 % (0.0-6.0); HEMATOCRIT 35 % (33-45); HEMOGLOBIN 11.4 g/dL (11.5-14.8); LYMPHOCYTES # (AUTO) 3.2 /CMM (0.8-4.8); LYMPHOCYTES % (AUTO) 28.1 % (20.0-44.0); MEAN CORPUSCULAR HGB CONC 32 g/dl (31.0-36.0); MEAN CORPUSCULAR VOLUME 87 fL (82-100); MONOCYTES # (AUTO) 0.9 /CMM (0.1-1.30); MONOCYTES % (AUTO) 7.5 % (2.0-12.0); NEUTROPHILS # (AUTO) 7.1 /CMM (1.8-8.9); NEUTROPHILS % (AUTO) 62.3 % (43.0-81.0); PLATELET COUNT (AUTO) 271 /CMM (150-450); RED BLOOD CELL COUNT(AUTO) 4.07 MIL/uL (4.0-5.2); WHITE BLOOD COUNT (AUTO) 11.4 K/uL (4.3-11.0)
[2019-06-11 06:34] LABS: CALCIUM, SERUM 7.8 mg/dL (8.5-10.1); CREATININE 0.4 mg/dL (0.6-1.3); MAGNESIUM 1.9 mg/dL (1.8-2.4); PHOSPHORUS 3.7 mg/dL (2.5-4.9); POTASSIUM 3.4 mmol/L (3.5-5.1)
--- NOTE | 2019-06-11 06:52 | NUR ---
RN MS CLOSING NOTES PATIENT RESTING IN BED. NO ACUTE CHANGES THROUGHOUT SHIFT. BREATHING EVEN AND UNLABORED. NO SOB NOTED. ON 2LPM NC. NO COMPLAINTS OF PAIN OR DISCOMFORT. NO FACIAL GRIMACING. PICC LINE ON LEFT AC INTACT AND PATENT WITH IVF INFUSING. JEFFERY CATH INTACT AND DRAINING YELLOW COLORED URINE. DRESSING ON SACRAL CLEAN DRY AND INTACT. NO ASPIRATION OBSERVED. ALL OTHER NEEDS MET. SAFETY MEASURES IN PLACE. CALL LIGHT WITHIN REACH. WILL ENDORSE TO ONCOMING NURSE FOR CEDRIC.
--- NOTE | 2019-06-11 07:25 | NUR ---
MS RN OPENING NOTES RECEIVED PATIENT IN BED ALERT AND AWAKE. HOB ELEVATED. NO SOB. ON O2 @ L/MIN SUPPLEMENTAL VIA NC HAIDER WELL. LEFT ARM POWER PORT PICC LINE INTACT INFUSING NS @ 100ML/HR HAIDER WELL WITHOUT S/S OF COMPLICATIONS. DENIES ANY C/O PAIN NOR DISCOMFORT AT THIS TIME. JEFFERY CATH INTACT AND PATENT DRAINING YELLOW COLORED URINE VIA GRAVITY VIA BEDSIDE. ABLE TO VERBALIZE NEEDS. BED IN LOWEST POSITION, LOCKED. BED ALARM ON. CALL LIGHT WITHIN REACH
[2019-06-11 08:00] VITALS: BP 127/65
[2019-06-11] MEDS: LEVETIRACETAM (250 MG) 250 MG TABLET PO SCH ×2 (09:05→21:38)
[2019-06-11] MEDS: DAKINS QUARTER STRENGTH (0.125%) 480 ML BOTTLE TOP SCH (09:06)
[2019-06-11] MEDS ORDERED: POTASSIUM CHLORIDE 20 MEQ TAB.PRT.SR PO SCH (10:30)
[2019-06-11] MEDS: IV NS 0.9% 1,000 ML IV PRN ×3 (10:56→21:38)
[2019-06-11 16:00] VITALS: BP 129/72
--- NOTE | 2019-06-11 18:51 | NUR ---
MS RN CLOSING NOTES PATIENT RESTING COMFORTABLY IN BED, WATCHING TV. NO SOB. HOB ELEVATED. ATE MEALS WITHOUT S/S OF COMPLICATIONS. NO EPISODE OF COUGHING NOR POOLING OF SALIVA IN MOUTH DURING THE SHIFT. ON O2 @ L/MIN SUPPLEMENTAL VIA NC HAIDER WELL. LEFT AC POWER PORT PICC LINE INTACT INFUSING NS @ 100ML/HR HAIDER WELL WITHOUT S/S OF COMPLICATIONS. DENIES ANY C/O PAIN NOR DISCOMFORT AT THIS TIME. JEFFERY CATH INTACT AND PATENT DRAINING YELLOW COLORED URINE VIA GRAVITY VIA BEDSIDE. ABLE TO VERBALIZE NEEDS. BED IN LOWEST POSITION, LOCKED. BED ALARM ON. CALL LIGHT WITHIN REACH. IN NO APPARENT DISTRESS.
--- NOTE | 2019-06-11 19:10 | NUR ---
RN Notes Received patient awake, alert and oriented x2 with periods of confusions and forgetfulness. HOB elevated with O2 inhalation at 2LPM via NC with good saturation. Denies sob, nausea and vomiting. Pain at tolerable level at this time, 10/19. Implanted venous port patent and intact with ongoing IVF infusing well. Ostomy intact, Hutchison cath intact to gravity with clear, yellow output. Will turn and reposition for skin mgt. Kept clean and dry. will continue to monitor.
[2019-06-11 20:00] VITALS: BP 116/69
[2019-06-11] MEDS: ENOXAPARIN SODIUM 40 MG/0.4 ML DISP.SYRIN SQ SCH (21:39)
[2019-06-11 22:00] VITALS: BP 116/69
[2019-06-12 07:15] LABS: CALCIUM, SERUM 8.1 mg/dL (8.5-10.1); CREATININE 0.4 mg/dL (0.6-1.3); MAGNESIUM 1.8 mg/dL (1.8-2.4); POTASSIUM 3.5 mmol/L (3.5-5.1)
[2019-06-12 07:22] LABS: BASOPHILS % (AUTO) 0.3 % (0.0-2.0); EOSINOPHILS % (AUTO) 2.6 % (0.0-6.0); HEMATOCRIT 35 % (33-45); HEMOGLOBIN 11.2 g/dL (11.5-14.8); LYMPHOCYTES # (AUTO) 3.6 /CMM (0.8-4.8); LYMPHOCYTES % (AUTO) 28.8 % (20.0-44.0); MEAN CORPUSCULAR HGB CONC 33 g/dl (31.0-36.0); MEAN CORPUSCULAR VOLUME 87 fL (82-100); MONOCYTES # (AUTO) 0.8 /CMM (0.1-1.30); MONOCYTES % (AUTO) 6.3 % (2.0-12.0); NEUTROPHILS # (AUTO) 7.8 /CMM (1.8-8.9); PLATELET COUNT (AUTO) 310 /CMM (150-450); RED BLOOD CELL COUNT(AUTO) 3.98 MIL/uL (4.0-5.2); WHITE BLOOD COUNT (AUTO) 12.5 K/uL (4.3-11.0)
--- NOTE | 2019-06-12 07:38 | NUR ---
RN Notes Patient stable overnight, afebrile. With O2 inhalation at 2LPM via NC with good saturation. Current diet tolerated well, no signs of aspiration noted. Hutchison cath intact with adequate output. Colostomy intact and working well. Turned and repositioned per protocol. Keep clean and dry. All needs attended with call light with in reach. Will endorse accordingly.
--- NOTE | 2019-06-12 07:40 | NUR ---
RN OPENING NOTES RECEIVED PATIENT IN BED RESTING. A/OX2-3, WITH EPISODES OF CONFUSION. NOT IN ANY FORM OF DISTRESS. NO SOB. DENIED PAIN OR DISCOMFORT AT THIS TIME. IV ACCESS, IMPLANTED VENOUS PORT, INTACT AND PATENT INFUSING NS @ 100ML/HR. OSTOMY INTACT. JEFFERY IN PLACE, DRAINING CLEAR YELLOW URINE. KEPT PATIENT SAFE AND COMFORTABLE. WILL TURN AND REPOSITION FOR SKIN MGT. BED IN LOW/LOCKED PSOITION, SIDERAILS UP, HOB ELEVATED. CALLL IGHT IN REACH. WILL CONTINUE TO MONITOR ACCORDINGLY
[2019-06-12 08:00] VITALS: BP 124/74
[2019-06-12] MEDS: LEVETIRACETAM (250 MG) 250 MG TABLET PO SCH ×2 (08:27→20:44)
[2019-06-12] MEDS: HYDROCODONE/APAP 5/325MG 1 EACH TABLET PO PRN (08:36)
[2019-06-12] MEDS: DIVALPROEX SODIUM 250 MG TABLET.DR PO SCH ×2 (11:29→17:47)
[2019-06-12] MEDS: ESCITALOPRAM OXALATE (10 MG) 10 MG TABLET PO SCH (11:29)
[2019-06-12] MEDS: DULOXETINE HCL 20 MG CAPSULE.DR PO SCH (11:30)
[2019-06-12] MEDS: DAKINS QUARTER STRENGTH (0.125%) 480 ML BOTTLE TOP SCH (11:48)
[2019-06-12] MEDS ORDERED: GABAPENTIN 400 MG CAPSULE PO SCH (13:00)
[2019-06-12 16:00] VITALS: BP 112/81
[2019-06-12] MEDS ORDERED: BARIUM SULFATE 240 ML ORAL.SUSP PO ONE (17:13)
[2019-06-12] MEDS ORDERED: BARIUM SULFATE 148 GM SUSP.RECON PO ONE (17:13)
[2019-06-12] MEDS: GABAPENTIN 300 MG CAPSULE PO SCH (17:45)
[2019-06-12] MEDS: IV NS 0.9% 1,000 ML IV PRN (17:54)
--- NOTE | 2019-06-12 19:24 | NUR ---
RN CLOSING NOTES PATIENT IN STABLE CONDITION. ALL NEEDS ATTENDED AND PROVIDED. ASSISTED WITH ADLS. TURNED AND REPOSITIONED EVERY 2HRS NEEDED. WOUND CARE RENDERED. KEPT PATIENT SAFE AND COMFORTBALE. BED IN LOW/LOCKED POSITION, SIDERIALS UPX2,C ALL LIGHT IN REACH. ENDORSED TO NIGHT RN FOR CEDRIC.
--- NOTE | 2019-06-12 19:45 | NUR ---
SLEEPING...AROUSES EASILY WITH TOUCH...IV INFUSING PER ORDER WITH NO S/SX INILTRATION NOTED....JEFFERY CONTINUES TO DRAIN CLEAR YELLOW URINE...MEDS CRUSHED AND GIVEN WITH APPLESAUCE...SWALLOWS EASILY ET HOB REMAINS UP FOR ASPIRATION PRECAUTION...PT STABLE AT THIS TIME...NO DSISTRWESS NOTED
[2019-06-12 20:00] VITALS: BP 113/76
[2019-06-12] MEDS: ENOXAPARIN SODIUM 40 MG/0.4 ML DISP.SYRIN SQ SCH (20:45)
[2019-06-12] MEDS: NORTRIPTYLINE HCL 10 MG CAPSULE PO SCH (22:31)
--- NOTE | 2019-06-13 06:49 | NUR ---
NO CHANGE IN CONDITION AT THIS TIME REPORT GIVEN TO ONCOMING SHIFT
[2019-06-13 08:00] VITALS: BP 121/81
[2019-06-13] MEDS: GABAPENTIN 300 MG CAPSULE PO SCH ×3 (08:28→17:16)
[2019-06-13] MEDS: DIVALPROEX SODIUM 250 MG TABLET.DR PO SCH ×2 (08:28→17:16)
[2019-06-13] MEDS: DULOXETINE HCL 20 MG CAPSULE.DR PO SCH (08:28)
[2019-06-13] MEDS: LEVETIRACETAM (250 MG) 250 MG TABLET PO SCH ×2 (08:29→21:09)
[2019-06-13] MEDS: ESCITALOPRAM OXALATE (10 MG) 10 MG TABLET PO SCH (08:29)
[2019-06-13] MEDS: DAKINS QUARTER STRENGTH (0.125%) 480 ML BOTTLE TOP SCH (08:29)
[2019-06-13 10:00] LABS: BASOPHILS % (AUTO) 0.3 % (0.0-2.0); EOSINOPHILS % (AUTO) 3.3 % (0.0-6.0); HEMATOCRIT 39 % (33-45); HEMOGLOBIN 12.5 g/dL (11.5-14.8); LYMPHOCYTES # (AUTO) 3.1 /CMM (0.8-4.8); LYMPHOCYTES % (AUTO) 31.3 % (20.0-44.0); MEAN CORPUSCULAR HGB CONC 33 g/dl (31.0-36.0); MEAN CORPUSCULAR VOLUME 88 fL (82-100); MONOCYTES # (AUTO) 0.5 /CMM (0.1-1.30); MONOCYTES % (AUTO) 5.5 % (2.0-12.0); NEUTROPHILS # (AUTO) 5.9 /CMM (1.8-8.9); NEUTROPHILS % (AUTO) 59.6 % (43.0-81.0); PLATELET COUNT (AUTO) 421 /CMM (150-450); WHITE BLOOD COUNT (AUTO) 9.8 K/uL (4.3-11.0)
[2019-06-13 10:11] LABS: CALCIUM, SERUM 9.1 mg/dL (8.5-10.1); CREATININE 0.6 mg/dL (0.6-1.3); MAGNESIUM 1.8 mg/dL (1.8-2.4); PHOSPHORUS 3.4 mg/dL (2.5-4.9)
[2019-06-13 16:00] VITALS: BP 105/69
[2019-06-13] MEDS: IV NS 0.9% 1,000 ML IV PRN (18:20)
--- NOTE | 2019-06-13 18:41 | NUR ---
PATIENT IS STABLE ON ROOM AIR. ALL NEEDS ATTENDED AND PROVIDED.ASSISTED WITH FEEDING. TURNED AND REPOSITIONED EVERY 2HRS. WOUND CARE RENDERED DIRECTED.COLOSTOMY BAG CHANGED. KEPT PATIENT SAFE AND COMFORTABLE. BED IN LOW/LOCKED POSITION, SIDE RIALS UPX2,C ALL LIGHT IN REACH. ENDORSED TO NEXT SHIFT FOR CEDRIC.
--- NOTE | 2019-06-13 19:30 | NUR ---
MS RN OPENING NOTES RECEIVED PATIENT FROM MORNING SHIFT, ALERT AND ORIENTED X 3. VERBALLY RESPONSIVE AND ABLE TO FOLLOW DIRECTIONS. BREATHING REGULAR AND UNLABORED ON ROOM AIR. LEFT ARM PORTACATH INTACT AND PATENT, INFUSING WELL WITH NO BLEEDING OR S/S OF INFECTION NOTED. COLOSTOMY INTACT WITH MINIMAL FORMED DARK BROWN STOOL SEEN. JEFFERY CATH INTACT AND PATENT DRAINING CLEAR YELLOW URINE IN SCANT AMOUNT. NO COMPLAINTS OF PAIN/DISCOMFORT REPORTED OF THE TIME. BED LOW AND LOCKED ON SEMI FOWLERS POSITION. CALL LIGHT IN REACH. WILL CONTINUE TO MONITOR.
[2019-06-13 20:00] VITALS: BP 94/68
[2019-06-13] MEDS: NORTRIPTYLINE HCL 10 MG CAPSULE PO SCH (21:09)
[2019-06-13] MEDS: ENOXAPARIN SODIUM 40 MG/0.4 ML DISP.SYRIN SQ SCH (21:11)
[2019-06-13 22:00] VITALS: BP 94/68
--- NOTE | 2019-06-14 01:00 | NUR ---
MS RN NOTES NOTED WITH EPISODE OF CONFUSION, ASKING TO BE MOVE ON HER ROOM AND LAY IN TH BED. ORIENTED BACK TO REALITY. NO S/S OF DISTRESS SEEN, NO COMPLAINTS OF PAIN/DISCOMFORT. WILL CONTINUE TO MONITOR.
--- NOTE | 2019-06-14 01:00 | NUR ---
MS RN NOTES MAINTAINED ON CONTACT ISOLATION FOR ESBL/VRE URINE. ISOLATION PRECAUTIONS AND PROPER HAND WASHING OBSERVED. JEFFERY CATH INTACT AND PATENT WITH MODERATE CLEAR YELLOW URINE ON URINARY BAG. NO COMPLAINTS OF PAIN/DISCOMFORT REPORTED OF THE TIME. WILL CONTINUE TO MONITOR.
[2019-06-14] MEDS: IV NS 0.9% 1,000 ML IV PRN (03:04)
--- NOTE | 2019-06-14 06:28 | NUR ---
MS RN CLOSING NOTES PATIENT IN BED, ALERT AND ORIENTED X 2-3 WITH EPISODES OF CONFUSION. VERBALLY RESPONSIVE AND ABLE TO FOLLOW DIRECTIONS. BREATHING REGULAR AND UNLABORED ON ROOM AIR. LEFT ARM PORTACATH INTACT AND PATENT, INFUSING WELL WITH NO BLEEDING OR S/S OF INFECTION NOTED. COLOSTOMY INTACT WITH NO OUTPUT NOTED. JEFFERY CATH INTACT AND PATENT DRAINING CLEAR YELLOW URINE, 1400cc OUTPUT. NO COMPLAINTS OF PAIN/DISCOMFORT REPORTED WITHIN THE SHIFT. MAINTAINED ON CONTACT ISOLATION FOR ESBL/VRE URINE. BED LOW AND LOCKED ON SEMI FOWLERS POSITION. CALL LIGHT IN REACH. WILL ENDORSE TO MORNING SHIFT FOR CEDRIC.
[2019-06-14 06:51] LABS: BASOPHILS % (AUTO) 0.6 % (0.0-2.0); EOSINOPHILS % (AUTO) 4.5 % (0.0-6.0); HEMATOCRIT 36 % (33-45); HEMOGLOBIN 11.7 g/dL (11.5-14.8); LYMPHOCYTES # (AUTO) 2.9 /CMM (0.8-4.8); LYMPHOCYTES % (AUTO) 39.2 % (20.0-44.0); MEAN CORPUSCULAR HGB CONC 33 g/dl (31.0-36.0); MEAN CORPUSCULAR VOLUME 87 fL (82-100); MONOCYTES # (AUTO) 0.7 /CMM (0.1-1.30); MONOCYTES % (AUTO) 9.9 % (2.0-12.0); NEUTROPHILS # (AUTO) 3.4 /CMM (1.8-8.9); NEUTROPHILS % (AUTO) 45.8 % (43.0-81.0); PLATELET COUNT (AUTO) 403 /CMM (150-450); RED BLOOD CELL COUNT(AUTO) 4.09 MIL/uL (4.0-5.2); WHITE BLOOD COUNT (AUTO) 7.5 K/uL (4.3-11.0)
--- NOTE | 2019-06-14 07:28 | NUR ---
MS RN OPENING NOTE PATIENT IN BED RESTING COMFORTABLY. PATIENT IN NO ACUTE DISTRESS. NO SOB NOTED. PATIENT BREATHING IS EVEN AND UNLABORED. PATIENT COLOSTOMY BAG PATENT AND INTACT WITH NO OUTPUT NOTED. PATIENT JEFFERY CATHETER HANGING TO GRAVITY. PATIENT STATES NO PAIN AT THIS TIME. PATIENT BED IS LOCKED AND IN LOWEST POSITION. CALL LIGHT WITHIN REACH. WILL CONTINUE TO MONITOR.
[2019-06-14 07:33] LABS: CALCIUM, SERUM 8.6 mg/dL (8.5-10.1); CREATININE 0.5 mg/dL (0.6-1.3); MAGNESIUM 1.8 mg/dL (1.8-2.4); PHOSPHORUS 3.3 mg/dL (2.5-4.9); POTASSIUM 3.9 mmol/L (3.5-5.1)
[2019-06-14 08:00] VITALS: BP 111/63
[2019-06-14] MEDS: ESCITALOPRAM OXALATE (10 MG) 10 MG TABLET PO SCH (08:44)
[2019-06-14] MEDS: DIVALPROEX SODIUM 250 MG TABLET.DR PO SCH ×2 (08:44→16:46)
[2019-06-14] MEDS: LEVETIRACETAM (250 MG) 250 MG TABLET PO SCH (08:44)
[2019-06-14] MEDS: DULOXETINE HCL 20 MG CAPSULE.DR PO SCH (08:44)
[2019-06-14] MEDS: GABAPENTIN 300 MG CAPSULE PO SCH ×3 (08:44→16:46)
[2019-06-14] MEDS: DAKINS QUARTER STRENGTH (0.125%) 480 ML BOTTLE TOP SCH (08:52)
[2019-06-14 16:00] VITALS: BP 98/68
--- NOTE | 2019-06-14 16:00 | NUR ---
MS RN NOTE PATIENT WAS GOING TO SNF AT [facility] FOR DISCHARGE BY MD. PATIENT WAS SPOKEN TO BY ISMAEL CALDWELL AND CONTINUOUS DRIER HELPER RAHUL. PATIENT HAD AGREED TO GO TO [facility]. FATHER AND MOTHER WERE INFORMED AND SPOKEN TO BY ME, RAHUL CONTINUOUS DRIER HELPER, JEANNETTE CHARGE NURSE, AND ISMAEL CALDWELL OF IMPORTANCE TO GO TO SNF. AMBULANCE WAS PLACED FURNACE TENDER. CAREGIVER ARRIVED AND SPOKE WITH PATIENT. PATIENT DECIDED TO GO HOME WITH PORTRAIT STUDIO PHOTOGRAPHER. ISMAEL AND RAHUL REINFORCED IMPORTANCE OF GOING TO SNF. PATIENT STATED " NO NO NO I AM DECIDING TO GO BACK HOME WITH MY CAREGIVER, I REFUSE TO GO TO [facility]." PATIENT IS ALERT AND ORIENTED X4. FATHER WAS SPOKEN TO AND STATES HE WANTS WHAT DAUGHTER CHOOSES. PATIENT HAS DECIDED TO GO HOME WITH CAREGIVER AND REFUSE TO GO TO SNF DESPITE TALKS FROM RAHUL, MYSELF, AND ISMAEL. CAREGIVERS WERE SPOKEN TO BY CONTINUOUS DRIER HELPER RAHUL. HOME HEALTH IS SET UP WITH [facility] PER RAHUL.
--- NOTE | 2019-06-14 19:19 | NUR ---
MS INTELLECTUAL PROPERTY PARALEGAL NOTE PATIENT MEDICALLY STABLE TO GO HOME. PATIENT IN NO ACUTE DISTRESS. NO SOB NOTED. PATIENT BREATHING IS EVEN AND UNLABORED. PATIENT ALERT AND ORIENTED X4. PATIENT COLOSTOMY BAG IS INTACT. PATIENT JEFFERY CATHETER IN PLACE PER ORDER OF ISMAEL CALDWELL. PATIENT IV REMOVED FROM [facility]. ID BAND REMOVED. PATIENT CAN NOT SIGN DC PAPER WORK DUE TO SHAKY HANDS AND INABILITY TO GRAB PEN PROPERLY TO WRITE. DC PAPERWORK SIGNED BY TWO NURSES. DC INSTRUCTIONS PROVIDED. PATIENT ACKNOWLEDGED AND VERBALIZED UNDERSTANDING. FATHER SPOKEN TO ABOUT HOME HEALTH AND GOING BACK HOME WITH CAREGIVER. CAREGIVER SPOKEN TO BY [facility] MARKETING ANALYTICS LEAD. PATIENT SKIN ASSESSED. NO NEW SKIN BREAKDOWN NOTED. PATIENT HAS BELONGINGS WITH HER AND BELONGINGS LIST WENT OVER AND SIGNED BY TWO NURSES. PATIENT HAS RING ON HER FINGER, METAL SILVER COLORED RING WITH PINK TRU LOOKING TOP. PATIENT KEPT CLEAN, DRY, AND COMFORTABLE THROUGHOUT SHIFT. PATIENT CHOOSING TO GO BACK HOME WITH CAREGIVER AND HOME HEALTH AND SPOKE TO BY RAHUL MARKETING ANALYTICS LEAD FOR FURTHER INFORMATION. PATIENT WOUND CARE PROVIDED. MD AWARE OF DISCHARGE. Addendum: 06/14/19 at 1932 by CARMELITA MONTERO RN AMBULANCE CAME, WENT BY JUDE TO AMBULANCE. REPORT GIVEN TO EMT TO GO BACK HOME. Addendum: 06/14/19 at 1935 by CARMELITA MONTERO RN PATIENT HAS PLASTIC BEADED BRACELET ON RIGHT WRIST TO GO BACK HOME.
--- NOTE | 2019-06-15 10:05 | NUR ---
Social service consult requested by GHAZAL Jimenez for APS report for self-neglect. Pt. is a 43 year old female with Multiple Sclerosis and physically debilitated who resides at her home with her caregiver Félix. Pt. has stage 4 wounds and is refusing SNF placement as recommended by the doctor. Pt. will initially agree for SNF placement, however at time to discharge when caregiver is present changes her mind. APS report filed for self-neglect APS intake ID #[id number].
== END 2019-06-14 19:00 | disposition home health service (06) | DRG 853 ==
LOC: ER 21:25 → MED 06-05 00:39 → TELE 06-05 00:59 → MED 06-05 08:45
PROVIDERS: ADMIT Student in an Organized Health Care Education/Training Program; ATTEND Nurse Practitioner Acute Care
PROC: 0KBP0ZZ Excision of Left Hip Muscle, Open Approach (ICD-10-PCS; principal; 2019-06-05)
PROC: 0KBN0ZZ Excision of Right Hip Muscle, Open Approach (ICD-10-PCS; 2019-06-05)
PROC: 0KBP0ZZ Excision of Left Hip Muscle, Open Approach (ICD-10-PCS; 2019-06-10)
PROC: 0KBN0ZZ Excision of Right Hip Muscle, Open Approach (ICD-10-PCS; 2019-06-10)
DX: A41.9 Sepsis, unspecified organism (principal); L89.154 Pressure ulcer of sacral region, stage 4; R53.2 Functional quadriplegia; G93.41 Metabolic encephalopathy; N39.0 Urinary tract infection, site not specified; E44.0 Moderate protein-calorie malnutrition; I69.354 Hemiplegia and hemiparesis following cerebral infarction affecting left non-dominant side; Z16.12 Extended spectrum beta lactamase (ESBL) resistance; Z16.21 Resistance to vancomycin; D68.69 Other thrombophilia; I10 Essential (primary) hypertension; G35 Multiple sclerosis; E87.6 Hypokalemia; G40.909 Epilepsy, unspecified, not intractable, without status epilepticus; Z93.3 Colostomy status; E88.09 Other disorders of plasma-protein metabolism, not elsewhere classified; I25.10 Atherosclerotic heart disease of native coronary artery without angina pectoris; Z68.36 Body mass index [BMI] 36.0-36.9, adult; B96.20 Unspecified Escherichia coli [E. coli] as the cause of diseases classified elsewhere; B95.2 Enterococcus as the cause of diseases classified elsewhere; Z87.440 Personal history of urinary (tract) infections; F32.9 Major depressive disorder, single episode, unspecified; Z88.0 Allergy status to penicillin; H92.01 Otalgia, right ear; R47.02 Dysphasia; R13.10 Dysphagia, unspecified
CPT/HCPCS: 31720; 36415; 71045-TC; 74230-TC; 80048-TC; 80061-TC; 80076-TC; 80150; 80202-TC; 81000-TC; 83690-TC; 83735-TC; 84100-TC; 84439-TC; 84443-TC; 84703-TC; 85025-TC; 85045-TC; 86403-TC; 87040-TC; 87070-TC; 87081-TC; 87086-TC; 87186-TC; 92526; 92611-TC; 93971-TC; 94799-TC; 97112-TC; 97530-TC; A4216; A4217; A6253; A6403; G0378; J0278; J1650; J1953; J2020; J2060; J2405; J3260; J3475; J7030; J7060

== ENCOUNTER 2019-09-19 22:46 | Inpatient (IN) | payer MEDICARE, OTHER ==
[~2019-09-19] VITALS: Ht 160 cm; Wt 90.3 kg
[~2019-09-19 22:46] MED LIST changes: +ALBU18HF2 PO; -DOXY100T2 PO; +ESCI10TA PO; +GABA600T12 PO; -SODI473S8 TOP
[2019-09-19] MEDS ORDERED: IV NS 0.9% 1,000 ML BAG IV ONE (23:00)
[2019-09-19] MEDS ORDERED: ACETAMINOPHEN ES 500 MG TABLET PO ONE (23:00)
--- NOTE | 2019-09-19 23:00 | NUR ---
PT CAME TO ER BED 8 C/O FEVER. PT HX OF MULTIPLE SCLEROSIS AND IS BED BOUND. AAOX4. NO SOB. BREATHING EVENLY AND UNLABORED ON ROOM AIR. DECUBITUS ULCER ON THE COCCYX REGION. CONNECTED TO MONITOR.
[2019-09-19] MEDS ORDERED: ACETAMINOPHEN ES 500 MG TABLET ONE (23:03)
[2019-09-19] MEDS ORDERED: CEFTRIAXONE 1 G in IV D5W 50 ML IV ONE (23:30)
[2019-09-19 23:57] LABS: BASOPHILS % (AUTO) 0.2 % (0.0-2.0); EOSINOPHILS % (AUTO) 0.1 % (0.0-6.0); HEMATOCRIT 43 % (33-45); HEMOGLOBIN 14.2 g/dL (11.5-14.8); LYMPHOCYTES # (AUTO) 2.6 /CMM (0.8-4.8); LYMPHOCYTES % (AUTO) 16.2 % (20.0-44.0); MEAN CORPUSCULAR HGB CONC 33 g/dl (31.0-36.0); MEAN CORPUSCULAR VOLUME 87 fL (82-100); MONOCYTES # (AUTO) 1.2 /CMM (0.1-1.30); MONOCYTES % (AUTO) 7.7 % (2.0-12.0); NEUTROPHILS % (AUTO) 75.8 % (43.0-81.0); PLATELET COUNT (AUTO) 325 /CMM (150-450); RED BLOOD CELL COUNT(AUTO) 4.94 MIL/uL (4.0-5.2); WHITE BLOOD COUNT (AUTO) 15.9 K/uL (4.3-11.0)
[2019-09-19 23:59] LABS: APPEARANCE,URINE Cloudy (CLEAR); BILIRUBIN,URINE Negative (NEGATIVE); BLOOD, URINE Trace-intact Ery/uL (NEGATIVE); COLOR,URINE Yellow (YELLOW); KETONES,URINE Trace (NEGATIVE); LEUKOCYTE ESTERASE ,URINE Large (NEGATIVE); NITRITE, URINE Positive (NEGATIVE); PROTEIN,URINE 30 mg/dl (NEGATIVE); UGLUCOSE Negative (NEGATIVE); UROBILINOGEN,URINE 0.2 EU/dL (0.2)
[2019-09-20 00:02] LABS: CALCIUM, SERUM 8.9 mg/dL (8.5-10.1); CARBON DIOXIDE 27 mmol/L (21-32); CHLORIDE 105 mmol/L (98-107); CREATININE 0.8 mg/dL (0.6-1.3); GLUCOSE 169 mg/dL (74-106); POTASSIUM 4.1 mmol/L (3.5-5.1); SODIUM SERUM 142 mmol/L (136-145); UREA NITROGEN, BLOOD 14 mg/dL (7-18)
[2019-09-20] MEDS ORDERED: CEFTRIAXONE 1 G VIAL ONE (00:14)
[2019-09-20] MEDS ORDERED: CEFTRIAXONE 1GM BAG (ER ONLY) 50 ML IV ONE (00:14)
[2019-09-20 00:15] LABS: ALANINE AMINOTRANSFERASE 13 U/L (12-78); ALBUMIN 2.7 g/dL (3.4-5.0); ALKALINE PHOSPHATASE 75 U/L (46-116); ASPARTATE AMINOTRANSFERASE 11 U/L (15-37); BILIRUBIN,TOTAL 0.1 mg/dL (0.2-1.0); TOTAL PROTEIN, SERUM 7.6 g/dL (6.4-8.2)
[2019-09-20 00:38] LABS: BACTERIA,URINE Moderate /HPF (None Seen); RBC,URINE 0-2 /HPF (0-2); SQUAMOUS EPITHELIAL CELL,UR Few /HPF (None Seen); WBC,URINE 21-50 /HPF (0-3)
--- NOTE | 2019-09-20 01:15 | NUR ---
CALLED SUP FOR MS BED.
[2019-09-20] MEDS ORDERED: ZOLPIDEM TARTRATE 5 MG TABLET PO PRN (01:30)
[2019-09-20] MEDS ORDERED: Z GUARD REMEDY 2 OZ OINT TP PRN (01:30)
[2019-09-20] MEDS ORDERED: ONDANSETRON HCL/PF 4 MG/2 ML VIAL IVP PRN (01:30)
[2019-09-20] MEDS ORDERED: HYDROCODONE/APAP 5/325MG 1 EACH TABLET PO PRN (01:30)
[2019-09-20] MEDS ORDERED: MAG HYDROX/AL HYDROX/SIMETH 30 ML UDC PO PRN (01:30)
[2019-09-20] MEDS ORDERED: MAGNESIUM HYDROXIDE 30 ML UDC PO PRN (01:30)
--- NOTE | 2019-09-20 02:04 | NUR ---
REPORT GIVEN TO CASA MCCARTNEY FOR CEDRIC.
[2019-09-20 03:10] VITALS: BP 89/54
--- NOTE | 2019-09-20 03:10 | NUR ---
MS RN ADMITTING NOTES RECEIVED PT FROM ER VIA JUDE IN STABLE CONDITION. PT A/O X3. RESPIRATIONS EVEN AND UNLABORED WITH NO S/S OF ACUTE DISTRESS OR SOB NOTED. NO COMPLAINTS OF PAIN AT THIS TIME. PT NOTED WITH IV ACCESS PICC LINE ON LFA PATENT AND INTACT. PT NOTED WITH FC AND DRAINING WELL. SAFETY MEASURES IN PLACE WITH BED IN LOWEST LOCKED POSITION WITH SIDE RAILS UP X2. ORIENTED PT TO ROOM AND STAFF. CALL LIGHT WITHIN REACH. WILL CONTINUE TO MONITOR.
[2019-09-20] MEDS ORDERED: IV NS 0.9% 1,000 ML BAG IV PRN (04:30)
[2019-09-20] MEDS: IV NS 0.9% 1,000 ML IV PRN ×2 (04:37→17:39)
--- NOTE | 2019-09-20 04:43 | NUR ---
MS RN NOTES PT NOTED WITH DECREASED BP AT 89/54. MD MADE AWARE. NEW ORDER FOR NS 1000ML @7ML/HR PRN. WILL CONTINUE TO MONITOR.
[2019-09-20 05:59] VITALS: BP 96/71
--- NOTE | 2019-09-20 06:43 | NUR ---
MS RN NOTES PT IN BED AND RESTING COMFORTABLY. PT A/O X3. RESPIRATIONS EVEN AND UNLABORED WITH NO S/S OF ACUTE DISTRESS OR SOB NOTED THROUGHOUT SHIFT. NO COMPLAINTS OF PAIN AT THIS TIME. PT KEPT CLEAN, DRY, AND COMFORTABLE. PT TURNED Q2 HOURS THROUGHOUT SHIFT. PT NOTED WITH IV ACCESS PICC LINE ON LFA PATENT AND INTACT INFUSING NS @75CC/HR. PT NOTED WITH FC AND DRAINING WELL. SAFETY MEASURES IN PLACE WITH BED IN LOWEST LOCKED POSITION WITH SIDE RAILS UP X2. CALL LIGHT WITHIN REACH. WILL ENDORSE TO ONCOMING NURSE FOR CEDRIC.
[2019-09-20] MEDS: PANTOPRAZOLE 40 MG TABLET.DR PO SCH (07:30)
--- NOTE | 2019-09-20 07:38 | NUR ---
rn notes Patient received on room air, no sob noted, patient denies pain at ths time. A/o x3 and able to speak. Hutchison remains in place and is draining. PICC line in place and patient is on 75 ml per hour NS. Awaiting for medication recon. Bed at the lowest setting, call light within reach, side rails up x2.
[2019-09-20 08:00] VITALS: BP 132/90
[2019-09-20] MEDS: BACLOFEN (10 MG) 10 MG TABLET PO SCH ×3 (12:15→22:59)
[2019-09-20] MEDS: GABAPENTIN 300 MG CAPSULE PO SCH ×2 (12:15→16:16)
[2019-09-20 16:00] VITALS: BP 128/80
[2019-09-20] MEDS: DIVALPROEX SODIUM 250 MG TABLET.DR PO SCH (16:16)
[2019-09-20] MEDS: ACETAMINOPHEN 325 MG TABLET PO PRN ×2 (16:49→20:11)
[2019-09-20] MEDS ORDERED: DOSING PER PHARMACY-AMIKACI IV XX PRN (17:00)
[2019-09-20] MEDS ORDERED: FEE PK DOSING 1 MIN EA MC ONE (17:55)
[2019-09-20] MEDS: AMIKACIN 400 MG in IV D5W 100 ML IV SCH (18:37)
[2019-09-20] MEDS: LINEZOLID 600 MG TABLET PO SCH (18:54)
--- NOTE | 2019-09-20 19:20 | NUR ---
RN CLOSING NOTES Patient's brady changed, no sob noted, patient remains a/o x4. Patient remains with IVF infusing at this time. All medications given. Bed at the lowest setting, call light within reach, side rails up x2. Will give report to NOC RN for CEDRIC bedside.
--- NOTE | 2019-09-20 19:35 | NUR ---
MS RN OPENING NOTES PATIENT SLEEPING IN BED. A/OX2. PATIENT IS DROWSY, BUT OPENS EYES TO TOUCH. ON ROOM AIR. NO S/S OF ACUTE DISTRESS, BREATHING EVENLY AND UNLABORED. PATIENT DENIES ANY PAIN AT THIS TIME. PICC LINE PRESENT ON LEFT FA, INTACT & PATENT, NS RUNNING AT 75 CC/HR. JEFFERY CATH PRESENT AND DRAINING CLEAR YELLOW URINE. COLOSTOMY PRESENT, SURROUNDING SKIN DRY & INTACT. BED LOCKED, ALARM ON, SIDE RAILS X2, CALL LIGHT WITHIN REACH. WILL CONTINUE TO MONITOR.
[2019-09-20 20:00] VITALS: BP 94/53
--- NOTE | 2019-09-20 20:11 | NUR ---
MS RN NOTES PATIENT'S TEMP 100.6. PRN TYLENOL 650 MG & COLD BED BATH PROVIDED. WILL CONTINUE TO MONITOR PATIENT.
[2019-09-20] MEDS ORDERED: LEVETIRACETAM (250 MG) 250 MG TABLET PO SCH (21:00)
--- NOTE | 2019-09-20 21:00 | NUR ---
MS RN NOTES PATIENT'S TEMP 99.8. WILL CONTINUE TO MONITOR.
--- NOTE | 2019-09-20 21:50 | NUR ---
MS RN NOTES PATIENT'S TEMP 99.1
[2019-09-20 21:52] VITALS: BP 95/58
[2019-09-20] MEDS: ALPRAZOLAM 1 MG TABLET PO SCH (22:00)
[2019-09-20] MEDS ORDERED: NORTRIPTYLINE HCL 10 MG CAPSULE PO SCH (22:00)
--- NOTE | 2019-09-20 22:15 | NUR ---
MS RN NOTES PATIENT'S SCHEDULED KEPPRA 1000MG PO SWITCHED TO IV PER JACINTA YOUNG ORDERS.
[2019-09-20] MEDS ORDERED: CEFTRIAXONE 1 G in IV D5W 50 ML IV SCH (23:00)
[2019-09-20] MEDS ORDERED: LEVETIRACETAM (500MG) 500 MG/5 ML VIAL IV ONE (23:10)
[2019-09-20] MEDS: LEVETIRACETAM (500MG) 1,000 MG in IV NS 0.9% 100 ML IV SCH (23:50)
--- NOTE | 2019-09-20 23:50 | NUR ---
MS RN NOTES KEPPRA 1000MG RETRIEVED BY NURSE TRACK MECHANIC FROM NIGHT LOCKER. MANUAL BARCODE UTILIZED TO SCAN MEDICATION.
--- NOTE | 2019-09-21 04:30 | NUR ---
MS RN NOTES PATIENT'S JEFFERY CATH LEAKING URINE. REINFORCED JEFFERY BALLOON WITH 10ML OF NS.
[2019-09-21] MEDS: ACETAMINOPHEN 325 MG TABLET PO PRN (05:17)
--- NOTE | 2019-09-21 05:17 | NUR ---
MS RN NOTES PATIENT'S VITAL SIGNS - TEMP 103.1 BP 111/60 HR: 119 RR:16 SP02: 100 ON ROOM AIR. COOLING MEASURES IMPLICATED. SIX SIGMA BLACK TRAINER MD NOTIFIED. PER JACINTA YOUNG, GIVE PRN TYLENOL 650MG AND MONITOR PATIENT.
--- NOTE | 2019-09-21 06:25 | NUR ---
MS RN NOTES PATIENT'S TEMP 101. WILL CONTINUE TO PROVIDE COOLING MEASURES AND MONITOR PATIENT.
[2019-09-21] MEDS: AMIKACIN 400 MG in IV D5W 100 ML IV SCH ×2 (07:12→17:33)
[2019-09-21 07:13] LABS: BASOPHILS % (AUTO) 0.2 % (0.0-2.0); HEMATOCRIT 38 % (33-45); HEMOGLOBIN 12.5 g/dL (11.5-14.8); LYMPHOCYTES % (AUTO) 10.9 % (20.0-44.0); MEAN CORPUSCULAR HGB CONC 33 g/dl (31.0-36.0); MEAN CORPUSCULAR VOLUME 87 fL (82-100); MONOCYTES # (AUTO) 2.1 /CMM (0.1-1.30); MONOCYTES % (AUTO) 11.2 % (2.0-12.0); NEUTROPHILS # (AUTO) 14.4 /CMM (1.8-8.9); NEUTROPHILS % (AUTO) 77.7 % (43.0-81.0); PLATELET COUNT (AUTO) 212 /CMM (150-450); RED BLOOD CELL COUNT(AUTO) 4.39 MIL/uL (4.0-5.2); WHITE BLOOD COUNT (AUTO) 18.6 K/uL (4.3-11.0)
[2019-09-21 07:23] LABS: CALCIUM, SERUM 8.1 mg/dL (8.5-10.1); CREATININE 0.5 mg/dL (0.6-1.3); MAGNESIUM 1.7 mg/dL (1.8-2.4); PHOSPHORUS 2.5 mg/dL (2.5-4.9); POTASSIUM 3.7 mmol/L (3.5-5.1)
--- NOTE | 2019-09-21 07:30 | NUR ---
MS RN CLOSING NOTES PATIENT SLEEPING IN BED, EASY TO AWAKEN. A/OX2-3. ON ROOM AIR. NO S/S OF SOB AND NO COMPLAINTS OF PAIN AT THIS TIME. COOLING MEASURES IN PLACE TO REDUCE PATIENT'S TEMPERATURE. IV LINE PRESENT ON LEFT FA, SIZE 20, INTACT & PATENT. JEFFERY CATH PRESENT AND DRAINING WELL WITH CLEAR YELLOW URINE. OSTOMY SITE INTACT. BED LOCKED, SEIZURE PRECAUTIONS IN PLACE, SIDE RAILS X2, CALL LIGHT WITHIN REACH. WILL ENDORSE TO DAY SHIFT NURSE TO FOLLOW PLAN OF CARE.
--- NOTE | 2019-09-21 07:40 | NUR ---
MS RN OPENING NOTES RECEIVED PT IN BED, ASLEEP, EASILY AROUSED, A/O X2-3. PT TOLERATING RA, WITH NO ACUTE RESPIRATORY DISTRESS NOTED. PT DENIES ANY PAIN OR DISCOMFORT AT THIS TIME. ALSO, PT DENIES ANY CONCERNS OR QUESTIONS. IVF NS AT 75ML/HR TO L ARM PORT-A-CATH, INTACT AND FLUID INFUSING WELL. PT KEPT COMFORTABLE IN BED. PT'S BED IN LOWEST, LOCKED POSITION WITH SR X3. WILL CONTINUE PLAN OF CARE.
[2019-09-21 08:13] VITALS: BP 89/47
[2019-09-21] MEDS: PANTOPRAZOLE 40 MG TABLET.DR PO SCH (08:36)
[2019-09-21] MEDS: GABAPENTIN 300 MG CAPSULE PO SCH ×3 (08:36→17:33)
[2019-09-21] MEDS: BACLOFEN (10 MG) 10 MG TABLET PO SCH ×4 (08:36→20:09)
[2019-09-21] MEDS: LINEZOLID 600 MG TABLET PO SCH ×2 (08:36→20:09)
[2019-09-21] MEDS: DIVALPROEX SODIUM 250 MG TABLET.DR PO SCH ×2 (08:36→17:32)
[2019-09-21] MEDS: IV NS 0.9% 1,000 ML IV PRN (08:52)
[2019-09-21] MEDS ORDERED: DULOXETINE HCL 20 MG CAPSULE.DR PO SCH (09:00)
[2019-09-21] MEDS ORDERED: ESCITALOPRAM OXALATE (10 MG) 10 MG TABLET PO SCH (09:00)
[2019-09-21] MEDS ORDERED: Glatiramer Acetate (Copaxone) 40 MG SQ SCH (09:00)
[2019-09-21] MEDS: Magnesium 1GM/D5W 100ML PREMIX 100 ML IV SCH ×2 (09:54→10:49)
[2019-09-21] MEDS: LEVETIRACETAM (500MG) 1,000 MG in IV NS 0.9% 100 ML IV SCH ×2 (11:48→22:06)
--- NOTE | 2019-09-21 11:48 | NUR ---
Social service consult requested by MD for continuation of care. Per chart review and MD notes, pt is a 44-year-old female with past medical history of multiple sclerosis, essential hypertension, history of [place], asthma, decubitus ulcers, who presented to the emergency department from home with complaint of generalized body weakness and not feeling well for the past 7 days. TANK SHOP SUPERVISOR met with the pt bedside. TANK SHOP SUPERVISOR is familiar with the pt from previous admissions. Pt is alert and oriented x 3. Pt appears lethargic. Pt reports she resides with her boyfriend/caregiver Isaak in an apartment in [place]. Pt's boyfriend Isaak is her [facility] caregiver as well. Pt states, that Isaak is very helpful and " does everything for me." Pt is dependent for her ADLS and needs assistance. TANK SHOP SUPERVISOR on last admission on 05/2019 had filed an APS report for self-neglect. Pt receives SSDI per month. No other social service needs are requested at this time. TANK SHOP SUPERVISOR is available, if needed.
[2019-09-21] MEDS: HYDROGEL DRESSING 90 GM TUBE TP SCH (13:45)
[2019-09-21] MEDS: Z GUARD REMEDY 2 OZ OINT TP SCH (13:46)
[2019-09-21 16:42] VITALS: BP 122/77
--- NOTE | 2019-09-21 18:45 | NUR ---
MS RN CLOSING NOTES PT IN BED, AWAKE, A/O X2-3. PT TOLERATING RA, WITH NO ACUTE RESPIRATORY DISTRESS NOTED. PT DENIES ANY PAIN OR DISCOMFORT AT THIS TIME. IVF NS AT 75ML/HR TO L ARM PORT-A-CATH, INTACT AND FLUID INFUSING WELL. PT KEPT COMFORTABLE IN BED. ALL NEEDS AND CARE ATTENDED. PT'S BED IN LOWEST, LOCKED POSITION WITH SR X3. WILL ENDORSE TO INCOMING TANK SETTER HELPER NURSE FOR CEDRIC.
--- NOTE | 2019-09-21 19:37 | NUR ---
MS/RN OPENING NOTES RECEIVED PATIENT IN BED, AWAKE, ALERT X3, ABLE TO VERBALIZE NEEDS, HOB ELEVATED, SKIN WARM TO TOUCH, PROVIDED FLUIDS, REQUIRE ASSISTANCE IN EATING. RESPIRATIONS EVEN AND UNLABORED. RECEIVED ENDORSEMENT FROM AM RN FOR CEDRIC. BED LOCKED, CALL LIGHTS WITHIN REACH. WATCHING TV. IV SITE ON LFA. IV NS INFUSING AT 75 ML/HR.
[2019-09-21 19:58] VITALS: BP 120/91
[2019-09-21 20:08] VITALS: BP 120/91
[2019-09-21] MEDS: ALPRAZOLAM 1 MG TABLET PO SCH (21:03)
--- NOTE | 2019-09-21 21:34 | NUR ---
MS/RN NOTES PATIENT PROVIDED SOME SNACKS, HOB ELEVATED, DISCUSSED PLAN OF CARE, ABLE TO SWALLOW PILLS AND ATE SOME APPLE SAUCE. SCHEDULED ATIVAN GIVEM TOLERATED, PATIENT ABLE TO VERBALIZE NEEDS.
--- NOTE | 2019-09-21 22:44 | NUR ---
MS/RN NOTES [facility]CI MATTRESS WAS DELIVERED, PATIENT WAS MADE AWARE AND DISCUSSED IMPORTANCE, REFUSE AT THIS TIME, TO FOLLOW UP AGAIN/
[2019-09-22] MEDS: IV NS 0.9% 1,000 ML IV PRN ×2 (03:32→17:41)
[2019-09-22] MEDS: AMIKACIN 400 MG in IV D5W 100 ML IV SCH ×2 (05:55→18:37)
--- NOTE | 2019-09-22 06:20 | NUR ---
319-1/MS/RN NOTES PATIENT ABLE TO VERBALIZE NEEDS, REPOSITIONED FOR COMFORT, OFF LOAN EXTREMITIES, IV FLUIDS INFUISNG AT 75 ML/HR, JEFFERY CATHETER DRAINING YELLOW COLORED URINE, COLOSTOMY BAG PLACED. ATTENDED TO ALL NEEDS. WILL ENDORSE TO AM RN FOR CEDRIC.. SAFETY PRECAUTIONS FOR SEIZURE PLACED.
--- NOTE | 2019-09-22 06:22 | NUR ---
MS/RN NOTES/KCI MATTRESS PLACED PER WOUND CONSULT ORDER.
[2019-09-22 08:00] VITALS: BP 88/67
[2019-09-22] MEDS: PANTOPRAZOLE 40 MG TABLET.DR PO SCH (08:15)
[2019-09-22] MEDS: BACLOFEN (10 MG) 10 MG TABLET PO SCH ×4 (08:22→20:37)
[2019-09-22] MEDS: LINEZOLID 600 MG TABLET PO SCH (08:22)
[2019-09-22] MEDS: DIVALPROEX SODIUM 250 MG TABLET.DR PO SCH ×2 (08:22→16:51)
[2019-09-22] MEDS: GABAPENTIN 300 MG CAPSULE PO SCH ×3 (08:22→16:51)
[2019-09-22] MEDS: HYDROGEL DRESSING 90 GM TUBE TP SCH (08:23)
[2019-09-22] MEDS: Z GUARD REMEDY 2 OZ OINT TP SCH (08:23)
[2019-09-22 08:24] LABS: CALCIUM, SERUM 8.7 mg/dL (8.5-10.1); CREATININE 0.5 mg/dL (0.6-1.3); MAGNESIUM 2.1 mg/dL (1.8-2.4); PHOSPHORUS 3.3 mg/dL (2.5-4.9); POTASSIUM 3.5 mmol/L (3.5-5.1)
[2019-09-22 10:30] VITALS: BP 109/65
--- NOTE | 2019-09-22 10:30 | NUR ---
MS RN NOTES STUDENT OF RUCHI/TOMEKA MADE AROUND AND AWARE OF PT'S CONCERN ABOUT RIGHT EAR. PICTURE TAKEN PLACED IN THE CHART. LW INFORMED WELL, AWAITING FOR RESPONSE.
[2019-09-22] MEDS: LEVETIRACETAM (500MG) 1,000 MG in IV NS 0.9% 100 ML IV SCH ×2 (10:33→23:59)
--- NOTE | 2019-09-22 11:16 | NUR ---
WOUND CARE CONSULT WOUND CARE RECEIVED CONSULT FOR SACRAL DECUB. WOUND CARE WILL DEFER CONSULT AND ALL TREATMENT PLANS TO PLASTIC SURGICAL TEAM WHO ARE CURRENTLY FOLLOWING THIS PATIENT. PATIENT WITH PABLO OF 13, ALL PRESSURE ULCER PREVENTION MEASURES ARE NOTED TO BE IN PLACE. WILL SEE PRN.
--- NOTE | 2019-09-22 11:49 | NUR ---
MS RN NOTES SEEN AND EVALUATED BY LW. HOSPITALIST AWARE OF PT'S COMPLAIN ABOUT RIGHT EAR PAIN. NO NEW ORDERS AT THIS TIME. LW ADVISED TO LEAVE IT ALONE, NO PICKING WELL. PT ON ANTIBIOTIC, IT SHOULD HELP WELL. PT UNDERSTOOD AND OKAY WITH IT. WILL CONTINUE TO MONITOR.
[2019-09-22 14:44] LABS: BASOPHILS % (AUTO) 0.3 % (0.0-2.0); EOSINOPHILS % (AUTO) 1.2 % (0.0-6.0); HEMATOCRIT 37 % (33-45); MEAN CORPUSCULAR HGB CONC 33 g/dl (31.0-36.0); MEAN CORPUSCULAR VOLUME 88 fL (82-100); MONOCYTES # (AUTO) 0.8 /CMM (0.1-1.30); MONOCYTES % (AUTO) 7.9 % (2.0-12.0); NEUTROPHILS # (AUTO) 5.8 /CMM (1.8-8.9); NEUTROPHILS % (AUTO) 59.6 % (43.0-81.0); PLATELET COUNT (AUTO) 248 /CMM (150-450); RED BLOOD CELL COUNT(AUTO) 4.19 MIL/uL (4.0-5.2); WHITE BLOOD COUNT (AUTO) 9.8 K/uL (4.3-11.0)
[2019-09-22 16:00] VITALS: BP 119/83
--- NOTE | 2019-09-22 18:07 | NUR ---
MS RN NOTES PT REFUSE CT OF HEAD AT THIS TIME. PT PREFERS FOR IT TO BE DONE TOMORROW. RISKS AND BENEFITS EXPLAINED. PT INSISTED TO REFUSE. ORDERING MD/HOSPITALIST MADE AWARE.
--- NOTE | 2019-09-22 19:06 | NUR ---
MS RN CLOSING NOTES PT REMAINS IN BED, ASLEEP, EASILY AROUSED, A/O X2-3. PT TOLERATING RA, WITH NO ACUTE RESPIRATORY DISTRESS NOTED. PT DENIES ANY PAIN OR DISCOMFORT AT THIS TIME. IVF NS AT 75ML/HR TO L ARM PORT-A-CATH, INTACT AND FLUID INFUSING WELL. PT KEPT COMFORTABLE IN BED. ALL NEEDS AND CARE ATTENDED. PT'S BED IN LOWEST, LOCKED POSITION WITH SR X3. WILL ENDORSE TO INCOMING STUDIO MANAGER NURSE FOR CEDRIC. CONTINUE PLAN OF CARE.
--- NOTE | 2019-09-22 19:30 | NUR ---
MS RN PM OPENING NOTES BEDSIDE REPORT RECIEVED FROM FRANKIE MCCARTNEY. PT IN BED, A/O X2-3. PT TOLERATING RA, WITH NO ACUTE RESPIRATORY DISTRESS NOTED BREATHING EVEN AND REGULAR. PT DENIES ANY PAIN OR DISCOMFORT AT THIS TIME. IVF NS AT 75ML/HR TO L ARM PORT-A-CATH, INTACT AND FLUID INFUSING BED IN LOWEST, LOCKED POSITION WITH SR X3. WILL CONTINUE TO MONITOR.
[2019-09-22 20:00] VITALS: BP 105/81
--- NOTE | 2019-09-22 21:15 | NUR ---
iv arm found to be swollen when compared to right arm area around permacath feels hard and edematous to touch. edema plus 3 non pitting. comparison right arm is edematous plus 1 with no pitting. ivf stopped. left arm elevated on two pillows.
--- NOTE | 2019-09-22 22:45 | NUR ---
attempted iv insertion x2 and was unsusscessful. will try to see if other nurse could attempt new insertion .
[2019-09-22] MEDS: ALPRAZOLAM 1 MG TABLET PO SCH (23:11)
--- NOTE | 2019-09-22 23:45 | NUR ---
new iv started by jay vazquez to right forearm 22 gauged flushing well with positive blood return. permacath access removed and dressing applied. left arm still elevated on 2 pillows.
[2019-09-23] MEDS: AMIKACIN 400 MG in IV D5W 100 ML IV SCH ×2 (05:27→17:00)
--- NOTE | 2019-09-23 06:30 | NUR ---
MS RN PM CLOSING NOTES PT IN BED, A/O X2-3. PT TOLERATING RA, WITH NO ACUTE RESPIRATORY DISTRESS NOTED BREATHING EVEN AND REGULAR. PT DENIES ANY PAIN OR DISCOMFORT AT THIS TIME. IVF NS AT 75ML/HR TO RIGHT FORE ARM 22 GAUGE NO S/S OF INFILTRATION, INTACT AND FLUID INFUSING BED IN LOWEST, LOCKED POSITION WITH SR X3.
[2019-09-23 07:45] LABS: BASOPHILS % (AUTO) 0.4 % (0.0-2.0); EOSINOPHILS % (AUTO) 3.2 % (0.0-6.0); HEMATOCRIT 36 % (33-45); HEMOGLOBIN 12.2 g/dL (11.5-14.8); LYMPHOCYTES # (AUTO) 2.6 /CMM (0.8-4.8); LYMPHOCYTES % (AUTO) 30.7 % (20.0-44.0); MEAN CORPUSCULAR HGB CONC 34 g/dl (31.0-36.0); MEAN CORPUSCULAR VOLUME 87 fL (82-100); MONOCYTES # (AUTO) 0.7 /CMM (0.1-1.30); NEUTROPHILS # (AUTO) 4.8 /CMM (1.8-8.9); NEUTROPHILS % (AUTO) 57.7 % (43.0-81.0); PLATELET COUNT (AUTO) 289 /CMM (150-450); RED BLOOD CELL COUNT(AUTO) 4.16 MIL/uL (4.0-5.2); WHITE BLOOD COUNT (AUTO) 8.4 K/uL (4.3-11.0)
--- NOTE | 2019-09-23 07:58 | NUR ---
MS RN NOTES PATIENT RECEIVED IN BED RESTING. CONTACT PRECAUTIONS IN PLACE. EASILY AWAKEN BY NAME AND LIGHT TOUCH. ALERT AND ORIENTED X 2/3. PATIENT ON ROOM AIR, WITH NO SIGNS OF SOB OR RESPIRATORY DISTRESS PRESENT, WITH NON-LABORED, EVEN BREATHING. PATIENT SKIN DRY, INTACT, AND WARM. IV ACCESS IN PLACE, INTACT AND PATENT. JEFFERY CATHETER IN PLACE WITH CLEAR AND YELLOW URINE. PROVIDED COMFORT MEASURES TO THE PATIENT. SAFETY PRECAUTIONS IN PLACE, WITH BED IN THE LOWEST POSITION, BED LOCKED, BED ALARM ON, BILATERAL SIDE RAILS UP, AND CALL LIGHT WITHIN EASY REACH. WILL CONTINUE TO MONITOR PATIENT.
[2019-09-23 08:00] VITALS: BP 118/64
[2019-09-23 08:03] LABS: CALCIUM, SERUM 8.5 mg/dL (8.5-10.1); CREATININE 0.4 mg/dL (0.6-1.3); MAGNESIUM 1.9 mg/dL (1.8-2.4); PHOSPHORUS 4.2 mg/dL (2.5-4.9); POTASSIUM 3.4 mmol/L (3.5-5.1)
[2019-09-23] MEDS: GABAPENTIN 300 MG CAPSULE PO SCH ×3 (09:07→16:59)
[2019-09-23] MEDS: BACLOFEN (10 MG) 10 MG TABLET PO SCH ×4 (09:07→21:38)
[2019-09-23] MEDS: PANTOPRAZOLE 40 MG TABLET.DR PO SCH (09:07)
[2019-09-23] MEDS: DIVALPROEX SODIUM 250 MG TABLET.DR PO SCH ×2 (09:07→16:59)
[2019-09-23] MEDS: LEVETIRACETAM (250 MG) 250 MG TABLET PO SCH ×2 (09:08→21:38)
[2019-09-23] MEDS: HYDROGEL DRESSING 90 GM TUBE TP SCH (09:31)
[2019-09-23] MEDS: Z GUARD REMEDY 2 OZ OINT TP SCH (09:31)
--- NOTE | 2019-09-23 11:14 | NUR ---
MS RN NOTES PATIENT SEEN AND EXAMINED BY SHELBY BRINK NP. WITH NEW ORDER FOR LEFT UPPER ARM VENOUS DOPPLER TO R/O DVT. ORDER NOTED AND CARRIED OUT. WILL CONTINUE TO MONITOR
[2019-09-23] MEDS ORDERED: POTASSIUM CHLORIDE 20 MEQ TAB.PRT.SR PO SCH (12:00)
[2019-09-23 16:00] VITALS: BP 121/62
--- NOTE | 2019-09-23 18:11 | NUR ---
MS RN NOTES PATIENT IN BED, EASILY AWAKEN BY NAME AND LIGHT TOUCH. CONTACT PRECAUTIONS IN PLACE. ALERT AND ORIENTED X 3. PATIENT ON ROOM AIR NO RESPIRATORY DISTRESS PRESENTS, NO SIGNS OF SOB, AND WITH EVEN NON-LABORED BREATHING. PATIENTS JEFFERY CATHETER IN PLACE WITH CLEAR. YELLOW URINE OUTPUT. COLOSTOMY IN PLACE AND KEPT DRY. PATIENT IV ACCESS INTACT AND PATENT. PATIENT SKIN DRY AND WARM, AND NO NEW SKIN BREAKDOWNS. PATIENT KEPT CLEAN AND DRY. PROVIDED COMFORT MEASURES TO PATIENT. SAFETY PRECAUTIONS IN PLACE, WITH BED IN THE LOWEST POSITION, BED LOCKED, BED ALARM ON, BILATERAL SIDE RAILS UP, AND CALL LIGHT WITH IN EASY REACH. WILL ENDORSE CEDRIC TO UPCOMING NURSE.
--- NOTE | 2019-09-23 19:15 | NUR ---
MS RN NOTES BEDSIDE REPORT RECIEVED FROM VIELKA RN. PATIENT IN BED, EASILY AWAKEN BY NAME AND LIGHT TOUCH. CONTACT PRECAUTIONS IN PLACE FOR ESBL IN URINE. ALERT AND ORIENTED X 3. PATIENT ON ROOM AIR NO RESPIRATORY DISTRESS PRESENTS, NO SIGNS OF SOB, AND WITH EVEN NON-LABORED BREATHING. PATIENTS JEFFERY CATHETER IN PLACE WITH CLEAR. YELLOW URINE OUTPUT. COLOSTOMY BAG INTACT. PATIENT IV ACCESS INTACT AND PATENT TO LEFT FA 22 GAUGE. SAFETY PRECAUTIONS IN PLACE, WITH BED IN THE LOWEST POSITION, BED LOCKED, BED ALARM ON, SRX3, AND CALL LIGHT WITH IN REACH. SKIN PRECAUTION TURNING SCHEDULE AND PT ON AIR MATTRESS. WILL CONTINUE TO MONITOR.
[2019-09-23 20:00] VITALS: BP 114/68
[2019-09-23] MEDS: ALPRAZOLAM 1 MG TABLET PO SCH (21:39)
[2019-09-24] MEDS: AMIKACIN 400 MG in IV D5W 100 ML IV SCH ×2 (06:02→18:05)
--- NOTE | 2019-09-24 06:49 | NUR ---
MS RN NOTES PATIENT IN BED, awake axo x3 . CONTACT PRECAUTIONS still IN PLACE FOR ESBL IN URINE. ALERT AND ORIENTED X 3. PATIENT ON ROOM AIR NO RESPIRATORY DISTRESS PRESENTS, NO SIGNS OF SOB, AND WITH EVEN NON-LABORED BREATHING. PATIENTS JEFFERY CATHETER STILL IN PLACE WITH CLEAR. YELLOW URINE OUTPUT. COLOSTOMY BAG INTACT. PATIENT IV ACCESS INTACT AND PATENT TO LEFT FA 22 GAUGE. SAFETY PRECAUTIONS IN PLACE, WITH BED IN THE LOWEST POSITION, BED LOCKED, BED ALARM ON, SRX3, AND CALL LIGHT WITH IN REACH WILL EDNORSE POC TO DAY SHIFT RN.
[2019-09-24 07:32] LABS: CALCIUM, SERUM 8.7 mg/dL (8.5-10.1); CREATININE 0.3 mg/dL (0.6-1.3); MAGNESIUM 1.9 mg/dL (1.8-2.4); PHOSPHORUS 3.6 mg/dL (2.5-4.9); POTASSIUM 3.9 mmol/L (3.5-5.1)
--- NOTE | 2019-09-24 07:46 | NUR ---
MS RN NOTES PATIENT RECEIVED IN BED SLEEPING, EASILY AWAKEN BY NAME AND LIGHT TOUCH. ALERT AND ORIENTED X 3. PATIENT ON CONTACT PRECAUTION FOR ESBL, URINE. PATIENT ON ROOM AIR, NO SIGNS OF RESPIRATORY DEPRESSIONS, WITH EVEN NON-LABORED BREATHING. PATIENT SKIN CLEAN AND DRY. IV ACCESS IN PLACE, PATENT, AND INTACT. JEFFERY CATHETER IN PLACE WITH CLEAR YELLOW URINE OUTPUT. COLOSTOMY BAG IN PLACE, SITE CLEAN, DRY, AND NO LEAKAGE PRESENT. PROVIDED COMFORT MEASURES FOR PATIENT. INITIATED SAFETY PRECAUTIONS WITH BED IN THE LOWEST POSITION, BED ALARM ON, BED LOCKED, BILATERAL SIDE RAILS UP, BED IN SEMI-FOWLERS POSITION AND CALL LIGHT WITHIN EASY REACH. WILL CONTINUE TO MONITOR PATIENT.
[2019-09-24 08:00] VITALS: BP 126/69
[2019-09-24 08:34] LABS: BASOPHILS % (AUTO) 0.4 % (0.0-2.0); EOSINOPHILS % (AUTO) 1.8 % (0.0-6.0); HEMATOCRIT 36 % (33-45); HEMOGLOBIN 11.8 g/dL (11.5-14.8); LYMPHOCYTES # (AUTO) 3.1 /CMM (0.8-4.8); LYMPHOCYTES % (AUTO) 33.4 % (20.0-44.0); MEAN CORPUSCULAR HGB CONC 33 g/dl (31.0-36.0); MEAN CORPUSCULAR VOLUME 87 fL (82-100); MONOCYTES # (AUTO) 0.8 /CMM (0.1-1.30); MONOCYTES % (AUTO) 8.7 % (2.0-12.0); NEUTROPHILS # (AUTO) 5.2 /CMM (1.8-8.9); NEUTROPHILS % (AUTO) 55.7 % (43.0-81.0); PLATELET COUNT (AUTO) 291 /CMM (150-450); RED BLOOD CELL COUNT(AUTO) 4.13 MIL/uL (4.0-5.2); WHITE BLOOD COUNT (AUTO) 9.4 K/uL (4.3-11.0)
[2019-09-24] MEDS: LEVETIRACETAM (250 MG) 250 MG TABLET PO SCH ×2 (09:24→21:25)
[2019-09-24] MEDS: DIVALPROEX SODIUM 250 MG TABLET.DR PO SCH ×2 (09:24→17:04)
[2019-09-24] MEDS: GABAPENTIN 300 MG CAPSULE PO SCH ×3 (09:24→17:04)
[2019-09-24] MEDS: PANTOPRAZOLE 40 MG TABLET.DR PO SCH (09:24)
[2019-09-24] MEDS: BACLOFEN (10 MG) 10 MG TABLET PO SCH ×4 (09:24→21:25)
[2019-09-24] MEDS: Z GUARD REMEDY 2 OZ OINT TP SCH (09:25)
[2019-09-24] MEDS: HYDROGEL DRESSING 90 GM TUBE TP SCH (09:37)
[2019-09-24 16:00] VITALS: BP 124/72
--- NOTE | 2019-09-24 18:26 | NUR ---
MS RN NOTES PATIENT IN BED RESTING, EASILY AROUSED BY NAME AND LIGHT TOUCH. PATIENT ON CONTACT PRECAUTION FOR ESBL. PATIENT ALERT AND ORIENTED X 3. PATIENT ON ROOM AIR, NO RESPIRATORY DISTRESS PRESENT, NO SIGNS OF SOB, WITH EVEN NON-LABORED BREATHING. PATIENT SKIN KEPT CLEAN AND DRY. IV ACCESS INTACT AND PATENT. JEFFERY CATHETER IN PLACE, WITH CLEAR AND YELLOW URINE. COLOSTOMY IN PLACE, NO SIGNS OF DRAINAGE OR LEAKAGE, SITE KEPT CLEAN AND DRY. PROVIDED COMFORT MEASURES FOR PATIENTS. PATIENT PRESENTS AND STATES NO DISCOMFORT OR PAIN. SAFETY PRECAUTIONS IN PLACE WITH BED IN THE LOWEST POSITION, BED LOCKED, BED ALARM ON, BILATERAL SIDE RAILS UP, AND CALL LIGHT WITHIN EASY REACH. WILL ENDORSE CEDRIC TO UPCOMING NIGHTSHIFT NURSE.
--- NOTE | 2019-09-24 19:30 | NUR ---
MS RN OPENING NOTES PATIENT SLEEPING IN BED, EASY TO AWAKEN. A/O X3. ABLE TO VERBALIZE NEEDS. ON ROOM AIR. NO S/S OF SOB AND NO COMPLAINTS OF PAIN AT THIS TIME. IV PRESENT ON RIGHT FA, SIZE 22, INTACT & PATENT, WITH NS RUNNING AT 75 CC/HR. JEFFERY CATH INTACT AND DRAINING WELL, 350 CC CLEAR YELLOW URINE PRESENT. CONTACT PRECAUTIONS IN PLACE FOR ESBL URINE. BED LOCKED, ALARM ON, SIDE RAILS X2, CALL LIGHT WITHIN REACH. WILL CONTINUE TO MONITOR.
[2019-09-24 20:00] VITALS: BP 130/94
[2019-09-24] MEDS: IV NS 0.9% 1,000 ML IV PRN (20:54)
[2019-09-24] MEDS: ALPRAZOLAM 1 MG TABLET PO SCH (21:25)
[2019-09-25] MEDS: AMIKACIN 400 MG in IV D5W 100 ML IV SCH ×2 (06:31→18:22)
--- NOTE | 2019-09-25 07:54 | NUR ---
MS RN CLOSING NOTES PATIENT ASLEEP IN BED, EASY TO AWAKEN. A/O X3. ON ROOM AIR. NO S/S OF SOB AND NO COMPLAINTS OF PAIN. IV ON RIGHT FA SIZE 22 REMAINS INTACT & PATENT WITH NS RUNNING AT 75 CC/HR. JEFFERY CATH INTACT & PATENT, DRAINING CLEAR YELLOW URINE. BED LOCKED, SIDE RAILS X2, CALL LIGHT WITHIN REACH. WILL ENDORSE TO DAY SHIFT NURSE PLAN OF CARE.
[2019-09-25 07:55] LABS: BASOPHILS % (AUTO) 0.3 % (0.0-2.0); EOSINOPHILS % (AUTO) 2.1 % (0.0-6.0); HEMATOCRIT 40 % (33-45); HEMOGLOBIN 12.8 g/dL (11.5-14.8); LYMPHOCYTES # (AUTO) 3.8 /CMM (0.8-4.8); LYMPHOCYTES % (AUTO) 36.1 % (20.0-44.0); MEAN CORPUSCULAR HGB CONC 32 g/dl (31.0-36.0); MEAN CORPUSCULAR VOLUME 88 fL (82-100); MONOCYTES # (AUTO) 0.9 /CMM (0.1-1.30); NEUTROPHILS # (AUTO) 5.5 /CMM (1.8-8.9); NEUTROPHILS % (AUTO) 52.5 % (43.0-81.0); PLATELET COUNT (AUTO) 308 /CMM (150-450); RED BLOOD CELL COUNT(AUTO) 4.49 MIL/uL (4.0-5.2); WHITE BLOOD COUNT (AUTO) 10.5 K/uL (4.3-11.0)
[2019-09-25 08:00] VITALS: BP 132/72
--- NOTE | 2019-09-25 08:00 | NUR ---
MS RN OPENING NOTES Received Patient asleep and resting in bed. A/O x 3. VS stable with no acute distress. Breathing even and unlabored on room air with no respiratory distress. Denies pain. No signs and symptoms of pain. Hutchison Cath in place and patent with clear yellow output noted. Colostomy in place and patent. 22g PIV on RFA clean, intact, patent and flushing well with NS infusing at 75ml/hr. LFA Portacath in place. Safety precautions in place. Bed locked and set to lowest position with side rails x 2 up. All needs rendered at this time. Call light within reach. Will continue to monitor.
[2019-09-25] MEDS: PANTOPRAZOLE 40 MG TABLET.DR PO SCH (09:01)
[2019-09-25] MEDS: BACLOFEN (10 MG) 10 MG TABLET PO SCH ×4 (09:01→21:14)
[2019-09-25] MEDS: LEVETIRACETAM (250 MG) 250 MG TABLET PO SCH ×2 (09:01→21:14)
[2019-09-25] MEDS: DIVALPROEX SODIUM 250 MG TABLET.DR PO SCH ×2 (09:01→18:21)
[2019-09-25] MEDS: Z GUARD REMEDY 2 OZ OINT TP SCH (09:02)
[2019-09-25] MEDS: HYDROGEL DRESSING 90 GM TUBE TP SCH (09:02)
[2019-09-25] MEDS: GABAPENTIN 300 MG CAPSULE PO SCH ×3 (09:03→18:21)
[2019-09-25 16:00] VITALS: BP 114/77
[2019-09-25] MEDS: IV NS 0.9% 1,000 ML IV PRN (18:28)
[2019-09-25 18:35] LABS: CALCIUM, SERUM 8.7 mg/dL (8.5-10.1); CREATININE 0.5 mg/dL (0.6-1.3); MAGNESIUM 1.7 mg/dL (1.8-2.4); PHOSPHORUS 3.8 mg/dL (2.5-4.9); POTASSIUM 3.4 mmol/L (3.5-5.1)
--- NOTE | 2019-09-25 19:05 | NUR ---
MS RN CLOSING NOTES Patient awake and watching TV in bed. A/O x 3. VS stable with no acute distress. Breathing even and unlabored on room air with no respiratory distress. Denies pain. No signs and symptoms of pain. Hutchison Cath in place and patent with clear yellow output noted. Colostomy in place and patent. 22g PIV on RFA clean, intact, patent and flushing well with NS infusing at 75ml/hr. LFA Portacath in place. Safety precautions in place. Bed locked and set to lowest position with side rails x 2 up. All needs rendered at this time. Call light within reach. Will endorse plan of care to oncoming shift.
--- NOTE | 2019-09-25 20:00 | NUR ---
MS RN NOTES RECEIVED PATIENT AWAKE IN BED WITH NO DISTRESS NOTED. CALL LIGHT WITHIN REACH. NO C/O PAIN OR DISCOMFORT. PERIPHERAL LINE INTACT AND PATENT. CONTACT ISOLATION OBSERVED AND MAINTAINED. ENCOURAGED USE OF CALL LIGHT FOR ASSISTANCE AND VERBALIZED GOOD UNDERSTANDING. BED IN LOW LOCK SETTING WITH BED ALARM ON AND FUNCTIONING PROPERLY. ROOM FREE OF CUTTER AND BELONGINGS KEPT NEAR BEDSIDE. PATIENT VERBALIZED GOOD UNDERSTANDING. WILL CONTINUE TO MONITOR.
[2019-09-25 20:36] VITALS: BP 144/78
[2019-09-25] MEDS: ALPRAZOLAM 1 MG TABLET PO SCH (21:14)
[2019-09-25] MEDS ORDERED: POTASSIUM CHLORIDE 20 MEQ TAB.PRT.SR PO ONE (23:00)
[2019-09-25] MEDS ORDERED: MAGNESIUM OXIDE 400 MG TABLET PO ONE (23:00)
--- NOTE | 2019-09-25 23:02 | NUR ---
K+ 3.4, MG 1.7, NA+ 147. SPOKE WITH STEPHANIE ORDER PROCESSING MANAGER WITH NEW ORDERS FOR KCL 20MEQ PO X1, MAG-OXIDE 400MG PO X1, AND HOLD IVF NS. ORDERS READ BACK NOTED AND CARRIED OUT
[2019-09-26] MEDS ORDERED: Magnesium 1GM/D5W 100ML PREMIX PIGGYBACK IV ONE
[2019-09-26] MEDS ORDERED: POTASSIUM CHLORIDE 10 MEQ/50 ML PREMIXED IVPB FOR PERIPHERAL LINE IV SCH ×2
--- NOTE | 2019-09-26 00:09 | NUR ---
PATIENT ASLEEP ABLE TO AROUSE VIA VERBAL AND TACTILE STIMULI. UNABLE TO ADMINISTER PO KCL AND MG. STEPHANIE IT SECURITY CONSULTANT AWARE, WITH ORDERS TO CHANGE TO IV ROUTE.
[2019-09-26 02:29] LABS: ABG BASE EXCESS 6.9 mmol/L; ABG OXYGEN SATURATION 94.2 % (92.0-98.5); ABG PCO2 52.2 mmHg (35.0-45.0); ABG PH 7.416 (7.350-7.450); AaDO2 185.5 mmHg; COHb 0.3 % (0.5-1.5); MetHb 0.4 % (0.0-1.5); O2Hb 93.5 % (94.0-97.0); SITE, ABG Right Radial; VENT MODE, BG 6L NC
--- NOTE | 2019-09-26 02:57 | NUR ---
PATIENT ON RA WITH DESATURATION TO 88%, PLACED ON O2 @ 6LPM VIA NC AND STABLE AT 94-95%. REST OF VITALS WNL. PATIENT LETHARGIC, AROUSES TO VERBAL AND TACTILE STIMULI. STEPHANIE MADE AWARE WITH ORDER FOR STAT ABG. WILL CONTINUE TO MONITOR
--- NOTE | 2019-09-26 03:01 | NUR ---
ABG RESULTS RELAYED TO STEPHANIE WITH NEW ORDER FOR ALBUTEROL 2.5/3ML Q4HRS
[2019-09-26] MEDS: ALBUTEROL FS 2.5 MG/3 ML VIAL.NEB NEB SCH ×5 (03:06→19:30)
[2019-09-26] MEDS: AMIKACIN 400 MG in IV D5W 100 ML IV SCH ×2 (05:08→17:07)
--- NOTE | 2019-09-26 07:03 | NUR ---
MS RN NOTES PATIENT ASLEEP IN BED WITH NO DISTRESS NOTED. CALL LIGHT WITHIN REACH. ALL DUE MEDS GIVEN ORDERED WITH NO ASE. PERIPHERAL LINE INTACT AND PATENT. O2 SAT 94% AT 6LPM. FC INTACT AND PATENT AND DRAINED 600ML YELLOW CLEAR URINE. COLOSTOMY BAG IN PLACE, NO LEAKING NOTED. BED IN LOW LOCK SETTING. ALL BELONGINGS KEPT NEAR BEDSIDE. WILL ENDORSE TO ONCOMING SHIFT.
[2019-09-26 07:30] VITALS: BP 160/81
[2019-09-26] MEDS: PANTOPRAZOLE 40 MG TABLET.DR PO SCH (07:30)
--- NOTE | 2019-09-26 07:30 | NUR ---
RN MS NOTES] PT IN BED, RESTING, EASY TO AROUSE, UNABLE TO SPEAK OR FOLLOW DIRECTIONS, PO MEDS HELD FOR NOW, RESPIRATIONS NORMAL AND NOT LABORED, O2 SAT OF 99% ON 5LPM O2 VIA NASAL CANULA, KEPT HOB ELEVATED, KEPT COMFORTABLE IN BED.
--- NOTE | 2019-09-26 08:30 | NUR ---
RN MS NOTES PT IN BED, AWAKE, NON VERBAL, UNABLE TO OPEN MOUTH OR FOLLOW DIRECTIONS, NO LABORED BREATHING NOTED, RT AT BEDSIDE GIVING BREATHING TREATMENT AND PERFORMING ORAL SUCTIONING, PLACED ON TELE MONITORING, DR. BRINK INFORMED OR PT'S CHANGE OF CONDITION DURING THE NIGHT, ORDERS GIVEN, NOTED AND CARRIED OUT, WILL CONTINUE TO MONITOR PT.
[2019-09-26] MEDS: HYDROGEL DRESSING 90 GM TUBE TP SCH (08:33)
[2019-09-26] MEDS: Z GUARD REMEDY 2 OZ OINT TP SCH (08:33)
[2019-09-26 08:42] LABS: BASOPHILS % (AUTO) 0.1 % (0.0-2.0); EOSINOPHILS % (AUTO) 0.2 % (0.0-6.0); HEMATOCRIT 40 % (33-45); HEMOGLOBIN 13.1 g/dL (11.5-14.8); LYMPHOCYTES # (AUTO) 1.7 /CMM (0.8-4.8); MEAN CORPUSCULAR HGB CONC 33 g/dl (31.0-36.0); MEAN CORPUSCULAR VOLUME 87 fL (82-100); MONOCYTES # (AUTO) 1.2 /CMM (0.1-1.30); MONOCYTES % (AUTO) 8.3 % (2.0-12.0); NEUTROPHILS # (AUTO) 11.6 /CMM (1.8-8.9); NEUTROPHILS % (AUTO) 79.4 % (43.0-81.0); PLATELET COUNT (AUTO) 405 /CMM (150-450); RED BLOOD CELL COUNT(AUTO) 4.62 MIL/uL (4.0-5.2); WHITE BLOOD COUNT (AUTO) 14.6 K/uL (4.3-11.0)
--- NOTE | 2019-09-26 08:47 | NUR ---
MS/RN NOTE RECEIVED ORDER FROM GHAZAL BRINK FOR STST CHEST XRAY. D-DIMER, ABG. NOTED AND CARRIED OUT. ALSO, PER KILN CHARGER THE PATIENT IS PLACED ON NPO. SHERRILL MEEK IS MADE AWARE.
[2019-09-26] MEDS: LEVETIRACETAM (250 MG) 250 MG TABLET PO SCH (08:53)
[2019-09-26] MEDS: BACLOFEN (10 MG) 10 MG TABLET PO SCH ×4 (08:53→21:00)
[2019-09-26] MEDS: DIVALPROEX SODIUM 250 MG TABLET.DR PO SCH ×2 (08:53→17:00)
[2019-09-26] MEDS: GABAPENTIN 300 MG CAPSULE PO SCH ×3 (08:53→17:00)
[2019-09-26 09:02] LABS: CALCIUM, SERUM 9.1 mg/dL (8.5-10.1); CREATININE 0.5 mg/dL (0.6-1.3); MAGNESIUM 1.8 mg/dL (1.8-2.4); POTASSIUM 3.9 mmol/L (3.5-5.1)
[2019-09-26 09:23] LABS: ABG BASE EXCESS 4.2 mmol/L; ABG OXYGEN SATURATION 96.6 % (92.0-98.5); ABG PCO2 48.2 mmHg (35.0-45.0); ABG PH 7.409 (7.350-7.450); ABG PO2 94.6 mmHg (75.0-100.0); AaDO2 84.4 mmHg; MetHb 0.4 % (0.0-1.5); O2Hb 96.2 % (94.0-97.0); SITE, ABG Right Brachial; VENT MODE, BG NASAL CANNULA
--- NOTE | 2019-09-26 10:07 | NUR ---
FARMWORKER FIELD CROP NOTES PT RESTING IN BED, AWAKE, OPENS EYES WHEN NAME IS CALLED, STILL UNABLE TO SPEAK, NOT IN DISTRESS, RESPIRATIONS NORMAL, NO SIGN OF PAIN, NOW ON O2 AT 3LPM VIA NASAL CANULA, O2 SAT OF 99%, ON TELE MONTORING, ST AT 111 BPM, WILL CONTINUE TO MONITOR.
[2019-09-26] MEDS ORDERED: ALBUTEROL FS 2.5 MG/0.5 ML VIAL.NEB NEB PRN (11:00)
[2019-09-26] MEDS: ALBUTEROL FS 2.5 MG/0.5 ML VIAL.NEB NEB SCH ×3 (11:30→20:15)
[2019-09-26] MEDS ORDERED: IPRATROPIUM NEB FS 0.5 MG/2.5 ML AMPUL.NEB NEB PRN (11:30)
[2019-09-26] MEDS: IPRATROPIUM NEB FS 0.5 MG/2.5 ML AMPUL.NEB NEB SCH ×3 (11:30→20:15)
[2019-09-26] MEDS ORDERED: IOHEXOL-300 100 ML VIAL IV ONE (11:37)
[2019-09-26] MEDS ORDERED: IOHEXOL-350 100 ML VIAL IV ONE ×3 (11:37→14:39)
--- NOTE | 2019-09-26 11:58 | NUR ---
MEDICAL EXAMINER NOTES PT SEEN AND EXAMINED BY DR. BRINK, ORDERS GIVEN, NOTED AND CARRIED OUT, CONSENT GIVEN BY PT'S FATHER AJIT FOR CT HEAD WITH CONTRAST AND CT PULMONARY ANGIOGRAPHY, ALSO ORDERED MIDLINE PLACEMENT, E.R. NURSES ATTEMPTED IV INSERTIONS BUT PT IS HARDSTICK, CATALYST OPERATOR CHIEF AWARE.
[2019-09-26 12:00] VITALS: BP 129/75
[2019-09-26] MEDS: ENOXAPARIN SODIUM 40 MG/0.4 ML DISP.SYRIN SQ SCH (12:05)
[2019-09-26] MEDS ORDERED: IV NS 0.9% 250 ML IV ONE (14:39)
[2019-09-26] MEDS ORDERED: CT SWABBABLE VALVE TRANS SET 1 EA INFUS.SET MC ONE (14:39)
--- NOTE | 2019-09-26 18:01 | NUR ---
WATER QUALITY TESTER NOTES PT SEEN AND EXAMINED BY DR. VELASCO, ORDERED TO DISCONTINUE GABAPENTIN AND CHECK DEPAKOTE LEVEL BEFORE THE NEXT DOSE.
--- NOTE | 2019-09-26 19:00 | NUR ---
INFORMATION MANAGEMENT OFFICER NOTES PT IN BED, AWAKE, ALERT TO SELF, TRIES TO MUMBLE WORDS, NOT IN DISTRESS, PM CARE PROVIDED, PM MEDS GIVEN ORDERED, KEPT ON NPO FOR NOW, WOUND TREATMENT AND DRESSING CHANGE DONE, TURNED AND REPOSITIONED, ALL NEEDS ATTENDED.
--- NOTE | 2019-09-26 19:05 | NUR ---
TIN RECOVERY WORKER NOTES PT IN BED, AWAKE, ALERT TO SELF, TRIES TO MUMBLE WORDS, NOT IN DISTRESS. NO S/S OF PAIN AT THIS TIME. SAFETY MEASURES IN PLACE WITH BED IN LOWEST LOCKED POSITION WITH SIDE RAILS UP X2. CALL LIGHT WITHIN REACH. WILL CONTINUE TO MONITOR.
[2019-09-26 20:29] VITALS: BP 135/60
[2019-09-26] MEDS: LEVETIRACETAM (500MG) 1,000 MG in IV NS 0.9% 100 ML IV SCH (21:27)
[2019-09-26] MEDS: ALPRAZOLAM 1 MG TABLET PO SCH (21:28)
[2019-09-26] MEDS: SIMVASTATIN 10 MG TABLET PO SCH (21:28)
[2019-09-27] VITALS (24 sets, daily range): BP systolic 94–145; BP diastolic 32–90
[2019-09-27] MEDS: ALBUTEROL FS 2.5 MG/3 ML VIAL.NEB NEB SCH ×7 (00:11→23:31)
[2019-09-27 06:33] LABS: BASOPHILS # (AUTO) 0.1 /CMM (0.0-0.2); BASOPHILS % (AUTO) 0.4 % (0.0-2.0); CALCIUM, SERUM 9.1 mg/dL (8.5-10.1); CREATININE 0.4 mg/dL (0.6-1.3); EOSINOPHILS % (AUTO) 0.2 % (0.0-6.0); HEMATOCRIT 37 % (33-45); HEMOGLOBIN 12.3 g/dL (11.5-14.8); LYMPHOCYTES # (AUTO) 3.1 /CMM (0.8-4.8); LYMPHOCYTES % (AUTO) 16.7 % (20.0-44.0); MAGNESIUM 1.6 mg/dL (1.8-2.4); MEAN CORPUSCULAR HGB CONC 33 g/dl (31.0-36.0); MEAN CORPUSCULAR VOLUME 86 fL (82-100); MONOCYTES # (AUTO) 1.6 /CMM (0.1-1.30); MONOCYTES % (AUTO) 8.5 % (2.0-12.0); NEUTROPHILS # (AUTO) 13.7 /CMM (1.8-8.9); NEUTROPHILS % (AUTO) 74.2 % (43.0-81.0); PHOSPHORUS 3.5 mg/dL (2.5-4.9); PLATELET COUNT (AUTO) 322 /CMM (150-450); POTASSIUM 3.9 mmol/L (3.5-5.1); WHITE BLOOD COUNT (AUTO) 18.5 K/uL (4.3-11.0)
[2019-09-27] MEDS: AMIKACIN 400 MG in IV D5W 100 ML IV SCH ×2 (06:34→18:30)
[2019-09-27 07:19] LABS: LYMPHOCYTES % (MANUAL) 20 % (16-48); MONOCYTES % (MANUAL) 7 % (0-11.0); NEUTROPHILS % (MANUAL) 73 (42-76)
[2019-09-27] MEDS: PANTOPRAZOLE 40 MG TABLET.DR PO SCH (07:30)
[2019-09-27] MEDS: ALBUTEROL FS 2.5 MG/0.5 ML VIAL.NEB NEB SCH ×4 (07:35→19:40)
--- NOTE | 2019-09-27 07:40 | NUR ---
THERMOSTAT MECHANIC NOTES PT IN BED, AWAKE, ALERT TO SELF, TRIES TO MUMBLE WORDS, NOT IN DISTRESS. NO S/S OF PAIN AT THIS TIME. PT TURNED Q2 HOURS THROUGHOUT SHIFT. PT KEPT CLEAN, DRY, AND COMFORTABLE. SAFETY MEASURES IN PLACE WITH BED IN LOWEST LOCKED POSITION WITH SIDE RAILS UP X2. CALL LIGHT WITHIN REACH. WILL ENDORSE TO ONCOMING NURSE FOR CEDRIC.
--- NOTE | 2019-09-27 08:00 | NUR ---
BANK OFFICER OPENING NOTES Patient asleep and resting in bed. A/O x 1. VS stable with no acute distress. Breathing even but labored on 3LPM via NC with no respiratory distress. Will continue to monitor. Denies pain. No signs and symptoms of pain. Hutchison Cath in place and patent with clear yellow output noted. Colostomy in place and patent. 22g PIV on RFA clean, intact, patent and flushing well. DILAN Midline clean, intact, patent and flushing well. LFA Portacath clean and in place. Isolation precautions in place. Safety precautions in place. Bed locked and set to lowest position with side rails x 3 up. All needs rendered at this time. Call light within reach. Will continue to monitor.
[2019-09-27] MEDS: IPRATROPIUM NEB FS 0.5 MG/2.5 ML AMPUL.NEB NEB SCH ×4 (08:26→19:40)
[2019-09-27] MEDS: ASPIRIN 81 MG TAB.CHEW PO SCH (08:54)
[2019-09-27] MEDS: BACLOFEN (10 MG) 10 MG TABLET PO SCH ×4 (08:55→21:31)
[2019-09-27] MEDS: DIVALPROEX SODIUM 250 MG TABLET.DR PO SCH ×2 (08:55→17:00)
[2019-09-27 09:59] LABS: ABG BASE EXCESS 4.4 mmol/L; ABG OXYGEN SATURATION 93.3 % (92.0-98.5); ABG PCO2 48.8 mmHg (35.0-45.0); ABG PH 7.407 (7.350-7.450); ABG PO2 70.1 mmHg (75.0-100.0); AaDO2 108.2 mmHg; COHb 0.3 % (0.5-1.5); MetHb 0.5 % (0.0-1.5); O2Hb 92.6 % (94.0-97.0); SITE, ABG Right Brachial; VENT MODE, BG NASAL CANNULA
[2019-09-27] MEDS: LEVETIRACETAM (500MG) 1,000 MG in IV NS 0.9% 100 ML IV SCH ×2 (10:27→21:31)
[2019-09-27] MEDS: Magnesium 1GM/D5W 100ML PREMIX 100 ML IV SCH ×2 (10:28→11:01)
[2019-09-27] MEDS: Z GUARD REMEDY 2 OZ OINT TP SCH (10:29)
[2019-09-27] MEDS: HYDROGEL DRESSING 90 GM TUBE TP SCH (10:29)
[2019-09-27] MEDS: ENOXAPARIN SODIUM 40 MG/0.4 ML DISP.SYRIN SQ SCH (10:30)
--- NOTE | 2019-09-27 12:14 | NUR ---
STAFFING PROGRAM MANAGERHOUSEKEEPER MANAGER NOTES Patient transferred to ICU room 254 per Paul FERMENTATION SCIENTIST. Patient in stable condition. VS stable with no acute distress. Breathing even and unlabored on 3LPM via NC with no respiratory distress. Noted coarse throughout lungs sounds. Denies pain. Endorsed to resume Magnesium IVPB. All belongings with Patient. Report given to Kassy MCCARTNEY.
[2019-09-27] MEDS: ACETYLCYSTEINE 20% SOLN 800 MG/4 ML VIAL NEB SCH ×2 (14:56→23:31)
[2019-09-27] MEDS ORDERED: FEE PK DOSING 1 MIN EA MC ONE (18:58)
[2019-09-27] MEDS: VANCOMYCIN 1 GM in IV D5W 250 ML IV SCH (19:50)
--- NOTE | 2019-09-27 20:00 | NUR ---
INTERACTIVE GRAPHIC DESIGNER - NOTES - Patient asleep and resting in bed. A/O x 1. VS stable with no acute distress. Breathing even on 3LPM via NC with no respiratory distress. Will continue to monitor. Denies pain. No signs and symptoms of pain. Hutchison Cath in place and patent with clear yellow output noted. Colostomy in place and patent. 22g PIV on RFA clean, intact, patent and flushing well. DILAN Midline clean, intact, patent and flushing well. Isolation precautions in place. Safety precautions in place. Bed locked and set to lowest position with side rails x 3 up. All needs rendered at this time. Call light within reach. Will continue to monitor.
[2019-09-27 20:18] LABS: APPEARANCE,URINE CLEAR (CLEAR); BILIRUBIN,URINE SMALL (NEGATIVE); BLOOD, URINE SMALL Ery/uL (NEGATIVE); COLOR,URINE YELLOW (YELLOW); KETONES,URINE >=80 (NEGATIVE); LEUKOCYTE ESTERASE ,URINE TRACE (NEGATIVE); NITRITE, URINE NEGATIVE (NEGATIVE); PROTEIN,URINE TRACE mg/dl (NEGATIVE); UGLUCOSE NEGATIVE (NEGATIVE); UROBILINOGEN,URINE 0.2 EU/dL (0.2)
[2019-09-27 20:25] LABS: BACTERIA,URINE 2+ /HPF (None Seen); SQUAMOUS EPITHELIAL CELL,UR 0-2 /HPF (None Seen)
[2019-09-27 20:26] LABS: HYALINE CASTS, URINE r /LPF (None Seen); YEAST,URINE Many /HPF (None Seen)
[2019-09-27] MEDS: SIMVASTATIN 10 MG TABLET PO SCH (21:31)
[2019-09-27] MEDS: ALPRAZOLAM 1 MG TABLET PO SCH (21:32)
[2019-09-28] VITALS (32 sets, daily range): BP systolic 95–157; BP diastolic 32–98
[2019-09-28] MEDS: ALBUTEROL FS 2.5 MG/3 ML VIAL.NEB NEB SCH ×4 (03:30→14:54)
[2019-09-28] MEDS: VANCOMYCIN 1 GM in IV D5W 250 ML IV SCH ×3 (03:53→20:21)
[2019-09-28] MEDS: IV NS 0.9% 1,000 ML IV PRN (04:10)
[2019-09-28 04:44] LABS: BASOPHILS % (AUTO) 0.3 % (0.0-2.0); EOSINOPHILS % (AUTO) 0.8 % (0.0-6.0); HEMATOCRIT 36 % (33-45); HEMOGLOBIN 11.7 g/dL (11.5-14.8); LYMPHOCYTES # (AUTO) 2.9 /CMM (0.8-4.8); LYMPHOCYTES % (AUTO) 20.9 % (20.0-44.0); MEAN CORPUSCULAR HGB CONC 33 g/dl (31.0-36.0); MEAN CORPUSCULAR VOLUME 87 fL (82-100); MONOCYTES # (AUTO) 1.8 /CMM (0.1-1.30); MONOCYTES % (AUTO) 13.4 % (2.0-12.0); NEUTROPHILS # (AUTO) 8.9 /CMM (1.8-8.9); NEUTROPHILS % (AUTO) 64.6 % (43.0-81.0); PLATELET COUNT (AUTO) 463 /CMM (150-450); RED BLOOD CELL COUNT(AUTO) 4.12 MIL/uL (4.0-5.2); WHITE BLOOD COUNT (AUTO) 13.8 K/uL (4.3-11.0)
[2019-09-28 05:07] LABS: CALCIUM, SERUM 8.7 mg/dL (8.5-10.1); CREATININE 0.4 mg/dL (0.6-1.3); PHOSPHORUS 3.2 mg/dL (2.5-4.9); POTASSIUM 3.1 mmol/L (3.5-5.1)
[2019-09-28] MEDS: PANTOPRAZOLE 40 MG TABLET.DR PO SCH (07:30)
--- NOTE | 2019-09-28 07:31 | NUR ---
DREDGE ENGINEER NOTES OPENING PATIENT IN BED A/OX2-3 , COMFORTABLE. NO SOB OR DISCOMFORT NOTED AT THIS TIME. PATIENT ON JEFFERY AND COLOSTOMY BAG. ON ISOLATION ESBL URINE. CALL LIGHT WITHIN REACH BED AT THE LOWEST POSITION LOCKED. WILL CONTINUE TO MONITOR PT.
[2019-09-28] MEDS: IPRATROPIUM NEB FS 0.5 MG/2.5 ML AMPUL.NEB NEB SCH ×4 (07:48→20:06)
[2019-09-28] MEDS: ALBUTEROL FS 2.5 MG/0.5 ML VIAL.NEB NEB SCH ×4 (07:48→20:06)
[2019-09-28] MEDS: ACETYLCYSTEINE 20% SOLN 800 MG/4 ML VIAL NEB SCH ×3 (07:48→23:49)
[2019-09-28] MEDS: ASPIRIN 81 MG TAB.CHEW PO SCH (09:00)
[2019-09-28] MEDS: BACLOFEN (10 MG) 10 MG TABLET PO SCH ×4 (09:00→20:57)
[2019-09-28] MEDS: DIVALPROEX SODIUM 250 MG TABLET.DR PO SCH (09:00)
[2019-09-28] MEDS: ENOXAPARIN SODIUM 40 MG/0.4 ML DISP.SYRIN SQ SCH (09:42)
--- NOTE | 2019-09-28 09:44 | NUR ---
VP & GENERAL COUNSEL NOTES MITCH NOT AVAILABLE AT MED ROOM CONTACTED PHARMACY. THEY WILL DELIVER THE MED.
[2019-09-28] MEDS: LEVETIRACETAM (500MG) 1,000 MG in IV NS 0.9% 100 ML IV SCH ×2 (09:50→22:09)
[2019-09-28] MEDS: POTASSIUM CL. PREMIX PERIPHER. 50 ML IV SCH ×4 (10:21→13:27)
[2019-09-28] MEDS: HYDROGEL DRESSING 90 GM TUBE TP SCH (10:25)
[2019-09-28] MEDS: Z GUARD REMEDY 2 OZ OINT TP SCH (10:25)
--- NOTE | 2019-09-28 10:44 | NUR ---
SECURITIES TELLER NOTES INFORMED SPORTS WRITER SHELBY ABOUT PATIENT NPO STATUE AND MEDS WHICH WERE NOT ADMINISTRATED AT 0900. HOSPITALIST ORDERED IV ROUTE OF DEPAKOTE. CALLED PHARMACY AND THEY CHANGED THE ORDER TO IV FORM DEPACON 500 MG Q12 HR.
[2019-09-28] MEDS: VALPROATE 500 MG in IV NS 0.9% 100 ML IV SCH ×2 (12:45→22:38)
[2019-09-28] MEDS: CLOTRIMAZOLE 1% 15 GM TUBE TP SCH ×2 (16:56→17:23)
--- NOTE | 2019-09-28 16:56 | NUR ---
OCCUPATIONAL THERAPY DIRECTOR NOTES PATIENT TRANSFERRED TO [facility] WITH 2 RNS. NO SOB OR DISCOMFORT NOTED AT THIS TIME. BELONGINGS CHECKED.CALL LIGHT WITHIN REACH , BED AT THE LOWEST POSITION LOCKED , WILL CONTINUETO MONITOR PT.
[2019-09-28] MEDS ORDERED: DOSING PER PHARMACY-AMIKACI IV XX PRN (18:30)
[2019-09-28] MEDS ORDERED: FEE PK DOSING 1 MIN EA MC ONE (18:39)
--- NOTE | 2019-09-28 19:24 | NUR ---
LABORATORY TESTER NOTES PATIENT IN BED COMFORTABLE A/OX2-3. ABLE COMMUNICATE WITH SLOW SPEECH PATTERN. NO SOB OR DISCOMFORT NOTED AT THIS TIME. CALLED FAMILY AND INFORMED THAT SHE WAS TRANSFERRED TO [facility]. ALL NEEDS ATTENDED, MEDICATION ADMINISTRATED. ENDORSED TO TAPE CALENDER NURSE FOR CEDRIC.
--- NOTE | 2019-09-28 19:30 | NUR ---
INITIAL SHIFT NOTES - RN RECEIVED PATIENT IN BED, AWAKE, ALERT X 1 TO SELF, UNABLE TO VERBALIZE NEEDS, ALTHOUGH PATIENT NOTED TO BE ATTEMPTING TO COMMUNICATE, ONLY MUMBLED/GARBLED WORDS CAN BE HEARD. PATIENT ABLE TO NOD YES/NO TO QUESTIONS. JEFFERY CATHETER PATENT AND INTACT, DRAINING CLEAR YELLOW URINE VIA GRAVITY. NPO DIAGNOSIS AT THIS TIME DUE TO FAILED SWALLOW EVALUATION. DILAN MIDLINE PATENT AND INTACT, GOOD VENOUS RETURN NOTED, ONGOING IV FLUIDS. ALSO NOTED WITH COLOSTOMY, PATENT AND INTACT, FORMED BROWN STOOL NOTED IN BAG. BED IN LOWEST AND LOCKED POSITION, HOB KEPT ELEVATED FOR COMFORT. WILL MONITOR CLOSELY
[2019-09-28] MEDS: AMIKACIN 400 MG in IV D5W 100 ML IV SCH (21:27)
[2019-09-28] MEDS: SIMVASTATIN 10 MG TABLET PO SCH (21:44)
--- NOTE | 2019-09-28 23:00 | NUR ---
RN NOTES RN WAS NOTIFIED BY BRIDGE REPAIR CREW PERSON THAT PATIENT REQUESTING FOR WATER. RN AT BEDSIDE TO INITIATE BEDSIDE SWALLOW EVALUATION. PATIENT UNABLE TO SAFELY SWALLOW. EXPLAINED TO PATIENT THAT SHE MUST REMAIN NPO AT THIS TIME. PATIENT NODS TO UNDERSTANDING, WILL MONITOR CLOSELY
[2019-09-29] VITALS: BP 106/59
[2019-09-29] MEDS: IV NS 0.9% 1,000 ML IV PRN ×2 (00:51→18:40)
[2019-09-29] MEDS: MORPHINE SULFATE INJ 2 MG/ML DISP.SYRIN IV PRN ×3 (00:52→23:38)
[2019-09-29 04:00] VITALS: BP 112/63
--- NOTE | 2019-09-29 04:00 | NUR ---
RN NOTES FULL BED BATH RENDERED, WOUND CARE PERFORMED PRESCRIBED. PATIENT TOLERATED WELL.
[2019-09-29] MEDS: VANCOMYCIN 1 GM in IV D5W 250 ML IV SCH ×3 (05:01→20:16)
[2019-09-29 06:47] LABS: BASOPHILS % (AUTO) 0.4 % (0.0-2.0); EOSINOPHILS % (AUTO) 2.1 % (0.0-6.0); HEMATOCRIT 34 % (33-45); HEMOGLOBIN 11.2 g/dL (11.5-14.8); LYMPHOCYTES # (AUTO) 2.8 /CMM (0.8-4.8); LYMPHOCYTES % (AUTO) 31.1 % (20.0-44.0); MEAN CORPUSCULAR HGB CONC 32 g/dl (31.0-36.0); MEAN CORPUSCULAR VOLUME 86 fL (82-100); MONOCYTES % (AUTO) 11.5 % (2.0-12.0); NEUTROPHILS % (AUTO) 54.9 % (43.0-81.0); PLATELET COUNT (AUTO) 468 /CMM (150-450); RED BLOOD CELL COUNT(AUTO) 3.99 MIL/uL (4.0-5.2); WHITE BLOOD COUNT (AUTO) 9.2 K/uL (4.3-11.0)
--- NOTE | 2019-09-29 07:00 | NUR ---
NEGAR TELE NOTES RECEIVED BEDSIDE REPORT. PT IN BED ASLEEP ABLE TO AROUSE WITH VOICE AND TOUCH. SLURRED SPEECH D/T PROGRESSION OF DISEASE. A/O X 2. NO S/S OF RESPIRATORY DISTRESS ON 2 LTRS NC OR ACUTE PAIN. SINUS ON MONITOR. JEFFERY CATH DRAINING CLEAR YELLOW URINE COLOSTOMY BAG INTACT WITH SMALL AMOUNT OF FORM STOOL. IVF NS @75 ML/HR RUNNING IN DILAN PICC RFA SALINE LOCK. LFA PORT A CATH NOT ACCESSED AT THIS TIME. SAFETY AND ASPIRATION PRECAUTIONS IN PLACE BED IN LOW LOW LOCKED POSITION. WILL CONT TO MONITOR ACCORDINGLY
[2019-09-29] MEDS: PANTOPRAZOLE 40 MG TABLET.DR PO SCH (07:30)
[2019-09-29] MEDS: IPRATROPIUM NEB FS 0.5 MG/2.5 ML AMPUL.NEB NEB SCH ×4 (07:54→19:49)
[2019-09-29] MEDS: ACETYLCYSTEINE 20% SOLN 800 MG/4 ML VIAL NEB SCH ×3 (07:54→23:19)
[2019-09-29] MEDS: ALBUTEROL FS 2.5 MG/0.5 ML VIAL.NEB NEB SCH ×4 (07:54→19:30)
[2019-09-29 08:00] VITALS: BP_SYST 126; BP_SYST 127; BP_DIAS 61; BP_DIAS 68; BP_DIAS 71
[2019-09-29] MEDS: LEVETIRACETAM (500MG) 1,000 MG in IV NS 0.9% 100 ML IV SCH ×2 (08:07→21:58)
[2019-09-29] MEDS: ASPIRIN 81 MG TAB.CHEW PO SCH (08:14)
[2019-09-29] MEDS: BACLOFEN (10 MG) 10 MG TABLET PO SCH ×4 (08:14→21:00)
[2019-09-29 08:17] LABS: CALCIUM, SERUM 8.7 mg/dL (8.5-10.1); CREATININE 0.5 mg/dL (0.6-1.3); MAGNESIUM 1.7 mg/dL (1.8-2.4); PHOSPHORUS 3.6 mg/dL (2.5-4.9); POTASSIUM 3.2 mmol/L (3.5-5.1)
[2019-09-29] MEDS: VALPROATE 500 MG in IV NS 0.9% 100 ML IV SCH ×2 (08:47→21:58)
[2019-09-29] MEDS: Z GUARD REMEDY 2 OZ OINT TP SCH (09:10)
[2019-09-29] MEDS: AMIKACIN 400 MG in IV D5W 100 ML IV SCH ×2 (09:10→22:53)
[2019-09-29] MEDS: HYDROGEL DRESSING 90 GM TUBE TP SCH (09:10)
[2019-09-29] MEDS: CLOTRIMAZOLE 1% 15 GM TUBE TP SCH ×2 (09:10→17:15)
[2019-09-29] MEDS: ENOXAPARIN SODIUM 40 MG/0.4 ML DISP.SYRIN SQ SCH (09:15)
--- NOTE | 2019-09-29 09:30 | NUR ---
SPEECH THERAPIST AT BEDSIDE FOR SWALLOW EVALUATION. PT FAILED
--- NOTE | 2019-09-29 10:35 | NUR ---
PT REFUSED MRI
[2019-09-29] MEDS ORDERED: POTASSIUM CHLORIDE 20 MEQ TAB.PRT.SR PO SCH (11:30)
[2019-09-29] MEDS: POTASSIUM CL. PREMIX PERIPHER. 50 ML IV SCH ×4 (11:53→14:54)
[2019-09-29] MEDS: Magnesium 1GM/D5W 100ML PREMIX 100 ML IV SCH ×2 (11:53→12:49)
[2019-09-29 12:00] VITALS: BP 115/76
--- NOTE | 2019-09-29 15:30 | NUR ---
BED BATH GIVEN WOUND AND ORAL CARE RENDERED
--- NOTE | 2019-09-29 15:32 | NUR ---
PER MD YOUNG PT TO HAVE ONE MORE SWALLOW EVALUATION 09/30 IF PT FAILS CONSIDER GTF FOR NUTRITION
[2019-09-29 16:00] VITALS: BP 122/78
[2019-09-29] MEDS ORDERED: FLUCONAZOLE (100 MG) 100 MG TABLET PO SCH (18:30)
--- NOTE | 2019-09-29 19:00 | NUR ---
RN OPENING NOTES: RECEIVED PT IN BED, A&0X2. ON TELE MONITOR SHOWING SR. ON 2L/MIN NC. NO DISTRESS NOTED. PT HAS COLOSTOMY AND JEFFERY CATH. NPO AT THIS TIME, FAILED SWALLOW EVAL. HAS DILAN PICC W/ NS RUNNING AT 75ML/HR. HAS RFA #22 SL, FLUSHED AND PATENT. LFA KELSI CATH NOT ACCESSED AT THIS TIME. BED IN LOWEST AND LOCKED POSITION, AND CALL LIGHT W/IN REACH. WILL CONTINUE TO MONITOR.
--- NOTE | 2019-09-29 19:01 | NUR ---
RN NOTES PT REMAINED STABLE AND AFEBRILE THROUGHOUT SHIFT. ALL NEEDS MET. WILL ENDORSE TO NOC
[2019-09-29 20:00] VITALS: BP 133/88
--- NOTE | 2019-09-29 20:00 | NUR ---
RN NOTES: PT NOTED W/ LOW GRADE FEVER OF 99.0. COOLING MEASURES STARTED. WILL CONTINUE TO MONITOR.
--- NOTE | 2019-09-29 20:45 | NUR ---
RN NOTES: RECHECKED PT'S TEMP 97.8. COOLING MEASURES EFFECTIVE. WILL CONTINUE TO MONITOR.
[2019-09-29] MEDS: SIMVASTATIN 10 MG TABLET PO SCH (22:00)
[2019-09-29] MEDS ORDERED: IV NS 0.9% 250 ML IV PRN (22:00)
[2019-09-29] MEDS: FLUCONAZOLE IN NS,PREMIX 100 MG in PREMIX 1 EA IV SCH ×2 (23:02)
[2019-09-30] VITALS: BP 136/90
[2019-09-30] MEDS: VANCOMYCIN 1 GM in IV D5W 250 ML IV SCH ×2 (03:33→12:11)
[2019-09-30 04:00] VITALS: BP 125/77
[2019-09-30 06:30] LABS: CALCIUM, SERUM 8.7 mg/dL (8.5-10.1); CREATININE 0.5 mg/dL (0.6-1.3); MAGNESIUM 1.9 mg/dL (1.8-2.4); POTASSIUM 3.5 mmol/L (3.5-5.1)
--- NOTE | 2019-09-30 06:47 | NUR ---
RN CLOSING NOTES: PT RESTING IN BED A&OX2 ON 2L NC TOLERATING WELL. NO ACUTE CHANGES DURING SHIFT. NPO. ALL IV MEDS AND WOUND TX GIVEN ORDERED. HAS FINAL SWALLOW EVAL THIS AM. BED IN LOWEST AND LOCKED POSITION, CALL LIGHT WITHIN REACH. WILL CONTINUE TO MONITOR. Addendum: 09/30/19 at 0651 by VICKY TRUJILLO RN WILL ENDORSE TO AM NURSE.
[2019-09-30] MEDS: PANTOPRAZOLE 40 MG TABLET.DR PO SCH (07:30)
--- NOTE | 2019-09-30 07:30 | NUR ---
RN NOTES RECEIVED REPORT FROM NIGHT NURSE. PT IN BED, A&0X2. ON TELE MONITOR SHOWING SR. NPO AT THIS TIME, FAILED SWALLOW EVAL. Continues ON 2L/MIN NC. BREATHING NORMAL NO DISTRESS NOTED. PT HAS COLOSTOMY AND JEFFERY CATH. PATIENT HAS DILAN PICC W/ NS RUNNING AT 75ML/HR. HAS RFA #22 SL, FLUSHED AND PATENT. LFA KELSI CATH NOT ACCESSED AT THIS TIME. BED IN LOWEST AND LOCKED POSITION, CALL LIGHT WITHIN REACH. WILL CONTINUE WITH PLAN OF CARE.
[2019-09-30] MEDS: IPRATROPIUM NEB FS 0.5 MG/2.5 ML AMPUL.NEB NEB SCH ×4 (07:38→19:51)
[2019-09-30] MEDS: ALBUTEROL FS 2.5 MG/0.5 ML VIAL.NEB NEB SCH ×5 (07:38→19:52)
[2019-09-30] MEDS: ACETYLCYSTEINE 20% SOLN 800 MG/4 ML VIAL NEB SCH ×3 (07:39→23:57)
[2019-09-30 08:00] VITALS: BP 130/69
[2019-09-30] MEDS: ENOXAPARIN SODIUM 40 MG/0.4 ML DISP.SYRIN SQ SCH (08:23)
[2019-09-30] MEDS: ASPIRIN 81 MG TAB.CHEW PO SCH (08:27)
[2019-09-30] MEDS: BACLOFEN (10 MG) 10 MG TABLET PO SCH ×4 (08:28→20:13)
[2019-09-30] MEDS: CLOTRIMAZOLE 1% 15 GM TUBE TP SCH ×2 (08:32→17:23)
[2019-09-30] MEDS: HYDROGEL DRESSING 90 GM TUBE TP SCH (08:34)
[2019-09-30] MEDS: Z GUARD REMEDY 2 OZ OINT TP SCH (08:35)
[2019-09-30] MEDS: VALPROATE 500 MG in IV NS 0.9% 100 ML IV SCH ×2 (10:03→20:59)
[2019-09-30] MEDS: LEVETIRACETAM (500MG) 1,000 MG in IV NS 0.9% 100 ML IV SCH ×2 (10:04→20:13)
[2019-09-30] MEDS: AMIKACIN 400 MG in IV D5W 100 ML IV SCH ×2 (10:04→20:13)
[2019-09-30] MEDS: IV NS 0.9% 1,000 ML IV PRN (15:39)
[2019-09-30 16:00] VITALS: BP 124/91
[2019-09-30] MEDS: ACETAMINOPHEN 325 MG TABLET PO PRN (18:41)
--- NOTE | 2019-09-30 19:20 | NUR ---
RN OPENING NOTE RECEIVED PATIENT IN BED RESTING WITH HOB ELEVATED. A&O X1. ON O2 4L VIA NC. ON IV NS HYDRATION RUNNING AT 75 ML/HR. IV SITE ON RIGHT UPPER ARM. ON JEFFERY. COLOSTOMY PRESENT. BREATHING IS EVEN AND NON LABORED. NO SOB NOTED. CALL LIGHT IS WITHIN REACH. BED IS LOWERED TO LOW POSITION AND LOCKED FOR SAFETY. IN NO APPARENT DISTRESS NOTED AT THIS TIME. WILL CONTINUE TO MONITOR.
--- NOTE | 2019-09-30 20:00 | NUR ---
RN CLOSING NOTES PATIENT IN STABLE CONDITION, EXPERIENCED AN EPISODE OF FEVER TOWARDS THE END OF SHIFT. TEMPERATURE OF 100.4 WAS RECORDED, ADMINISTERED TYLENOL TO HELP WITH FEVER, ENDORSED TO FISHERIES DIVER NURSE TO RECHECK VITALS SOON POSSIBLE. OTHERWISE PATIENT IN STABLE CONDITION, NO ACUTE CHANGES NOTED DURING MY SHIFT. ALL PATIENT NEEDS MET. PT PASSED SWALLOW EVAL, PUREED CARDIAC DIET ORDERED, PATIENT CAN TAKE MEDS CRUSHED, VERY SLOWLY, ENDORSED TO FISHERIES DIVER NURSE TO BE CAREFUL WHEN PASSING PO MEDS. RIGHT FOREARM IV WAS DISLODGED, REMOVED NO S/S OF INFECTION NOTED. SAFETY MAINTAINED, CALL LIGHT WITHIN REACH, ENDORSED TO FISHERIES DIVER NURSE TO CONTINUE CARE.
[2019-09-30] MEDS: FLUCONAZOLE IN NS,PREMIX 100 MG in PREMIX 1 EA IV SCH ×2 (20:59)
[2019-09-30] MEDS: SIMVASTATIN 10 MG TABLET PO SCH (21:11)
[2019-10-01] VITALS: BP 128/58
[2019-10-01] MEDS: ACETAMINOPHEN 325 MG TABLET PO PRN (04:11)
[2019-10-01 04:50] VITALS: BP 128/58
[2019-10-01 04:51] VITALS: BP 127/60
[2019-10-01 06:47] LABS: CALCIUM, SERUM 8.7 mg/dL (8.5-10.1); CREATININE 0.5 mg/dL (0.6-1.3); POTASSIUM 3.5 mmol/L (3.5-5.1)
[2019-10-01 08:00] VITALS: BP 138/78
[2019-10-01] MEDS: ACETYLCYSTEINE 20% SOLN 800 MG/4 ML VIAL NEB SCH ×2 (08:00→15:08)
[2019-10-01] MEDS: ALBUTEROL FS 2.5 MG/0.5 ML VIAL.NEB NEB SCH ×3 (08:00→15:09)
[2019-10-01] MEDS: IPRATROPIUM NEB FS 0.5 MG/2.5 ML AMPUL.NEB NEB SCH ×3 (08:00→15:08)
[2019-10-01] MEDS: BACLOFEN (10 MG) 10 MG TABLET PO SCH ×3 (08:15→16:40)
[2019-10-01] MEDS: PANTOPRAZOLE 40 MG TABLET.DR PO SCH (08:15)
[2019-10-01] MEDS: ASPIRIN 81 MG TAB.CHEW PO SCH (08:15)
[2019-10-01] MEDS: ENOXAPARIN SODIUM 40 MG/0.4 ML DISP.SYRIN SQ SCH (08:23)
[2019-10-01] MEDS: HYDROGEL DRESSING 90 GM TUBE TP SCH (08:27)
[2019-10-01] MEDS: Z GUARD REMEDY 2 OZ OINT TP SCH (08:27)
[2019-10-01] MEDS: CLOTRIMAZOLE 1% 15 GM TUBE TP SCH ×2 (08:27→16:54)
[2019-10-01] MEDS ORDERED: DIVALPROEX SODIUM 500 MG TABLET.DR PO SCH (09:00)
[2019-10-01] MEDS ORDERED: AMIKACIN 500 MG in IV D5W 100 ML IV SCH (09:00)
[2019-10-01] MEDS ORDERED: LEVETIRACETAM (250 MG) 250 MG TABLET PO SCH (09:00)
[2019-10-01] MEDS: IV NS 0.9% 1,000 ML IV PRN (09:11)
--- NOTE | 2019-10-01 09:50 | NUR ---
RN OPENING NOTE: RECEIVED PATIENT IN BED THIS MORNING, RESTING. PATIENT IS RESTING IN BED. UNABLE TO SPEAK. O2 NC AT 3L/MIN. NO RESPIRATORY DISTRESS NOTED. LUNG SOUNDS CLEAR. PATEINT HAS A COLOSTOMY, NO SIGNS OF COMPLICATIONS NOTED, SITE CDI. MIDLINE ON DILAN, FLUSHIN WELL, SITE C/D/I. PATIENT HAS A JEFFERY, DRAINING. CONTACT ISOLATION FOR ESBL OF URINE. PATIENT ON PUREE DIET, CRUSHED PILLS. SAFETY MEASURES IMPLEMENTED, BED IN LOWEST POSITION, LOCKED, SIDE RAILS UP X2, CALL LIGHT WITHIN REACH WILL CONTINUE TO MONITOR PATIENT.
[2019-10-01 16:00] VITALS: BP 138/78
--- NOTE | 2019-10-01 20:01 | NUR ---
D/C NOTES PT PICKED UP BY EMS PT BELONGING AND EXITCARE EDUCATION DONE. PT UNABLE TO VERBALIZE BUT WILL NOD HER HEAD IN UNDERSTANDING. PT GOING WITH MIDLINE TO CONTINUE IV ANTIBIOTICS. PT WILL BE GOING HOME ON HOME HEALTH PER FAMILY REQUEST. PHOTOS TAKEN AND PLACED IN CHART. PT D/C ON JUDE ACCOMPANIED BY EMS.
[2019-10-01] MEDS ORDERED: FLUCONAZOLE (100 MG) 100 MG TABLET PO SCH (21:00)
== END 2019-10-01 19:45 | disposition home health service (06) | DRG 853 ==
LOC: ER 22:50 → MED 09-20 02:57 → TELE 09-26 09:05 → MED 09-27 10:19 → ICU 09-27 11:49 → TELE-TD 09-28 16:15 → TELE1 09-28 16:48 → MEDSG1 09-30 08:53
PROVIDERS: ADMIT Nurse Practitioner Acute Care; ATTEND Nurse Practitioner Acute Care
PROC: 0KBP0ZZ Excision of Left Hip Muscle, Open Approach (ICD-10-PCS; principal; 2019-09-21)
PROC: 0KBN0ZZ Excision of Right Hip Muscle, Open Approach (ICD-10-PCS; 2019-09-21)
PROC: 05H533Z Insertion of Infusion Device into Right Subclavian Vein, Percutaneous Approach (ICD-10-PCS; 2019-09-26)
PROC: B546ZZA Ultrasonography of Right Subclavian Vein, Guidance (ICD-10-PCS; 2019-09-26)
PROC: 0KBP0ZZ Excision of Left Hip Muscle, Open Approach (ICD-10-PCS; 2019-09-30)
PROC: 0KBN0ZZ Excision of Right Hip Muscle, Open Approach (ICD-10-PCS; 2019-09-30)
DX: A41.9 Sepsis, unspecified organism (principal); L89.154 Pressure ulcer of sacral region, stage 4; I50.33 Acute on chronic diastolic (congestive) heart failure; J96.22 Acute and chronic respiratory failure with hypercapnia; J96.21 Acute and chronic respiratory failure with hypoxia; G92 Toxic encephalopathy; J69.0 Pneumonitis due to inhalation of food and vomit; E44.0 Moderate protein-calorie malnutrition; N39.0 Urinary tract infection, site not specified; D68.69 Other thrombophilia; Z16.12 Extended spectrum beta lactamase (ESBL) resistance; E87.2 Acidosis; E66.2 Morbid (severe) obesity with alveolar hypoventilation; J45.909 Unspecified asthma, uncomplicated; I25.10 Atherosclerotic heart disease of native coronary artery without angina pectoris; I11.9 Hypertensive heart disease without heart failure; I11.0 Hypertensive heart disease with heart failure; E83.42 Hypomagnesemia; E83.51 Hypocalcemia; G40.909 Epilepsy, unspecified, not intractable, without status epilepticus; B96.20 Unspecified Escherichia coli [E. coli] as the cause of diseases classified elsewhere; Z88.0 Allergy status to penicillin; Z93.3 Colostomy status; Z87.440 Personal history of urinary (tract) infections; G35 Multiple sclerosis; R73.9 Hyperglycemia, unspecified; E88.09 Other disorders of plasma-protein metabolism, not elsewhere classified; Z68.35 Body mass index [BMI] 35.0-35.9, adult; N31.9 Neuromuscular dysfunction of bladder, unspecified; L98.8 Other specified disorders of the skin and subcutaneous tissue; H92.01 Otalgia, right ear; L08.9 Local infection of the skin and subcutaneous tissue, unspecified; I25.2 Old myocardial infarction
CPT/HCPCS: 31720; 36410; 36415; 36600; 70450-TC; 70496-TC; 70551-TC; 71045-TC; 80048-TC; 80061-TC; 80076-TC; 80150; 80164-TC; 80177; 80202-TC; 81000-TC; 82803-TC; 83605-TC; 83735-TC; 84100-TC; 84484-TC; 84703-TC; 85025-TC; 85378-TC; 85730-TC; 87040-TC; 87070-TC; 87081-TC; 87086-TC; 87186-TC; 92521; 92526; 92611-TC; 93971-TC; 94799-TC; 95819-TC; 97112-TC; 97530-TC; A4216; A6248; A6253; A6403; A6407; G0378; J0278; J0696; J1450; J1650; J1953; J2270; J3370; J3475; J3480; J3490; J7030; J7040; J7050; J7060; Q9967